=== PATIENT | male | born 1935 | race Caucasian/White ===

== ENCOUNTER 2016-10-13 12:18 | Observation (INO) | payer MEDICARE ==
--- NOTE | 2016-10-13 12:42 | ED ---
General Adult HPI - General Stated complaint: syncope Time Seen by Provider: 10/13/16 12:20 Source: RN notes reviewed - History of Present Illness Initial comments: This is an 81-year-old male presents emergency Department with a past medical history significant for bypass surgery and hypertension. Patient was at [employer] today and he stated that he felt a little dizzy and then passed out twice states he was passed out for about 5 minutes. Patient states once he awoke he had no symptoms. Patient states he felt dizzy at home before [employer] this morning but it only last for a few seconds. Patient states he ate a good breakfast this morning. Patient denies any chest pain or palpitations. Patient denies any difficult breathing shortness breath per patient denies headache patient denies numbness weakness. Patient denies abdominal pain patient denies any nausea vomiting or diarrhea. states she has been sick with diarrhea and vomiting a day or 2 ago and she is just getting over now. - Related Data Home Medications Medication Instructions Recorded Confirmed Aspirin EC [Ecotrin] 81 mg PO DAILY 05/16/16 10/13/16 Atorvastatin [Lipitor] 40 mg PO HS 05/16/16 10/13/16 Carvedilol [Coreg] 3.125 mg PO BID 05/16/16 10/13/16 Isosorbide Mononitrate ER [Imdur] 15 mg PO DAILY 05/16/16 10/13/16 Previous Rx's Medication Instructions Recorded Clopidogrel [Plavix] 75 mg PO DAILY #30 tab 05/28/14 Losartan [Cozaar] 25 mg PO DAILY #90 tab 05/28/14 Nitroglycerin Sl Tabs [Nitrostat] 0.4 mg SUBLINGUAL Q5M PRN #100 tab 05/28/14 Allergies Allergy/AdvReac Type Severity Reaction Status Date / Time No Known Allergies Allergy Verified 10/13/16 13:22 Review of Systems ROS Statement: Those systems with pertinent positive or pertinent negative responses have been documented in the HPI. ROS Other: All systems not noted in ROS Statement are negative. Past Medical History Past Medical History: Coronary Artery Disease (CAD), Cancer, CVA/TIA, Dementia, Hyperlipidemia, Hypertension Additional Past Medical History / Comment(s): 2000 History of Any Multi-Drug Resistant Organisms: None Reported Past Surgical History: Coronary Bypass/CABG, Heart Catheterization With Stent, Hernia Repair Additional Past Surgical History / Comment(s): Open heart Quadrupal bypass Past Psychological History: No Psychological Hx Reported Smoking Status: Former smoker Past Alcohol Use History: None Reported Additional Past Alcohol Use History / Comment(s): Patient was a smoker of cigars for 10 years ago quit approximately 15 years ago. He drinks alcohol on a social basis. He denies any medical marijuana, marijuana, street drug use. Patient lives at home with his . 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 Past Drug Use History: None Reported - Past Family History Father Family Medical History: Congestive Heart Failure (CHF) ( at age 72), COPD, Coronary Artery Disease (CAD) Mother Family Medical History: Cancer (Colon cancer and at age 86.) Sister(s) Family Medical History: COPD, Liver Disease (History of alcoholism and at age 71.) General Exam - General Exam Comments Initial Comments: GENERAL: Patient is well-developed and well-nourished. Patient is nontoxic and well- hydrated and is in no acute distress. ENT: Neck is soft and supple. No significant lymphadenopathy is noted. Oropharynx is clear. Moist mucous membranes. Neck has full range of motion without eliciting any pain. EYES: Extraocular movements were intact and pupils were equal round and reactive to light. Eyelids were unremarkable. PULMONARY: Unlabored respirations. Good breath sounds bilaterally. No audible rales rhonchi or wheezing was noted. CARDIOVASCULAR: There is a regular rate and rhythm without any murmurs gallops or rubs. ABDOMEN: Soft and nontender with normal bowel sounds. No palpable organomegaly was noted. There is no palpable pulsatile mass. SKIN: Patient's face is somewhat pale as is his conjunctiva NEUROLOGIC: Patient is alert and oriented x3. Cranial nerves II through XII are grossly intact. Motor and sensory are also intact. Normal speech, volume and content. Symmetrical smile. t. MUSCULOSKELETAL: Normal extremities with adequate strength and full range of motion. No lower extremity swelling or edema. No calf tenderness. LYMPHATICS: No significant lymphadenopathy is noted PSYCHIATRIC: Normal psychiatric evaluation. Course Vital Signs 10/13/16 10/13/16 12:25 12:52 Temperature 97.8 F Pulse Rate 64 Pulse Rate [ 57 L Sitting] Pulse Rate [ 63 Standing] Pulse Rate [ 58 L Supine] Respiratory 18 Rate Blood Pressure 129/66 Blood Pressure 117/62 [Sitting] Blood Pressure 110/56 [Standing] Blood Pressure 110/60 [Supine] O2 Sat by Pulse 97 Oximetry Medical Decision Making - Medical Decision Making EKG shows sinus bradycardia 57 bpm. It was 342 QRS is 116 QT interval is 466 QTC is 453. Patient's EKG shows no ST segment elevation or depression or T wave abnormalities are noted Chest x-ray is normal. I went back in the room to discuss possibly going home with the patient he did not feel comfortable nor did the because he still feeling somewhat lightheaded in the hospital in bed. I spoke with Dr. Craven he agreed to admit the patient for admitting orders consult cardiology. - Lab Data Result diagrams: 10/13/16 13:00 10/13/16 13:00 Lab Results 10/13/16 10/13/16 10/13/16 Range/Units 13:00 13:00 13:00 WBC 9.7 (3.8-10.6) k/uL RBC 3.74 L (4.30-5.90) m/uL Hgb 11.9 L (13.0-17.5) gm/dL Hct 33.7 L (39.0-53.0) % MCV 90.2 (80.0-100.0) fL MCH 31.8 (25.0-35.0) pg MCHC 35.2 (31.0-37.0) g/dL RDW 13.3 (11.5-15.5) % Plt Count 172 (150-450) k/uL Neutrophils % 82 % Lymphocytes % 9 % Monocytes % 5 % Eosinophils % 2 % Basophils % 1 % Neutrophils # 8.0 H (1.3-7.7) k/uL Lymphocytes # 0.9 L (1.0-4.8) k/uL Monocytes # 0.5 (0-1.0) k/uL Eosinophils # 0.2 (0-0.7) k/uL Basophils # 0.1 (0-0.2) k/uL PT (9.0-12.0) sec INR (<1.1) APTT (22.0-30.0) sec Sodium 143 (137-145) mmol/L Potassium 4.2 (3.5-5.1) mmol/L Chloride 106 (98-107) mmol/L Carbon Dioxide 25 (22-30) mmol/L Anion Gap 12 mmol/L BUN 27 H (9-20) mg/dL Creatinine 1.33 H (0.66-1.25) mg/dL Est GFR (MDRD) Af Amer >60 (>60 ml/min/1.73 sqM) Est GFR (MDRD) Non-Af 52 (>60 ml/min/1.73 sqM) Glucose 91 (74-99) mg/dL Calcium 8.9 (8.4-10.2) mg/dL Magnesium 1.8 (1.6-2.3) mg/dL Total Bilirubin 1.0 (0.2-1.3) mg/dL AST 15 L (17-59) U/L ALT 27 (21-72) U/L Alkaline Phosphatase 62 (38-126) U/L Total Creatine Kinase 72 (55-170) U/L CK-MB (CK-2) 1.2 (0.0-2.4) ng/mL CK-MB (CK-2) Rel Index 1.7 Troponin I <0.012 (0.000-0.034) ng/mL Total Protein 6.7 (6.3-8.2) g/dL Albumin 3.5 (3.5-5.0) g/dL 10/13/16 Range/Units 13:00 WBC (3.8-10.6) k/uL RBC (4.30-5.90) m/uL Hgb (13.0-17.5) gm/dL Hct (39.0-53.0) % MCV (80.0-100.0) fL MCH (25.0-35.0) pg MCHC (31.0-37.0) g/dL RDW (11.5-15.5) % Plt Count (150-450) k/uL Neutrophils % % Lymphocytes % % Monocytes % % Eosinophils % % Basophils % % Neutrophils # (1.3-7.7) k/uL Lymphocytes # (1.0-4.8) k/uL Monocytes # (0-1.0) k/uL Eosinophils # (0-0.7) k/uL Basophils # (0-0.2) k/uL PT 10.3 (9.0-12.0) sec INR 1.0 (<1.1) APTT 19.6 L (22.0-30.0) sec Sodium (137-145) mmol/L Potassium (3.5-5.1) mmol/L Chloride (98-107) mmol/L Carbon Dioxide (22-30) mmol/L Anion Gap mmol/L BUN (9-20) mg/dL Creatinine (0.66-1.25) mg/dL Est GFR (MDRD) Af Amer (>60 ml/min/1.73 sqM) Est GFR (MDRD) Non-Af (>60 ml/min/1.73 sqM) Glucose (74-99) mg/dL Calcium (8.4-10.2) mg/dL Magnesium (1.6-2.3) mg/dL Total Bilirubin (0.2-1.3) mg/dL AST (17-59) U/L ALT (21-72) U/L Alkaline Phosphatase (38-126) U/L Total Creatine Kinase (55-170) U/L CK-MB (CK-2) (0.0-2.4) ng/mL CK-MB (CK-2) Rel Index Troponin I (0.000-0.034) ng/mL Total Protein (6.3-8.2) g/dL Albumin (3.5-5.0) g/dL Disposition Clinical Impression: Syncope and collapse Disposition: ADMITTED IP TO THIS [facility] Time of Disposition: 15:44
[2016-10-13 14:08] LABS: Basophils # (A) 0.1 k/uL (0-0.2); Basophils % (A) 1 %; CH 31.4; Eosinophils # (A) 0.2 k/uL (0-0.7); Eosinophils % (A) 2 %; HCT 33.7 % (39.0-53.0); HDW 3.09; HGB 11.9 gm/dL (13.0-17.5); Luc # (Auto) 0.12; Luc % (Auto) 1; Lymphocytes # (A) 0.9 k/uL (1.0-4.8); Lymphocytes % (A) 9 %; MCH 31.8 pg (25.0-35.0); MCHC 35.2 g/dL (31.0-37.0); MCV 90.2 fL (80.0-100.0); Mean Platelet Volume 7.2; Monocytes # (A) 0.5 k/uL (0-1.0); Monocytes % (A) 5 %; Neutrophils % (A) 82 %; RBC 3.74 m/uL (4.30-5.90); RDW 13.3 % (11.5-15.5); WBC 9.7 k/uL (3.8-10.6); WBC (Perox) 10.57
[2016-10-13 14:18] LABS: ALT 27 U/L (21-72); AST 15 U/L (17-59); Alkaline Phosphatase 62 U/L (38-126); Anion Gap 12 mmol/L; Blood Urea Nitrogen 27 mg/dL (9-20); Calcium 8.9 mg/dL (8.4-10.2); Carbon Dioxide 25 mmol/L (22-30); Chloride 106 mmol/L (98-107); Glucose 91 mg/dL (74-99); Magnesium 1.8 mg/dL (1.6-2.3); Non-African American GFR(MDRD) 52 (>60 ml/min/1.73 sqM); Potassium 4.2 mmol/L (3.5-5.1); Sodium 143 mmol/L (137-145); Total Protein 6.7 g/dL (6.3-8.2)
[2016-10-13 14:32] LABS: Creatine Kinase 72 U/L (55-170)
[2016-10-13 14:33] LABS: Prothrombin Time 10.3 sec (9.0-12.0)
[2016-10-13 14:36] LABS: Partial Thromboplastin Time 19.6 sec (22.0-30.0)
[2016-10-13 14:45] LABS: Creatine Kinase MB 1.2 ng/mL (0.0-2.4); Troponin I <0.012 ng/mL (0.000-0.034)
--- NOTE | 2016-10-13 15:32 | XR ---
EXAMINATION TYPE: XR chest 2V DATE OF EXAM: 10/13/2016 3:09 PM COMPARISON: 05/16/2016 HISTORY: Chest pain TECHNIQUE: Frontal and lateral views of the chest are obtained. FINDINGS: There is no heart failure nor confluent pneumonic infiltrate. There are no hilar masses. H eart size is normal. There are sternal wires. There are chest leads. There is no evidence of pleural effusion. There is spurring in the thoracic spine. IMPRESSION: No active cardiopulmonary disease. No change.
[2016-10-13] MEDS ORDERED: NITROGLYCERIN SL TABS 0.4 MG TAB SUBLINGUAL PRN (15:48)
--- NOTE | 2016-10-13 19:52 | CT ---
EXAMINATION TYPE: CT brain wo con DATE OF EXAM: 10/13/2016 7:39 PM COMPARISON: 05/06/2012 HISTORY: Syncopal episode. CT DLP: 1500.80 mGycm Automated exposure control for dose reduction was used. FINDINGS: There is cerebral cortical atrophy. There is hypodensity in the periventricular white matter. There i s no mass effect nor midline shift. There is no sign of intracranial hemorrhage. The calvarium is int act. IMPRESSION: Cerebral atrophy and chronic small vessel ischemia that has progressed compared to old exam. No acute abnormality.
[2016-10-13 20:47] LABS: Creatine Kinase 73 U/L (55-170)
[2016-10-13 20:58] LABS: Creatine Kinase MB 1.3 ng/mL (0.0-2.4); Troponin I <0.012 ng/mL (0.000-0.034)
[2016-10-13] MEDS: ATORVASTATIN 40 MG TAB PO SCH (21:57)
[2016-10-13] MEDS: CARVEDILOL 3.125 MG TAB PO SCH (21:57)
[2016-10-14 01:53] LABS: Creatine Kinase 71 U/L (55-170)
[2016-10-14 02:06] LABS: Creatine Kinase MB 1.1 ng/mL (0.0-2.4); Troponin I <0.012 ng/mL (0.000-0.034)
[2016-10-14 07:18] LABS: Cholesterol 104 mg/dL (<200); HDL Cholesterol 44 mg/dL (40-60); Triglycerides 47 mg/dL (<150)
[2016-10-14] MEDS ORDERED: ASPIRIN 325 MG TAB PO SCH (09:00)
[2016-10-14] MEDS ORDERED: REGADENOSON 0.4 MG/5 ML SYRINGE IV ONE (09:22)
[2016-10-14] MEDS ORDERED: AMINOPHYLLINE 500 MG/20 ML VIAL IV PRN (09:22)
[2016-10-14] MEDS: ASPIRIN 81 MG CHEW PO SCH (10:30)
[2016-10-14] MEDS: CARVEDILOL 3.125 MG TAB PO SCH ×2 (10:30→19:20)
[2016-10-14] MEDS: CLOPIDOGREL 75 MG TAB PO SCH (10:30)
[2016-10-14] MEDS: ISOSORBIDE MONONITRATE ER 15 MG TAB PO SCH (10:30)
[2016-10-14] MEDS: LOSARTAN 25 MG TAB PO SCH (10:30)
[2016-10-14] MEDS ORDERED: NITROGLYCERIN SL TABS 0.4 MG TAB SUBLINGUAL PRN (11:33)
--- NOTE | 2016-10-14 14:14 | US ---
EXAMINATION TYPE: US carotid duplex BILAT DATE OF EXAM: 10/14/2016 1:44 PM COMPARISON: NONE CLINICAL HISTORY: Syncope EXAM MEASUREMENTS: RIGHT: Peak Systolic Velocity (PSV) cm/sec ----- Right CCA: 79.2 ----- Right ICA: 107.4 ----- Right ECA: 57.9 ICA/CCA ratio: 1.4 RIGHT: End Diastole cm/sec ----- Right CCA: 17.4 ----- Right ICA: 31.6 ----- Right ECA: 6.0 LEFT: Peak Systolic Velocity (PSV) cm/sec ----- Left CCA: 60.1 ----- Left ICA: 73.9 ----- Left ECA: 62.0 ICA/CCA ratio: 1.2 LEFT: End Diastole cm/sec ----- Left CCA: 13.7 ----- Left ICA: 21.5 ----- Left ECA: 5.8 VERTEBRALS (direction of flow): Right Vertebral: Antegrade Left Vertebral: Antegrade Mild atheromatous plaque present at the carotid bifurcations. Artis scale, color Doppler, spectral Dop pler imaging performed. IMPRESSION: No hemodynamically significant stenosis of the proximal internal carotid arteries bilate rally by Doppler criteria, and indirect measurement of carotid stenosis Criteria for Assigning % of Stenosis / Diameter reduction (Estimation based on the indirect measurements of the internal carotid artery velocities (ICA PSV). 1. Normal (no stenosis)=ICA PSV < 125 cm/s: ratio < 2.0: ICA EDV<40 cm/s. 2. Less than 50% stenosis=ICA PSV < 125 cm/s: ratio < 2.0: ICA EDV<40 cm/s. 3. 50 to 69% stenosis=ICA PSV of 125 to 230 cm/s: ration 2.0 ? 4.0: ICA EDV 40-100 cm/s. 4. Greater than 70% stenosis to near occlusion= ICA PSV > 230 cm/s: ratio > 4.0: ICA EDV > 100 cm/s. 5. Near occlusion= ICA PSV velocities may be low or undetectable: variable ratio and ICA EDV. 6. Total occlusion=unable to detect flow.
--- NOTE | 2016-10-14 18:46 | CONS ---
DATE OF CONSULTATION: Mr. Gross is an 81-year-old male with known history of coronary artery disease, who presented with syncopal episode. His cardiac history is remarkable for the fact that he underwent coronary bypass grafting in 1999. At that time he received LISA to the LAD, saphenous vein graft to the intermediate, saphenous vein graft to diagonal branch and saphenous vein graft to the circumflex. In May 2014, he presented with non-ST segment elevation myocardial infarction and had subtotal occlusion and saphenous vein graft circumflex and underwent stenting of that vessel done by Dr. Hawa Pan. Yesterday he was at [employer] sitting when he started yarning and subsequently turned to his and started to pass out. He had a very brief syncopal episode, but no associated chest discomfort. No palpitations. No tonic-clonic activity. During the episode, he had some release of his bladder. Patient had another syncopal episode in May of 2016. He is reasonably active physically. He has no exertional chest pain. He has no prior history of malignant arrhythmia. No palpitation. No history of PND, orthopnea, or peripheral edema. His coronary risk factors are positive for hypertension and hyperlipidemia. He is nonsmoker, nondiabetic. His medications include: 1. Losartan 25 mg daily. 2. Isosorbide mononitrate 15 mg daily. 3. Plavix 75 mg daily. 4. Coreg 3.125 mg twice a day. 5. Lipitor 40 mg daily. 6. Aspirin once a day. REVIEW OF SYSTEMS: RESPIRATORY SYSTEM: He has no recent cough. No fever. No documented history of obstructive disease. GI system: No recent GI bleeding. No peptic ulcer disease. system: No dysuria or hematuria. Nervous system: No stroke or seizure. PHYSICAL EXAMINATION: He is an 81-year-old male, alert, oriented, in no apparent distress. Blood pressure 136/70 with a heart in the 60s. HEAD: Normocephalic. EYES: Sclerae anicteric. NECK: Good upstroke. No bruit. No jugular venous distention. LUNGS: Clear to auscultation. HEART: Regular rate rhythm. S1, S2, no S3, with systolic murmur heard at the base. No diastolic murmur. No rub. ABDOMEN: Soft, nontender, positive bowel sounds. No organomegaly. EXTREMITIES: No edema. Intact distal pulses. Lab data revealed BUN and creatinine 27 and 1.33, troponin less than 0.012. Cholesterol 104, LDL of 51. Hemoglobin of 11.9. Potassium 4.2. EKG revealed a sinus mechanism, rate of 57, left axis deviation, first degree AV block with no evolution. Subsequent EKG there is an EKG in the chart that appears to be from the EMS with a front desk person it. That EKG shows sinus mechanism with frequent PVCs and left bundle branch block and I am not quite sure that this EKG belongs to this patient because no further episode of IVCD was noted on the monitor since admission. IMPRESSION: 1. Syncopal episode of unclear etiology. No evidence to suggest ischemia. The possibility of bradycardia cannot be totally excluded. The patient had a first-degree block and left axis deviation. 2. History of coronary artery disease. 3. History of cardiomyopathy in the past. 4. Hypertension. 5. Hyperlipidemia. RECOMMENDATIONS: From the cardiac standpoint, I will obtain an echocardiogram and a myocardial perfusion imaging. The patient may require a neurological evaluation. The patient has been yawning before his event and there is some cases of seizure activity that is atypical that is proceeded by yawning, although there is no documented history of seizure in this patient. If his work-up is negative by stress test and echo than he may benefit from a prolonged monitoring to rule out episode of advanced bradycardia including possible loop recorder to see if he is a candidate for a permanent pacemaker implantation. Thank you for this consult. We will follow with you.
[2016-10-14] MEDS: HEPARIN SODIUM,PORCINE 5,000 UNIT/ML 1 ML VIAL SQ SCH (20:12)
[2016-10-14] MEDS: ATORVASTATIN 40 MG TAB PO SCH (20:12)
--- NOTE | 2016-10-14 21:06 | HP ---
DATE OF ADMISSION: [place] Payton [facility] dictating for Dr. Alireza Craven. PRINCIPAL DIAGNOSIS: Recurrent syncope. HISTORY OF PRESENT ILLNESS: This is an 81-year-old male patient presented to the emergency department who passed out at [facility] yesterday. The patient states that he was sitting during this episode and he lost consciousness for approximately 5 minutes. He did not lose small amount of urine at that time, but did not lose bowel function. He was not observed to have any seizure activity at that time. The patient states he has had episodes of syncope in the past. The last episode was in May 2016. He states that this happened at least 2 or 3 times years ago. The episode in May happened when he was sitting as well. He attributed to heat exhaustion as he was barbecuing outside in the heat. He did not lose bowel or bladder at that time. He follows with Dr. Hawa Pan in the office and has had a recent carotid ultrasound in the past year. Cardiology and Neurology have both been consulted for their evaluation and further recommendations. He is noted to have an EKG with a sinus bradycardia with a first degree block. Heart rates in the 50s. Orthostatic vital signs are negative. REVIEW OF SYSTEMS: Patient denies seizures. States syncope as described above with loss of consciousness. Denies diplopia or visual disturbances. Denies dysphagia. Denies shortness breath, cough or wheeze. Denies chest pain, angina, palpitations. Denies abdominal pain, nausea, vomiting, constipation, or diarrhea. Denies dysuria or urinary retention. Denies fever, chills. PAST MEDICAL HISTORY: CAD, TIA, dementia, hyperlipidemia, hypertension, previous syncopal episodes. PAST SURGICAL HISTORY: CABG, heart catheterization with PCI and stent, hernia repair. FAMILY HISTORY: Father is from congestive heart failure at 72. He also had COPD and coronary artery disease. Mother at age 86 from colon cancer. A sister with COPD, history of alcoholism and liver disease; at age 71. SOCIAL HISTORY: The patient is a lifelong nonsmoker. The patient was a previous smoker. He quit approximately 17 years ago. Denies EtOH or illicit drug use. ALLERGIES: No known drug allergies. HOME MEDICATIONS: 1. Nitrostat as needed. 2. Cozaar 25 mg daily. 3. Imdur ER 15 mg daily. 4. Plavix 75 mg daily. 5. Chloride 3.125 mg p.o. b.i.d. 6. Lipitor 40 mg at bedtime. 7. Ecotrin 81 mg daily. PHYSICAL EXAMINATION: VITAL SIGNS: Temperature is 98.4, heart rate 65, respiratory rate 16, blood pressure 124/76, pulse oximetry is 95% on room air. GENERAL: The patient is seen sitting up in bed in no acute distress. HEENT: Head normocephalic, atraumatic. Pupils equal. Conjunctivae clear. NECK: Supple, no JVD. LUNGS: Clear to auscultation. No wheeze, rales, or rhonchi appreciated. HEART: Regular rate and rhythm without murmur. ABDOMEN: Soft, nontender, nondistended. Bowel sounds positive. EXTREMITIES: No lower extremity was noted. NEURO: Patient is alert and oriented x3. LABS: Sodium is 143, potassium 4.2, BUN is 27, creatinine is 1.3. WBC count is 9.7, hemoglobin is 11.9, platelet count is 172. Serial troponins are negative. Urinalysis is negative. DIAGNOSTIC TESTS: CAT scan of the brain shows central atrophy and chronic small vessel ischemia. No acute abnormalities. Chest x-ray showed no active cardiopulmonary disease. EKG showed a normal sinus bradycardia with a first degree AV block. IMPRESSION: 1. Syncope with loss of consciousness. Patient was admitted to the observation unit. He currently remains in a normal sinus mechanism with some bradycardia but no pauses. Continue with Coreg 3.125 p.o. b.i.d. Cardiology has been consulted and is recommending Lexiscan in the morning. 2. Hypertension. Continue with Cozaar and Coreg. 3. Hyperlipidemia. Continue Lipitor. 4. Coronary artery disease, status post coronary artery bypass graft and percutaneous coronary intervention with stenting as well as previous myocardial infarction. Continue with Cozaar, Imdur and Plavix. 5. Transient ischemic attack. Continue with Plavix and aspirin. Neurology has been consulted to rule out neurological source of syncope. EEG and carotid Doppler requested. 6. Gastrointestinal prophylaxis with Protonix. 7. Deep venous thrombosis prophylaxis with subcutaneous heparin.
--- NOTE | 2016-10-14 21:42 | P.CNNES ---
History of Present Illness Consult date: 10/14/16 Requesting physician: Alireza Craven Reason for Consult: syncope Chief complaint: syncope History of Present Illness: Patient is an 81-year-old male being consulted by neurology for syncope. He presented to the ED with a past medical history significant for bypass surgery and hypertension. Patient was reported to be at anabaptism when he stated that he felt dizzy and then passed out twice, loss of consciousness was reported to be approximately 5 minutes. Upon waking, patient had no symptoms. Patient states he felt dizzy at home before anabaptism but it only lasted a few seconds. Patient denied any chest pain or palpitations. Patient denied any difficulty breathing, shortness of breath, headache, numbness or weakness. Patient also denied any abdominal pain, nausea, vomiting or diarrhea. Spouse reported that he had been sick with diarrhea and vomiting a day or 2 prior to admission. On contacting the patient, the patient was seated in bed with family at the bedside. When discussing these incidents further, the patient has had 2 prior incidence before the incident requiring admission. All incidence have been within the last 6 months. Incident #1 was consistent with the incident as described at admission. Incident #2 has a slightly different characterization. He was noted by family to be experiencing activity similar to an absence seizure, his right upper extremity then began to tremor, the patient collapsed but his eyes were open, the patient was unarousable with verbal stimuli, orientation then returned but the patient was fatigued and experienced mental fogginess. This incident was reported to have occurred over approximately 2-5 minutes. Spouse also reports that the patient has been evaluated by sleep medicine and is supposed to be using a CPAP or BiPAP machine at home. He does not tolerate the mask and he is not using it as directed/noncompliant. Patient denies any prior seizure history, trauma to the head or neck, patient reports prior CVA/TIA. Patient is AOX3, in not acute distress at this time. He has had no further incidents since being hospitalized. Review of Systems All systems not noted above are considered negative. Past Medical History Past Medical History: Coronary Artery Disease (CAD), Cancer, CVA/TIA, Hyperlipidemia, Hypertension, Myocardial Infarction (MO), Osteoarthritis (OA), Prostate Disorder Additional Past Medical History / Comment(s): 1999 Last Myocardial Infarction Date:: 1998 History of Any Multi-Drug Resistant Organisms: None Reported Past Surgical History: Coronary Bypass/CABG, Heart Catheterization With Stent, Hernia Repair Additional Past Surgical History / Comment(s): Open heart Quadrupal bypass (1998 ) Past Anesthesia/Blood Transfusion Reactions: No Reported Reaction Date of Last Stent Placement:: 2015 Past Psychological History: No Psychological Hx Reported Smoking Status: Former smoker Past Alcohol Use History: None Reported Additional Past Alcohol Use History / Comment(s): Patient was a smoker of cigars for 10 years ago quit approximately 15 years ago. He drinks alcohol on a social basis. He denies any medical marijuana, marijuana, street drug use. Patient lives at home with his . 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 Past Drug Use History: None Reported - Past Family History Father Family Medical History: Congestive Heart Failure (CHF), COPD, Coronary Artery Disease (CAD) Mother Family Medical History: Cancer Sister(s) Family Medical History: COPD, Liver Disease Medications and Allergies Home Medications Medication Instructions Recorded Confirmed Type Aspirin EC [Ecotrin] 81 mg PO DAILY 05/16/16 10/13/16 History Atorvastatin [Lipitor] 40 mg PO HS 05/16/16 10/13/16 History Carvedilol [Coreg] 3.125 mg PO BID 05/16/16 10/13/16 History Isosorbide Mononitrate ER [Imdur] 15 mg PO DAILY 05/16/16 10/13/16 History Allergies Allergy/AdvReac Type Severity Reaction Status Date / Time No Known Allergies Allergy Verified 10/13/16 13:22 Physical Examination - Vital Signs Vital Signs: Vital Signs Temp Pulse Resp BP BP BP Pulse Ox 10/14/16 20:00 97.8 F 72 16 130/67 97 10/14/16 14:50 98.2 F 66 16 113/64 97 10/14/16 11:30 98.0 F 67 20 140/83 95 10/14/16 07:20 98.4 F 65 16 124/76 95 10/14/16 04:00 97.4 F L 62 16 158/64 94 L 10/14/16 03:58 58 L 16 10/14/16 00:00 58 L 16 136/78 92 L 10/13/16 23:48 70 16 10/13/16 23:42 97 Intake and Output 10/14/16 10/14/16 10/14/16 06:59 14:59 22:59 Intake Total 222 618 Balance 222 618 Intake: Oral 222 618 Other: Voiding Method Toilet Toilet # Voids 2 - Constitutional General appearance: cooperative, no disheveled, no acute distress - EENT normocephalic atraumatic EENT: PERRL, hearing intact, vision intact - Respiratory no increased work of breathing - Cardiovascular regular rate and rhythm - Gastrointestinal nontender, nondistended - Neurologic alert and oriented 3 cranial nerves II through XII intact, motor and sensory are also intact speech is normal. Patient has no unilateral lateralizing weakness. No tremors observed on physical exam. Reflexes are equal and symmetrical bilaterally. Strengths are equal bilaterally 4-5/5. Sensation is intact in all 4 extremities. - Psychiatric Psychiatric: mood/affect appropriate, cooperative Results - Laboratory Findings CBC and BMP: 10/13/16 13:00 10/13/16 13:00 - Diagnostic Findings Comments: Patient's CT of the brain noted no acute process, chronic small vessel ischemia noted, cerebral atrophy. EEG is still pending Assessment and Plan (1) Syncope and collapse Status: Acute (2) H/O: CVA (cerebrovascular accident) Status: Acute (3) Hx of CABG Status: Acute (4) Seizure Narrative/Plan: Patient does have a rather significant cardiac-related history. CT of the brain was negative for any new acute process. Ct noted chronic small vessel ischemia as well as cerebral atrophy. Carotid Doppler noted no hemodynamically significant stenosis. Patient does have a normal sinus alicia rhythm at this time. Patient's EEG is still pending. Based on results of testing that has been received and reviewed, the patient's current status does appear more probably related to a cardiac related disorder. However, the patient's second occurrence is more consistent with an absence seizure. Patient has not had any new "seizure-like" activity since the one occurrence within the last 6 months. At this time I will not start him on seizure medication. Maintain orthostatic checks every shift If the patient's EEG is normal, the patient can be cleared for discharge from a neurological standpoint & follow-up outpatient. If discharge occurs, please have the patient contact our office within 2 days of discharge for a follow-up visit within 10-14 days in our office. If the patient's EEG is abnormal, further recommendations to follow. I discussed the patient's pertinent medical information with Dr. Saleem. He agrees with the plan of care as implemented. Status: Acute
[2016-10-15] MEDS ORDERED: PANTOPRAZOLE 40 MG TABLET PO SCH (07:30)
[2016-10-15 07:51] LABS: Basophils # (A) 0.1 k/uL (0-0.2); Basophils % (A) 1 %; CH 31.5; Eosinophils # (A) 0.3 k/uL (0-0.7); Eosinophils % (A) 7 %; HDW 3.19; HGB 11.8 gm/dL (13.0-17.5); Luc # (Auto) 0.08; Luc % (Auto) 2; Lymphocytes # (A) 1.1 k/uL (1.0-4.8); Lymphocytes % (A) 22 %; MCH 30.4 pg (25.0-35.0); MCHC 33.6 g/dL (31.0-37.0); MCV 90.5 fL (80.0-100.0); Mean Platelet Volume 7.9; Monocytes # (A) 0.4 k/uL (0-1.0); Monocytes % (A) 7 %; Neutrophils # (A) 3.2 k/uL (1.3-7.7); Neutrophils % (A) 61 %; RBC 3.87 m/uL (4.30-5.90); RDW 13.5 % (11.5-15.5); WBC 5.1 k/uL (3.8-10.6); WBC (Perox) 5.39
[2016-10-15 07:54] VITALS: RESP 18
[2016-10-15 08:20] LABS: Anion Gap 14 mmol/L; Blood Urea Nitrogen 27 mg/dL (9-20); Calcium 9.3 mg/dL (8.4-10.2); Carbon Dioxide 24 mmol/L (22-30); Chloride 106 mmol/L (98-107); Glucose 99 mg/dL (74-99); Non-African American GFR(MDRD) 51 (>60 ml/min/1.73 sqM); Potassium 4.3 mmol/L (3.5-5.1); Sodium 144 mmol/L (137-145)
[2016-10-15] MEDS ORDERED: REGADENOSON 0.4 MG/5 ML SYRINGE IV ONE (09:00)
--- NOTE | 2016-10-15 10:46 | ECHOF ---
Referral Reason:cad MEASUREMENTS -------- HEIGHT: 175.3 cm WEIGHT: 78.9 kg BP: 108/61 RVIDd: 2.8 cm (< 3.3) IVSd: 1.3 cm (0.6 - 1.1) LVIDd: 3.8 cm (3.9 - 5.3) LVPWd: 1.5 cm (0.6 - 1.1) IVSs: 1.4 cm LVIDs: 3.5 cm LVPWs: 1.1 cm LA Diam: 4.0 cm (2.7 - 3.8) LAESV Index (A-L): 39.23 ml/m Ao Diam: 4.2 cm (2.0 - 3.7) AV Cusp: 2.1 cm (1.5 - 2.6) LA Diam: 3.8 cm (2.7 - 3.8) MV EXCURSION: 20.130 mm (> 18.000) MV EF SLOPE: 27 mm/s (70 - 150) EPSS: 0.6 cm MV E Ever: 0.37 m/s MV DecT: 200 ms MV A Ever: 0.68 m/s MV E/A Ratio: 0.54 AR PHT: 600 ms RAP: 5.00 mmHg RVSP: 32.74 mmHg FINDINGS -------- Sinus rhythm. This was a technically adequate study. There is mild concentric left ventricular hypertrophy. Overall left ventricular systolic function is low-normal with, an EF between 50 - 55 %. The right ventricle is normal in size. LA is severely dilated >40 ml/m2 The right atrial size is normal. There is mild aortic valve sclerosis. There is mild aortic regurgitation. Mild mitral annular calcification present. Mild mitral regurgitation is present. Mild tricuspid regurgitation present. There is no evidence of pulmonary hypertension. The right ventricular systolic pressure, as measured by Doppler, is 32.74mmHg. There is no pulmonic regurgitation present. The aortic root size is normal. There is no pericardial effusion. CONCLUSIONS -------- 1. There is mild concentric left ventricular hypertrophy. 2. There is no pulmonic regurgitation present. 3. The aortic root size is normal. 4. There is no pericardial effusion. 5. Overall left ventricular systolic function is low-normal with, an EF between 50 - 55 %. 6. There is mild aortic valve sclerosis. 7. There is mild aortic regurgitation. 8. Mild mitral annular calcification present. 9. Mild mitral regurgitation is present. 10. Mild tricuspid regurgitation present. 11. There is no evidence of pulmonary hypertension. 12. The right ventricular systolic pressure, as measured by Doppler, is 32.74mmHg. ROOM ATTENDANT: Mari Ty RDCS
--- NOTE | 2016-10-15 11:06 | NM ---
EXAMINATION TYPE: NM stress lexiscan cardiolite DATE OF EXAM: 10/15/2016 10:55 AM COMPARISON: 05/05/2012 HISTORY: Chest pain TECHNIQUE: After the intravenous administration of 11 mCi Tc 99m Sestamibi - Cardiolite resting SPEC T images acquired 65 minutes post injection. The patient received 0.4mg Lexiscan, 27.4 mCi Tc 99m Sestamibi - Stress images obtained [address] injection FINDINGS: Review of stress and rest SPECT images demonstrates fixed defect involving the inferior wall of the m yocardium. Fixed defect involving the lateral wall. Corresponding wall motion activity is reduced. Ejection fraction 48%. IMPRESSION: No scintigraphic evidence for reversible ischemia. Fixed defects suggest previous myocardial infarcti on.
[2016-10-15] MEDS: CLOPIDOGREL 75 MG TAB PO SCH (11:11)
[2016-10-15] MEDS: ASPIRIN 81 MG CHEW PO SCH (11:11)
[2016-10-15] MEDS: CARVEDILOL 3.125 MG TAB PO SCH (11:11)
[2016-10-15] MEDS: ISOSORBIDE MONONITRATE ER 15 MG TAB PO SCH (11:11)
[2016-10-15] MEDS: HEPARIN SODIUM,PORCINE 5,000 UNIT/ML 1 ML VIAL SQ SCH (11:11)
[2016-10-15] MEDS: LOSARTAN 25 MG TAB PO SCH (11:11)
[2016-10-15 11:49] VITALS: BP 141/77; PULSE 63; TEMP 97.6
--- NOTE | 2016-10-15 14:06 | EST ---
DATE OF SERVICE: 10/13/2016 AGE: 81Y SEX: M HT: 5 foot 9-1/2 WT: 174 lbs. Protocol Leighton: Other: Stage: Dur. of Exercise: *Heart Rate Blood Pressure *Rest: 61 Rest: 103/89 * *Max. Achieved: 80 Maximum BP: 124/83 85% PMHR: 118 100% PMHR: 139 *METS: INDICATIONS: Patient admitted to the hospital with syncope. Patient is sent here to rule out underlying ischemic heart disease. No history of chest pain. History of hypertension, hypercholesterolemia and history of smoking, quit smoking in 1970s. MEDICATIONS: Resting ECG shows sinus rhythm, rate of 61 beats per minute, MT interval of 0.2, QRS normal, normal ST-T waves. Utilizing a standard Lexiscan protocol, Lexiscan was given IV push followed by serial EKGs without any chest pain or pressure or ST segment deviations indicative of ischemia in any of the monitoring 12 leads. IMPRESSION: 1. Baseline rhythm is sinus with normal MT, normal QRS and normal ST-T waves. 2. Negative Lexiscan Cardiolite study. 3. Nuclear scintigrams to follow from Radiology Department.
--- NOTE | 2016-10-15 17:04 | P.DS ---
Providers Date of admission: 10/13/16 15:48 Expected date of discharge: 10/15/16 Attending physician: Alireza Craven Consults: 10/13/16 19:04 Consult Physician Routine Consulting Provider: Kendra Saleem Consult Reason/Comments: syncope Do you want consulting provider notified?: Already Contacted Primary care physician: [facility] Course: This is a 81-year-old male. He is a patient of Dr. Lopez's. He has a past medical history of AK and coronary artery disease status post 4 vessel CABG done in [place] in 1999 with LISA to LAD, saphenous vein graft to intermediate, saphenous vein graft to diagonal branch and saphenous vein graft to the circumflex, non-ST elevated myocardial infarction in May 2014 status post stenting of the saphenous vein graft circumflex, hypertension, hypertensive vascular disease, hyperlipidemia with history of prostate cancer treated with radiation. He completed radiation treatment in April 2012. History of CVA with no residuals, short-term memory deficit and possible dementia. Patient regularly follows with his tele rn, Dr. Almonte. Patient presented to [facility] emergency center as he passed out at [facility]ast[employer]. He was sitting at the time and lost consciousness for approximately 5 minutes he did lose bladder function but not bowel function. There was no seizure activity at the time. EKG was a sinus bradycardia with a first-degree block. Orthostatic vital signs were negative. Patient was placed in the observation unit and consult requested with cardiology and neurology. Patient was seen by Dr. Lea. Echocardiogram reveals mild concentric left hypertrophy, EF 50-55%, mild aortic regurgitation, mild mitral regurgitation, mild tricuspid regurgitation. No evidence of pulmonary hypertension. Patient underwent Lexiscan Cardiolite stress test which was negative. Patient was seen by Dr. Saleem. EEG report was pending. CAT scan of the brain was negative for acute process. Patient was discharged home today in stable condition. Discharge diagnoses: 1. Syncope 2. Hypertension 3. Hyperlipidemia 4. History of coronary artery disease status post coronary artery bypass graft and percutaneous coronary intervention with stenting with previous non-ST elevated myocardial infarction 5. TIA Discharge plan: Return home Impression and plan of care have been directed as dictated by the signing physician. Gloria Oneill nurse practitioner acting as scribe for signing physician. Patient Condition at Discharge: Good Plan - Discharge Summary Discharge Medication List Clopidogrel [Plavix] 75 mg PO DAILY #30 tab 05/28/14 [Rx] Losartan [Cozaar] 25 mg PO DAILY #90 tab 05/28/14 [Rx] Nitroglycerin Sl Tabs [Nitrostat] 0.4 mg SUBLINGUAL Q5M PRN #100 tab 05/28/14 [ Rx] Aspirin EC [Ecotrin] 81 mg PO DAILY 05/16/16 [History] Atorvastatin [Lipitor] 40 mg PO HS 05/16/16 [History] Carvedilol [Coreg] 3.125 mg PO BID 05/16/16 [History] Isosorbide Mononitrate ER [Imdur] 15 mg PO DAILY 05/16/16 [History] Follow up Appointment(s)/Referral(s): Roberto Lopez MD [Primary Care Provider] - 10/22/16 1:30 pm Kendra Saleem MD [STAFF PHYSICIAN] - 1 Week (Office will call with appt.) Discharge Disposition: HOME SELF-CARE
--- NOTE | 2016-10-19 14:42 | EEG ---
DATE OF SERVICE: 10/15/2016 INDICATIONS FOR EXAMINATION: Syncope. AGE: 81Y DESCRIPTION OF THE PROCEDURE: This EEG was performed using a 21-channel digital electroencephalograph, following the international 10 to 20 system. DESCRIPTION OF THE RECORDING: From the beginning of the tracing, and with the patient's eyes closed, the background rhythm was mostly consisting of 10 Hz alpha frequency in the posterior occipital leads. No obvious asymmetry is seen. Occasional movement artifacts and muscle artifacts are seen. Photic stimulation was performed with a minimal driving response seen. No pathological waves were elicited. Hyperventilation was not performed. The patient remains awake throughout the tracing. No epileptiform discharges were seen. INTERPRETATION: This awake EEG can be considered within normal limits. There was no asymmetry seen. No epileptiform discharges were noticed. The absence of epileptiform discharges does not rule out the diagnosis of epilepsy, therefore clinical correlation is recommended.
== END 2016-10-15 13:30 | disposition home or self-care (01) ==
LOC: EC 12:18 → 3OBS 15:48
PROVIDERS: ADMIT Internal Medicine; ATTEND Internal Medicine
DX: R55 Syncope and collapse (principal); I10 Essential (primary) hypertension; E78.5 Hyperlipidemia, unspecified; I25.10 Atherosclerotic heart disease of native coronary artery without angina pectoris; I42.9 Cardiomyopathy, unspecified; I44.0 Atrioventricular block, first degree; N42.9 Disorder of prostate, unspecified; M19.90 Unspecified osteoarthritis, unspecified site; I44.7 Left bundle-branch block, unspecified; R00.1 Bradycardia, unspecified; I25.2 Old myocardial infarction; Z91.14 Patient's other noncompliance with medication regimen; Z86.73 Personal history of transient ischemic attack (TIA), and cerebral infarction without residual deficits; Z87.891 Personal history of nicotine dependence; Z95.1 Presence of aortocoronary bypass graft; Z95.5 Presence of coronary angioplasty implant and graft; Z79.82 Long term (current) use of aspirin; Z79.899 Other long term (current) drug therapy; Z79.02 Long term (current) use of antithrombotics/antiplatelets; Z82.49 Family history of ischemic heart disease and other diseases of the circulatory system; Z80.0 Family history of malignant neoplasm of digestive organs; Z82.5 Family history of asthma and other chronic lower respiratory diseases
CPT/HCPCS: 99285; 36415; 95819; 93005; 93017; 93306; 80061; 80053; 80048; 84443; 82550 ×2; 82553 ×2; 83735; 84484 ×2; 85025 ×2; 85610; 85730; 71020; 93880; 70450; 78452; G0378 ×3; A9500; J1644 ×2; J2785

== ENCOUNTER → 2019-03-03 | Outpatient (CLI) | payer MEDICARE ==
--- NOTE | 2019-03-03 12:09 | CT ---
EXAMINATION TYPE: CT abdomen pelvis w con DATE OF EXAM: 03/03/2019 COMPARISON: None HISTORY: Prostate cancer CT DLP: 793.90 mGycm Automated exposure control for dose reduction was used. TECHNIQUE: Helical acquisition of images was performed from the lung bases through the pelvis. CONTRAST: Performed with Oral Contrast and with IV Contrast, patient injected with 50 ml mL of Isovue 370. FINDINGS: LUNG BASES: No significant abnormality is appreciated. The heart is enlarged and the visualized lower thorax. LIVER/GB: Solitary too small to accurately characterize left hepatic lobe hypoattenuating lesion is s een on image 15 measuring 5 mm. PANCREAS: Pancreatic parenchymal atrophy is noted. SPLEEN: No significant abnormality is seen. ADRENALS: No significant abnormality is seen. KIDNEYS: Exophytic left renal cyst measures 2.3 cm. Additional renal sinus cyst is noted on the left. Exophytic right 1.0 cm renal cyst is seen in addition to 2 small to accurately characterize renal le yvonne on series 3 image 36 and additional probable cyst in the upper pole. No hydronephrosis of either kidney. Nonobstructing right lower pole renal calculus on coronal image 53 measures 4 mm. FREE AIR: No free air is visualized. ADENOPATHY: No greater than 1 cm short axis lymph node in the abdomen or pelvis. REPRODUCTIVE ORGANS: Brachytherapy prostate seeds are noted in addition to prostate gland heterogenei ty and central zone calcifications. Seminal vesicles appear symmetric. URINARY BLADDER: Diffuse urinary bladder wall thickening may relate to incomplete distention. Tiny w rinkle remnant is incidentally noted. OSSEOUS STRUCTURES: There is a well-circumscribed sclerotic focus of the right lateral T8 vertebral body. Moderate multilevel degenerative changes of the spine are noted. There is multifocal calcificat ion of the ligamentum flavum in the thoracic spine. Punctate sclerotic focus is seen of the spinous p rocess of L2 and L3 measuring approximately 3 and 2 mm respectively. These are marked on sagittal ser ies 8 image 60. There is minimal sclerosis of the right iliac bone on image 54 measuring 7 mm. Sclero tic lesion in the right iliac bone measures 7 mm on series 3 image 66. There is generalized backgroun d osseous demineralization. Very mild symmetric sclerosis of posterior inferior acetabular columns ar e seen. Moderate multilevel degenerative changes of the thoracic spine are also noted. Sclerotic focu s of L5 is left paracentral and measures 3 mm. BOWEL: Colonic stricture versus more likely colonic spasm is seen of the sigmoid colon multifocally. Moderate degree fecal stasis. No dilated large or small bowel. Appendix is air-filled and within nor mal limits of size. Large duodenal diverticulum is incidentally noted. OTHER: Severe atherosclerosis of the tortuous abdominal aorta and its branches. Surgical clips are in cidentally seen in the left superficial inguinal region. IMPRESSION: 1. Heterogenous prostate gland with no local or retroperitoneal adenopathy in this patient with known prostate carcinoma. 2. Multifocal punctate sclerotic foci within the thoracic spine, lumbar spine, and pelvis could repre sent benign bone islands or small metastatic foci. No priors are available to compare for stability. These can be assessed on the order nuclear medicine bone scan. 3. No convincing evidence of visceral metastasis with only a solitary subcentimeter too small to accu rately characterize left hepatic lobe lesion.
--- NOTE | 2019-03-03 16:51 | NM ---
EXAMINATION TYPE: NM bone scan whole body DATE OF EXAM: 03/03/2019 COMPARISON: NONE HISTORY: Prostate cancer Delayed whole-body scanning was performed following the injection of 23.8 mCi Tc 99m MDP. Images acq uired 3 hours post injection. FINDINGS: There is intense abnormal uptake involving the anterior lower right rib. Abnormal uptake involving the shoulders and sternoclavicular joints likely post arthritic. Abnormal uptake involving the feet likely post arthritic. There is nonspecific uptake through the lower cervical, thoracic and lower lumbar spine. IMPRESSION: 1. Abnormal uptake involving the lower right rib cage most likely is on the basis of previous fractur e. Correlate with x-ray as clinically warranted. 2. Nonspecific uptake involving the cervical, thoracic and lumbar spine. X-ray correlation recommende d.
== END | disposition home or self-care (01) ==
LOC: RADNMMAIN 08:57
PROVIDERS: ATTEND Urology
DX: K76.9 Liver disease, unspecified (principal); R94.8 Abnormal results of function studies of other organs and systems; C61 Malignant neoplasm of prostate
CPT/HCPCS: 82565; 84520; 84403; 74177; 36415; 78306; A9503; Q9967 ×2

== ENCOUNTER 2019-05-23 10:49 | Inpatient (IN) | payer MEDICARE ==
[2019-05-23] MEDS ORDERED: SODIUM CHLORIDE 0.9% 1,000 ML IV STA (10:57)
--- NOTE | 2019-05-23 11:06 | ED ---
Weakness HPI - General Chief complaint: Weakness Stated complaint: Syncope Time Seen by Provider: 05/23/19 10:54 Source: patient, EMS, RN notes reviewed, old records reviewed Mode of arrival: EMS Limitations: no limitations - History of Present Illness Initial comments: This is a 4-year-old male the ER for evaluation, this patient presents today for evaluation of a near syncopal event significant near-syncopal occurring tersely. Patient does have significant heart history with CABG and stents. Patient has been feeling weak and sleeping a lot lately. No change in appetite no change in medications a little family does state that they do not think he is taking his medications correctly. Patient currently denies any chest pain no shortness of breath. MD Complaint: generalized weakness Location: generalized Severity: mild Consistency: now resolved Improves with: none Worsens with: movement Associated Symptoms: shortness of breath, syncope - Related Data Home Medications Medication Instructions Recorded Confirmed Aspirin EC [Ecotrin] 81 mg PO DAILY 05/16/16 10/13/16 Atorvastatin [Lipitor] 40 mg PO HS 05/16/16 10/13/16 Carvedilol [Coreg] 3.125 mg PO BID 05/16/16 10/13/16 Isosorbide Mononitrate ER [Imdur] 15 mg PO DAILY 05/16/16 10/13/16 Previous Rx's Medication Instructions Recorded Clopidogrel [Plavix] 75 mg PO DAILY #30 tab 05/28/14 Losartan [Cozaar] 25 mg PO DAILY #90 tab 05/28/14 Nitroglycerin Sl Tabs [Nitrostat] 0.4 mg SUBLINGUAL Q5M PRN #100 tab 05/28/14 Allergies Allergy/AdvReac Type Severity Reaction Status Date / Time No Known Allergies Allergy Verified 05/23/19 11:11 Review of Systems ROS Statement: Those systems with pertinent positive or pertinent negative responses have been documented in the HPI. ROS Other: All systems not noted in ROS Statement are negative. Past Medical History Past Medical History: Coronary Artery Disease (CAD), Cancer, CVA/TIA, Hyperlipidemia, Hypertension, Myocardial Infarction ([place]), Osteoarthritis (OA), Prostate Disorder Additional Past Medical History / Comment(s): 1999 Last Myocardial Infarction Date:: 1998 History of Any Multi-Drug Resistant Organisms: None Reported Past Surgical History: Coronary Bypass/CABG, Heart Catheterization With Stent, Hernia Repair Additional Past Surgical History / Comment(s): Open heart Quadrupal bypass (1998) Past Anesthesia/Blood Transfusion Reactions: No Reported Reaction Date of Last Stent Placement:: 2015 Past Psychological History: No Psychological Hx Reported Smoking Status: Former smoker Past Alcohol Use History: None Reported Past Drug Use History: None Reported - Past Family History Father Family Medical History: Congestive Heart Failure (CHF), COPD, Coronary Artery Disease (CAD) Mother Family Medical History: Cancer Sister(s) Family Medical History: COPD, Liver Disease General Exam Limitations: no limitations General appearance: alert, in no apparent distress Head exam: Present: atraumatic, normocephalic, normal inspection Eye exam: Present: normal appearance, PERRL, EOMI. Absent: scleral icterus, conjunctival injection, periorbital swelling ENT exam: Present: normal exam, mucous membranes moist Neck exam: Present: normal inspection. Absent: tenderness, meningismus, lymphadenopathy Respiratory exam: Present: normal lung sounds bilaterally. Absent: respiratory distress, wheezes, rales, rhonchi, stridor Cardiovascular Exam: Present: regular rate, tachycardia, irregular rhythm, normal heart sounds. Absent: systolic murmur, diastolic murmur, rubs, gallop, clicks GI/Abdominal exam: Present: soft, normal bowel sounds. Absent: distended, tenderness, guarding, rebound, rigid Extremities exam: Present: normal inspection, full ROM, normal capillary refill. Absent: tenderness, pedal edema, joint swelling, calf tenderness Back exam: Present: normal inspection Neurological exam: Present: alert, oriented X3, CN II-XII intact Psychiatric exam: Present: normal affect, normal mood Skin exam: Present: warm, dry, intact, normal color. Absent: rash Course Vital Signs 05/23/19 05/23/19 10:52 11:14 Temperature 97.5 F L Pulse Rate 59 L 65 Respiratory 13 18 Rate Blood Pressure 87/62 107/74 O2 Sat by Pulse 97 97 Oximetry - Reevaluation(s) Reevaluation #1: 05/23/19 12:33 Medical record is reviewed Reevaluation #2: 05/23/19 12:33 Patient fluctuating between A. fib with RVR in the 120s to atrial fibrillation with bradycardia in the 60s EKG Findings - EKG Comments: EKG Findings:: EKG shows a flutter 63 QRS 100, QTc 478 Medical Decision Making - Medical Decision Making 84 male the ER for evaluation, patient is near syncopal event in sh[place] today. New-onset atrial fibrillation noted here in the ER. Patient will admit for cardiology evaluation - Lab Data Result diagrams: 05/23/19 11:07 05/23/19 11:07 Lab Results 05/23/19 05/23/19 05/23/19 Range/Units 11:07 11:07 11:07 WBC 6.3 (3.8-10.6) k/uL RBC 4.04 L (4.30-5.90) m/uL Hgb 12.3 L (13.0-17.5) gm/dL Hct 36.9 L (39.0-53.0) % MCV 91.4 (80.0-100.0) fL MCH 30.6 (25.0-35.0) pg MCHC 33.5 (31.0-37.0) g/dL RDW 15.0 (11.5-15.5) % Plt Count 166 (150-450) k/uL Neutrophils % 73 % Lymphocytes % 14 % Monocytes % 6 % Eosinophils % 6 % Basophils % 1 % Neutrophils # 4.6 (1.3-7.7) k/uL Lymphocytes # 0.9 L (1.0-4.8) k/uL Monocytes # 0.4 (0-1.0) k/uL Eosinophils # 0.4 (0-0.7) k/uL Basophils # 0.1 (0-0.2) k/uL PT (9.0-12.0) sec INR (<1.2) APTT (22.0-30.0) sec Sodium 140 (137-145) mmol/L Potassium 4.7 (3.5-5.1) mmol/L Chloride 107 (98-107) mmol/L Carbon Dioxide 24 (22-30) mmol/L Anion Gap 9 mmol/L BUN 33 H (9-20) mg/dL Creatinine 1.70 H (0.66-1.25) mg/dL Est GFR (CKD-EPI)AfAm 42 (>60 ml/min/1.73 sqM) Est GFR (CKD-EPI)NonAf 36 (>60 ml/min/1.73 sqM) Glucose 109 H (74-99) mg/dL Plasma Lactic Acid Raymundo 1.3 (0.7-2.0) mmol/L Calcium 9.2 (8.4-10.2) mg/dL Phosphorus 3.7 (2.5-4.5) mg/dL Magnesium 2.0 (1.6-2.3) mg/dL Total Bilirubin 0.9 (0.2-1.3) mg/dL AST 22 (17-59) U/L ALT 12 L (21-72) U/L Alkaline Phosphatase 50 (38-126) U/L Troponin I (0.000-0.034) ng/mL NT-Pro-B Natriuret Pep pg/mL Total Protein 7.0 (6.3-8.2) g/dL Albumin 3.8 (3.5-5.0) g/dL 05/23/19 05/23/19 05/23/19 Range/Units 11:07 11:07 11:07 WBC (3.8-10.6) k/uL RBC (4.30-5.90) m/uL Hgb (13.0-17.5) gm/dL Hct (39.0-53.0) % MCV (80.0-100.0) fL MCH (25.0-35.0) pg MCHC (31.0-37.0) g/dL RDW (11.5-15.5) % Plt Count (150-450) k/uL Neutrophils % % Lymphocytes % % Monocytes % % Eosinophils % % Basophils % % Neutrophils # (1.3-7.7) k/uL Lymphocytes # (1.0-4.8) k/uL Monocytes # (0-1.0) k/uL Eosinophils # (0-0.7) k/uL Basophils # (0-0.2) k/uL PT 10.3 (9.0-12.0) sec INR 1.0 (<1.2) APTT 20.3 L (22.0-30.0) sec Sodium (137-145) mmol/L Potassium (3.5-5.1) mmol/L Chloride (98-107) mmol/L Carbon Dioxide (22-30) mmol/L Anion Gap mmol/L BUN (9-20) mg/dL Creatinine (0.66-1.25) mg/dL Est GFR (CKD-EPI)AfAm (>60 ml/min/1.73 sqM) Est GFR (CKD-EPI)NonAf (>60 ml/min/1.73 sqM) Glucose (74-99) mg/dL Plasma Lactic Acid Raymundo (0.7-2.0) mmol/L Calcium (8.4-10.2) mg/dL Phosphorus (2.5-4.5) mg/dL Magnesium (1.6-2.3) mg/dL Total Bilirubin (0.2-1.3) mg/dL AST (17-59) U/L ALT (21-72) U/L Alkaline Phosphatase (38-126) U/L Troponin I <0.012 (0.000-0.034) ng/mL NT-Pro-B Natriuret Pep 1460 pg/mL Total Protein (6.3-8.2) g/dL Albumin (3.5-5.0) g/dL Critical Care Time Critical Care Time: Yes Total Critical Care Time: 31 Disposition Clinical Impression: Atrial fibrillation with RVR, Bradycardia, Hx of CABG, Near syncope Disposition: ADMITTED IP TO THIS HOSP Condition: Fair Is patient prescribed a controlled substance at d/c from ED?: No Referrals: Roberto Lopez MD [Primary Care Provider] - 1-2 days
[2019-05-23 11:22] LABS: Basophils # (A) 0.1 k/uL (0-0.2); Basophils % (A) 1 %; Eosinophils # (A) 0.4 k/uL (0-0.7); Eosinophils % (A) 6 %; HCT 36.9 % (39.0-53.0); HGB 12.3 gm/dL (13.0-17.5); Lymphocytes # (A) 0.9 k/uL (1.0-4.8); Lymphocytes % (A) 14 %; MCH 30.6 pg (25.0-35.0); MCHC 33.5 g/dL (31.0-37.0); MCV 91.4 fL (80.0-100.0); Mean Platelet Volume 7.3; Monocytes # (A) 0.4 k/uL (0-1.0); Monocytes % (A) 6 %; Neutrophils # (A) 4.6 k/uL (1.3-7.7); Neutrophils % (A) 73 %; Platelet Count 166 k/uL (150-450); RBC 4.04 m/uL (4.30-5.90); WBC 6.3 k/uL (3.8-10.6)
[2019-05-23 11:31] LABS: Albumin 3.8 g/dL (3.5-5.0); Calcium 9.2 mg/dL (8.4-10.2); Total Bilirubin 0.9 mg/dL (0.2-1.3)
[2019-05-23 11:36] LABS: Phosphorus 3.7 mg/dL (2.5-4.5); Potassium 4.7 mmol/L (3.5-5.1)
[2019-05-23] MEDS: SODIUM CHLORIDE 0.9% 1,000 ML IV STA ×2 (11:41→14:32)
[2019-05-23 11:42] LABS: Prothrombin Time 10.3 sec (9.0-12.0)
[2019-05-23 11:44] LABS: Partial Thromboplastin Time 20.3 sec (22.0-30.0)
[2019-05-23] MEDS ORDERED: ASPIRIN 81 MG PO STA (14:21)
[2019-05-23] MEDS ORDERED: NITROGLYCERIN SL TABS 0.4 MG TAB SUBLINGUAL PRN (14:21)
[2019-05-23] MEDS: SODIUM CHLORIDE 0.9% 1,000 ML IV SCH (14:33)
[2019-05-23] MEDS ORDERED: HEPARIN SOD,PORK IN 0.45% NACL 25,000 UNIT in 0.45% NACL 1 250ML.BAG IV SCH (16:00)
[2019-05-23 16:21] LABS: Appearance,Urine Clear (Clear); Bilirubin,Urine Negative (Negative); Blood,Urine Small (Negative); Color,Urine Yellow; Glucose,Urine (UA) Negative (Negative); Ketones,Urine Negative (Negative); Leukocyte Esterase,Urine Negative (Negative); Mucus,Urine Occasional /hpf; Nitrite,Urine Negative (Negative); Protein,Urine Trace (Negative); RBC,Urine 4 /hpf (0-5); Specific Gravity,Urine 1.019 (1.001-1.035); Squamous Epithelial Cell,Urine <1 /hpf (0-4); Urobilinogen,Urine <2.0 mg/dL (<2.0); WBC,Urine 1 /hpf (0-5)
[2019-05-23] MEDS: HEPARIN SODIUM,PORCINE 5,000 UNIT/ML 1 ML VIAL IV PRN ×2 (18:00→23:28)
[2019-05-23] MEDS: CARVEDILOL 6.25 MG TAB PO SCH (18:00)
[2019-05-23] MEDS: ATORVASTATIN 40 MG TAB PO SCH (20:22)
--- NOTE | 2019-05-23 20:30 | XR ---
EXAMINATION TYPE: XR knee complete bilateral DATE OF EXAM: 05/23/2019 COMPARISON: NONE HISTORY: Bilateral knee pain TECHNIQUE: 3 views each knee FINDINGS: I see no fracture nor dislocation. There is bilateral spurring on the patella and the tibia l tubercles. There is vascular calcification. There is no sign of any significant joint fluid. Joint spaces are fairly normal. There is bilateral mild meniscal calcification. IMPRESSION: Mild chondrocalcinosis. No fracture.
[2019-05-23] MEDS ORDERED: METOPROLOL TARTRATE 25 MG TAB PO SCH (21:00)
[2019-05-23 23:59] VITALS: RESP 16
[2019-05-24 05:09] LABS: Basophils # (A) 0.1 k/uL (0-0.2); Basophils % (A) 1 %; Eosinophils # (A) 0.4 k/uL (0-0.7); Eosinophils % (A) 5 %; HCT 32.6 % (39.0-53.0); HGB 10.9 gm/dL (13.0-17.5); Lymphocytes # (A) 1.3 k/uL (1.0-4.8); Lymphocytes % (A) 18 %; MCH 30.6 pg (25.0-35.0); MCHC 33.5 g/dL (31.0-37.0); MCV 91.5 fL (80.0-100.0); Mean Platelet Volume 7.3; Monocytes # (A) 0.4 k/uL (0-1.0); Monocytes % (A) 6 %; Neutrophils # (A) 4.8 k/uL (1.3-7.7); Neutrophils % (A) 68 %; Platelet Count 142 k/uL (150-450); RBC 3.56 m/uL (4.30-5.90); RDW 13.6 % (11.5-15.5)
[2019-05-24 05:17] LABS: Partial Thromboplastin Time 74.3 sec (22.0-30.0); Prothrombin Time 10.6 sec (9.0-12.0)
[2019-05-24] MEDS: SODIUM CHLORIDE 0.9% 1,000 ML IV SCH ×2 (05:29→09:17)
[2019-05-24 05:57] LABS: Cholesterol 96 mg/dL (<200); HDL Cholesterol 40 mg/dL (40-60); LDL Cholesterol,Calculated 50 mg/dL (0-99); Triglycerides 28 mg/dL (<150)
[2019-05-24] MEDS: CARVEDILOL 6.25 MG TAB PO SCH ×2 (06:30→16:59)
--- NOTE | 2019-05-24 08:30 | P.CRDCN ---
History of Present Illness Consult date: 05/24/19 Chief complaint: Presyncope History of present illness: This is a pleasant 84-year-old gentleman who sees Dr. VAHID Pan in the office on regular basis with a past medical history significant for coronary artery disease and prior coronary revascularization in the term of bypasses and stenting, hypertension, and dyslipidemia, presented to the emergency room because of a presyncopal episode. The patient does have CAD where in 1999, he received LISA to LAD, SVG to intermediate, and SVG to diagonal, as well as SVG to left circumflex. A 2013 he presented to the hospital with acute non-ST deviation myocardial infarction and underwent stenting of the SVG to left circumflex. The procedure was performed by Dr. Almonte at that point. The patient was in his usual state of health until yesterday when he was in the jew where at that point he was standing up and felt suddenly an episode of dizziness and lightheadedness and about to lose his consciousness as well as he felt sweaty and warm. He did not have a clear-cut syncopal episode. He did not have any symptoms of chest pain or chest discomfort, heart racing or fluttering, or nausea or vomiting. Because of that he decided to come to the emergency room. In the ER, the patient was found to be in atrial fibrillation with controlled heart rate. As a matter of fact he is on the bradycardic side. The atrial fibrillation is known to the patient. I did review the paperwork from our office and there is no indication of atrial fibrillation. The patient was not receiving any oral anticoagulation. He is on carvedilol. Currently he is on heparin IV for anticoagulation. The EKG showed atrial fibrillation with diffuse nonspecific ST and T wave abnormalities. The chest x-ray did not show any acute abnormalities. Past Medical History Past Medical History: Coronary Artery Disease (CAD), Cancer, CVA/TIA, Hyperlipidemia, Hypertension, Myocardial Infarction ([place]), Osteoarthritis (OA), Prostate Disorder Additional Past Medical History / Comment(s): 1999, prostate cancer with radiation Last Myocardial Infarction Date:: 1998 History of Any Multi-Drug Resistant Organisms: None Reported Past Surgical History: Coronary Bypass/CABG, Heart Catheterization With Stent, Hernia Repair Additional Past Surgical History / Comment(s): Open heart Quadrupal bypass (1998) Past Anesthesia/Blood Transfusion Reactions: No Reported Reaction Date of Last Stent Placement:: 2015 Past Psychological History: No Psychological Hx Reported Smoking Status: Former smoker Past Alcohol Use History: None Reported Additional Past Alcohol Use History / Comment(s): Patient was a smoker of cigars for 10 years ago quit approximately 15 years ago. He drinks alcohol on a social basis. He denies any medical marijuana, marijuana, street drug use. Patient lives at home with his . 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 Past Drug Use History: None Reported - Past Family History Father Family Medical History: Congestive Heart Failure (CHF), COPD, Coronary Artery Disease (CAD) Mother Family Medical History: Cancer Sister(s) Family Medical History: COPD, Liver Disease Medications and Allergies Home Medications Medication Instructions Recorded Confirmed Type Aspirin EC [Ecotrin] 81 mg PO DAILY 05/16/16 05/23/19 History Atorvastatin [Lipitor] 40 mg PO HS 05/16/16 05/23/19 History Carvedilol [Coreg] 3.125 mg PO BID 05/16/16 05/23/19 History Isosorbide Mononitrate ER [Imdur] 30 mg PO DAILY 05/16/16 05/23/19 History Clopidogrel [Plavix] 75 mg PO DAILY 05/23/19 05/23/19 History Losartan [Cozaar] 12.5 mg PO DAILY 05/23/19 05/23/19 History Multivitamin [Multivitamins Adult 1 each PO DAILY 05/23/19 05/23/19 History Gummies] Allergies Allergy/AdvReac Type Severity Reaction Status Date / Time No Known Allergies Allergy Verified 05/23/19 11:11 Physical Exam Vitals: Vital Signs Temp Pulse Pulse Resp BP BP BP 05/24/19 04:31 98.6 F 53 L 16 05/23/19 23:55 98.3 F 59 L 16 05/23/19 20:16 63 18 05/23/19 20:00 115/62 121/86 05/23/19 19:00 70 147/80 05/23/19 15:00 97.5 F L 63 18 05/23/19 14:34 97.5 F L 66 18 109/87 05/23/19 12:57 82 18 129/81 05/23/19 11:14 65 18 107/74 05/23/19 10:52 97.5 F L 59 L 13 87/62 BP Pulse Ox 05/24/19 04:31 121/65 95 05/23/19 23:55 109/58 96 05/23/19 20:16 05/23/19 20:00 125/57 05/23/19 19:00 05/23/19 15:00 137/65 100 05/23/19 14:34 98 05/23/19 12:57 98 05/23/19 11:14 97 05/23/19 10:52 97 Intake and Output 05/23/19 05/24/19 05/24/19 22:59 06:59 14:59 Intake Total 600 48.797 Output Total 200 350 Balance 400 -301.203 Intake: Intake, IV Titration 48.797 Amount Heparin Sod,Pork in 0.45% 48.797 NaCl 25,000 unit In 0.45 % NaCl 1 250ml.bag @ 12 UNITS/KG/HR 8.981 mls/hr IV .Q24H [facility] Rx#: [id number] Oral 600 Output: Urine 200 350 Other: Voiding Method Urinal Urinal Incontinent Incontinent # Voids 2 # Bowel Movements 1 Weight 73.8 kg - Constitutional General appearance: no acute distress - Respiratory Respiratory: bilateral: CTA - Cardiovascular Rhythm: irregularly irregular Heart sounds: normal: S1, S2 Abnormal Heart Sounds: systolic murmur Results 05/24/19 04:55 05/23/19 11:07 Cardiac Enzymes 05/23/19 05/23/19 05/23/19 Range/Units 11:07 11:07 16:48 AST 22 (17-59) U/L Troponin I <0.012 <0.012 (0.000-0.034) ng/mL 05/23/19 Range/Units 22:39 AST (17-59) U/L Troponin I <0.012 (0.000-0.034) ng/mL Coagulation 05/23/19 05/23/19 05/24/19 Range/Units 11:07 22:39 04:55 PT 10.3 10.6 (9.0-12.0) sec APTT 20.3 L 44.6 H 74.3 H (22.0-30.0) sec Lipids 05/24/19 Range/Units 04:55 Triglycerides 28 (<150) mg/dL Cholesterol 96 (<200) mg/dL HDL Cholesterol 40 (40-60) mg/dL CBC 05/23/19 05/24/19 Range/Units 11:07 04:55 WBC 6.3 7.0 (3.8-10.6) k/uL RBC 4.04 L 3.56 L (4.30-5.90) m/uL Hgb 12.3 L 10.9 L (13.0-17.5) gm/dL Hct 36.9 L 32.6 L (39.0-53.0) % Plt Count 166 142 L (150-450) k/uL Comprehensive Metabolic Panel 05/23/19 Range/Units 11:07 Sodium 140 (137-145) mmol/L Potassium 4.7 (3.5-5.1) mmol/L Chloride 107 (98-107) mmol/L Carbon Dioxide 24 (22-30) mmol/L BUN 33 H (9-20) mg/dL Creatinine 1.70 H (0.66-1.25) mg/dL Glucose 109 H (74-99) mg/dL Calcium 9.2 (8.4-10.2) mg/dL AST 22 (17-59) U/L ALT 12 L (21-72) U/L Alkaline Phosphatase 50 (38-126) U/L Total Protein 7.0 (6.3-8.2) g/dL Albumin 3.8 (3.5-5.0) g/dL Current Medications Generic Name Dose Route Start Last Admin Trade Name Juddq PRN Reason Stop Dose Admin Aspirin 81 mg 05/24/19 09:00 Aspirin PO DAILY [facility] Atorvastatin Calcium 40 mg 05/23/19 21:00 05/23/19 20:22 Lipitor PO 40 mg HS [facility] Administration Carvedilol 3.125 mg 05/23/19 17:30 05/24/19 06:30 Coreg PO 3.125 mg BID-W/MEALS [facility] Administration Clopidogrel Bisulfate 75 mg 05/24/19 09:00 Plavix PO DAILY [facility] Heparin Sodium (Porcine) 0 unit 05/23/19 15:46 05/23/19 23:28 Heparin IV 1,800 unit PER PROTOCOL PRN Administration Low PTT Protocol Sodium Chloride 1,000 mls @ 100 mls/hr 05/23/19 14:30 05/24/19 05:29 Saline 0.9% IV 100 mls/hr .Q10H [facility] Administration Heparin Sodium/Sodium Chloride 250 mls @ 8.981 mls/hr 05/23/19 16:00 05/23/19 23:27 25,000 unit/ Sodium Chloride IV 14.67 units/kg/hr .Q24H [facility] 10.981 mls/hr Titration Protocol 12 UNITS/KG/HR Isosorbide Mononitrate 30 mg 05/24/19 09:00 Imdur PO DAILY [facility] Losartan Potassium 12.5 mg 05/24/19 09:00 Cozaar PO DAILY [facility] Multivitamins 1 each 05/24/19 09:00 Theragran PO DAILY [facility] Nitroglycerin 0.4 mg 05/23/19 14:21 Nitrostat SUBLINGUAL Q5M PRN Chest Pain Intake and Output 05/23/19 05/24/19 05/24/19 22:59 06:59 14:59 Intake Total 600 48.797 Output Total 200 350 Balance 400 -301.203 Intake: Intake, IV Titration 48.797 Amount Heparin Sod,Pork in 0.45% 48.797 NaCl 25,000 unit In 0.45 % NaCl 1 250ml.bag @ 12 UNITS/KG/HR 8.981 mls/hr IV .Q24H [facility] Rx#: [id number] Oral 600 Output: Urine 200 350 Other: Voiding Method Urinal Urinal Incontinent Incontinent # Voids 2 # Bowel Movements 1 Weight 73.8 kg 05/24/19 04:55 05/23/19 11:07 Assessment and Plan Assessment: Assessment #1 atrial fibrillation, of unknown chronicity, this is a newly diagnosis the patient #2 bradycardia with a resting heart rate in the 50s #3 coronary artery disease and prior bypasses and stenting as described above #4 hypertension #5 dyslipidemia Plan #1 rule out sick sinus syndrome. Acute coronary syndrome was ruled out by 3 cardiac enzymes came in to be unremarkable #2 continue monitor the heart rate. #3 decrease the dose of carvedilol if we have to #4 DC heparin and start the patient on oral anticoagulation #5 obtain an echocardiogram was Doppler #6 follow-up with the patient Ankle for allowing us participate in his care and we will continue following up with him
[2019-05-24] MEDS ORDERED: ASPIRIN 325 MG TAB PO SCH (09:00)
[2019-05-24] MEDS: LOSARTAN 25 MG TAB PO SCH (09:15)
[2019-05-24] MEDS: ISOSORBIDE MONONITRATE ER 30 MG TAB.ER.24H PO SCH (09:15)
[2019-05-24] MEDS: CLOPIDOGREL 75 MG TAB PO SCH (09:16)
[2019-05-24] MEDS: MULTIVITAMINS, THERA 1 EACH TAB PO SCH (09:16)
[2019-05-24] MEDS: ASPIRIN 81 MG PO SCH (09:16)
[2019-05-24] MEDS: APIXABAN 2.5 MG TABLET PO SCH ×2 (11:40→23:23)
--- NOTE | 2019-05-24 14:00 | P.HPIM ---
History of Present Illness H&P Date: 05/24/19 Chief Complaint: Near syncope This is and 84-year-old male patient of Dr. Lopez and Dr. VAHID Pan. He has a past medical history of IN and coronary artery disease status post stenting and 4 vessel CABG done in [place] in 1999, LISA to LAD, SVG to intermediate, and SVG to diagonal, as well as SVG to left circumflex, hypertension, hypertensive vascular disease, hyperlipidemia with history of prostate cancer treated with radiation. He completed radiation treatment in April 2012. 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 In 2013 patient had acute non-ST elevated myocardial infarction and underwent stenting of the CVG to the left circumflex. Patient states he was in evangelical and was almost gone of the service when he stood up and he was feeling funny. He ended up sitting down and was standing himself and at evangelical member gave him a cool cloth. He felt dizzy and lightheaded. He denies any shortness of breath. Patient complains of feeling sweaty. He did not have a syncopal episode. Family relates a couple weeks ago he had a near syncopal episode when he was sitting on the toilet and was in the bathroom for an hour and 45 minutes until somebody realize what was happening. He did not have a full syncopal episode at that point. Patient presented to [facility] emergency center the patient was found to be in atrial fibrillation with a controlled heart rate running in the 50s and 60s with no previous history of atrial fibrillation. Blood pressure 87/62, afebrile, pulse ox 97% on room air. Chest x-ray did not show any acute abnormalities. WBC was normal, hemoglobin 12.3, BUN 33 and creatinine 1.7, blood sugar 109. Lactic acid 1.3. Liver function tests within normal limits, electrolytes within normal limits. INR 1.0. ProBNP 1460 and troponin negative. Patient was given 1 L of IV fluids, started on a heparin drip and admitted to the cardiac stepdown unit, cardiology consult requested. Review of Systems Constitutional: Reports sweats, Denies anorexia, Denies chills, Denies fatigue, Denies fever, Denies lethargy, Denies malaise, Denies poor appetite, Denies weakness, Denies weight loss Ears, nose, mouth and throat: Reports vertigo, Denies dental pain, Denies dysphagia, Denies nasal congestion, Denies nasal discharge Cardiovascular: Reports lightheadedness, Reports syncope (near syncope), Denies decreased exercise tolerance, Denies dyspnea on exertion, Denies edema, Denies leg edema, Denies palpitations Respiratory: Denies congestion, Denies cough, Denies cough with sputum, Denies dyspnea, Denies excessive sputum, Denies hemoptysis, Denies home oxygen, Denies wheezing Gastrointestinal: Denies abdominal pain, Denies diarrhea, Denies loss of appetite, Denies nausea, Denies vomiting Genitourinary: Denies dysuria, Denies urinary retention Musculoskeletal: Denies frequent falls, Denies gait dysfunction, Denies muscle weakness, Denies myalgias Integumentary: Denies pruritus, Denies rash, Denies wounds Neurological: Denies aphasia, Denies change in mentation, Denies change in speech, Denies gait dysfunction, Denies numbness, Denies seizures, Denies weakness Psychiatric: Denies anxiety, Denies depression Endocrine: Denies fatigue, Denies weight change Past Medical History Past Medical History: Coronary Artery Disease (CAD), Cancer, CVA/TIA, Hyperlipidemia, Hypertension, Myocardial Infarction (IN), Osteoarthritis (OA), Prostate Disorder Additional Past Medical History / Comment(s): 1999, prostate cancer with radiation Last Myocardial Infarction Date:: 1998 History of Any Multi-Drug Resistant Organisms: None Reported Past Surgical History: Coronary Bypass/CABG, Heart Catheterization With Stent, Hernia Repair Additional Past Surgical History / Comment(s): Open heart Quadrupal bypass (1 999) Past Anesthesia/Blood Transfusion Reactions: No Reported Reaction Date of Last Stent Placement:: 2015 Past Psychological History: No Psychological Hx Reported Smoking Status: Former smoker Past Alcohol Use History: None Reported Additional Past Alcohol Use History / Comment(s): Patient was a smoker of cigars for 10 years ago quit approximately 15 years ago. He drinks alcohol on a social basis. He denies any medical marijuana, marijuana, street drug use. Patient lives at home with his . 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 Past Drug Use History: None Reported - Past Family History Father Family Medical History: Congestive Heart Failure (CHF), COPD, Coronary Artery Disease (CAD) Additional Family Medical History / Comment(s): at age 72. Mother Family Medical History: Cancer Additional Family Medical History / Comment(s): at age 86, colon cancer. Sister(s) Family Medical History: COPD, Liver Disease Additional Family Medical History / Comment(s): Patient had one sister with history of alcoholism and at age 71. She also had COPD. Brother(s) Additional Family Medical History / Comment(s): Patient has one son that from diabetes complications. One son has history of hypertension. One daughter has diabetes. Medications and Allergies Home Medications Medication Instructions Recorded Confirmed Type Aspirin EC [Ecotrin] 81 mg PO DAILY 05/16/16 05/23/19 History Atorvastatin [Lipitor] 40 mg PO HS 05/16/16 05/23/19 History Carvedilol [Coreg] 3.125 mg PO BID 05/16/16 05/23/19 History Isosorbide Mononitrate ER [Imdur] 30 mg PO DAILY 05/16/16 05/23/19 History Clopidogrel [Plavix] 75 mg PO DAILY 05/23/19 05/23/19 History Losartan [Cozaar] 12.5 mg PO DAILY 05/23/19 05/23/19 History Multivitamin [Multivitamins Adult 1 each PO DAILY 05/23/19 05/23/19 History Gummies] Apixaban [Eliquis] 2.5 mg PO BID #30 tab 05/24/19 Rx Apixaban [Eliquis] 2.5 mg PO BID #60 tab 05/24/19 Rx Allergies Allergy/AdvReac Type Severity Reaction Status Date / Time No Known Allergies Allergy Verified 05/23/19 11:11 Physical Exam Vitals: Vital Signs Temp Pulse Pulse Pulse Pulse Pulse Resp 05/24/19 08:00 98 F 65 65 60 16 05/24/19 04:31 98.6 F 53 L 16 05/23/19 23:55 98.3 F 59 L 16 05/23/19 20:16 63 18 05/23/19 20:00 05/23/19 19:00 70 05/23/19 15:00 97.5 F L 63 18 05/23/19 14:34 97.5 F L 66 18 05/23/19 12:57 82 18 05/23/19 11:14 65 18 05/23/19 10:52 97.5 F L 59 L 13 BP BP BP BP BP Pulse Ox 05/24/19 08:00 135/73 134/70 155/86 95 05/24/19 04:31 121/65 95 05/23/19 23:55 109/58 96 05/23/19 20:16 05/23/19 20:00 115/62 121/86 125/57 05/23/19 19:00 147/80 05/23/19 15:00 137/65 100 05/23/19 14:34 109/87 98 05/23/19 12:57 129/81 98 05/23/19 11:14 107/74 97 05/23/19 10:52 87/62 97 Intake and Output 05/23/19 05/24/19 05/24/19 22:59 06:59 14:59 Intake Total 600 48.797 Output Total 200 350 Balance 400 -301.203 Intake: Intake, IV Titration 48.797 Amount Heparin Sod,Pork in 0.45% 48.797 NaCl 25,000 unit In 0.45 % NaCl 1 250ml.bag @ 12 UNITS/KG/HR 8.981 mls/hr IV .Q24H [facility] Rx#: [id number] Oral 600 Output: Urine 200 350 Other: Voiding Method Urinal Urinal Incontinent Incontinent # Voids 2 # Bowel Movements 1 Weight 73.8 kg Gen: This is an 84-year-old male. He is sitting up in a recliner eating lunch and appears to be comfortable and in no acute distress. HEENT: Head is atraumatic, normocephalic. Pupils equal, round. Sclerae is anicteric. Oral mucous membranes moist. NECK: Supple. No JVD. No lymphadenopathy. No thyromegaly. LUNGS: Clear to auscultation. No wheezes or rhonchi. No intercostal retractions. HEART: Irregularly irregular rate and rhythm. Systolic murmur. ABDOMEN: Soft. Bowel sounds are present. No masses. No tenderness. EXTREMITIES: No pedal edema. No calf tenderness. NEUROLOGICAL: Patient is awake, alert and oriented x3. Cranial nerves 2 through 12 are grossly intact. Results CBC & Chem 7: 05/24/19 04:55 05/23/19 11:07 Labs: Abnormal Lab Results - Last 24 Hours (Table) 05/23/19 05/23/19 05/23/19 Range/Units 11:07 11:07 11:07 RBC 4.04 L (4.30-5.90) m/uL Hgb 12.3 L (13.0-17.5) gm/dL Hct 36.9 L (39.0-53.0) % Plt Count (150-450) k/uL Lymphocytes # 0.9 L (1.0-4.8) k/uL APTT 20.3 L (22.0-30.0) sec BUN 33 H (9-20) mg/dL Creatinine 1.70 H (0.66-1.25) mg/dL Glucose 109 H (74-99) mg/dL ALT 12 L (21-72) U/L Urine Protein (Negative) Urine Blood (Negative) Urine Mucus (None) /hpf 05/23/19 05/23/19 05/24/19 Range/Units 15:20 22:39 04:55 RBC 3.56 L (4.30-5.90) m/uL Hgb 10.9 L (13.0-17.5) gm/dL Hct 32.6 L (39.0-53.0) % Plt Count 142 L (150-450) k/uL Lymphocytes # (1.0-4.8) k/uL APTT 44.6 H (22.0-30.0) sec BUN (9-20) mg/dL Creatinine (0.66-1.25) mg/dL Glucose (74-99) mg/dL ALT (21-72) U/L Urine Protein Trace H (Negative) Urine Blood Small H (Negative) Urine Mucus Occasional H (None) /hpf 05/24/19 Range/Units 04:55 RBC (4.30-5.90) m/uL Hgb (13.0-17.5) gm/dL Hct (39.0-53.0) % Plt Count (150-450) k/uL Lymphocytes # (1.0-4.8) k/uL APTT 74.3 H (22.0-30.0) sec BUN (9-20) mg/dL Creatinine (0.66-1.25) mg/dL Glucose (74-99) mg/dL ALT (21-72) U/L Urine Protein (Negative) Urine Blood (Negative) Urine Mucus (None) /hpf Microbiology - Last 24 Hours (Table) 05/23/19 15:20 Urine Culture - Preliminary Urine,Voided Thrombosis Risk Factor Assmnt - DVT/VTE Prophylaxis DVT/VTE Prophylaxis: Pharmacologic Prophylaxis ordered - Choose All That Apply Each Risk Factor Represents 3 Points: Age 75 years or older Thrombosis Risk Factor Assessment Total Risk Factor Score: 3 Thrombosis Risk Factor Assessment Level: Moderate Risk Assessment and Plan Plan: 1. Near syncopal episode x 2, possibly related to atrial fibrillation or bradycardia, rule out sick sinus syndrome. Cardiology consult appreciated. Continue cardiac monitoring. Coreg dose has been decreased by cardiology. 2. Atrial fibrillation, new diagnosis, most likely paroxysmal. Cardiology consult appreciated. Continue Coreg at 3.125 mg twice daily, eliquis 2.5 mg twice daily. 3. History of coronary artery disease with prior bypass and stenting, stable. Continue aspirin 81 mg daily, statin, Coreg, Imdur 30 mg daily. 4. Hypertension, hypertensive cardiovascular disease. Continue losartan 12.5 mg daily. 5. Hyperlipidemia. Continue statin 6. History of prostate cancer treated with radiation, stable. 7. 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 8. Short-term memory deficit, stable. 9. GI prophylaxis. Pepcid. 10. DVT prophylaxis. Eliquis. Patient will be admitted to the hospital for a minimum of 2 night stay. Discharge plan: To be determined. Most likely return home. Impression and plan of care have been directed as dictated by the signing physician. Gloria Oneill nurse practitioner acting as scribe for signing physician.
--- NOTE | 2019-05-24 17:17 | ECHOF ---
Referral Reason:pre syncope MEASUREMENTS -------- HEIGHT: 175.3 cm WEIGHT: 73.5 kg BP: 121/65 IVSd: 1.3 cm (0.6 - 1.1) LVIDd: 5.0 cm (3.9 - 5.3) LVPWd: 1.4 cm (0.6 - 1.1) IVSs: 1.8 cm LVIDs: 3.4 cm LVPWs: 1.9 cm LA Diam: 4.1 cm (2.7 - 3.8) RVIDd: 3.5 cm (< 3.3) LAESV Index (A-L): 53.76 ml/m Ao Diam: 3.8 cm (2.0 - 3.7) AV Cusp: 2.2 cm (1.5 - 2.6) EPSS: 0.7 cm MV E Ever: 1.23 m/s MV DecT: 162 ms MV A Ever: 0.62 m/s MV E/A Ratio: 2.00 AR PHT: 672 ms RAP: 5.00 mmHg RVSP: 43.37 mmHg MV EF SLOPE: 87.42 mm/s (70 - 150) MV EXCURSION: 14.38 mm (> 18.000) FINDINGS -------- Atrial fibrillation. This was a technically good study. Previous CABG The left ventricular size is normal. There is moderate concentric left ventricular hypertrophy. O verall left ventricular systolic function is mild-moderately impaired with, an EF between 40 - 45 %. The right ventricle is mildly enlarged. LA is severely dilated >40 ml/m2 The right atrium is normal in size. Interatrial and interventricular septum intact. Aortic valve is trileaflet and is mildly thickened. There is mild aortic regurgitation. The mitral valve leaflets are mildly thickened. Mild mitral annular calcification present. Mild-t o-moderate mitral regurgitation is present. Qxyc-fm-rhbnvqof tricuspid regurgitation present. There is mild pulmonary hypertension. The right ventricular systolic pressure, as measured by Doppler, is 43.37mmHg. There is no pulmonic regurgitation present. The aortic root is dilated measuring 3.8cm. IVC Not well visulized. There is no pericardial effusion. CONCLUSIONS -------- 1. Atrial fibrillation. 2. This was a technically good study. 3. Previous CABG 4. The left ventricular size is normal. 5. There is moderate concentric left ventricular hypertrophy. 6. Overall left ventricular systolic function is mild-moderately impaired with, an EF between 40 - 45 %. 7. The right ventricle is mildly enlarged. 8. LA is severely dilated >40 ml/m2 9. The right atrium is normal in size. 10. Interatrial and interventricular septum intact. 11. Aortic valve is trileaflet and is mildly thickened. 12. There is mild aortic regurgitation. 13. The mitral valve leaflets are mildly thickened. 14. Mild mitral annular calcification present. 15. Ffxa-bc-lgpgdrqb mitral regurgitation is present. 16. Uflf-ji-itrzisav tricuspid regurgitation present. 17. There is mild pulmonary hypertension. 18. The right ventricular systolic pressure, as measured by Doppler, is 43.37mmHg. 19. There is no pulmonic regurgitation present. 20. The aortic root is dilated measuring 3.8cm. 21. IVC Not well visulized. 22. There is no pericardial effusion. MARINE ENGINEER CPV[employer]: Pina Carey RDCS
[2019-05-24] MEDS: ATORVASTATIN 40 MG TAB PO SCH (23:24)
[2019-05-25 06:25] LABS: Basophils # (A) 0.1 k/uL (0-0.2); Basophils % (A) 1 %; Eosinophils # (A) 0.4 k/uL (0-0.7); Eosinophils % (A) 7 %; HCT 33.3 % (39.0-53.0); Lymphocytes # (A) 1.1 k/uL (1.0-4.8); Lymphocytes % (A) 18 %; MCH 30.2 pg (25.0-35.0); MCHC 33.1 g/dL (31.0-37.0); MCV 91.2 fL (80.0-100.0); Mean Platelet Volume 7.5; Monocytes # (A) 0.4 k/uL (0-1.0); Monocytes % (A) 6 %; Neutrophils # (A) 4.1 k/uL (1.3-7.7); Neutrophils % (A) 65 %; Platelet Count 150 k/uL (150-450); RBC 3.65 m/uL (4.30-5.90); RDW 13.8 % (11.5-15.5); WBC 6.3 k/uL (3.8-10.6)
[2019-05-25] MEDS: CARVEDILOL 6.25 MG TAB PO SCH (06:27)
[2019-05-25 06:34] LABS: Partial Thromboplastin Time 23.5 sec (22.0-30.0); Prothrombin Time 10.3 sec (9.0-12.0)
[2019-05-25] MEDS: LOSARTAN 25 MG TAB PO SCH (08:38)
[2019-05-25] MEDS: ASPIRIN 81 MG PO SCH (08:38)
[2019-05-25] MEDS: APIXABAN 2.5 MG TABLET PO SCH (08:38)
[2019-05-25] MEDS: ISOSORBIDE MONONITRATE ER 30 MG TAB.ER.24H PO SCH (08:39)
[2019-05-25] MEDS: MULTIVITAMINS, THERA 1 EACH TAB PO SCH (08:39)
[2019-05-25] MEDS: CLOPIDOGREL 75 MG TAB PO SCH (08:43)
[2019-05-25 08:47] VITALS: TEMP 97.7
[2019-05-25] MEDS ORDERED: FAMOTIDINE 20 MG TAB PO SCH (09:00)
--- NOTE | 2019-05-25 09:18 | P.PN ---
Subjective Progress Note Date: 05/25/19 Principal diagnosis: Chronic atrial fibrillation This is a pleasant 70-year-old gentleman with a past medical history significant for coronary artery disease and prior stenting, the details on that are unknown, the stenting was performed in 2010, diabetes, hypertension, and dyslipidemia, presented to the emergency room complaining of pain in the right toe. 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 He was moving a couch out of his portion when the edge of the couch fell on the right toenail. It pulled the right toenail out completely. The patient after that was experiencing severe pain. For the last few days, he was experiencing beside the pain swollen, redness, and edema in the right toenail and because of that he decided to come to the emergency room. He does not remember having any symptoms of syncope or presyncope, no symptoms of chest pain or chest discomfort, shortness of breath, dizziness, heart racing or heart fluttering. We involved in the care of the patient because her troponin was checked and came in to be abnormal. We only h ave one set of troponin. I am going to obtain 2 more sets to check the troponin trend. The patient does not have any other reason for abnormal troponin like tachycardia, hypotension, or abnormal kidney function. The EKG shows sinus rhythm without any significant ST or T-wave abnormalities. The chest x-ray did not show any acute abnormalities. The right toe x-ray did not show any acute abnormalities. The rest of his blood work came in to be unremarkable. The patient underwent an echocardiogram in 2016 and that revealed normal LV function with evidence of mild aortic stenosis. On physical examination he definitely has right upper sternal border systolic murmur and left upper sternal systolic murmur as well. On follow-up with the patient today, 05/25/2019, he is asymptomatic from a perivascular standpoint overview. No episode of bradycardia. The blood pressure is reasonably controlled. The echocardiogram revealed an EF between 40-45% with evidence of ismz-cd-orhsfmkj MR and ymot-bu-mknfmwkh TR. He was started on anticoagulation yesterday and he seems to be tolerating that fairly well. From a cardiovascular standpoint of view, the patient might be able to be discharged home in the next 12-24 hours. Beside that, I am going to DC the Plavix since he was started on anticoagulation with Eliquis. Objective - Vital Signs Vital signs: Vital Signs Temp 97.7 F 05/25/19 08:00 Pulse 61 05/25/19 08:00 Resp 16 05/25/19 08:00 BP 143/67 05/25/19 08:00 Pulse Ox 96 05/25/19 08:00 Intake & Output 05/24/19 05/25/19 05/25/19 18:59 06:59 18:59 Intake Total 462 240 240 Output Total 600 Balance -138 240 240 Weight 73.5 kg Intake: Oral 462 240 240 Output: Urine 600 Other: Voiding Method Urinal Urinal Incontinent Incontinent # Voids 2 1 # Bowel Movements 1 - Constitutional General appearance: Present: no acute distress - Respiratory Respiratory: bilateral: CTA - Cardiovascular Rhythm: irregularly irregular Heart sounds: normal: S1, S2 Abnormal Heart Sounds: Present: systolic murmur - Labs CBC & Chem 7: 05/25/19 05:30 05/23/19 11:07 Labs: Abnormal Lab Results - Last 24 Hours (Table) 05/25/19 Range/Units 05:30 RBC 3.65 L (4.30-5.90) m/uL Hgb 11.0 L (13.0-17.5) gm/dL Hct 33.3 L (39.0-53.0) % Microbiology - Last 24 Hours (Table) 05/23/19 15:20 Urine Culture - Final Urine,Voided Assessment and Plan Assessment: Assessment #1 atrial fibrillation, of unknown chronicity, this is a newly diagnosis the patient #2 bradycardia with a resting heart rate in the 50s #3 coronary artery disease and prior bypasses and stenting as described above #4 hypertension #5 dyslipidemia Plan #1 acute coronary syndrome was ruled out #2 no episode of severe bradycardia noted #3 he was started on on anticoagulation orally and he is tolerating it #4 the echocardiogram was reviewed with #5 DC Plavix #6 he might be able to be discharged home
[2019-05-25 12:35] VITALS: BP 153/73; PULSE 63
--- NOTE | 2019-05-26 14:46 | P.DS ---
Providers Date of admission: 05/24/19 13:42 Expected date of discharge: 05/25/19 Attending physician: Marck Medina Consults: 05/23/19 14:21 Consult Physician Urgent Consulting Provider: Floyd Lea Consult Reason/Comments: afib Do you want consulting provider notified?: Yes Primary care physician: [facility] Course: This is and 84-year-old male patient of Dr. Lopez and Dr. VAHID Pan. He has a past medical history of [place] and coronary artery disease status post stenting and 4 vessel CABG done in [place] in 1999, LISA to LAD, SVG to intermediate, and SVG to diagonal, as well as SVG to left circumflex, hypertension, hypertensive vascular disease, hyperlipidemia with history of prostate cancer treated with radiation. He completed radiation treatment in April 2012. 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 In 2013 patient had acute non-ST elevated myocardial infarction and underwent stenting of the CVG to the left circumflex. Patient states he was in worship and was almost gone of the service when he stood up and he was feeling funny. He ended up sitting down and was standing himself and at worship member gave him a cool cloth. He felt dizzy and lightheaded. He denies any shortness of breath. Patient complains of feeling sweaty. He did not have a syncopal episode. Family relates a couple weeks ago he had a near syncopal episode when he was sitting on the toilet and was in the bathroom for an hour and 45 minutes until somebody realize what was happening. He did not have a full syncopal episode at that point. Patient presented to [facility] emergency center the patient was found to be in atrial fibrillation with a controlled heart rate running in the 50s and 60s with no previous history of atrial fibrillation. Blood pressure 87/62, afebrile, pulse ox 97% on room air. Chest x-ray did not show any acute abnormalities. WBC was normal, hemoglobin 12.3, BUN 33 and creatinine 1.7, blood sugar 109. Lactic acid 1.3. Liver function tests within normal limits, electrolytes within normal limits. INR 1.0. ProBNP 1460 and troponin negative. Patient was given 1 L of IV fluids, started on a heparin drip and admitted to the cardiac stepdown unit, cardiology consult requested. 05/25: Echocardiogram reveals EF of 40-45% with mild to moderate mitral regurgitation and mild to moderate tricuspid regurgitation. Patient was started on eliquis he has been cleared for discharge from cardiology. No bradycardic episodes have been noted. Heart rate has been in the 60s. Blood pressure 153/73 and pulse ox 98% on room air. Patient will be discharged home today in stable condition. Discharge diagnoses: 1. Near syncopal episode x 2, most likely related to atrial fibrillation. 2. Atrial fibrillation, new diagnosis, most likely paroxysmal. 3. History of coronary artery disease with prior bypass and stenting, stable. 4. Hypertension, hypertensive cardiovascular disease. 5. Hyperlipidemia. 6. History of prostate cancer treated with radiation, stable. 7. 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 8. Short-term memory deficit, stable. Discharge plan: Home with [facility] Impression and plan of care have been directed as dictated by the signing physician. Gloria Oneill nurse practitioner acting as scribe for signing physician. Patient Condition at Discharge: Good Plan - Discharge Summary New Discharge Prescriptions: New Apixaban [Eliquis] 2.5 mg PO BID #60 tab Continue Isosorbide Mononitrate ER [Imdur] 30 mg PO DAILY Aspirin EC [Ecotrin Low Dose] 81 mg PO DAILY Carvedilol [Coreg] 3.125 mg PO BID Atorvastatin [Lipitor] 40 mg PO HS Losartan [Cozaar] 12.5 mg PO DAILY Multivitamin [Multivitamins Adult Gummies] 1 each PO DAILY Discontinued Clopidogrel [Plavix] 75 mg PO DAILY Discharge Medication List Aspirin EC [Ecotrin Low Dose] 81 mg PO DAILY 05/16/16 [History] Atorvastatin [Lipitor] 40 mg PO HS 05/16/16 [History] Carvedilol [Coreg] 3.125 mg PO BID 05/16/16 [History] Isosorbide Mononitrate ER [Imdur] 30 mg PO DAILY 05/16/16 [History] Losartan [Cozaar] 12.5 mg PO DAILY 05/23/19 [History] Multivitamin [Multivitamins Adult Gummies] 1 each PO DAILY 05/23/19 [History] Apixaban [Eliquis] 2.5 mg PO BID #60 tab 05/25/19 [Rx] Follow up Appointment(s)/Referral(s): Ana Pan MD [STAFF PHYSICIAN] - 05/31/19 2:00 pm (At [facility], next to [address] in [place]. July follow up moved to this one. ) Roberto Lopez MD [Primary Care Provider] - 1-2 days (Office will call with follow up appointment. ) [facility], [NON-STAFF] - Patient Instructions/Handouts: A-fib (Atrial Fibrillation) (DC), Syncope (DC), Safe Use of Anticoagulants (DC) Activity/Diet/Wound Care/Special Instructions: Please check heart rate and blood pressure twice daily, and bring in a log to your follow up with Dr. Pan. Discharge Disposition: HOME SELF-CARE
== END 2019-05-25 13:38 | disposition home health service (06) | DRG 310 ==
LOC: EC 10:49 → 3SCARD 14:29 → OBSVTOIN 05-24 13:42
PROVIDERS: ADMIT Internal Medicine; ATTEND Internal Medicine
DX: I48.0 Paroxysmal atrial fibrillation (principal); I08.1 Rheumatic disorders of both mitral and tricuspid valves; I11.9 Hypertensive heart disease without heart failure; E11.9 Type 2 diabetes mellitus without complications; R00.1 Bradycardia, unspecified; E78.5 Hyperlipidemia, unspecified; M79.674 Pain in right toe(s); I25.10 Atherosclerotic heart disease of native coronary artery without angina pectoris; M19.90 Unspecified osteoarthritis, unspecified site; I25.2 Old myocardial infarction; N42.9 Disorder of prostate, unspecified; Z79.82 Long term (current) use of aspirin; Z79.02 Long term (current) use of antithrombotics/antiplatelets; Z79.899 Other long term (current) drug therapy; Z85.46 Personal history of malignant neoplasm of prostate; Z95.5 Presence of coronary angioplasty implant and graft; Z92.3 Personal history of irradiation; Z86.73 Personal history of transient ischemic attack (TIA), and cerebral infarction without residual deficits; Z95.1 Presence of aortocoronary bypass graft; Z87.891 Personal history of nicotine dependence; Z82.49 Family history of ischemic heart disease and other diseases of the circulatory system; Z82.5 Family history of asthma and other chronic lower respiratory diseases; Z80.0 Family history of malignant neoplasm of digestive organs; Z83.79 Family history of other diseases of the digestive system; Z81.1 Family history of alcohol abuse and dependence
CPT/HCPCS: 36415; 80053; 80061; 81001; 83605; 83735; 83880; 84100; 84484; 85025; 85610; 85730; 87086; 93005; 93306; 96360; 99291

== ENCOUNTER 2019-06-21 06:22 | Day surgery (SDC) | payer MEDICARE ==
[2019-06-15 16:19] VITALS: BMI 25.1
[2019-06-21] MEDS ORDERED: SODIUM CHLORIDE 0.9% 250 ML IV ONE (06:37)
[2019-06-21] MEDS ORDERED: SODIUM CHLORIDE 0.9% 1,000 ML IV SCH (06:39)
[2019-06-21 07:10] VITALS: TEMP 98
[2019-06-21] MEDS ORDERED: PROPOFOL 10 MG/ML 20 ML VIAL IV ONE (07:19)
--- NOTE | 2019-06-21 08:09 | CC ---
CARDIAC CATHETERIZATION REPORT DATE OF SERVICE: 06/21/2019. PROCEDURE: Electrical cardioversion. INDICATION: Persistent atrial fibrillation, unresponsive to pharmacological efforts. CLINICAL INFORMATION: Mr. Gross is 84-year-old gentleman with history of CAD, hypertension, hyperlipidemia, recent onset atrial fibrillation that seemed to persist. He was adequately anticoagulated with Eliquis 2.5 mg b.i.d. and brought in for the procedure electively. PROCEDURE NOTE: Under the influence of ultra short-acting intravenous anesthetic agent with the attendance of the anesthesiologist, a single 200 joule synchronized shock was delivered to the R-wave. Anterior and posterior patches were applied. The patient converted to sinus rhythm, remained hemodynamically stable and neurologically intact. There is evidence of some ND prolongation and also Wenckebach phenomena with normal QRS. Will continue same medications upon discharge. The details were discussed with the patient and his . Patient hopefully will be discharged later on today after he is up and about and has had a meal. MMODL / IJN: [id number] /
[2019-06-21 11:42] VITALS: RESP 20
[2019-06-21 11:43] VITALS: BP 102/60; PULSE 78
== END 2019-06-21 11:05 | disposition home or self-care (01) ==
LOC: CATHCVL 06:22
PROVIDERS: ATTEND Internal Medicine Interventional Cardiology
DX: I48.1 Persistent atrial fibrillation (principal); I10 Essential (primary) hypertension; I25.10 Atherosclerotic heart disease of native coronary artery without angina pectoris; Z95.1 Presence of aortocoronary bypass graft; E78.5 Hyperlipidemia, unspecified; Z72.0 Tobacco use; E78.00 Pure hypercholesterolemia, unspecified; Z79.899 Other long term (current) drug therapy; Z79.82 Long term (current) use of aspirin; Z79.01 Long term (current) use of anticoagulants
CPT/HCPCS: 92960; J2704; 93005

== ENCOUNTER 2019-08-08 11:45 | Inpatient (IN) | payer MEDICARE ==
[2019-08-08] MEDS ORDERED: SODIUM CHLORIDE 0.9% 1,000 ML IV STA (12:16)
--- NOTE | 2019-08-08 12:28 | ED ---
General Adult HPI - General Chief complaint: Syncope Stated complaint: syncope Time Seen by Provider: 08/08/19 11:59 Source: patient, family, EMS, RN notes reviewed Mode of arrival: EMS Limitations: no limitations - History of Present Illness Initial comments: Patient is a pleasant 84-year-old male presenting to the emergency department following syncopal episode. Patient was at [employer]. Patient became sweaty and unresponsive. Family states unresponsiveness lasted up to 2 minutes. They state there was some irregular breathing. When EMS arrived there was reported low blood pressure. Patient states he feels fine at this time and has no complaints. No dyspnea. No chest pain. No abdominal or back pain. No neck pain. No headache or confusion. Patient did have a similar episode a few months ago and was diagnosed with A. fib. Patient then had ablation and follow- up showing resolution of A. fib. Patient is still on Eliquis for this. - Related Data Home Medications Medication Instructions Recorded Confirmed Atorvastatin [Lipitor] 40 mg PO HS 05/16/16 08/08/19 Carvedilol [Coreg] 3.125 mg PO BID 05/16/16 08/08/19 Isosorbide Mononitrate ER [Imdur] 30 mg PO DAILY 05/16/16 08/08/19 Losartan [Cozaar] 25 mg PO HS 05/23/19 08/08/19 Multivitamin [Multivitamins Adult 1 each PO DAILY 05/23/19 08/08/19 Gummies] Aspirin 325 mg PO DAILY PRN 08/08/19 08/08/19 Previous Rx's Medication Instructions Recorded Apixaban [Eliquis] 2.5 mg PO BID #60 tab 05/25/19 Allergies Allergy/AdvReac Type Severity Reaction Status Date / Time No Known Allergies Allergy Verified 08/08/19 12:16 Review of Systems ROS Statement: Those systems with pertinent positive or pertinent negative responses have been documented in the HPI. ROS Other: All systems not noted in ROS Statement are negative. Constitutional: Denies: fever Eyes: Denies: eye pain ENT: Denies: ear pain Respiratory: Denies: cough, dyspnea Cardiovascular: Denies: chest pain Endocrine: Denies: fatigue Gastrointestinal: Denies: abdominal pain Genitourinary: Denies: dysuria Musculoskeletal: Denies: back pain Skin: Denies: rash Neurological: Denies: headache, weakness Past Medical History Past Medical History: Atrial Fibrillation, Coronary Artery Disease (CAD), Cancer, Hyperlipidemia, Hypertension, Myocardial Infarction ([place]), Osteoarthritis (OA), Prostate Disorder Additional Past Medical History / Comment(s): 1999-prostate cancer with radiation Last Myocardial Infarction Date:: 1998 History of Any Multi-Drug Resistant Organisms: None Reported Past Surgical History: Coronary Bypass/CABG, Heart Catheterization With Stent, Hernia Repair Additional Past Surgical History / Comment(s): Open heart Quadrupal bypass (1998) Past Anesthesia/Blood Transfusion Reactions: No Reported Reaction Date of Last Stent Placement:: 2015 Past Psychological History: No Psychological Hx Reported Smoking Status: Former smoker Past Alcohol Use History: Occasional Past Drug Use History: None Reported - Past Family History Father Family Medical History: Congestive Heart Failure (CHF), COPD, Coronary Artery Disease (CAD) Additional Family Medical History / Comment(s): at age 72. Mother Family Medical History: Cancer Additional Family Medical History / Comment(s): at age 86, colon cancer. Sister(s) Family Medical History: COPD, Liver Disease Additional Family Medical History / Comment(s): Patient had one sister with hi story of alcoholism and at age 71. She also had COPD. Brother(s) Additional Family Medical History / Comment(s): Patient has one dtr that from diabetes complications. One son has history of hypertension. One daughter has diabetes. General Exam Limitations: no limitations General appearance: alert Head exam: Present: atraumatic, normocephalic Eye exam: Present: normal appearance, PERRL ENT exam: Present: normal oropharynx Neck exam: Present: normal inspection. Absent: tenderness Respiratory exam: Present: normal lung sounds bilaterally Cardiovascular Exam: Present: regular rate, normal rhythm Expanded Peripheral pulses: 2+: Radial (R), Radial (L), Posterior Tibialis (R), Posterior Tibialis (L), Dorsalis Pedis (R), Dorsalis Pedis (L) GI/Abdominal exam: Present: soft. Absent: distended, tenderness Extremities exam: Present: normal inspection. Absent: pedal edema, calf tenderness Neurological exam: Present: alert, oriented X3, CN II-XII intact. Absent: motor sensory deficit Expanded Neurological exam: Present: protecting the airway Patient oriented to: Present: person, place, time Speech: Present: fluid speech Cranial nerves: Facial Sensation: Normal Sensory exam: Upper Extremity Light Touch: Normal, Lower Extremity Light Touch: Normal Motor strength exam: RUE: 5, LUE: 5, RLE: 5, LLE: 5 Eye Response: (4) open spontaneously Motor Response: (6) obeys commands Verbal Response: (5) oriented Psychiatric exam: Present: normal affect, normal mood Skin exam: Present: normal color Course Vital Signs 08/08/19 08/08/19 11:52 12:11 Temperature 97.9 F Pulse Rate 56 L 61 Respiratory 18 18 Rate Blood Pressure 123/88 114/76 O2 Sat by Pulse 96 100 Oximetry EKG Findings - EKG Comments: EKG Findings:: Sinus bradycardia 58. For screening AV block with [place] of 294. QRS 108. QT 478. QTC 469. Left axis. Left anterior fascicular block. No acute ST change. Medical Decision Making - Medical Decision Making Patient reevaluated and resting comfortably in bed. Patient and family updated on results and plan. Case was discussed in detail with Dr. Perales, who will admit covering for Dr. Lopez. - Lab Data Result diagrams: 08/08/19 12:04 08/08/19 12:04 Lab Results 08/08/19 08/08/19 08/08/19 Range/Units 12:04 12:04 12:04 WBC 7.3 (3.8-10.6) k/uL RBC 3.44 L (4.30-5.90) m/uL Hgb 10.6 L (13.0-17.5) gm/dL Hct 30.9 L (39.0-53.0) % MCV 89.9 (80.0-100.0) fL MCH 30.7 (25.0-35.0) pg MCHC 34.2 (31.0-37.0) g/dL RDW 13.4 (11.5-15.5) % Plt Count 162 (150-450) k/uL Neutrophils % 79 % Lymphocytes % 11 % Monocytes % 4 % Eosinophils % 4 % Basophils % 1 % Neutrophils # 5.7 (1.3-7.7) k/uL Lymphocytes # 0.8 L (1.0-4.8) k/uL Monocytes # 0.3 (0-1.0) k/uL Eosinophils # 0.3 (0-0.7) k/uL Basophils # 0.1 (0-0.2) k/uL PT 10.3 (9.0-12.0) sec INR 1.0 (<1.2) APTT 20.6 L (22.0-30.0) sec Sodium 141 (137-145) mmol/L Potassium 4.1 (3.5-5.1) mmol/L Chloride 108 H (98-107) mmol/L Carbon Dioxide 25 (22-30) mmol/L Anion Gap 8 mmol/L BUN 28 H (9-20) mg/dL Creatinine 1.46 H (0.66-1.25) mg/dL Est GFR (CKD-EPI)AfAm 50 (>60 ml/min/1.73 sqM) Est GFR (CKD-EPI)NonAf 44 (>60 ml/min/1.73 sqM) Glucose 111 H (74-99) mg/dL Calcium 9.1 (8.4-10.2) mg/dL Total Bilirubin 0.7 (0.2-1.3) mg/dL AST 23 (17-59) U/L ALT 10 L (21-72) U/L Alkaline Phosphatase 43 (38-126) U/L Creatine Kinase 103 (55-170) U/L Troponin I (0.000-0.034) ng/mL Total Protein 6.4 (6.3-8.2) g/dL Albumin 3.5 (3.5-5.0) g/dL Urine Color Urine Appearance (Clear) Urine pH (5.0-8.0) Ur Specific Bruner (1.001-1.035) Urine Protein (Negative) Urine Glucose (UA) (Negative) Urine Ketones (Negative) Urine Blood (Negative) Urine Nitrite (Negative) Urine Bilirubin (Negative) Urine Urobilinogen (<2.0) mg/dL Ur Leukocyte Esterase (Negative) Urine RBC (0-5) /hpf Urine WBC (0-5) /hpf Hyaline Casts (0-2) /lpf Urine Mucus (None) /hpf 08/08/19 08/08/19 Range/Units 12:04 14:12 WBC (3.8-10.6) k/uL RBC (4.30-5.90) m/uL Hgb (13.0-17.5) gm/dL Hct (39.0-53.0) % MCV (80.0-100.0) fL MCH (25.0-35.0) pg MCHC (31.0-37.0) g/dL RDW (11.5-15.5) % Plt Count (150-450) k/uL Neutrophils % % Lymphocytes % % Monocytes % % Eosinophils % % Basophils % % Neutrophils # (1.3-7.7) k/uL Lymphocytes # (1.0-4.8) k/uL Monocytes # (0-1.0) k/uL Eosinophils # (0-0.7) k/uL Basophils # (0-0.2) k/uL PT (9.0-12.0) sec INR (<1.2) APTT (22.0-30.0) sec Sodium (137-145) mmol/L Potassium (3.5-5.1) mmol/L Chloride (98-107) mmol/L Carbon Dioxide (22-30) mmol/L Anion Gap mmol/L BUN (9-20) mg/dL Creatinine (0.66-1.25) mg/dL Est GFR (CKD-EPI)AfAm (>60 ml/min/1.73 sqM) Est GFR (CKD-EPI)NonAf (>60 ml/min/1.73 sqM) Glucose (74-99) mg/dL Calcium (8.4-10.2) mg/dL Total Bilirubin (0.2-1.3) mg/dL AST (17-59) U/L ALT (21-72) U/L Alkaline Phosphatase (38-126) U/L Creatine Kinase (55-170) U/L Troponin I <0.012 (0.000-0.034) ng/mL Total Protein (6.3-8.2) g/dL Albumin (3.5-5.0) g/dL Urine Color Yellow Urine Appearance Clear (Clear) Urine pH 5.5 (5.0-8.0) Ur Specific Bruner 1.015 (1.001-1.035) Urine Protein 1+ H (Negative) Urine Glucose (UA) Negative (Negative) Urine Ketones Negative (Negative) Urine Blood Small H (Negative) Urine Nitrite Negative (Negative) Urine Bilirubin Negative (Negative) Urine Urobilinogen <2.0 (<2.0) mg/dL Ur Leukocyte Esterase Negative (Negative) Urine RBC 4 (0-5) /hpf Urine WBC 1 (0-5) /hpf Hyaline Casts 4 H (0-2) /lpf Urine Mucus Occasional H (None) /hpf - Radiology Data Radiology results: report reviewed (Computed tomography scan of the brain shows no acute intercranial abnormality, atrophy, chronic white matter changes.), image reviewed (Chest x-ray shows no acute process, atelectasis versus scarring left base.) Disposition Clinical Impression: Syncope Disposition: ADMITTED IP TO THIS HOSP Is patient prescribed a controlled substance at d/c from ED?: No Referrals: Roberto Lopez MD [Primary Care Provider] - 1-2 days Decision Time: 16:10
[2019-08-08 12:46] LABS: Basophils # (A) 0.1 k/uL (0-0.2); Basophils % (A) 1 %; Eosinophils # (A) 0.3 k/uL (0-0.7); Eosinophils % (A) 4 %; HCT 30.9 % (39.0-53.0); HGB 10.6 gm/dL (13.0-17.5); Lymphocytes # (A) 0.8 k/uL (1.0-4.8); Lymphocytes % (A) 11 %; MCH 30.7 pg (25.0-35.0); MCHC 34.2 g/dL (31.0-37.0); MCV 89.9 fL (80.0-100.0); Monocytes # (A) 0.3 k/uL (0-1.0); Monocytes % (A) 4 %; Neutrophils # (A) 5.7 k/uL (1.3-7.7); Neutrophils % (A) 79 %; Platelet Count 162 k/uL (150-450); RBC 3.44 m/uL (4.30-5.90); RDW 13.4 % (11.5-15.5); WBC 7.3 k/uL (3.8-10.6)
[2019-08-08 12:49] LABS: Albumin 3.5 g/dL (3.5-5.0); Calcium 9.1 mg/dL (8.4-10.2); Potassium 4.1 mmol/L (3.5-5.1); Total Bilirubin 0.7 mg/dL (0.2-1.3); Total Protein 6.4 g/dL (6.3-8.2)
[2019-08-08 12:56] LABS: Partial Thromboplastin Time 20.6 sec (22.0-30.0); Prothrombin Time 10.3 sec (9.0-12.0)
--- NOTE | 2019-08-08 13:59 | CT ---
EXAMINATION TYPE: CT brain wo con DATE OF EXAM: 08/08/2019 COMPARISON: Previous study dated 10/13/2016. HISTORY: Syncopal epsiode today CT DLP: 1099.4 mGycm Automated exposure control for dose reduction was used. FINDINGS: There are generalized changes of sulcal prominence and ventriculomegaly, compatible with atrophy. The re is diffuse periventricular white matter lucency, compatible with chronic white matter ischemic bea nge. There is no acute focal lesion, mass effect or midline shift identified. I do not see evidence o f intracranial blood. Visualized portions of the paranasal sinuses and mastoids are clear. The bony calvarium is intact. IMPRESSION: 1. NO ACUTE INTRACRANIAL ABNORMALITY. 2. ATROPHIC CHANGE. 3. CHRONIC WHITE MATTER ISCHEMIC CHANGE.
--- NOTE | 2019-08-08 14:04 | XR ---
EXAMINATION TYPE: XR chest 2V DATE OF EXAM: 08/08/2019 HISTORY: syncope. REFERENCE: Previous study dated 10/13/2016. FINDINGS: There has been a midline sternotomy. There is some scarring or atelectasis at the left lung base. The lungs are otherwise clear. Pleural s pace are clear. Heart size upper limits of normal. IMPRESSION: SCARRING VERSUS ATELECTASIS, LEFT LUNG BASE.
[2019-08-08 14:20] LABS: Appearance,Urine Clear (Clear); Bilirubin,Urine Negative (Negative); Blood,Urine Small (Negative); Color,Urine Yellow; Glucose,Urine (UA) Negative (Negative); Hyaline Casts,Urine 4 /lpf (0-2); Ketones,Urine Negative (Negative); Leukocyte Esterase,Urine Negative (Negative); Mucus,Urine Occasional /hpf; Nitrite,Urine Negative (Negative); PH, Urine 5.5 (5.0-8.0); Protein,Urine 1+ (Negative); RBC,Urine 4 /hpf (0-5); Specific Gravity,Urine 1.015 (1.001-1.035); Urobilinogen,Urine <2.0 mg/dL (<2.0); WBC,Urine 1 /hpf (0-5)
[2019-08-08] MEDS ORDERED: NALOXONE 0.4 MG/ML 1 ML VIAL IV PRN (16:10)
[2019-08-08] MEDS ORDERED: ASPIRIN 325 MG TAB PO PRN (18:25)
[2019-08-08] MEDS: SODIUM CHLORIDE 0.9% 1,000 ML IV SCH (18:34)
[2019-08-08] MEDS: LOSARTAN 25 MG TAB PO SCH (22:01)
[2019-08-08] MEDS: APIXABAN 2.5 MG TABLET PO SCH (22:01)
[2019-08-08] MEDS: CARVEDILOL 3.125 MG TAB PO SCH (22:01)
[2019-08-08] MEDS: ATORVASTATIN 40 MG TAB PO SCH (22:01)
[2019-08-09] MEDS: CARVEDILOL 3.125 MG TAB PO SCH ×2 (06:33→12:54)
[2019-08-09 06:44] LABS: Basophils # (A) 0.1 k/uL (0-0.2); Basophils % (A) 1 %; Eosinophils # (A) 0.3 k/uL (0-0.7); Eosinophils % (A) 5 %; HCT 31.1 % (39.0-53.0); HGB 10.8 gm/dL (13.0-17.5); Lymphocytes # (A) 1.4 k/uL (1.0-4.8); Lymphocytes % (A) 24 %; MCH 31.4 pg (25.0-35.0); MCHC 34.7 g/dL (31.0-37.0); MCV 90.3 fL (80.0-100.0); Mean Platelet Volume 6.4; Monocytes # (A) 0.3 k/uL (0-1.0); Monocytes % (A) 6 %; Neutrophils # (A) 3.5 k/uL (1.3-7.7); Neutrophils % (A) 62 %; Platelet Count 160 k/uL (150-450); RBC 3.44 m/uL (4.30-5.90); RDW 13.5 % (11.5-15.5); WBC 5.7 k/uL (3.8-10.6)
[2019-08-09 06:56] LABS: Calcium 9.2 mg/dL (8.4-10.2); Magnesium 1.8 mg/dL (1.6-2.3); Potassium 3.9 mmol/L (3.5-5.1)
[2019-08-09 08:28] VITALS: RESP 16
--- NOTE | 2019-08-09 11:40 | CONS ---
CONSULTATION CHIEF COMPLAINT: Syncope This is an 84-year-old gentleman with history of coronary artery disease, status post CABG, status post angioplasty, dyslipidemia, hypertension, and atrial fibrillation. Presented to hospital having had an episode of syncope. He was in the [employer]aeism, sitting, attending the ceremony and suddenly passed out. It started off with episode of dizziness, lightheadedness and he suddenly lost consciousness. EMS came and then he was brought to the hospital here in [place]. He denies any chest pain or difficulty in breathing. There is no history of palpitations. There is no prior history of syncope. Patient was admitted to hospital May of 2019 and at that time he actually had very similar symptoms, but did not lose consciousness. He felt dizzy, was lightheaded, felt sweaty and he underwent cardioversion at that time. At the time of my evaluation this morning, he appears comfortable at rest. Has not had any further episodes of syncope. EKG shows sinus bradycardia with left anterior fascicular block. Labs shows a hemoglobin of 10.8, creatinine is 1.4, 3 sets of troponins are negative. PAST MEDICAL HISTORY: Significant for coronary artery disease status post CABG, status post prior angioplasty, paroxysmal atrial fibrillation, hypertension, and dyslipidemia. The patient has known CAD and had prior bypass surgery with LISA to LAD, venous graft to diagonal, circumflex and ramus intermedius. PAST SURGICAL HISTORY: Significant for CA prostate, status post radiation therapy and bypass surgery and hernia repair. ALLERGIES: There are no known drug allergies. MEDICATIONS: At home included multivitamins, Cozaar 25 q. daily, Imdur 30 q. daily, Coreg 3.125 b.i.d., Lipitor 40 q. daily, aspirin and apixaban 2.5 mg b.i.d. FAMILY HISTORY: Negative for premature coronary artery disease. SOCIAL HISTORY: Negative for current smoking, EtOH abuse, or drug abuse. REVIEW OF SYSTEMS: HEENT: Significant for syncope. CARDIAC: As described above. RESPIRATORY: Negative. GI: Negative. GENITOURINARY: Negative. ALLERGY/IMMUNOLOGY: Negative. SKIN: Negative. MUSCULOSKELETAL: Negative. ENDOCRINE: Negative. DERM: Negative. CONSTITUTIONAL: Negative. ONCOLOGICAL: Negative. EVP SALES: Significant for syncope. The rest of the system review is not relevant. PHYSICAL EXAM: Patient is comfortable at rest. Vital signs are stable. There is no jugular venous distention. Carotid upstroke is normal. There is no bruit. Chest exam reveals good air entry bilaterally. Heart exam reveals first and second heart sounds. Systolic murmur at the left lower sternal border. Abdomen is soft, nontender. Exam of extremities did not reveal any edema. Peripheral pulses are felt. EVP SALES exam did not reveal focal neurological deficits. A CT scan of the brain was negative for any intracranial abnormality. A chest x-ray was significant for scarring involving left base. The patient had an echo back in May that revealed [id number] LV systolic dysfunction with mild to moderate mitral and tricuspid regurgitation. Orthostatics are pending. Cardiac enzymes are negative. He has mild prerenal azotemia. ASSESSMENT: 1. Syncope, rule out cardiac causes. 2. Coronary artery disease, status post coronary artery bypass grafting, status post prior multivessel angioplasty. 3. Hypertension. 4. Dyslipidemia. 5. Paroxysmal atrial fibrillation. PLAN: I am going to obtain orthostatics on him. Watch him on telemetry for tachy or bradyarrhythmias. Review his outpatient records and talk to Dr. Pan. Check a D-dimer if one had not been done, but the probability of pulmonary embolism is low given the fact that patient is already on anticoagulants. His syncope could be due to any number of etiologies including atrial and ventricular tachyarrhythmias, orthostatic hypotension, bradycardia. MMSHARONL / IJN: [id number] /
--- NOTE | 2019-08-09 12:31 | P.HPIM ---
History of Present Illness H&P Date: 08/09/19 Chief Complaint: Syncope This is and 84-year-old male patient of Dr. Lopez and Dr. VAHID Pan. He has a past medical history of VA and coronary artery disease status post stenting and 4 vessel CABG done in [place] in 1999, LISA to LAD, SVG to intermediate, and SVG to diagonal, as well as SVG to left circumflex, hypertension, hypertensive vascular disease, hyperlipidemia with history of prostate cancer treated with radiation. He completed radiation treatment in April 2012. 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 In 2013 patient had acute non-ST elevated myocardial infarction and underwent stenting of the CVG to the left circumflex. He had a recent hospitalization in May for syncopal episode while he was in [employer]. He was found to have new onset of atrial fibrillation and was started on eliquis. Patient had follow-up with Dr. VAHID Pan and on June 21 underwent cardioversion. Patient states he was in [employer] and was almost done with the service when the sikh stood up but he was feeling funny. His states that he became very sweaty feeling had agonal breathing. Patient states he felt well in the morning except he was having right shoulder pain for which he took aspirin. He denies having any palpitations, chest pain, shortness of breath. When EMS picked him up he was hypotensive. No documented atrial fibrillation or arrhythmia. his initial blood pressure was 123/88. Orthostatics were positive from supine to sitting initially but repeat this morning are negative. Hemoglobin 10.8, electrolytes within normal limits, BUN 28 and creatinine 1.41 which is his baseline, blood sugar 107. Liver function tests were normal and troponins 3 negative. Urinalysis positive for small amount of blood. CAT scan of the brain showed no acute intracranial abnormality. Atrophic change. Chronic white matter ischemic change. Chest x- ray reveals scarring versus atelectasis left lung base. Patient was admitted to the cardiac stepdown unit, consult with cardiology, monitor orthostatics, IV fluids and continue cardiac monitoring. Review of Systems Constitutional: Reports fatigue, Reports sweats, Reports weakness, Denies anore hardy, Denies chills, Denies fever, Denies lethargy, Denies malaise, Denies poor appetite, Denies weight loss Eyes: denies blurred vision, denies pain Ears, nose, mouth and throat: Reports vertigo, Denies headache, Denies sore throat Cardiovascular: Reports lightheadedness, Reports syncope, Denies chest pain, Denies decreased exercise tolerance, Denies dyspnea on exertion, Denies edema, Denies leg edema, Denies orthopnea, Denies palpitations, Denies shortness of breath Respiratory: Reports sleep apnea, Denies cough, Denies cough with sputum, Denies dyspnea, Denies excessive sputum, Denies hemoptysis, Denies home oxygen, Denies wheezing Gastrointestinal: Denies abdominal pain, Denies diarrhea, Denies loss of appetite, Denies nausea, Denies vomiting Genitourinary: Denies dysuria, Denies urinary frequency, Denies urinary hesitancy, Denies urinary retention Musculoskeletal: Denies myalgias Integumentary: Denies pruritus, Denies rash, Denies wounds Neurological: Reports syncope, Reports weakness, Denies numbness Psychiatric: Denies anxiety, Denies depression Endocrine: Denies fatigue, Denies weight change Past Medical History Past Medical History: Atrial Fibrillation, Coronary Artery Disease (CAD), Cancer, Hyperlipidemia, Hypertension, Myocardial Infarction ([place]), Osteoarthritis (OA), Prostate Disorder Additional Past Medical History / Comment(s): 1999-prostate cancer with radiation Last Myocardial Infarction Date:: 1998 History of Any Multi-Drug Resistant Organisms: None Reported Past Surgical History: Coronary Bypass/CABG, Heart Catheterization With Stent, Hernia Repair Additional Past Surgical History / Comment(s): Open heart Quadrupal bypass (1998) Past Anesthesia/Blood Transfusion Reactions: No Reported Reaction Date of Last Stent Placement:: 2015 Past Psychological History: No Psychological Hx Reported Smoking Status: Former smoker Past Alcohol Use History: Occasional Additional Past Alcohol Use History / Comment(s): Patient was a smoker of cigars for 10 years ago quit approximately 15 years ago. He drinks alcohol on a social basis. He denies any medical marijuana, marijuana, street drug use. Patient lives at home with his . 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 Past Drug Use History: None Reported - Past Family History Father Family Medical History: Congestive Heart Failure (CHF), COPD, Coronary Artery Disease (CAD) Additional Family Medical History / Comment(s): at age 72. Mother Family Medical History: Cancer Additional Family Medical History / Comment(s): at age 86, colon cancer. Sister(s) Family Medical History: COPD, Liver Disease Additional Family Medical History / Comment(s): Patient had one sister with history of alcoholism and at age 71. She also had COPD. Brother(s) Additional Family Medical History / Comment(s): Patient has one dtr that from diabetes complications. One son has history of hypertension. One daughter has diabetes. Medications and Allergies Home Medications Medication Instructions Recorded Confirmed Type Atorvastatin [Lipitor] 40 mg PO HS 05/16/16 08/08/19 History Carvedilol [Coreg] 3.125 mg PO BID 05/16/16 08/08/19 History Isosorbide Mononitrate ER [Imdur] 30 mg PO DAILY 05/16/16 08/08/19 History Losartan [Cozaar] 25 mg PO HS 05/23/19 08/08/19 History Multivitamin [Multivitamins Adult 1 each PO DAILY 05/23/19 08/08/19 History Gummies] Apixaban [Eliquis] 2.5 mg PO BID #60 tab 05/25/19 08/08/19 Rx Aspirin 325 mg PO DAILY PRN 08/08/19 08/08/19 History Allergies Allergy/AdvReac Type Severity Reaction Status Date / Time No Known Allergies Allergy Verified 08/08/19 12:16 Physical Exam Vitals: Vital Signs Temp Pulse Pulse Pulse Pulse Pulse Resp 08/09/19 08:00 98.3 F 74 64 16 08/09/19 06:02 68 74 61 08/09/19 04:00 98.5 F 65 18 08/09/19 00:00 99.1 F 66 18 08/08/19 20:00 97.6 F 68 18 08/08/19 17:43 97.5 F L 08/08/19 16:55 67 18 08/08/19 12:11 61 18 08/08/19 11:52 97.9 F 56 L 18 BP BP BP BP Pulse Ox 08/09/19 08:00 157/79 164/79 97 08/09/19 06:02 161/77 164/77 158/74 08/09/19 04:00 169/81 97 08/09/19 00:00 130/68 08/08/19 20:00 170/76 97 08/08/19 17:43 129/66 154/76 145/77 08/08/19 16:55 128/79 98 08/08/19 12:11 114/76 100 08/08/19 11:52 123/88 96 Intake and Output 08/08/19 08/09/19 08/09/19 22:59 06:59 14:59 Intake Total 125 Balance 125 Intake: Oral 125 Other: Voiding Method Toilet Toilet # Voids 2 Weight 78.5 kg 76.1 kg Gen: This is an 84-year-old male patient resting in bed and appears comfortable and in no acute distress. HEENT: Head is atraumatic, normocephalic. Pupils equal, round. Sclerae is anicteric. NECK: Supple. No JVD. No lymphadenopathy. No thyromegaly. LUNGS: Clear to auscultation. No wheezes or rhonchi. No intercostal retractions. HEART: Regular rate and rhythm. Systolic murmur. Heart rate in the 60s. ABDOMEN: Soft. Bowel sounds are present. No masses. No tenderness. EXTREMITIES: No pedal edema. No calf tenderness. Dorsalis pedis +2 bilaterally. NEUROLOGICAL: Patient is awake, alert and oriented x3. Cranial nerves 2 through 12 are grossly intact. Results CBC & Chem 7: 08/09/19 05:24 08/09/19 05:24 Labs: Abnormal Lab Results - Last 24 Hours (Table) 08/08/19 08/08/19 08/08/19 Range/Units 12:04 12:04 12:04 RBC 3.44 L (4.30-5.90) m/uL Hgb 10.6 L (13.0-17.5) gm/dL Hct 30.9 L (39.0-53.0) % Lymphocytes # 0.8 L (1.0-4.8) k/uL APTT 20.6 L (22.0-30.0) sec Chloride 108 H (98-107) mmol/L BUN 28 H (9-20) mg/dL Creatinine 1.46 H (0.66-1.25) mg/dL Glucose 111 H (74-99) mg/dL ALT 10 L (21-72) U/L Urine Protein (Negative) Urine Blood (Negative) Hyaline Casts (0-2) /lpf Urine Mucus (None) /hpf 08/08/19 08/09/19 08/09/19 Range/Units 14:12 05:24 05:24 RBC 3.44 L (4.30-5.90) m/uL Hgb 10.8 L (13.0-17.5) gm/dL Hct 31.1 L (39.0-53.0) % Lymphocytes # (1.0-4.8) k/uL APTT (22.0-30.0) sec Chloride (98-107) mmol/L BUN 28 H (9-20) mg/dL Creatinine 1.41 H (0.66-1.25) mg/dL Glucose 107 H (74-99) mg/dL ALT (21-72) U/L Urine Protein 1+ H (Negative) Urine Blood Small H (Negative) Hyaline Casts 4 H (0-2) /lpf Urine Mucus Occasional H (None) /hpf Thrombosis Risk Factor Assmnt - DVT/VTE Prophylaxis DVT/VTE Prophylaxis: Pharmacologic Prophylaxis ordered Assessment and Plan Plan: 1. Syncopal episode, rule out arrhythmia. Cardiology consult appreciated. Continue cardiac monitoring, echocardiogram, orthostatics. D-dimer has been ordered by cardiology. Continue Coreg 3.125 mg twice daily. 2. Paroxysmal atrial fibrillation status post cardioversion and June. Cardiology consult appreciated. Continue Coreg at 3.125 mg twice daily, eliquis 2.5 mg twice daily. 3. History of coronary artery disease with prior bypass and stenting, stable. Continue atorvastatin 40 mg daily, Coreg, Imdur 30 mg daily. 4. Hypertension, hypertensive cardiovascular disease. Continue losartan 12.5 m g daily, Coreg. 5. Hyperlipidemia. Continue statin 6. Chronic kidney disease stage IIIa, stable. 7. Anemia of chronic kidney disease, stable 8. History of prostate cancer treated with radiation, stable. 9. 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 10. Short-term memory deficit, stable. 11. GI prophylaxis. Pepcid. 12. DVT prophylaxis. Eliquis. Patient will be admitted to the hospital for a minimum of 2 night stay. Discharge plan: Most likely return home. Impression and plan of care have been directed as dictated by the signing physician. Gloria Convery nurse practitioner acting as scribe for signing physician.
[2019-08-09] MEDS: MULTIVITAMINS, THERA 1 EACH TAB PO SCH (12:54)
[2019-08-09] MEDS: ISOSORBIDE MONONITRATE ER 30 MG TAB.ER.24H PO SCH (12:54)
[2019-08-09] MEDS: APIXABAN 2.5 MG TABLET PO SCH ×2 (12:54→19:44)
[2019-08-09] MEDS: SODIUM CHLORIDE 0.9% 1,000 ML IV SCH (19:38)
[2019-08-09] MEDS: LOSARTAN 25 MG TAB PO SCH (19:44)
[2019-08-09] MEDS: ATORVASTATIN 40 MG TAB PO SCH (19:44)
[2019-08-09 23:37] VITALS: TEMP 98
[2019-08-10] MEDS: CARVEDILOL 3.125 MG TAB PO SCH (06:22)
--- NOTE | 2019-08-10 06:46 | ECHOF ---
Referral Reason:tia MEASUREMENTS -------- HEIGHT: 152.4 cm WEIGHT: 75.7 kg BP: 157/79 RVIDd: 3.2 cm (< 3.3) IVSd: 1.1 cm (0.6 - 1.1) LVIDd: 5.1 cm (3.9 - 5.3) LVPWd: 1.3 cm (0.6 - 1.1) IVSs: 1.7 cm LVIDs: 3.9 cm LVPWs: 1.3 cm LA Diam: 4.6 cm (2.7 - 3.8) LAESV Index (A-L): 52.86 ml/m Ao Diam: 3.5 cm (2.0 - 3.7) AV Cusp: 2.0 cm (1.5 - 2.6) LA Diam: 4.7 cm (2.7 - 3.8) MV EXCURSION: 14.924 mm (> 18.000) MV EF SLOPE: 27 mm/s (70 - 150) EPSS: 0.7 cm MV E Ever: 0.79 m/s MV DecT: 178 ms MV A Ever: 0.80 m/s MV E/A Ratio: 0.98 RAP: 5.00 mmHg RVSP: 31.76 mmHg FINDINGS -------- Undetermined rhythm. This was a technically good study. The left ventricular size is normal. Left ventricular wall thickness is normal. Overall left vent ricular systolic function is low-normal with, an EF between 50 - 55 %. The right ventricle is normal in size. The left atrium is markedly dilated. LA is severely dilated >40 ml/m2 The right atrial size is normal. There is mild aortic valve sclerosis. There is mild aortic regurgitation. Moderate mitral regurgitation is present. Mild tricuspid regurgitation present. Right ventricular systolic pressure is normal at < 35 mmHg. There is no evidence of pulmonary hypertension. Trace/mild (physiologic) pulmonic regurgitation. Aortic Root is mildly dilated and measures 3.8cm. There is no pericardial effusion. CONCLUSIONS -------- 1. Undetermined rhythm. 2. This was a technically good study. 3. The left ventricular size is normal. 4. Left ventricular wall thickness is normal. 5. Overall left ventricular systolic function is low-normal with, an EF between 50 - 55 %. 6. The right ventricle is normal in size. 7. The left atrium is markedly dilated. 8. LA is severely dilated >40 ml/m2 9. The right atrial size is normal. 10. There is mild aortic valve sclerosis. 11. There is mild aortic regurgitation. 12. Moderate mitral regurgitation is present. 13. Mild tricuspid regurgitation present. 14. Right ventricular systolic pressure is normal at < 35 mmHg. 15. There is no evidence of pulmonary hypertension. 16. Trace/mild (physiologic) pulmonic regurgitation. 17. Aortic Root is mildly dilated and measures 3.8cm. 18. There is no pericardial effusion. REAL ESTATE CLOSING COORDINATOR: Mari Ty RDCS
[2019-08-10] MEDS: APIXABAN 2.5 MG TABLET PO SCH (08:33)
[2019-08-10] MEDS: ISOSORBIDE MONONITRATE ER 30 MG TAB.ER.24H PO SCH (08:33)
[2019-08-10] MEDS: MULTIVITAMINS, THERA 1 EACH TAB PO SCH (08:33)
[2019-08-10 08:37] VITALS: BP 161/73; PULSE 66
[2019-08-10] MEDS ORDERED: FAMOTIDINE 20 MG TAB PO SCH (09:00)
--- NOTE | 2019-08-10 13:44 | P.DS ---
Providers Date of admission: 08/08/19 16:10 Expected date of discharge: 08/10/19 Attending physician: Alireza Craven Consults: 08/08/19 16:10 Consult Physician Urgent Consulting Provider: Ana Pan Consult Reason/Comments: syncope Do you want consulting provider notified?: Yes Primary care physician: [facility] Course: This is and 84-year-old male patient of Dr. Lopez and Dr. VAHID Pan. He has a past medical history of [place] and coronary artery disease status post stenting and 4 vessel CABG done in [place] in 1999, LISA to LAD, SVG to intermediate, and SVG to diagonal, as well as SVG to left circumflex, hypertension, hypertensive vascular disease, hyperlipidemia with history of prostate cancer treated with radiation. He completed radiation treatment in April 2012. 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 In 2013 patient had acute non-ST elevated myocardial infarction and underwent stenting of the CVG to the left circumflex. He had a recent hospitalization in May for syncopal episode while he was in [place]. He was found to have new onset of atrial fibrillation and was started on el iquis. Patient had follow-up with Dr. VAHID Pan and on June 21 underwent cardioversion. Patient states he was in [place] and was almost done with the service when the [employer] stood up but he was feeling funny. His states that he became very sweaty feeling had agonal breathing. Patient states he felt well in the morning except he was having right shoulder pain for which he took aspirin. He denies having any palpitations, chest pain, shortness of breath. When EMS picked him up he was hypotensive. No documented atrial fibrillation or arrhythmia. his initial blood pressure was 123/88. Orthostatics were positive from supine to sitting initially but repeat this morning are negative. Hemoglobin 10.8, electrolytes within normal limits, BUN 28 and creatinine 1.41 which is his baseline, blood sugar 107. Liver function tests were normal and troponins 3 negative. Urinalysis positive for small amount of blood. CAT scan of the brain showed no acute intracranial abnormalit y. Atrophic change. Chronic white matter ischemic change. Chest x-ray reveals scarring versus atelectasis left lung base. Patient was admitted to the cardiac stepdown unit, consult with cardiology, monitor orthostatics, IV fluids and continue cardiac monitoring. 08/10: black leather buffer has been a sinus rhythm with no ectopy, no atrial fibrillation. Orthostatic vital signs have been negative. Cardiology is not planning for any intervention such as tilt table test at this time but will arrange for an event monitor. The patient states that he is feeling well today. He is up and showered by himself. He is ambulatory and has had no episodes of lightheadedness or dizziness. Patient will be discharged home today in stable condition. Discharge diagnoses: 1. Syncopal episode, unclear etiology, possible vasovagal. 2. Paroxysmal atrial fibrillation status post cardioversion in June. 3. History of coronary artery disease with prior bypass and stenting, stable. 4. Hypertension, hypertensive cardiovascular disease. 5. Hyperlipidemia. 6. Chronic kidney disease stage IIIa, stable. 7. Anemia of chronic kidney disease, stable 8. History of prostate cancer treated with radiation, stable. 9. 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 10. Short-term memory deficit, stable. Discharge plan: home. Impression and plan of care have been directed as dictated by the signing physician. Gloria Oneill nurse practitioner acting as scribe for signing physician. Patient Condition at Discharge: Good Plan - Discharge Summary New Discharge Prescriptions: Continue Isosorbide Mononitrate ER [Imdur] 30 mg PO DAILY Carvedilol [Coreg] 3.125 mg PO BID Atorvastatin [Lipitor] 40 mg PO HS Losartan [Cozaar] 25 mg PO HS Multivitamin [Multivitamins Adult Gummies] 1 each PO DAILY Apixaban [Eliquis] 2.5 mg PO BID #60 tab Aspirin 325 mg PO DAILY PRN PRN Reason: Pain Discharge Medication List Atorvastatin [Lipitor] 40 mg PO HS 05/16/16 [History] Carvedilol [Coreg] 3.125 mg PO BID 05/16/16 [History] Isosorbide Mononitrate ER [Imdur] 30 mg PO DAILY 05/16/16 [History] Losartan [Cozaar] 25 mg PO HS 05/23/19 [History] Multivitamin [Multivitamins Adult Gummies] 1 each PO DAILY 05/23/19 [History] Apixaban [Eliquis] 2.5 mg PO BID #60 tab 05/25/19 [Rx] Aspirin 325 mg PO DAILY PRN 08/08/19 [History] Follow up Appointment(s)/Referral(s): Ana Pan MD [STAFF PHYSICIAN] - 1 Week Roberto Lopez MD [Primary Care Provider] - 1 Week Patient Instructions/Handouts: Syncope (DC) Discharge Disposition: HOME SELF-CARE
--- NOTE | 2019-08-10 14:50 | P.PN ---
Subjective Progress Note Date: 08/10/19 This is and 84-year-old male patient of Dr. Lopez and Dr. VAHID Pan. He has a past medical history of [place] and coronary artery disease status post stenting and 4 vessel CABG done in [place] in 1999, LISA to LAD, SVG to intermediate, and SVG to diagonal, as well as SVG to left circumflex, hypertensi on, hypertensive vascular disease, hyperlipidemia with history of prostate cancer treated with radiation. He completed radiation treatment in April 2012. 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 In 2013 patient had acute non-ST elevated myocardial infarction and underwent stenting of the CVG to the left circumflex. He had a recent hospitalization in May for syncopal episode while he was in [place]. He was found to have new onset of atrial fibrillation and was started on eliquis. Patient had follow-up with Dr. VAHID Pan and on June 21 underwent cardioversion. Patient states he was in [place] and was almost done with the service when the [employer] stood up but he was feeling funny. His states that he became very sweaty feeling had agonal breathing. Patient states he felt well in the morning except he was having right shoulder pain for which he took aspirin. He denies having any palpitations, chest pain, shortness of breath. When EMS picked him up he was hypotensive. No documented atrial fibrillation or arrhythmia. Patient has had had no significant bradycardia arrhythmias here, orthostatics were negative. Echo showed an ejection fraction of 50-55% with moderate mitral regurgitation. From our perspective the patient may be discharged home today we recommended he wear an event monitor on discharge. Follow-up appointment with Dr. Christie Pan in the office post discharge. Objective - Vital Signs Vital signs: Vital Signs Temp 98 F 08/09/19 23:36 Pulse 66 08/10/19 08:00 Resp 16 08/10/19 11:30 BP 161/73 08/10/19 08:00 Pulse Ox 95 08/10/19 08:00 Intake & Output 08/09/19 08/10/19 08/10/19 18:59 06:59 18:59 Intake Total 348 240 Balance 348 240 Weight 76.7 kg Intake: Oral 348 240 Other: Voiding Method Toilet Toilet # Voids 2 1 - Exam Gen: This is an 84-year-old male patient resting in bed and appears comfortable and in no acute distress. HEENT: Head is atraumatic, normocephalic. Pupils equal, round. Sclerae is anicteric. NECK: Supple. No JVD. No lymphadenopathy. No thyromegaly. LUNGS: Clear to auscultation. No wheezes or rhonchi. No intercostal retractions. HEART: Regular rate and rhythm. Systolic murmur. Heart rate in the 60s. ABDOMEN: Soft. Bowel sounds are present. No masses. No tenderness. EXTREMITIES: No pedal edema. No calf tenderness. Dorsalis pedis +2 bilaterally. NEUROLOGICAL: Patient is awake, alert and oriented x3. Cranial nerves 2 through 12 are grossly intact. - Labs CBC & Chem 7: 08/09/19 05:24 08/09/19 05:24 Assessment and Plan Plan: Plan: 1. Syncopal episode, no evidence of any arrhythmias here, orthostatics were negative. 2. Paroxysmal atrial fibrillation status post cardioversion and June. 3. History of coronary artery disease with prior bypass and stenting, stable. 4. Hypertension, hypertensive cardiovascular disease. 5. Hyperlipidemia. 6. Chronic kidney disease stage IIIa, stable. 7. Anemia of chronic kidney disease, stable 8. History of prostate cancer treated with radiation, stable. 9. 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 10. Short-term memory deficit, stable. Plan Cardiology's perspective, patient may be able to be discharged home today. We will recommend a 30 day event monitor on discharge. Follow-up appointment with Dr. VAHID Pan in the office post discharge. DNP note has been reviewed, I agree with a documented findings and plan of care. Patient was seen and examined.
== END 2019-08-10 14:07 | disposition home or self-care (01) | DRG 312 ==
LOC: EC 11:45 → 3SCARD 16:10
PROVIDERS: ADMIT Internal Medicine; ATTEND Internal Medicine
DX: R55 Syncope and collapse (principal); I08.1 Rheumatic disorders of both mitral and tricuspid valves; I48.0 Paroxysmal atrial fibrillation; D63.1 Anemia in chronic kidney disease; I13.10 Hypertensive heart and chronic kidney disease without heart failure, with stage 1 through stage 4 chronic kidney disease, or unspecified chronic kidney disease; N18.3 Chronic kidney disease, stage 3 (moderate); I44.4 Left anterior fascicular block; I25.10 Atherosclerotic heart disease of native coronary artery without angina pectoris; M25.511 Pain in right shoulder; E78.5 Hyperlipidemia, unspecified; I25.2 Old myocardial infarction; M19.90 Unspecified osteoarthritis, unspecified site; Z79.01 Long term (current) use of anticoagulants; Z79.82 Long term (current) use of aspirin; Z79.899 Other long term (current) drug therapy; Z85.46 Personal history of malignant neoplasm of prostate; Z92.3 Personal history of irradiation; Z95.1 Presence of aortocoronary bypass graft; Z95.5 Presence of coronary angioplasty implant and graft; Z87.891 Personal history of nicotine dependence; Z86.73 Personal history of transient ischemic attack (TIA), and cerebral infarction without residual deficits; Z98.890 Other specified postprocedural states; Z82.49 Family history of ischemic heart disease and other diseases of the circulatory system; Z82.5 Family history of asthma and other chronic lower respiratory diseases; Z80.0 Family history of malignant neoplasm of digestive organs; Z81.1 Family history of alcohol abuse and dependence; Z83.3 Family history of diabetes mellitus; Z83.79 Family history of other diseases of the digestive system
CPT/HCPCS: 36415; 70450; 71046; 80048; 80053; 81001; 82550; 83735; 84484; 85025; 85379; 85610; 85730; 93005; 93306; 99285

== ENCOUNTER 2019-12-21 11:15 | Inpatient (IN) | payer MEDICARE ==
[2019-12-21] MEDS ORDERED: SODIUM CHLORIDE 0.9% 1,000 ML IV STA (11:44)
--- NOTE | 2019-12-21 12:00 | ED ---
General Adult HPI - General Chief complaint: Weakness Stated complaint: Weakness Time Seen by Provider: 12/21/19 11:15 Source: patient, family, EMS, RN notes reviewed, old records reviewed Mode of arrival: EMS Limitations: no limitations - History of Present Illness Initial comments: This is an 84-year-old male who presents emergency Department complaining generalized weakness and being dizzy. Patient states he found it difficult to walk over the last couple of days. states he walks and walks to the left. Patient states he sometimes feel the room was moving but other times he feels like he is just too weak to stand. Patient denies any fever chills. Patient denies any trauma. Patient denies any headache. Patient denies any focal numbn ess or weakness. Patient denies any chest pain difficulty breathing first breath per patient denies any abdominal pain patient denies nausea vomiting or diarrhea. - Related Data Home Medications Medication Instructions Recorded Confirmed Atorvastatin [Lipitor] 40 mg PO HS 05/16/16 08/08/19 Carvedilol [Coreg] 3.125 mg PO BID 05/16/16 08/08/19 Isosorbide Mononitrate ER [Imdur] 30 mg PO DAILY 05/16/16 08/08/19 Losartan [Cozaar] 25 mg PO HS 05/23/19 08/08/19 Multivitamin [Multivitamins Adult 1 each PO DAILY 05/23/19 08/08/19 Gummies] Aspirin 325 mg PO DAILY PRN 08/08/19 08/08/19 Previous Rx's Medication Instructions Recorded Apixaban [Eliquis] 2.5 mg PO BID #60 tab 05/25/19 Allergies Allergy/AdvReac Type Severity Reaction Status Date / Time No Known Allergies Allergy Verified 08/08/19 12:16 Review of Systems ROS Statement: Those systems with pertinent positive or pertinent negative responses have been documented in the HPI. ROS Other: All systems not noted in ROS Statement are negative. Past Medical History Past Medical History: Atrial Fibrillation, Coronary Artery Disease (CAD), Cancer, Hyperlipidemia, Hypertension, Myocardial Infarction (RI), Osteoarthritis (OA), Prostate Disorder Additional Past Medical History / Comment(s): 1999-prostate cancer with radiation Last Myocardial Infarction Date:: 1998 History of Any Multi-Drug Resistant Organisms: None Reported Past Surgical History: Coronary Bypass/CABG, Heart Catheterization With Stent, Hernia Repair Additional Past Surgical History / Comment(s): Open heart Quadrupal bypass (1998) Past Anesthesia/Blood Transfusion Reactions: No Reported Reaction Date of Last Stent Placement:: 2015 Past Psychological History: No Psychological Hx Reported Smoking Status: Former smoker Past Alcohol Use History: Occasional Past Drug Use History: None Reported - Past Family History Father Family Medical History: Congestive Heart Failure (CHF), COPD, Coronary Artery Disease (CAD) Additional Family Medical History / Comment(s): at age 72. Mother Family Medical History: Cancer Additional Family Medical History / Comment(s): at age 86, colon cancer. Sister(s) Family Medical History: COPD, Liver Disease Additional Family Medical History / Comment(s): Patient had one sister with history of alcoholism and at age 71. She also had COPD. Brother(s) Additional Family Medical History / Comment(s): Patient has one dtr that from diabetes complications. One son has history of hypertension. One daughter has diabetes. General Exam - General Exam Comments Initial Comments: GENERAL: Patient is well-developed and well-nourished. Patient is nontoxic and well- hydrated and is in mild distress. ENT: Neck is soft and supple. No significant lymphadenopathy is noted. Oropharynx is clear. Moist mucous membranes. Neck has full range of motion without eliciting any pain. EYES: The sclera were anicteric and conjunctiva were pink and moist. Extraocular movements were intact and pupils were equal round and reactive to light. Eyelids were unremarkable. PULMONARY: Unlabored respirations. Good breath sounds bilaterally. No audible rales rhonchi or wheezing was noted. CARDIOVASCULAR: There is a regular rate and rhythm without any murmurs gallops or rubs. ABDOMEN: Soft and nontender with normal bowel sounds. SKIN: Skin is clear with no lesions or rashes and otherwise unremarkable. NEUROLOGIC: Patient is alert and oriented x3. Cranial nerves II through XII are grossly intact. Motor and sensory are also intact. Normal speech, volume and content. Symmetrical smile. MUSCULOSKELETAL: Normal extremities with adequate strength and full range of motion. LYMPHATICS: No significant lymphadenopathy is noted PSYCHIATRIC: Normal psychiatric evaluation. Limitations: no limitations Course Vital Signs 12/21/19 12/21/19 11:18 13:42 Temperature 99.2 F Pulse Rate 85 71 Respiratory 18 18 Rate Blood Pressure 119/74 120/75 O2 Sat by Pulse 99 98 Oximetry Medical Decision Making - Medical Decision Making EKG shows a wide QRS rhythm with multiple PVCs and bigeminy manner. There does appear to be P waves do not seem to be transmitted a consistent fashion. QRS is 1:30 QT interval 468 QTC is 512. New. Chest x-ray showed no acute normalities. Patient was eating and drinking in the emergency room. Patient states after he got the liter bolus he was feeling better. I spoke with Dr. Flores but EKG he felt as though the patient was having bigeminy as well as an atrial tachycardia. He did not feel so the EKG was concerning. I spoke with Dr. Montgomery she agreed to admit the patient admitted the patient I consult cardiology. - Lab Data Result diagrams: 12/21/19 12:15 12/21/19 12:15 Lab Results 12/21/19 12/21/19 12/21/19 Range/Units 12:15 12:15 12:15 WBC 6.2 (3.8-10.6) k/uL RBC 3.56 L (4.30-5.90) m/uL Hgb 11.2 L (13.0-17.5) gm/dL Hct 32.1 L (39.0-53.0) % MCV 90.1 (80.0-100.0) fL MCH 31.4 (25.0-35.0) pg MCHC 34.8 (31.0-37.0) g/dL RDW 13.0 (11.5-15.5) % Plt Count 145 L (150-450) k/uL Neutrophils % 81 % Lymphocytes % 10 % Monocytes % 6 % Eosinophils % 1 % Basophils % 0 % Neutrophils # 5.1 (1.3-7.7) k/uL Lymphocytes # 0.6 L (1.0-4.8) k/uL Monocytes # 0.4 (0-1.0) k/uL Eosinophils # 0.0 (0-0.7) k/uL Basophils # 0.0 (0-0.2) k/uL PT 10.1 (9.0-12.0) sec INR 1.0 (<1.2) APTT 22.7 (22.0-30.0) sec Sodium 135 L (137-145) mmol/L Potassium 3.9 (3.5-5.1) mmol/L Chloride 101 (98-107) mmol/L Carbon Dioxide 25 (22-30) mmol/L Anion Gap 9 mmol/L BUN 25 H (9-20) mg/dL Creatinine 1.39 H (0.66-1.25) mg/dL Est GFR (CKD-EPI)AfAm 54 (>60 ml/min/1.73 sqM) Est GFR (CKD-EPI)NonAf 46 (>60 ml/min/1.73 sqM) Glucose 110 H (74-99) mg/dL Plasma Lactic Acid Raymundo (0.7-2.0) mmol/L Calcium 9.2 (8.4-10.2) mg/dL Magnesium 1.7 (1.6-2.3) mg/dL Total Bilirubin 0.8 (0.2-1.3) mg/dL AST 35 (17-59) U/L ALT 10 (4-49) U/L Alkaline Phosphatase 45 (38-126) U/L Troponin I (0.000-0.034) ng/mL Total Protein 6.3 (6.3-8.2) g/dL Albumin 3.5 (3.5-5.0) g/dL Urine Color Urine Appearance (Clear) Urine pH (5.0-8.0) Ur Specific [place] (1.001-1.035) Urine Protein (Negative) Urine Glucose (UA) (Negative) Urine Ketones (Negative) Urine Blood (Negative) Urine Nitrite (Negative) Urine Bilirubin (Negative) Urine Urobilinogen (<2.0) mg/dL Ur Leukocyte Esterase (Negative) Urine RBC (0-5) /hpf Urine WBC (0-5) /hpf Urine Bacteria (None) /hpf Urine Mucus (None) /hpf 12/21/19 12/21/19 12/21/19 Range/Units 12:15 12:15 13:13 WBC (3.8-10.6) k/uL RBC (4.30-5.90) m/uL Hgb (13.0-17.5) gm/dL Hct (39.0-53.0) % MCV (80.0-100.0) fL MCH (25.0-35.0) pg MCHC (31.0-37.0) g/dL RDW (11.5-15.5) % Plt Count (150-450) k/uL Neutrophils % % Lymphocytes % % Monocytes % % Eosinophils % % Basophils % % Neutrophils # (1.3-7.7) k/uL Lymphocytes # (1.0-4.8) k/uL Monocytes # (0-1.0) k/uL Eosinophils # (0-0.7) k/uL Basophils # (0-0.2) k/uL PT (9.0-12.0) sec INR (<1.2) APTT (22.0-30.0) sec Sodium (137-145) mmol/L Potassium (3.5-5.1) mmol/L Chloride (98-107) mmol/L Carbon Dioxide (22-30) mmol/L Anion Gap mmol/L BUN (9-20) mg/dL Creatinine (0.66-1.25) mg/dL Est GFR (CKD-EPI)AfAm (>60 ml/min/1.73 sqM) Est GFR (CKD-EPI)NonAf (>60 ml/min/1.73 sqM) Glucose (74-99) mg/dL Plasma Lactic Acid Raymundo 1.3 (0.7-2.0) mmol/L Calcium (8.4-10.2) mg/dL Magnesium (1.6-2.3) mg/dL Total Bilirubin (0.2-1.3) mg/dL AST (17-59) U/L ALT (4-49) U/L Alkaline Phosphatase (38-126) U/L Troponin I 0.025 (0.000-0.034) ng/mL Total Protein (6.3-8.2) g/dL Albumin (3.5-5.0) g/dL Urine Color Yellow Urine Appearance Clear (Clear) Urine pH 5.5 (5.0-8.0) Ur Specific [place] 1.017 (1.001-1.035) Urine Protein 2+ H (Negative) Urine Glucose (UA) Negative (Negative) Urine Ketones Negative (Negative) Urine Blood Moderate H (Negative) Urine Nitrite Negative (Negative) Urine Bilirubin Negative (Negative) Urine Urobilinogen <2.0 (<2.0) mg/dL Ur Leukocyte Esterase Negative (Negative) Urine RBC 21 H (0-5) /hpf Urine WBC 1 (0-5) /hpf Urine Bacteria Rare H (None) /hpf Urine Mucus Rare H (None) /hpf Disposition Clinical Impression: Bigeminy, Generalized weakness, Atrial tachycardia Disposition: ADMITTED IP TO THIS HOSP Referrals: Roberto Lopez MD [Primary Care Provider] - 1-2 days Time of Disposition: 14:31
[2019-12-21 12:32] LABS: HCT 32.1 % (39.0-53.0); HGB 11.2 gm/dL (13.0-17.5); MCV 90.1 fL (80.0-100.0); RBC 3.56 m/uL (4.30-5.90); WBC 6.2 k/uL (3.8-10.6)
[2019-12-21 12:33] LABS: Basophils % (A) 0 %; Eosinophils % (A) 1 %; Lymphocytes # (A) 0.6 k/uL (1.0-4.8); Lymphocytes % (A) 10 %; MCH 31.4 pg (25.0-35.0); MCHC 34.8 g/dL (31.0-37.0); Mean Platelet Volume 7.9; Monocytes # (A) 0.4 k/uL (0-1.0); Monocytes % (A) 6 %; Neutrophils # (A) 5.1 k/uL (1.3-7.7); Neutrophils % (A) 81 %; Platelet Count 145 k/uL (150-450)
[2019-12-21 12:41] LABS: Partial Thromboplastin Time 22.7 sec (22.0-30.0); Prothrombin Time 10.1 sec (9.0-12.0)
[2019-12-21 12:45] LABS: Albumin 3.5 g/dL (3.5-5.0); Calcium 9.2 mg/dL (8.4-10.2); Magnesium 1.7 mg/dL (1.6-2.3); Potassium 3.9 mmol/L (3.5-5.1); Total Bilirubin 0.8 mg/dL (0.2-1.3); Total Protein 6.3 g/dL (6.3-8.2)
--- NOTE | 2019-12-21 12:45 | CT ---
EXAMINATION TYPE: CT brain wo con DATE OF EXAM: 12/21/2019 COMPARISON: 08/08/2019 HISTORY: Increasing weakness over past [address] DLP: 1084.4 mGycm Automated exposure control for dose reduction was used. TECHNIQUE: CT scan of the head is performed without contrast. FINDINGS: There is no acute intracranial hemorrhage or midline shift identified. There is diffuse v entricular and overall sulcal prominence consistent with diffuse age-related cerebral atrophy. Howeve r there is some sulcal crowding in the right frontal lobe near the skull vertex. There is low-attenua tion in the periventricular white matter most consistent with chronic small vessel ischemic change. A therosclerosis is seen of the intracranial vasculature. The globes are intact. There is mild mucosal thickening of the left maxillary and ethmoid sinuses. Remaining paranasal sinuses and mastoid air avinash ls are well aerated. IMPRESSION: 1. No acute intracranial hemorrhage or midline shift. 2. Age-related cerebral atrophy and chronic small vessel ischemic change noted. 3. There is some crowding of the sulci along the right frontal skull vertex. Nonemergent follow-up MR I with contrast is recommended to exclude small neoplasm as no vasogenic edema is seen on CT.
--- NOTE | 2019-12-21 12:46 | XR ---
EXAMINATION TYPE: XR chest 2V DATE OF EXAM: 12/21/2019 COMPARISON: Chest x-ray August 08, 2019. HISTORY: Dizziness and weakness. TECHNIQUE: Frontal and lateral views of the chest are obtained. FINDINGS: There is elevated left hemidiaphragm with left basilar linear scarring and/or atelectasis redemonstrated. Somewhat low lung volumes again seen. The cardiac silhouette size is stable and mildl y enlarged. Overlying sternal wires and mediastinal clips again seen. Atherosclerotic ectatic aortic knob redemonstrated. Osseous structures remain demineralized. IMPRESSION: Chronic changes and cardiomegaly without new suspicious acute pulmonary process.
[2019-12-21 13:27] LABS: Appearance,Urine Clear (Clear); Bacteria,Urine Rare /hpf; Bilirubin,Urine Negative (Negative); Blood,Urine Moderate (Negative); Color,Urine Yellow; Glucose,Urine (UA) Negative (Negative); Ketones,Urine Negative (Negative); Leukocyte Esterase,Urine Negative (Negative); Mucus,Urine Rare /hpf; Nitrite,Urine Negative (Negative); PH, Urine 5.5 (5.0-8.0); Protein,Urine 2+ (Negative); RBC,Urine 21 /hpf (0-5); Specific Gravity,Urine 1.017 (1.001-1.035); Urobilinogen,Urine <2.0 mg/dL (<2.0); WBC,Urine 1 /hpf (0-5)
[2019-12-21] MEDS ORDERED: SODIUM CHLORIDE 0.9% 1,000 ML IV ONE (14:31)
[2019-12-21] MEDS: LOSARTAN 25 MG TAB PO SCH (22:35)
[2019-12-21] MEDS: CARVEDILOL 6.25 MG TAB PO SCH (22:35)
[2019-12-21] MEDS: ATORVASTATIN 40 MG TAB PO SCH (22:36)
[2019-12-21] MEDS: APIXABAN 2.5 MG TABLET PO SCH (22:36)
[2019-12-22 05:33] LABS: Basophils % (A) 0 %; Eosinophils # (A) 0.1 k/uL (0-0.7); Eosinophils % (A) 1 %; HCT 35.3 % (39.0-53.0); HGB 11.3 gm/dL (13.0-17.5); Hypochromasia Slight; Lymphocytes # (A) 0.3 k/uL (1.0-4.8); Lymphocytes % (A) 7 %; MCH 28.6 pg (25.0-35.0); MCHC 32.1 g/dL (31.0-37.0); MCV 89.2 fL (80.0-100.0); Mean Platelet Volume 9.4; Monocytes # (A) 0.2 k/uL (0-1.0); Monocytes % (A) 3 %; Neutrophils # (A) 4.5 k/uL (1.3-7.7); Neutrophils % (A) 88 %; RBC 3.95 m/uL (4.30-5.90); RDW 14.7 % (11.5-15.5); WBC 5.1 k/uL (3.8-10.6)
[2019-12-22 05:42] LABS: Calcium 10.6 mg/dL (8.4-10.2)
[2019-12-22 05:52] LABS: Total Protein 4.3 g/dL (6.3-8.2)
[2019-12-22 05:53] LABS: Albumin 1.7 g/dL (3.5-5.0); Potassium 3.9 mmol/L (3.5-5.1)
[2019-12-22 06:12] LABS: Target Cells Present
[2019-12-22 06:13] LABS: Large Platelets Present; Platelet Count 54 k/uL (150-450)
[2019-12-22] MEDS: CARVEDILOL 6.25 MG TAB PO SCH ×2 (06:21→17:08)
[2019-12-22] MEDS: MULTIVITAMINS, THERA 1 EACH TAB PO SCH (09:10)
[2019-12-22] MEDS: APIXABAN 2.5 MG TABLET PO SCH ×2 (09:10→20:23)
[2019-12-22] MEDS: SODIUM CHLORIDE 0.9% 1,000 ML IV SCH (09:10)
[2019-12-22] MEDS: ISOSORBIDE MONONITRATE ER 30 MG TAB.ER.24H PO SCH (09:10)
[2019-12-22 09:59] LABS: HCT 29.5 % (39.0-53.0); HGB 10.2 gm/dL (13.0-17.5); MCH 31.4 pg (25.0-35.0); MCHC 34.5 g/dL (31.0-37.0); MCV 91.1 fL (80.0-100.0); Mean Platelet Volume 8.3; RBC 3.23 m/uL (4.30-5.90); WBC 7.5 k/uL (3.8-10.6)
[2019-12-22 10:02] LABS: Platelet Count 129 k/uL (150-450)
[2019-12-22 10:58] LABS: Total Protein 5.7 g/dL (6.3-8.2)
--- NOTE | 2019-12-22 11:45 | ECHOF ---
Referral Reason:new cardio consult MEASUREMENTS -------- HEIGHT: 180.3 cm WEIGHT: 73.5 kg BP: 133/71 RVIDd: 2.3 cm (< 3.3) IVSd: 1.4 cm (0.6 - 1.1) LVIDd: 3.9 cm (3.9 - 5.3) LVPWd: 1.5 cm (0.6 - 1.1) IVSs: 2.2 cm LVIDs: 2.5 cm LVPWs: 2.0 cm LAESV Index (A-L): 37.22 ml/m Ao Diam: 4.0 cm (2.0 - 3.7) AV Cusp: 2.3 cm (1.5 - 2.6) LA Diam: 3.0 cm (2.7 - 3.8) MV EXCURSION: 10.412 mm (> 18.000) MV EF SLOPE: 59 mm/s (70 - 150) EPSS: 1.0 cm MV E Ever: 1.28 m/s MV DecT: 231 ms MV A Ever: 0.53 m/s MV E/A Ratio: 2.42 AR PHT: 779 ms RAP: 5.00 mmHg RVSP: 29.49 mmHg FINDINGS -------- Sinus rhythm with extra systolic beats. This was a technically difficult study with suboptimal views. The left ventricular size is normal. There is moderate concentric left ventricular hypertrophy. O verall left ventricular systolic function is normal with, an EF between 55 - 60 %. Increased LAP Gr noé 2 Diastolic Dysfunction. The right ventricle is normal in size. LA is moderately dilated 34-39 ml/m2 The right atrial size is normal. Lumason used Aortic valve is trileaflet and is mildly thickened. Trace amount of aortic regurgitation. The mitral valve is normal. Mild mitral regurgitation is present. The tricuspid valve appears structurally normal. Mild tricuspid regurgitation present. Right vent ricular systolic pressure is normal at < 35 mmHg. There is no pulmonic regurgitation present. 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 There is no pericardial effusion. CONCLUSIONS -------- 1. Sinus rhythm with extra systolic beats. 2. This was a technically difficult study with suboptimal views. 3. The left ventricular size is normal. 4. There is moderate concentric left ventricular hypertrophy. 5. Overall left ventricular systolic function is normal with, an EF between 55 - 60 %. 6. Increased LAP Grade 2 Diastolic Dysfunction. 7. The right ventricle is normal in size. 8. LA is moderately dilated 34-39 ml/m2 9. The right atrial size is normal. 10. Lumason used 11. Aortic valve is trileaflet and is mildly thickened. 12. Trace amount of aortic regurgitation. 13. The mitral valve is normal. 14. Mild mitral regurgitation is present. 15. The tricuspid valve appears structurally normal. 16. Mild tricuspid regurgitation present. 17. Right ventricular systolic pressure is normal at < 35 mmHg. 18. There is no pulmonic regurgitation present. 19. 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 20. There is no pericardial effusion. BATTERY CONTAINER INSPECTOR: Annika Arellano RDCS
[2019-12-22 11:47] LABS: Calcium 8.3 mg/dL (8.4-10.2); Potassium 3.7 mmol/L (3.5-5.1); Total Bilirubin 0.5 mg/dL (0.2-1.3)
--- NOTE | 2019-12-22 12:07 | CONS ---
CONSULTATION Mr. Gross is an 84-year-old male with known history of coronary artery disease, status post coronary artery bypass grafting, history of atrial fibrillation, status post cardioversion performed in June 2019 who presented with symptoms of progressive fatigue and weakness. I am not able to obtain of very good history from the patient. He is awake, but appears to have some element of confusion. He has a known history of coronary artery disease, status post coronary artery bypass grafting in 1999 where he received a LISA to LAD, saphenous vein graft to the intermediate to the diagonal branch and to the circumflex. He underwent stenting of the saphenous vein graft to the circumflex in 2013. Subsequently in June 2019, Dr. Pan performed a cardioversion with mosque of normal sinus rhythm. Apparently, the patient has been having progressive fatigue with lack of energy and because of that came into the emergency room and subsequently admitted. He denies any chest pain. His breathing is stable. He does not appear to be very active physically at home. According to the nursing staff, he has eaten his breakfast this morning. He had an echocardiogram in July of 2019 and at that time, he was in sinus mechanism and his echo showed a preserved systolic function with moderate mitral and mild aortic regurgitation. His coronary risk factors are positive for hypertension, hyperlipidemia. He is a nondiabetic. REVIEW OF SYSTEMS: Although a limited: RESPIRATORY SYSTEM: Patient denies any wheezing. No cough. No history of obstructive lung disease. GI SYSTEM: No recent GI bleeding. No peptic ulcer disease. SYSTEM: No dysuria or hematuria. NERVOUS SYSTEM: No history of seizure. PHYSICAL EXAMINATION: He is an 84-year-old male, alert, but is slow in responding, appeared to be somnolent. Temperature max 101.7. Blood pressure 133/70 with the heart rate in the 60s. HEAD: Normocephalic. EYES: Sclerae anicteric. NECK: Good carotid upstroke. No bruit. No jugular venous distention. LUNGS: With decreased air exchange. No wheezes. HEART: Irregular, irregular. S1, S2. No S3 with a systolic murmur. No diastolic murmur. No rub. ABDOMEN: Soft nontender positive bowel sounds. No organomegaly. EXTREMITIES: No edema. LAB DATA: Lab data revealed on admission, BUN and creatinine 25 and 1.39, up to 82 and 2.36, potassium 3.9, hemoglobin of 11.3. His troponin of 0.025. TSH of 2.8. EKG revealed atrial fibrillation with ventricular ectopic activity, probable aberrancy. Chest x-ray shows no acute infiltrate. CT scan of the brain revealed no acute hemorrhage with chronic small-vessel disease and atrophy. IMPRESSION: 1. Symptoms of progressive fatigue and weakness with febrile episode, possible infection, could be urinary tract infection, although details not available. 2. Atrial fibrillation, recurrent after cardioversion in June 2019. Patient with sinus mechanism in July 2019. 3. History of coronary artery disease, status post coronary artery bypass grafting and percutaneous revascularization. 4. History of hypertension. 5. Hyperlipidemia. 6. Worsening renal failure. RECOMMENDATION: From the cardiac standpoint, I will increase the amount of his fluid. I will obtain echocardiogram with Doppler. Follow his renal function. Continue anticoagulation and depending on his progress, further recommendation will be made. Thank you for this consult. We will follow with you. STIVENL / IJN: [id number] /
--- NOTE | 2019-12-22 13:48 | US ---
EXAMINATION TYPE: US carotid duplex BILAT DATE OF EXAM: 12/22/2019 COMPARISON: US CLINICAL HISTORY: weakness. weakness, confusion EXAM MEASUREMENTS: RIGHT: Peak Systolic Velocity (PSV) cm/sec ----- Right CCA: 64.5 ----- Right ICA: 77.9 ----- Right ECA: 97.7 ICA/CCA ratio: 1.2 RIGHT: End Diastole cm/sec ----- Right CCA: 13.0 ----- Right ICA: 10.9 ----- Right ECA: 0.0 LEFT: Peak Systolic Velocity (PSV) cm/sec ----- Left CCA: 71.4 ----- Left ICA: 155.4 ----- Left ECA: 98.4 ICA/CCA ratio: 2.2 LEFT: End Diastole cm/sec ----- Left CCA: 12.1 ----- Left ICA: 39.2 ----- Left ECA: 0.0 VERTEBRALS (direction of flow): Right Vertebral: Antegrade Left Vertebral: Antegrade Rhythm: Normal Grayscale, color Doppler, spectral Doppler imaging performed of the carotid arteries. Heterogeneous p laque bilaterally with slightly elevated velocities left ICA Waveform analysis does not show significant stenosis of the proximal internal carotid tear in the rig ht, there is elevated velocity proximal internal carotid artery on the left. 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 1. Normal (no stenosis)=ICA PSV < 125 cm/s: ratio < 2.0: ICA EDV<40 cm/s. 2. Less than 50% stenosis=ICA PSV < 125 cm/s: ratio < 2.0: ICA EDV<40 cm/s. 3. 50 to 69% stenosis=ICA PSV of 125 to 230 cm/s: ration 2.0 ? 4.0: ICA EDV 40-100 cm/s. 4. Greater than 70% stenosis to near occlusion= ICA PSV > 230 cm/s: ratio > 4.0: ICA EDV > 100 cm/s. 5. Near occlusion= ICA PSV velocities may be low or undetectable: variable ratio and ICA EDV. 6. Total occlusion=unable to detect flow.
--- NOTE | 2019-12-22 14:38 | P.HPIM ---
History of Present Illness H&P Date: 12/22/19 Chief Complaint: Weakness, dizziness This is an 84-year-old male patient of Dr. Lopez and Dr. VAHID Pan. He has a past medical history of DC and coronary artery disease status post stenting and 4 vessel CABG done in [place] in 1999, LISA to LAD, SVG to intermediate, and SVG to diagonal, as well as SVG to left circumflex, hypertension, hypertensive vascular disease, hyperlipidemia with history of prostate cancer treated with radiation. He completed radiation treatment in April 2012. 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 In 2013 patient had acute non-ST elevated myocardial infarction and underwent stenting of the SVG to the left circumflex. He had a recent hospitalization in May for syncopal episode while he was in [place]. He was found to have new onset of atrial fibrillation and was started on eliquis. He had a subsequent hospitalization in July 2019 for syncope possible vasovagal. Patient's daughter gives history that he would normally use a walker or cane sometimes for ambulation. For the past 2 days patient has had significantly increased weakness. He is having trouble getting out of a chair and ambulating. 2 days ago they were able to help him to the toilet and then he was not able to get off and later the fire department had to come and help. On the next morning his daughter came to help him up coming cleaned up and had him in the chair. He ended up in a chair all day long. Later patient was moved to bed and was found by the daughter leaning over to the side with water dripping out of his mouth trying to take his medications. EMS was called and patient came into the hospital. They deny any difficulty or change in his speech, no choking or swallowing difficulties, and no lack of strength in one side of arms or legs. He has been eating okay. No nausea or vomiting. He did have a bowel movement yesterday in the emergency center. The deny any recent change in medication. Also they relate that this morning he has been confused for the nurse as he did not know where he was this morning. This would not be his norm. Patient came into [facility] emergency center for evaluation. He was afebrile, heart rate 85, blood pressure 118/74, pulse ox 99% on room air. EKG was a wide QRS with multiple PVCs and bigeminy. Chest x-ray showed no acute abnormalities. WBC 6.2, hemoglobin 11.2, platelet count 145. Sodium 135, potassium 3.9, chloride 101, CO2 25, BUN 25, creatinine 1.39, blood sugar 110. Liver function tests within normal limits. Lactic acid 1.3. Troponin 0.025. Urinalysis was clear with blood moderate and rbc's 21. TSH 2.800. Patient received 1 L of IV fluid while in the emergency center and was admitted to the cardiac stepdown unit with cardiology consult. Repeat lab work this morning reveals BUN of 82 and creatinine 2.36, sodium 146, potassium 3.9, chloride 123 and CO2 18. This was repeated with results finding a sodium of 134, potassium 3.7, chloride 102, CO2 25, BUN 29 creatinine 1.45. WBC 7.5, hemoglobin 10.2 and platelet count 129. CK 256. Review of Systems Constitutional: Reports fatigue, denies sweats, Reports weakness, Denies anorexia, Denies chills, Denies fever, reports lethargy, reports malaise, Denies poor appetite, Denies weight loss Eyes: denies blurred vision, denies pain Ears, nose, mouth and throat: Denies vertigo, Denies headache, Denies sore throat Cardiovascular: Denies lightheadedness, denies syncope, Denies chest pain, Denies decreased exercise tolerance, Denies dyspnea on exertion, Denies edema, Denies leg edema, Denies orthopnea, Denies palpitations, Denies shortness of breath Respiratory: Reports sleep apnea, Denies cough, Denies cough with sputum, Denies dyspnea, Denies excessive sputum, Denies hemoptysis, Denies home oxygen, Denies wheezing Gastrointestinal: Denies abdominal pain, Denies diarrhea, Denies loss of appetite, Denies nausea, Denies vomiting Genitourinary: Denies dysuria, Denies urinary frequency, Denies urinary hesitancy, Denies urinary retention Musculoskeletal: Denies myalgias Integumentary: Denies pruritus, Denies rash, Denies wounds Neurological: Denies syncope, Reports weakness, Denies numbness Psychiatric: Denies anxiety, Denies depression Endocrine: Denies fatigue, Denies weight change Past Medical History Past Medical History: Atrial Fibrillation, Coronary Artery Disease (CAD), Cancer, Hyperlipidemia, Hypertension, Myocardial Infarction (DC), Osteoarthritis (OA), Prostate Disorder Additional Past Medical History / Comment(s): 1999-prostate cancer with radiation Last Myocardial Infarction Date:: 1998 History of Any Multi-Drug Resistant Organisms: None Reported Past Surgical History: Coronary Bypass/CABG, Heart Catheterization With Stent, Hernia Repair Additional Past Surgical History / Comment(s): Open heart Quadrupal bypass (1998) Past Anesthesia/Blood Transfusion Reactions: No Reported Reaction Date of Last Stent Placement:: 2015 Smoking Status: Former smoker Additional Past Alcohol Use History / Comment(s): Patient was a smoker of cigars for 10 years ago quit approximately 15 years ago. He drinks alcohol on a social basis. He denies any medical marijuana, marijuana, street drug use. Patient lives at home with his . 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 - Past Family History Father Family Medical History: Congestive Heart Failure (CHF), COPD, Coronary Artery Disease (CAD) Additional Family Medical History / Comment(s): at age 72. Mother Family Medical History: Cancer Additional Family Medical History / Comment(s): at age 86, colon cancer. Sister(s) Family Medical History: COPD, Liver Disease Additional Family Medical History / Comment(s): Patient had one sister with history of alcoholism and at age 71. She also had COPD. Brother(s) Additional Family Medical History / Comment(s): Patient has one dtr that from diabetes complications. One son has history of hypertension. One daughter has diabetes. Medications and Allergies Home Medications Medication Instructions Recorded Confirmed Type Atorvastatin [Lipitor] 40 mg PO HS 05/16/16 12/21/19 History Carvedilol [Coreg] 3.125 mg PO BID 05/16/16 12/21/19 History Isosorbide Mononitrate ER [Imdur] 30 mg PO DAILY 05/16/16 12/21/19 History Losartan [Cozaar] 25 mg PO HS 05/23/19 12/21/19 History Multivitamin [Multivitamins Adult 1 tab PO DAILY 05/23/19 12/21/19 History Gummies] Apixaban [Eliquis] 2.5 mg PO BID #60 tab 05/25/19 12/21/19 Rx Allergies Allergy/AdvReac Type Severity Reaction Status Date / Time No Known Allergies Allergy Verified 12/21/19 14:39 Physical Exam Vitals: Vital Signs Temp Pulse Pulse Resp BP BP Pulse Ox 12/22/19 03:58 100.2 F H 67 19 133/71 97 12/22/19 03:40 101.7 F H 12/22/19 00:00 100 F H 60 19 150/72 99 12/21/19 21:06 98.1 F 64 19 146/64 97 12/21/19 20:00 98.1 F 64 18 146/64 97 12/21/19 18:52 98.8 F 73 18 140/70 98 12/21/19 13:42 71 18 120/75 98 12/21/19 11:18 99.2 F 85 18 119/74 99 Intake and Output 12/21/19 12/22/19 12/22/19 22:59 06:59 14:59 Intake Total 800 240 Balance 800 240 Intake: Intake, IV Titration 800 Amount Sodium Chloride 0.9% 1, 800 000 ml @ 100 mls/hr IV . Q10H ONE Rx#:[id number] Oral 240 Other: Voiding Method Urinal Incontinent # Voids 1 1 Weight 73.482 kg 79.5 kg Gen: This is an 84-year-old male patient resting in bed and appears comfortable and in no acute distress. HEENT: Head is atraumatic, normocephalic. Pupils equal, round. Sclerae is anicteric. NECK: Supple. No JVD. No lymphadenopathy. No thyromegaly. LUNGS: Clear to auscultation. No wheezes or rhonchi. No intercostal retractions. HEART: Regular rate and rhythm. Systolic murmur. ABDOMEN: Soft. Bowel sounds are present. No masses. No tenderness. EXTREMITIES: No pedal edema. No calf tenderness. Dorsalis pedis +2 bilaterally. NEUROLOGICAL: Patient is awake, alert and oriented x1-2. Cranial nerves 2 through 12 are grossly intact. Generalized weakness noted. No lateralized weakness. Results CBC & Chem 7: 12/22/19 09:31 12/22/19 09:31 Labs: Abnormal Lab Results - Last 24 Hours (Table) 12/21/19 12/21/19 12/21/19 Range/Units 12:15 12:15 13:13 RBC 3.56 L (4.30-5.90) m/uL Hgb 11.2 L (13.0-17.5) gm/dL Hct 32.1 L (39.0-53.0) % Plt Count 145 L (150-450) k/uL Lymphocytes # 0.6 L (1.0-4.8) k/uL Sodium 135 L (137-145) mmol/L Chloride (98-107) mmol/L Carbon Dioxide (22-30) mmol/L BUN 25 H (9-20) mg/dL Creatinine 1.39 H (0.66-1.25) mg/dL Glucose 110 H (74-99) mg/dL Calcium (8.4-10.2) mg/dL Alkaline Phosphatase (38-126) U/L Creatine Kinase (55-170) U/L Total Protein (6.3-8.2) g/dL Albumin (3.5-5.0) g/dL Urine Protein 2+ H (Negative) Urine Blood Moderate H (Negative) Urine RBC 21 H (0-5) /hpf Urine Bacteria Rare H (None) /hpf Urine Mucus Rare H (None) /hpf 12/22/19 12/22/19 12/22/19 Range/Units 05:10 05:10 09:31 RBC 3.95 L 3.23 L (4.30-5.90) m/uL Hgb 11.3 L 10.2 L (13.0-17.5) gm/dL Hct 35.3 L 29.5 L (39.0-53.0) % Plt Count 54 L D 129 L D (150-450) k/uL Lymphocytes # 0.3 L (1.0-4.8) k/uL Sodium 146 H (137-145) mmol/L Chloride 123 H (98-107) mmol/L Carbon Dioxide 18 L (22-30) mmol/L BUN 82 H (9-20) mg/dL Creatinine 2.36 H (0.66-1.25) mg/dL Glucose 72 L (74-99) mg/dL Calcium 10.6 H (8.4-10.2) mg/dL Alkaline Phosphatase 30 L (38-126) U/L Creatine Kinase 256 H (55-170) U/L Total Protein 4.3 L (6.3-8.2) g/dL Albumin 1.7 L (3.5-5.0) g/dL Urine Protein (Negative) Urine Blood (Negative) Urine RBC (0-5) /hpf Urine Bacteria (None) /hpf Urine Mucus (None) /hpf Thrombosis Risk Factor Assmnt - DVT/VTE Prophylaxis DVT/VTE Prophylaxis: Pharmacologic Prophylaxis ordered - Choose All That Apply Any of the Below Risk Factors Present?: Yes Each Factor Represents 1 point: Swollen legs (current) Other Risk Factors: Yes Each Risk Factor Represents 3 Points: Age 75 years or older Other congenital or acquired thrombophilia - If yes, enter type in comment: No Thrombosis Risk Factor Assessment Total Risk Factor Score: 4 Thrombosis Risk Factor Assessment Level: Moderate Risk Assessment and Plan Plan: 1. Generalized weakness significantly worsening over 2 days, rule out TIA, other etiologies. Cardiology consult appreciated. Continue cardiac monitoring, echocardiogram, orthostatics. D-dimer has been ordered by cardiology. Continu e Coreg 3.125 mg twice daily. Iron studies magnesium, stool for occult blood, vitamin B12 and cortisol levels ordered as well as carotid ultrasound. PT and OT ordered. No change in speech and speech therapy will not be requested. 2. Paroxysmal atrial fibrillation status post cardioversion and June. Cardiology consult appreciated. Continue Coreg at 3.125 mg twice daily, eliquis 2.5 mg twice daily. 3. History of coronary artery disease with prior bypass and stenting, stable. Continue atorvastatin 40 mg daily, Coreg, Imdur 30 mg daily. 4. Hypertension, hypertensive cardiovascular disease. Continue losartan 12.5 mg daily, Coreg. 5. Hyperlipidemia. Continue statin 6. Chronic kidney disease stage IIIa, stable. Baseline creatinine 1.4. 7. Anemia of chronic kidney disease, stable 8. History of prostate cancer treated with radiation, stable. 9. 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 10. Short-term memory deficit, stable. 11. GI prophylaxis. Pepcid. 12. DVT prophylaxis. Eliquis. Patient will be admitted to the hospital for a minimum of 2 night stay. Discharge plan: To be determined. PT and OT added.. Impression and plan of care have been directed as dictated by the signing physician. Gloria Oneill nurse practitioner acting as scribe for signing physician.
[2019-12-22 16:51] LABS: Glucose,Whole Blood 135 mg/dL (75-99)
[2019-12-22 20:22] LABS: % Iron Saturation 32.65 (15.00-50.00)
[2019-12-22] MEDS: ATORVASTATIN 40 MG TAB PO SCH (20:23)
[2019-12-22] MEDS: LOSARTAN 25 MG TAB PO SCH (20:23)
[2019-12-23] MEDS: CARVEDILOL 6.25 MG TAB PO SCH ×2 (06:35→17:38)
[2019-12-23] MEDS: SODIUM CHLORIDE 0.9% 1,000 ML IV SCH (06:37)
[2019-12-23 07:49] LABS: Calcium 8.1 mg/dL (8.4-10.2); Magnesium 1.7 mg/dL (1.6-2.3); Potassium 3.8 mmol/L (3.5-5.1)
[2019-12-23] MEDS: ISOSORBIDE MONONITRATE ER 30 MG TAB.ER.24H PO SCH (08:49)
[2019-12-23] MEDS: MULTIVITAMINS, THERA 1 EACH TAB PO SCH (08:49)
[2019-12-23] MEDS: APIXABAN 2.5 MG TABLET PO SCH ×2 (08:49→20:02)
--- NOTE | 2019-12-23 09:31 | PN ---
PROGRESS NOTE Mr. Gross is an 84-year-old male who has a history of coronary artery disease status post coronary artery bypass grafting, atrial fibrillation status post cardioversion with recurrent atrial fibrillation, who came in with progressive fatigue and lack of energy. He is feeling better today. His breathing is better. He denies any symptoms of chest pain. He denies any dizziness or palpitation. He denies any nausea. His appetite is stable. He had an echocardiogram yesterday that showed a preserved systolic function with mild mitral and tricuspid regurgitation with no evidence of pulmonary hypertension. He continues to be at this time on Eliquis 2.5 mg twice a day, Lipitor 40 mg daily, Coreg 3.125 mg twice a day, isosorbide mononitrate 30 mg daily, losartan 25 mg daily. PHYSICAL EXAMINATION: Blood pressure 110/60 with a heart rate in the 60s. LUNGS: Clear. HEART: Irregular, regular, S1, S2. No S3 with a systolic murmur, no diastolic murmur. ABDOMEN: Soft, nontender. EXTREMITIES: No edema. LAB DATA: Revealed BUN and creatinine 124 and 1.22, significantly improved compared to admission. Potassium 3.8. Hemoglobin of 10.2. IMPRESSION: 1. Dehydration with abnormal renal function, improved. 2. Atrial fibrillation persistent, rate controlled and anticoagulated. 3. History of coronary artery disease, status post coronary artery bypass grafting, percutaneous revascularization. 4. Hypertension. 5. Hyperlipidemia. RECOMMENDATION: I will decrease the IV fluids at this time. Continue rest of his medical regimen. Continue to increase his level activity. From the cardiac standpoint, he is stable. No further workup is needed at this time. MMODL / IJN: [id number] /
--- NOTE | 2019-12-23 16:23 | P.PN ---
Subjective Progress Note Date: 12/23/19 This is an 84-year-old male patient of Dr. Lopez and Dr. VAHID Pan. He has a past medical history of CO and coronary artery disease status post stenting and 4 vessel CABG done in [place] in 1999, LISA to LAD, SVG to intermediate, and SVG to diagonal, as well as SVG to left circumflex, hypertension, hypertensive vascular disease, hyperlipidemia with history of prostate cancer treated with radiation. He completed radiation treatment in April 2012. 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 In 2013 patient had acute non-ST elevated myocardial infarction and underwent stenting of the SVG to the left circumflex. He had a recent hospitalization in May for syncopal episode while he was in [place]. He was found to have new onset of atrial fibrillation and was started on eliquis. He had a subsequent hospitalization in July 2019 for syncope possible vasovagal. Patient's daughter gives history that he would normally use a walker or cane sometimes for ambulation. For the past 2 days patient has had significantly increased weakness. He is having trouble getting out of a chair and ambulating. 2 days ago they were able to help him to the toilet and then he was not able to get off and later the fire department had to come and help. On the next morning his daughter came to help him up coming cleaned up and had him in the chair. He ended up in a chair all day long. Later patient was moved to bed and was found by the daughter leaning over to the side with water dripping out of his mouth trying to take his medications. EMS was called and patient came into the hospital. They deny any difficulty or change in his speech, no choking or swallowing difficulties, and no lack of strength in one side of arms or legs. He has been eating okay. No nausea or vomiting. He did have a bowel movement yesterday in the emergency center. The deny any recent change in medication. Also they relate that this morning he has been confused for the nurse as he did not know where he was this morning. This would not be his norm. Patient came into [facility] emergency center for evaluation. He was afebrile, heart rate 85, blood pressure 118/74, pulse ox 99% on room air. EKG was a wide QRS with multiple PVCs and bigeminy. Chest x-ray showed no acute abnormalities. WBC 6.2, hemoglobin 11.2, platelet count 145. Sodium 135, potassium 3.9, chloride 101, CO2 25, BUN 25, creatinine 1.39, blood sugar 110. Liver function tests within normal limits. Lactic acid 1.3. Troponin 0.025. Urinalysis was clear with blood moderate and rbc's 21. TSH 2.800. Patient received 1 L of IV fluid while in the emergency center and was admitted to the cardiac stepdown unit with cardiology consult. Repeat lab work this morning reveals BUN of 82 and creatinine 2.36, sodium 146, potassium 3.9, chloride 123 and CO2 18. This was repeated with results finding a sodium of 134, potassium 3.7, chloride 102, CO2 25, BUN 29 creatinine 1.45. WBC 7.5, hemoglobin 10.2 and platelet count 129. CK 256. 12/22: IV fluids decreased to 50 mL per hour. Patient is been afebrile, heart rate 65, blood pressure 121/74, pulse ox 94% on room air. Repeat blood work reveals sodium 135, potassium 3.8, chloride 104, CO2 23, BUN 24 and creatinine 1.22. Cortisol level XV, vitamin B12 400, TSH 2.8, CK 256, ferritin 791, iron 48, TIBC 147, P iron saturation 32.65. Physical therapy has recommended subacute rehab and patient will be going to [facility] tomorrow. Objective - Vital Signs Vital signs: Vital Signs Temp 98.1 F 12/23/19 08:38 Pulse 67 12/23/19 08:38 Resp 18 12/23/19 08:49 BP 110/66 12/23/19 08:38 Pulse Ox 96 12/23/19 08:49 Intake & Output 12/22/19 12/23/19 12/23/19 18:59 06:59 18:59 Intake Total 480 120 Output Total 100 100 Balance 380 -100 120 Weight 69.5 kg Intake: Oral 480 120 Output: Urine 100 100 Other: Voiding Method Diaper Diaper Diaper Incontinent Incontinent Incontinent # Voids 1 1 - Exam Review of Systems Constitutional: Reports fatigue, denies sweats, Reports weakness, Denies anorexi a, Denies chills, Denies fever, reports lethargy, reports malaise, Denies poor appetite, Denies weight loss Ears, nose, mouth and throat: Denies vertigo, Denies headache, Denies sore throat Cardiovascular: Denies lightheadedness, denies syncope, Denies chest pain, Denies decreased exercise tolerance, Denies dyspnea on exertion, Denies edema, Denies leg edema, Denies orthopnea, Denies palpitations, Denies shortness of breath Respiratory: Reports sleep apnea, Denies cough, Denies cough with sputum, Denies dyspnea, Denies excessive sputum, Denies hemoptysis, Denies home oxygen, Denies wheezing Gastrointestinal: Denies abdominal pain, Denies diarrhea, Denies loss of appetite, Denies nausea, Denies vomiting Genitourinary: Denies dysuria, Denies urinary frequency, Denies urinary hesitancy, Denies urinary retention Musculoskeletal: Denies myalgias Integumentary: Denies pruritus, Denies rash, Denies wounds Neurological: Denies syncope, Reports weakness, Denies numbness Psychiatric: Denies anxiety, Denies depression Endocrine: Denies fatigue, Denies weight change Physical examination Gen: This is an 84-year-old male patient resting in bed and appears comfortable and in no acute distress. HEENT: Head is atraumatic, normocephalic. Pupils equal, round. Sclerae is anicteric. NECK: Supple. No JVD. No lymphadenopathy. No thyromegaly. LUNGS: Clear to auscultation. No wheezes or rhonchi. No intercostal retractions. HEART: Regular rate and rhythm. Systolic murmur. ABDOMEN: Soft. Bowel sounds are present. No masses. No tenderness. EXTREMITIES: No pedal edema. No calf tenderness. Dorsalis pedis +2 bilaterally. NEUROLOGICAL: Patient is awake, alert and oriented x1-2. Cranial nerves 2 through 12 are grossly intact. Generalized weakness noted. - Labs CBC & Chem 7: 12/22/19 09:31 12/23/19 06:52 Labs: Abnormal Lab Results - Last 24 Hours (Table) 12/22/19 12/22/19 12/23/19 Range/Units 09:31 16:40 06:52 Sodium 135 L (137-145) mmol/L BUN 24 H (9-20) mg/dL POC Glucose (mg/dL) 135 H (75-99) mg/dL Calcium 8.1 L (8.4-10.2) mg/dL Iron 48 L (65-175) ug/dL TIBC 147 L (228-460) ug/dL Ferritin 791.0 H (22.0-322.0) ng/mL Assessment and Plan Plan: 1. Generalized weakness significantly worsening over 2 days, rule out TIA, othe r etiologies. Cardiology consult appreciated. Continue cardiac monitoring, echocardiogram, orthostatics. Continue Coreg 3.125 mg twice daily. Iron studies magnesium, stool for occult blood, vitamin B12 and cortisol levels ordered as well as carotid ultrasound. PT and OT ordered. No change in speech and speech therapy will not be requested. 2. Paroxysmal atrial fibrillation status post cardioversion and June. Cardiology consult appreciated. Continue Coreg at 3.125 mg twice daily, eliquis 2.5 mg twice daily. 3. History of coronary artery disease with prior bypass and stenting, stable. Continue atorvastatin 40 mg daily, Coreg, Imdur 30 mg daily. 4. Hypertension, hypertensive cardiovascular disease. Continue losartan 12.5 mg daily, Coreg. 5. Hyperlipidemia. Continue statin 6. Chronic kidney disease stage IIIa, stable. Baseline creatinine 1.4. 7. Anemia of chronic kidney disease, stable 8. History of prostate cancer treated with radiation, stable. 9. 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 10. Short-term memory deficit, stable. 11. GI prophylaxis. Pepcid. 12. DVT prophylaxis. Eliquis. Discharge plan: [facility] on Friday. PT and OT appreciated. Impression and plan of care have been directed as dictated by the signing physician. Gloria Oneill nurse practitioner acting as scribe for signing physician.
[2019-12-23 19:59] VITALS: TEMP 98.7
[2019-12-23] MEDS: ATORVASTATIN 40 MG TAB PO SCH (20:00)
[2019-12-23] MEDS: LOSARTAN 25 MG TAB PO SCH (20:00)
[2019-12-24] MEDS: SODIUM CHLORIDE 0.9% 1,000 ML IV SCH ×2 (05:30→07:43)
[2019-12-24 05:44] VITALS: BP 125/79; PULSE 87
[2019-12-24] MEDS: APIXABAN 2.5 MG TABLET PO SCH (07:41)
[2019-12-24] MEDS: MULTIVITAMINS, THERA 1 EACH TAB PO SCH (07:41)
[2019-12-24] MEDS: CARVEDILOL 6.25 MG TAB PO SCH (07:41)
[2019-12-24] MEDS: ISOSORBIDE MONONITRATE ER 30 MG TAB.ER.24H PO SCH (07:41)
--- NOTE | 2019-12-24 09:35 | P.DS ---
Providers Date of admission: 12/21/19 14:31 Expected date of discharge: 12/24/19 Attending physician: Elissa Montgomery Consults: 12/21/19 14:31 Consult Physician Urgent Consulting Provider: [facility] Consult Reason/Comments: Generalized weakness Do you want consulting provider notified?: Yes Primary care physician: Roberto Lopez [facility] Course: This is an 84-year-old male patient of Dr. Lopez and Dr. VAHID Pan. He has a past medical history of [place] and coronary artery disease status post stenting and 4 vessel CABG done in [place] in 1999, LISA to LAD, SVG to intermediate, and SVG to diagonal, as well as SVG to left circumflex, hypertension, hypertensive vascular disease, hyperlipidemia with history of prostate cancer treated with radiation. He completed radiation treatment in April 2012. 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 In 2013 patient had acute non-ST elevated myocardial infarction and underwent stenting of the SVG to the left circumflex. He had a recent hospitalization in May for syncopal episode while he was [place]. He was found to have new onset of atrial fibrillation and was started on eliquis. He had a subsequent hospitalization in July 2019 for syncope possible vasovagal. Patient's daughter gives history that he would normally use a walker or cane sometimes for ambulation. For the past 2 days patient has had significantly increased weakness. He is having trouble getting out of a chair and ambulating. 2 days ago they were able to help him to the toilet and then he was not able to get off and later the fire department had to come and help. On the next morning his daughter came to help him up coming cleaned up and had him in the chair. He ended up in a chair all day long. Later patient was moved to bed and was found by the daughter leaning over to the side with water dripping out of his mouth trying to take his medications. EMS was called and patient came into the hospital. They deny any difficulty or change in his speech, no choking or swallowing difficulties, and no lack of strength in one side of arms or legs. He has been eating okay. No nausea or vomiting. He did have a bowel movement yesterday in the emergency center. The deny any recent change in medication. Also they relate that this morning he has been confused for the kelly se as he did not know where he was this morning. This would not be his norm. Patient came into [facility] emergency center for evaluation. He was afebrile, heart rate 85, blood pressure 118/74, pulse ox 99% on room air. EKG was a wide QRS with multiple PVCs and bigeminy. Chest x-ray showed no acute abnormalities. WBC 6.2, hemoglobin 11.2, platelet count 145. Sodium 135, potassium 3.9, chloride 101, CO2 25, BUN 25, creatinine 1.39, blood sugar 110. Liver function tests within normal limits. Lactic acid 1.3. Troponin 0.025. Urinalysis was clear with blood moderate and rbc's 21. TSH 2.800. Patient received 1 L of IV fluid while in the emergency center and was admitted to the cardiac stepdown unit with cardiology consult. Repeat lab work this morning reveals BUN of 82 and creatinine 2.36, sodium 146, potassium 3.9, chloride 123 and CO2 18. This was repeated with results finding a sodium of 134, potassium 3.7, chloride 102, CO2 25, BUN 29 creatinine 1.45. WBC 7.5, hemoglobin 10.2 and platelet count 129. CK 256. 12/22: IV fluids decreased to 50 mL per hour. Patient is been afebrile, heart rate 65, blood pressure 121/74, pulse ox 94% on room air. Repeat blood work reveals sodium 135, potassium 3.8, chloride 104, CO2 23, BUN 24 and creatinine 1.22. Cortisol level XV, vitamin B12 400, TSH 2.8, CK 256, ferritin 791, iron 48, TIBC 147, P iron saturation 32.65. Physical therapy has recommended subacute rehab and patient will be going to [facility] tomorrow. 12/23: Patient has been afebrile, heart rate 87, blood pressure 125/79, pulse ox 95% on room air. Repeat lab work reveals sodium 136, potassium 3.5, chloride 105, CO2 24, BUN 25, creatinine 1.23. Blood sugar 121. Calcium 8.3. Patient denies any new complaints. He continues to have significant weakness, working with physical therapy and requiring rehab. Patient is eating about 50% of his meals. Patient will be discharged to [facility] once all arrangements are completed. Discharge diagnoses: 1. Generalized weakness significantly worsening over 2 days, ruled out TIA, probably related to a combination of A. fib and dehydration and acute kidney injury. 2. Paroxysmal atrial fibrillation status post cardioversion in June. 3. History of coronary artery disease with prior bypass and stenting, stable. 4. Hypertension, hypertensive cardiovascular disease. 5. Hyperlipidemia. 6. Acute kidney injury, Chronic kidney disease stage IIIa. 7. Anemia of chronic kidney disease, stable 8. History of prostate cancer treated with radiation, stable. 9. 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 10. Short-term memory deficit, stable. Discharge plan: [facility] under the care of Dr. Montgomery. Impression and plan of care have been directed as dictated by the signing physician. Gloria Oneill nurse practitioner acting as scribe for signing physician. Patient Condition at Discharge: Good Plan - Discharge Summary Discharge Rx Participant: No New Discharge Prescriptions: Continue Isosorbide Mononitrate ER [Imdur] 30 mg PO DAILY Carvedilol [Coreg] 3.125 mg PO BID Atorvastatin [Lipitor] 40 mg PO HS Losartan [Cozaar] 25 mg PO HS Multivitamin [Multivitamins Adult Gummies] 1 tab PO DAILY Apixaban [Eliquis] 2.5 mg PO BID #60 tab Discharge Medication List Atorvastatin [Lipitor] 40 mg PO HS 05/16/16 [History] Carvedilol [Coreg] 3.125 mg PO BID 05/16/16 [History] Isosorbide Mononitrate ER [Imdur] 30 mg PO DAILY 05/16/16 [History] Losartan [Cozaar] 25 mg PO HS 05/23/19 [History] Multivitamin [Multivitamins Adult Gummies] 1 tab PO DAILY 05/23/19 [History] Apixaban [Eliquis] 2.5 mg PO BID #60 tab 05/25/19 [Rx] Follow up Appointment(s)/Referral(s): Anton Gustafson MD [STAFF PHYSICIAN] - 3 Weeks (follow up on abn CT recommending MRI OP) Roberto Lopez MD [Primary Care Provider] - 1 Week (after discharge from ECF) Activity/Diet/Wound Care/Special Instructions: Please contact sylvain Mcconnell [phone] for intake and any questions Discharge Disposition: TRANSFER TO SNF/ECF
[2019-12-24 09:50] LABS: Calcium 8.3 mg/dL (8.4-10.2); Potassium 3.5 mmol/L (3.5-5.1)
[2019-12-24 10:45] VITALS: RESP 20
== END 2019-12-24 13:30 | DRG 309 ==
LOC: EC 11:15 → 3SCARD 14:31 → 5NMEDONC 12-23 18:45
PROVIDERS: ADMIT Family Medicine; ATTEND Family Medicine
DX: I48.0 Paroxysmal atrial fibrillation (principal); N17.9 Acute kidney failure, unspecified; D63.1 Anemia in chronic kidney disease; E78.5 Hyperlipidemia, unspecified; I13.10 Hypertensive heart and chronic kidney disease without heart failure, with stage 1 through stage 4 chronic kidney disease, or unspecified chronic kidney disease; E86.0 Dehydration; I25.10 Atherosclerotic heart disease of native coronary artery without angina pectoris; I25.2 Old myocardial infarction; I47.1 Supraventricular tachycardia; I49.3 Ventricular premature depolarization; N18.3 Chronic kidney disease, stage 3 (moderate); Z79.01 Long term (current) use of anticoagulants; Z79.82 Long term (current) use of aspirin; Z79.899 Other long term (current) drug therapy; Z80.0 Family history of malignant neoplasm of digestive organs; Z81.1 Family history of alcohol abuse and dependence; Z82.49 Family history of ischemic heart disease and other diseases of the circulatory system; Z82.5 Family history of asthma and other chronic lower respiratory diseases; Z83.3 Family history of diabetes mellitus; Z85.46 Personal history of malignant neoplasm of prostate; Z86.73 Personal history of transient ischemic attack (TIA), and cerebral infarction without residual deficits; Z87.891 Personal history of nicotine dependence; Z92.3 Personal history of irradiation; Z95.1 Presence of aortocoronary bypass graft; Z95.5 Presence of coronary angioplasty implant and graft
CPT/HCPCS: 36415; 70450; 71046; 80048; 80053; 81001; 82533; 82550; 82607; 82728; 83540; 83550; 83605; 83735; 84443; 84484; 85025; 85027; 85610; 85730; 93005; 93306; 93880; 96360; 96361; 99285

== ENCOUNTER 2020-02-18 09:55 | Observation (INO) | payer MEDICARE ==
--- NOTE | 2020-02-18 10:05 | ED ---
General Adult HPI - General Chief complaint: Dizziness Stated complaint: dizziness/weakness Time Seen by Provider: 02/18/20 09:55 Source: patient, EMS, RN notes reviewed, old records reviewed Mode of arrival: EMS Limitations: no limitations - History of Present Illness Initial comments: This is an 84-year-old male who presents emergency Department stating that he was standing in front of pulsatile illness morning and he became very weak and diaphoretic and thought he was given a passout. Patient states this happened approximately half an hour prior to arrival. Patient denies any chest pain or palpitations. Patient denies any difficulty breathing shortness of breath. Patient denies any spinning of the room or sensation of off balance. Patient denies any abdominal pain patient denies nausea vomiting diarrhea. Patient states he does feel better now but he is not standing so he is not sure if it would come back. Patient denies any headache patient denies any numbness or focal weakness. - Related Data Home Medications Medication Instructions Recorded Confirmed Atorvastatin [Lipitor] 40 mg PO HS 05/16/16 12/21/19 Carvedilol [Coreg] 3.125 mg PO BID 05/16/16 12/21/19 Isosorbide Mononitrate ER [Imdur] 30 mg PO DAILY 05/16/16 12/21/19 Losartan [Cozaar] 25 mg PO HS 05/23/19 12/21/19 Multivitamin [Multivitamins Adult 1 tab PO DAILY 05/23/19 12/21/19 Gummies] Previous Rx's Medication Instructions Recorded Apixaban [Eliquis] 2.5 mg PO BID #60 tab 05/25/19 Allergies Allergy/AdvReac Type Severity Reaction Status Date / Time No Known Allergies Allergy Verified 02/18/20 10:00 Review of Systems ROS Statement: Those systems with pertinent positive or pertinent negative responses have been documented in the HPI. ROS Other: All systems not noted in ROS Statement are negative. Past Medical History Past Medical History: Atrial Fibrillation, Coronary Artery Disease (CAD), Cancer, Hyperlipidemia, Hypertension, Myocardial Infarction (LA), Osteoarthritis (OA), Prostate Disorder Additional Past Medical History / Comment(s): 1999-prostate cancer with radiation Last Myocardial Infarction Date:: 1998 History of Any Multi-Drug Resistant Organisms: None Reported Past Surgical History: Coronary Bypass/CABG, Heart Catheterization With Stent, Hernia Repair Additional Past Surgical History / Comment(s): Open heart Quadrupal bypass (1998) Past Anesthesia/Blood Transfusion Reactions: No Reported Reaction Date of Last Stent Placement:: 2015 Past Psychological History: No Psychological Hx Reported Smoking Status: Former smoker Past Alcohol Use History: None Reported Past Drug Use History: None Reported - Past Family History Father Family Medical History: Congestive Heart Failure (CHF), COPD, Coronary Artery Disease (CAD) Additional Family Medical History / Comment(s): at age 72. Mother Family Medical History: Cancer Additional Family Medical History / Comment(s): at age 86, colon cancer. Sister(s) Family Medical History: COPD, Liver Disease Additional Family Medical History / Comment(s): Patient had one sister with history of alcoholism and at age 71. She also had COPD. Brother(s) Additional Family Medical History / Comment(s): Patient has one dtr that from diabetes complications. One son has history of hypertension. One daughter has diabetes. General Exam - General Exam Comments Initial Comments: GENERAL: Patient is well-developed and well-nourished. Patient is nontoxic and well- hydrated and is in mild distress. ENT: Neck is soft and supple. No significant lymphadenopathy is noted. Oropharynx is clear. Moist mucous membranes. Neck has full range of motion without eliciting any pain. EYES: The sclera were anicteric and conjunctiva were pink and moist. Extraocular movements were intact and pupils were equal round and reactive to light. Eyelids were unremarkable. PULMONARY: Unlabored respirations. Good breath sounds bilaterally. No audible rales rhonchi or wheezing was noted. CARDIOVASCULAR: There is a regular rate and rhythm without any murmurs gallops or rubs. ABDOMEN: Soft and nontender with normal bowel sounds. SKIN: Skin is clear with no lesions or rashes and otherwise unremarkable. NEUROLOGIC: Patient is alert and oriented x3. Cranial nerves II through XII are grossly intact. Motor and sensory are also intact. Normal speech, volume and content. Symmetrical smile. MUSCULOSKELETAL: Normal extremities with adequate strength and full range of motion. LYMPHATICS: No significant lymphadenopathy is noted PSYCHIATRIC: Normal psychiatric evaluation. Limitations: no limitations Course Vital Signs 02/18/20 02/18/20 02/18/20 10:00 10:04 10:29 Temperature 97.1 F L Pulse Rate 75 73 Pulse Rate [ 68 Lobster Catcher ] Pulse Rate [ 61 Sitting Lobster Catcher] Pulse Rate [ 117 H Standing Lobster Catcher ] Respiratory 18 16 Rate Blood Pressure 133/110 145/74 Blood Pressure 141/72 [Right Arm Sitting] Blood Pressure 132/75 [Right Arm Standing] Blood Pressure 145/74 [Right Arm Supine] O2 Sat by Pulse 97 96 Oximetry 02/18/20 02/18/20 11:30 12:21 Temperature Pulse Rate 60 103 H Pulse Rate [ Lobster Catcher ] Pulse Rate [ Sitting Lobster Catcher] Pulse Rate [ Standing Lobster Catcher ] Respiratory 16 18 Rate Blood Pressure 127/90 128/96 Blood Pressure [Right Arm Sitting] Blood Pressure [Right Arm Standing] Blood Pressure [Right Arm Supine] O2 Sat by Pulse 97 98 Oximetry Medical Decision Making - Medical Decision Making EKG shows atrial fibrillation with occasional PVC at 92 bpm QRS is 98 QT interval 424 QTC is 524. Patient's EKG shows no ST segment elevation or depression no T-wave abnormalities are noted. Chest x-ray showed no acute abnormality. Spoke with Dr. Montgomery she agreed to admit the patient admitted the patient wrote admitting orders - Lab Data Result diagrams: 02/18/20 10:10 02/18/20 10:10 Lab Results 02/18/20 02/18/20 02/18/20 Range/Units 10:10 10:10 10:10 WBC 6.5 (3.8-10.6) k/uL RBC 3.80 L (4.30-5.90) m/uL Hgb 11.8 L (13.0-17.5) gm/dL Hct 35.2 L (39.0-53.0) % MCV 92.7 (80.0-100.0) fL MCH 31.0 (25.0-35.0) pg MCHC 33.4 (31.0-37.0) g/dL RDW 13.6 (11.5-15.5) % Plt Count 169 (150-450) k/uL Neutrophils % 77 % Lymphocytes % 12 % Monocytes % 4 % Eosinophils % 4 % Basophils % 1 % Neutrophils # 5.0 (1.3-7.7) k/uL Lymphocytes # 0.7 L (1.0-4.8) k/uL Monocytes # 0.3 (0-1.0) k/uL Eosinophils # 0.3 (0-0.7) k/uL Basophils # 0.1 (0-0.2) k/uL PT 10.1 (9.0-12.0) sec INR 1.0 (<1.2) APTT 20.4 L (22.0-30.0) sec Sodium 138 (137-145) mmol/L Potassium 4.9 (3.5-5.1) mmol/L Chloride 105 (98-107) mmol/L Carbon Dioxide 28 (22-30) mmol/L Anion Gap 5 mmol/L BUN 31 H (9-20) mg/dL Creatinine 1.60 H (0.66-1.25) mg/dL Est GFR (CKD-EPI)AfAm 45 (>60 ml/min/1.73 sqM) Est GFR (CKD-EPI)NonAf 39 (>60 ml/min/1.73 sqM) Glucose 140 H (74-99) mg/dL Plasma Lactic Acid Raymundo (0.7-2.0) mmol/L Calcium 9.8 (8.4-10.2) mg/dL Magnesium 1.9 (1.6-2.3) mg/dL Total Bilirubin 0.8 (0.2-1.3) mg/dL AST 22 (17-59) U/L ALT 8 (4-49) U/L Alkaline Phosphatase 53 (38-126) U/L Troponin I (0.000-0.034) ng/mL Total Protein 7.2 (6.3-8.2) g/dL Albumin 4.0 (3.5-5.0) g/dL Urine Color Urine Appearance (Clear) Urine pH (5.0-8.0) Ur Specific [place] (1.001-1.035) Urine Protein (Negative) Urine Glucose (UA) (Negative) Urine Ketones (Negative) Urine Blood (Negative) Urine Nitrite (Negative) Urine Bilirubin (Negative) Urine Urobilinogen (<2.0) mg/dL Ur Leukocyte Esterase (Negative) Urine RBC (0-5) /hpf Urine WBC (0-5) /hpf Hyaline Casts (0-2) /lpf Urine Mucus (None) /hpf Coronavirus (PCR) (Not Detectd) 02/18/20 02/18/20 02/18/20 Range/Units 10:10 10:10 10:10 WBC (3.8-10.6) k/uL RBC (4.30-5.90) m/uL Hgb (13.0-17.5) gm/dL Hct (39.0-53.0) % MCV (80.0-100.0) fL MCH (25.0-35.0) pg MCHC (31.0-37.0) g/dL RDW (11.5-15.5) % Plt Count (150-450) k/uL Neutrophils % % Lymphocytes % % Monocytes % % Eosinophils % % Basophils % % Neutrophils # (1.3-7.7) k/uL Lymphocytes # (1.0-4.8) k/uL Monocytes # (0-1.0) k/uL Eosinophils # (0-0.7) k/uL Basophils # (0-0.2) k/uL PT (9.0-12.0) sec INR (<1.2) APTT (22.0-30.0) sec Sodium (137-145) mmol/L Potassium (3.5-5.1) mmol/L Chloride (98-107) mmol/L Carbon Dioxide (22-30) mmol/L Anion Gap mmol/L BUN (9-20) mg/dL Creatinine (0.66-1.25) mg/dL Est GFR (CKD-EPI)AfAm (>60 ml/min/1.73 sqM) Est GFR (CKD-EPI)NonAf (>60 ml/min/1.73 sqM) Glucose (74-99) mg/dL Plasma Lactic Acid Raymundo 1.4 (0.7-2.0) mmol/L Calcium (8.4-10.2) mg/dL Magnesium (1.6-2.3) mg/dL Total Bilirubin (0.2-1.3) mg/dL AST (17-59) U/L ALT (4-49) U/L Alkaline Phosphatase (38-126) U/L Troponin I <0.012 (0.000-0.034) ng/mL Total Protein (6.3-8.2) g/dL Albumin (3.5-5.0) g/dL Urine Color Urine Appearance (Clear) Urine pH (5.0-8.0) Ur Specific [place] (1.001-1.035) Urine Protein (Negative) Urine Glucose (UA) (Negative) Urine Ketones (Negative) Urine Blood (Negative) Urine Nitrite (Negative) Urine Bilirubin (Negative) Urine Urobilinogen (<2.0) mg/dL Ur Leukocyte Esterase (Negative) Urine RBC (0-5) /hpf Urine WBC (0-5) /hpf Hyaline Casts (0-2) /lpf Urine Mucus (None) /hpf Coronavirus (PCR) Not Detected (Not Detectd) 02/18/20 Range/Units 12:15 WBC (3.8-10.6) k/uL RBC (4.30-5.90) m/uL Hgb (13.0-17.5) gm/dL Hct (39.0-53.0) % MCV (80.0-100.0) fL MCH (25.0-35.0) pg MCHC (31.0-37.0) g/dL RDW (11.5-15.5) % Plt Count (150-450) k/uL Neutrophils % % Lymphocytes % % Monocytes % % Eosinophils % % Basophils % % Neutrophils # (1.3-7.7) k/uL Lymphocytes # (1.0-4.8) k/uL Monocytes # (0-1.0) k/uL Eosinophils # (0-0.7) k/uL Basophils # (0-0.2) k/uL PT (9.0-12.0) sec INR (<1.2) APTT (22.0-30.0) sec Sodium (137-145) mmol/L Potassium (3.5-5.1) mmol/L Chloride (98-107) mmol/L Carbon Dioxide (22-30) mmol/L Anion Gap mmol/L BUN (9-20) mg/dL Creatinine (0.66-1.25) mg/dL Est GFR (CKD-EPI)AfAm (>60 ml/min/1.73 sqM) Est GFR (CKD-EPI)NonAf (>60 ml/min/1.73 sqM) Glucose (74-99) mg/dL Plasma Lactic Acid Raymundo (0.7-2.0) mmol/L Calcium (8.4-10.2) mg/dL Magnesium (1.6-2.3) mg/dL Total Bilirubin (0.2-1.3) mg/dL AST (17-59) U/L ALT (4-49) U/L Alkaline Phosphatase (38-126) U/L Troponin I (0.000-0.034) ng/mL Total Protein (6.3-8.2) g/dL Albumin (3.5-5.0) g/dL Urine Color Yellow Urine Appearance Clear (Clear) Urine pH 6.0 (5.0-8.0) Ur Specific [place] 1.014 (1.001-1.035) Urine Protein Trace H (Negative) Urine Glucose (UA) Negative (Negative) Urine Ketones Negative (Negative) Urine Blood Small H (Negative) Urine Nitrite Negative (Negative) Urine Bilirubin Negative (Negative) Urine Urobilinogen <2.0 (<2.0) mg/dL Ur Leukocyte Esterase Negative (Negative) Urine RBC 5 (0-5) /hpf Urine WBC 1 (0-5) /hpf Hyaline Casts 4 H (0-2) /lpf Urine Mucus Few H (None) /hpf Coronavirus (PCR) (Not Detectd) Disposition Clinical Impression: Near syncope Disposition: ADMITTED IP TO THIS HOSP Referrals: Roberto Lopez MD [Primary Care Provider] - 1-2 days Time of Disposition: 12:50
[2020-02-18 10:29] LABS: Basophils # (A) 0.1 k/uL (0-0.2); Basophils % (A) 1 %; Eosinophils # (A) 0.3 k/uL (0-0.7); Eosinophils % (A) 4 %; HCT 35.2 % (39.0-53.0); HGB 11.8 gm/dL (13.0-17.5); Lymphocytes # (A) 0.7 k/uL (1.0-4.8); Lymphocytes % (A) 12 %; MCHC 33.4 g/dL (31.0-37.0); MCV 92.7 fL (80.0-100.0); Monocytes # (A) 0.3 k/uL (0-1.0); Monocytes % (A) 4 %; Neutrophils % (A) 77 %; Platelet Count 169 k/uL (150-450); RDW 13.6 % (11.5-15.5); WBC 6.5 k/uL (3.8-10.6)
[2020-02-18 10:38] LABS: Calcium 9.8 mg/dL (8.4-10.2); Magnesium 1.9 mg/dL (1.6-2.3); Potassium 4.9 mmol/L (3.5-5.1); Total Bilirubin 0.8 mg/dL (0.2-1.3); Total Protein 7.2 g/dL (6.3-8.2)
--- NOTE | 2020-02-18 10:44 | XR ---
EXAMINATION TYPE: XR chest 2V DATE OF EXAM: 02/18/2020 COMPARISON: Chest x-ray June 22, 2010. HISTORY: Weakness. TECHNIQUE: Frontal and lateral views of the chest are obtained. FINDINGS: There is chronic parenchymal change bilaterally without suspicious new focal air space [place], pleural effusion, or pneumothorax seen. Overlying sternal wires and mediastinal clips are seen. The cardiac silhouette size is enlarged with atherosclerotic aorta. Multilevel spurring in the thor acic spine is present. IMPRESSION: Cardiomegaly and chronic changes without acute pulmonary process.
[2020-02-18 10:46] LABS: Prothrombin Time 10.1 sec (9.0-12.0)
[2020-02-18 10:58] LABS: Partial Thromboplastin Time 20.4 sec (22.0-30.0)
[2020-02-18 12:34] LABS: Appearance,Urine Clear (Clear); Bilirubin,Urine Negative (Negative); Blood,Urine Small (Negative); Color,Urine Yellow; Glucose,Urine (UA) Negative (Negative); Hyaline Casts,Urine 4 /lpf (0-2); Ketones,Urine Negative (Negative); Leukocyte Esterase,Urine Negative (Negative); Mucus,Urine Few /hpf; Nitrite,Urine Negative (Negative); Protein,Urine Trace (Negative); RBC,Urine 5 /hpf (0-5); Specific Gravity,Urine 1.014 (1.001-1.035); Urobilinogen,Urine <2.0 mg/dL (<2.0); WBC,Urine 1 /hpf (0-5)
[2020-02-18] MEDS ORDERED: SODIUM CHLORIDE 0.9% 1,000 ML IV ONE (12:51)
--- NOTE | 2020-02-18 14:59 | P.HPIM ---
History of Present Illness H&P Date: 02/18/20 Chief Complaint: Diaphoresis palpitation, near syncope This is an 84-year-old male patient of Dr. Lopez and Dr. VAHID Pan. He has a past medical history of CO and coronary artery disease status post stenting and 4 vessel CABG done in [place] in 1999, LISA to LAD, SVG to intermediate, and SVG to diagonal, as well as SVG to left circumflex, hypertension, hypertensive vascular disease, hyperlipidemia with history of prostate cancer treated with radiation. He completed radiation treatment in April 2012. 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 In 2013 patient had acute non-ST elevated myocardial infarction and underwent stenting of the SVG to the left circumflex. He had a recent hospitalization in May for syncopal episode while he was in [place]. He was found to have new onset of atrial fibrillation and was started on eliquis. He had a subsequent hospitalization in July 2019 for syncope possi ble vasovagal. Patient's daughter gives history that he would normally use a walker or cane sometimes for ambulation. Patient came into [facility] emergency center for evaluation of his palpitations, very weak, and diaphoresis, patient feels like he is going to pass out, patient denies any pleurisy, fever or chills, no leg swelling, no headache, no vertigo, no dominant pain nausea vomiting, patient does not have any diarrhea, . In the emergency room He was afebrile, heart rate between 60-103 blood pressure 120 systolic, pulse ox 99% on room air. EKG atrial fibrillation heart rate 92, with competing junctional pacemaker with premature ventricular beat or aberrancy of conducted complexes, left anterior fascicular block, nonspecific ST-T wave changes, prolonged QT Chest x-ray showed no acute abnormalities. WBC count 6.5 hemoglobin 11.8 platelet count 169 lymphocytes low at 0.7 INR 1.0 creatinine is higher than usual 1.6 glucose 140 baseline creatinine 1.2 last one was December 23 urinalysis negative, PCR,COVID negative. Review of Systems Constitutional: Reports as per HPI, Reports fatigue, Reports lethargy, Reports p oor appetite, Denies anorexia, Denies chills, Denies chronic headaches, Denies chronic pain, Denies daytime sleepiness, Denies fever, Denies malaise, Denies night sweats, Denies sweats, Denies weakness, Denies weight gain, Denies weight loss Ears, nose, mouth and throat: Reports as per HPI Cardiovascular: Reports as per HPI, Reports decreased exercise tolerance, Reports dyspnea on exertion, Reports rapid heart beat Respiratory: Reports as per HPI, Denies congestion, Denies cough, Denies cough with sputum, Denies dyspnea, Denies excessive sputum, Denies hemoptysis, Denies home oxygen, Denies pain, Denies pain on inspiration, Denies pleurisy, Denies respiratory infections, Denies sleep apnea, Denies snoring, Denies wheezing Gastrointestinal: Reports as per HPI Genitourinary: Reports as per HPI Musculoskeletal: Reports as per HPI, Reports gait dysfunction, Reports limitation of motion, Reports myalgias Integumentary: Reports as per HPI Neurological: Reports as per HPI, Reports weakness Psychiatric: Reports as per HPI, Reports sleep disturbances Endocrine: Reports as per HPI Hematologic/Lymphatic: Reports as per HPI Allergic/Immunologic: Reports as per HPI Past Medical History Past Medical History: Atrial Fibrillation, Coronary Artery Disease (CAD), Cancer, Hyperlipidemia, Hypertension, Myocardial Infarction (CO), Osteoarthritis (OA), Prostate Disorder Additional Past Medical History / Comment(s): 1999-prostate cancer with radiation Last Myocardial Infarction Date:: 1998 History of Any Multi-Drug Resistant Organisms: None Reported Past Surgical History: Coronary Bypass/CABG, Heart Catheterization With Stent, Hernia Repair Additional Past Surgical History / Comment(s): Open heart Quadrupal bypass (1998) Past Anesthesia/Blood Transfusion Reactions: No Reported Reaction Date of Last Stent Placement:: 2015 Past Psychological History: No Psychological Hx Reported Smoking Status: Former smoker Past Alcohol Use History: None Reported Past Drug Use History: None Reported - Past Family History Father Family Medical History: Congestive Heart Failure (CHF), COPD, Coronary Artery Disease (CAD) Additional Family Medical History / Comment(s): at age 72. Mother Family Medical History: Cancer Additional Family Medical History / Comment(s): at age 86, colon cancer. Sister(s) Family Medical History: COPD, Liver Disease Additional Family Medical History / Comment(s): Patient had one sister with history of alcoholism and at age 71. She also had COPD. Brother(s) Additional Family Medical History / Comment(s): Patient has one dtr that from diabetes complications. One son has history of hypertension. One daughter has diabetes. Medications and Allergies Home Medications Medication Instructions Recorded Confirmed Type Atorvastatin [Lipitor] 40 mg PO HS 05/16/16 02/18/20 History Isosorbide Mononitrate ER [Imdur] 30 mg PO DAILY 05/16/16 02/18/20 History Losartan [Cozaar] 12.5 mg PO HS 05/23/19 02/18/20 History Multivitamin [Multivitamins Adult 1 tab PO DAILY 05/23/19 02/18/20 History Gummies] Apixaban [Eliquis] 2.5 mg PO BID #60 tab 05/25/19 02/18/20 Rx Carvedilol [Coreg] 3.125 mg PO BID-W/MEALS 02/18/20 02/18/20 History Allergies Allergy/AdvReac Type Severity Reaction Status Date / Time No Known Allergies Allergy Verified 02/18/20 10:00 Physical Exam Vitals: Vital Signs Temp Pulse Pulse Pulse Pulse Resp BP 02/18/20 13:43 98.0 F 72 18 131/74 02/18/20 12:21 103 H 18 128/96 02/18/20 11:30 60 16 127/90 02/18/20 10:29 68 61 117 H 02/18/20 10:04 97.1 F L 73 16 145/74 02/18/20 10:00 75 18 133/110 BP BP BP Pulse Ox 02/18/20 13:43 98 02/18/20 12:21 98 02/18/20 11:30 97 02/18/20 10:29 141/72 132/75 145/74 02/18/20 10:04 96 02/18/20 10:00 97 Intake and Output 02/17/20 02/18/20 02/18/20 22:59 06:59 14:59 Other: Weight 73.482 kg - Constitutional General appearance: average body habitus, cooperative, no acute distress - EENT Eyes: anicteric sclerae, EOMI, PERRLA - Neck Neck: normal ROM - Respiratory Respiratory: bilateral: CTA, negative: diminished, dullness - Cardiovascular Rhythm: irregularly irregular Heart sounds: normal: S1 - Gastrointestinal General gastrointestinal: normal bowel sounds, soft - Integumentary Integumentary: decreased turgor, normal - Musculoskeletal Musculoskeletal: generalized weakness, strength equal bilaterally - Psychiatric Psychiatric: appropriate affect Results CBC & Chem 7: 02/18/20 10:10 02/18/20 10:10 Labs: Abnormal Lab Results - Last 24 Hours (Table) 02/18/20 02/18/20 02/18/20 Range/Units 10:10 10:10 10:10 RBC 3.80 L (4.30-5.90) m/uL Hgb 11.8 L (13.0-17.5) gm/dL Hct 35.2 L (39.0-53.0) % Lymphocytes # 0.7 L (1.0-4.8) k/uL APTT 20.4 L (22.0-30.0) sec BUN 31 H (9-20) mg/dL Creatinine 1.60 H (0.66-1.25) mg/dL Glucose 140 H (74-99) mg/dL Urine Protein (Negative) Urine Blood (Negative) Hyaline Casts (0-2) /lpf Urine Mucus (None) /hpf 02/18/20 Range/Units 12:15 RBC (4.30-5.90) m/uL Hgb (13.0-17.5) gm/dL Hct (39.0-53.0) % Lymphocytes # (1.0-4.8) k/uL APTT (22.0-30.0) sec BUN (9-20) mg/dL Creatinine (0.66-1.25) mg/dL Glucose (74-99) mg/dL Urine Protein Trace H (Negative) Urine Blood Small H (Negative) Hyaline Casts 4 H (0-2) /lpf Urine Mucus Few H (None) /hpf Laboratory Results WBC 6.5 k/uL (3.8-10.6) 02/18/20 10:10 RBC 3.80 m/uL (4.30-5.90) L 02/18/20 10:10 Hgb 11.8 gm/dL (13.0-17.5) L 02/18/20 10:10 Hct 35.2 % (39.0-53.0) L 02/18/20 10:10 MCV 92.7 fL (80.0-100.0) 02/18/20 10:10 MCH 31.0 pg (25.0-35.0) 02/18/20 10:10 MCHC 33.4 g/dL (31.0-37.0) 02/18/20 10:10 RDW 13.6 % (11.5-15.5) 02/18/20 10:10 Plt Count 169 k/uL (150-450) 02/18/20 10:10 Neutrophils % 77 % 02/18/20 10:10 Lymphocytes % 12 % 02/18/20 10:10 Monocytes % 4 % 02/18/20 10:10 Eosinophils % 4 % 02/18/20 10:10 Basophils % 1 % 02/18/20 10:10 Neutrophils # 5.0 k/uL (1.3-7.7) 02/18/20 10:10 Lymphocytes # 0.7 k/uL (1.0-4.8) L 02/18/20 10:10 Monocytes # 0.3 k/uL (0-1.0) 02/18/20 10:10 Eosinophils # 0.3 k/uL (0-0.7) 02/18/20 10:10 Basophils # 0.1 k/uL (0-0.2) 02/18/20 10:10 PT 10.1 sec (9.0-12.0) 02/18/20 10:10 INR 1.0 (<1.2) 02/18/20 10:10 APTT 20.4 sec (22.0-30.0) L 02/18/20 10:10 Sodium 138 mmol/L (137-145) 02/18/20 10:10 Potassium 4.9 mmol/L (3.5-5.1) 02/18/20 10:10 Chloride 105 mmol/L (98-107) 02/18/20 10:10 Carbon Dioxide 28 mmol/L (22-30) 02/18/20 10:10 Anion Gap 5 mmol/L 02/18/20 10:10 BUN 31 mg/dL (9-20) H 02/18/20 10:10 Creatinine 1.60 mg/dL (0.66-1.25) H 02/18/20 10:10 Est GFR (CKD-EPI)AfAm 45 (>60 ml/min/1.73 sqM) 02/18/20 10:10 Est GFR (CKD-EPI)NonAf 39 (>60 ml/min/1.73 sqM) 02/18/20 10:10 Glucose 140 mg/dL (74-99) H 02/18/20 10:10 Plasma Lactic Acid Raymundo 1.4 mmol/L (0.7-2.0) 02/18/20 10:10 Calcium 9.8 mg/dL (8.4-10.2) 02/18/20 10:10 Magnesium 1.9 mg/dL (1.6-2.3) 02/18/20 10:10 Total Bilirubin 0.8 mg/dL (0.2-1.3) 02/18/20 10:10 AST 22 U/L (17-59) 02/18/20 10:10 ALT 8 U/L (4-49) 02/18/20 10:10 Alkaline Phosphatase 53 U/L (38-126) 02/18/20 10:10 Troponin I <0.012 ng/mL (0.000-0.034) 02/18/20 10:10 Total Protein 7.2 g/dL (6.3-8.2) 02/18/20 10:10 Albumin 4.0 g/dL (3.5-5.0) 02/18/20 10:10 Urine Color Yellow 02/18/20 12:15 Urine Appearance Clear (Clear) 02/18/20 12:15 Urine pH 6.0 (5.0-8.0) 02/18/20 12:15 Ur Specific [place] 1.014 (1.001-1.035) 02/18/20 12:15 Urine Protein Trace (Negative) H 02/18/20 12:15 Urine Glucose (UA) Negative (Negative) 02/18/20 12:15 Urine Ketones Negative (Negative) 02/18/20 12:15 Urine Blood Small (Negative) H 02/18/20 12:15 Urine Nitrite Negative (Negative) 02/18/20 12:15 Urine Bilirubin Negative (Negative) 02/18/20 12:15 Urine Urobilinogen <2.0 mg/dL (<2.0) 02/18/20 12:15 Ur Leukocyte Esterase Negative (Negative) 02/18/20 12:15 Urine RBC 5 /hpf (0-5) 02/18/20 12:15 Urine WBC 1 /hpf (0-5) 02/18/20 12:15 Hyaline Casts 4 /lpf (0-2) H 02/18/20 12:15 Urine Mucus Few /hpf (None) H 02/18/20 12:15 Coronavirus (PCR) Not Detected (Not Detectd) 02/18/20 10:10 Thrombosis Risk Factor Assmnt - DVT/VTE Prophylaxis DVT/VTE Prophylaxis: Pharmacologic Prophylaxis ordered - Choose All That Apply Each Risk Factor Represents 3 Points: Age 75 years or older Thrombosis Risk Factor Assessment Total Risk Factor Score: 3 Thrombosis Risk Factor Assessment Level: Moderate Risk Assessment and Plan Plan: 1. Generalized weakness with dehydration secondary to diminished nutritional intake consult with cardiology, orthostatic vital signs to be monitored while here, cardiac ekg monitor in, has similar symptomatology over time, recurrent nature, last workup included an echocardiogram 12/22/2019 EF 55-60% left [facility] and large grade 2 diastolic CHF, fragmented with right ventricular systolic pressure normal, no aortic stenosis. Monitor for sick sinus syndrome, 2. Near-syncope, with dehydration, and mild azotemia, IV hydration, orthostatics to be done, urinalysis negative, monitor for sick sinus syndrome 2. Paroxysmal atrial fibrillation status post cardioversion and June. Cardiology consult . Continue Coreg at 3.125 mg twice daily, eliquis 2.5 mg twice daily. 3. History of coronary artery disease with prior bypass and stenting, stable. Continue atorvastatin 40 mg daily, Coreg, Imdur 30 mg daily. 4. Hypertension, hypertensive cardiovascular disease. Continue losartan 12.5 mg daily, Coreg. 5. Hyperlipidemia. Continue statin 6. Chronic kidney disease stage IIIa, stable. Baseline creatinine 1.2 7. Anemia of chronic kidney disease, stable 8. History of prostate cancer treated with radiation, stable. 9. 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 10. Short-term memory deficit, stable. 11. GI prophylaxis. Pepcid. 12. DVT prophylaxis. Eliquis. Patient will be placed under 23 hour observation
[2020-02-18] MEDS: CARVEDILOL 3.125 MG TAB PO SCH (16:53)
[2020-02-18] MEDS: LOSARTAN 25 MG TAB PO SCH (21:51)
[2020-02-18] MEDS: APIXABAN 2.5 MG TABLET PO SCH (21:51)
[2020-02-18] MEDS: ATORVASTATIN 40 MG TAB PO SCH (21:51)
[2020-02-19 06:34] LABS: Basophils # (A) 0.1 k/uL (0-0.2); Basophils % (A) 1 %; Eosinophils # (A) 0.3 k/uL (0-0.7); Eosinophils % (A) 6 %; HGB 10.3 gm/dL (13.0-17.5); Lymphocytes # (A) 1.2 k/uL (1.0-4.8); Lymphocytes % (A) 25 %; MCH 30.6 pg (25.0-35.0); MCHC 33.3 g/dL (31.0-37.0); Mean Platelet Volume 7.9; Monocytes # (A) 0.3 k/uL (0-1.0); Monocytes % (A) 6 %; Neutrophils # (A) 2.8 k/uL (1.3-7.7); Neutrophils % (A) 60 %; Platelet Count 159 k/uL (150-450); RBC 3.37 m/uL (4.30-5.90); RDW 13.5 % (11.5-15.5); WBC 4.7 k/uL (3.8-10.6)
[2020-02-19 06:52] LABS: Albumin 3.1 g/dL (3.5-5.0); Potassium 4.3 mmol/L (3.5-5.1); Total Bilirubin 0.5 mg/dL (0.2-1.3); Total Protein 5.9 g/dL (6.3-8.2)
[2020-02-19] MEDS: ISOSORBIDE MONONITRATE ER 30 MG TAB.ER.24H PO SCH (08:36)
[2020-02-19] MEDS: MULTIVITAMINS, THERA 1 EACH TAB PO SCH (08:36)
[2020-02-19] MEDS: APIXABAN 2.5 MG TABLET PO SCH ×2 (08:36→20:46)
[2020-02-19] MEDS: CARVEDILOL 3.125 MG TAB PO SCH ×2 (08:36→16:21)
--- NOTE | 2020-02-19 09:42 | P.CRDCN ---
History of Present Illness History of present illness: HISTORY OF PRESENTING ILLNESS This is a pleasant 84-year-old male past medical history significant for coronary artery disease status post bypass grafting with LISA to LAD, SVG to diagonal and SVG to circumflex in 1999 and subsequent PCI of the SVG to circumflex in 2013, chronic persistent atrial fibrillation status post cardioversion in June 2019 maintained on long-term anticoagulation, hypertension, chronic kidney disease and dyslipidemia. He follows in the office with Dr. Pan. We have been asked to see in consultation for near syncope. He states he woke up yesterday feeling in his usual state of health. He use the restroom and brushed his teeth. He walked into the kitchen to make himself some breakfast and while standing at the kitchen sink he started feeling lightheaded and weak in the legs. He had to sit down and his 's walker chair to stop himself from falling. He continued to feel increasingly weak and lightheaded for approximately 30 minutes. He denies symptoms of chest pain, shortness of breath or palpitations. He is seen and examined resting comfortably laying flat in bed in no acute distress. He has had no further symptoms of dizziness or near syncope. He states he is feeling back to his baseline this morning. Orthostatic vital signs are unremarkable. DIAGNOSTICS EKG reveals atrial fibrillation, left anterior fascicular block and right bundle branch block heart rate of 92 with PVCs. Telemetry tracings indicate persistent atrial fibrillation with frequent PVCs. Chest xray cardiomegaly and chronic changes without acute cardiopulmonary process. Laboratory reviewed, WBC 4.7, hemoglobin 10.3, platelets 159, sodium 138, pota ssium 4.3, creatinine 1.36 down from 1.6 on admission, cardiac enzymes negative 3, magnesium 1.9 and TSH 1.29. Current cardiac medications include Eliquis 2.5 mg twice a day, atorvastatin 40 mg at bedtime, carvedilol 3.125 mg twice a day, Imdur 30 mg daily and losartan 12.5 mg at bedtime. Most recent echocardiogram obtained December 2019 reveals preserved LV systolic function with ejection fraction 55-60% and grade 2 diastolic dysfunction. REVIEW OF SYSTEMS At the time of my exam: CONSTITUTIONAL: Denies fever or chills. CARDIOVASCULAR: Denies chest pain, shortness of breath, orthopnea, PND or palpitations. RESPIRATORY: Denies cough. GASTROINTESTINAL: Denies abdominal pain, diarrhea, constipation, nausea or vomiting. MUSCULOSKELETAL: Denies myalgias. NEUROLOGIC: Denies numbness, tingling or weakness. ENDOCRINE: Denies fatigue, weight change, polydipsia or polyurina. GENITOURINARY: Denies burning, hematuria or urgency with micturation. HEMATOLOGIC: Denies history of anemia or bleeding. PHYSICAL EXAMINATION Blood pressure 134/74 heart rate 62 afebrile and maintaining oxygen saturation on room air. CONSTITUTIONAL: No apparent distress. HEENT: Head is normocephalic. Pupils are equal, round. Sclerae anicteric. Mucous membranes of the mouth are moist. No JVD. No carotid bruit. CHEST EXAMINATION: Lungs are clear to auscultation. No chest wall tenderness is noted on palpation or with deep breathing. HEART EXAMINATION: Regular rate and rhythm. S1, S2 heard. No murmurs, gallops or rub. ABDOMEN: Soft, nontender. Positive bowel sounds. EXTREMITIES: 2+ peripheral pulses, no lower extremity edema and no calf tenderness. NEUROLOGIC EXAMINATION: Patient is awake, alert and oriented x3. ASSESSMENT Near syncope Chronic persistent atrial fibrillation on long-term anticoagulation Coronary artery disease status post bypass grafting and SVG PCI Hypertension Dyslipidemia Chronic kidney disease PLAN An acute coronary event has been ruled out. No evidence of alicia-arrhythmia noted on telemetry. Clinically he is stable for discharge to follow up in the office with Dr. Pan next week. Will likely do outpatient event monitoring through the office. Thank you kindly for this consultation. Nurse Practitioner note has been reviewed, I agree with a documented findings and plan of care. Patient was seen and examined. Past Medical History Past Medical History: Atrial Fibrillation, Coronary Artery Disease (CAD), Cancer, Hyperlipidemia, Hypertension, Myocardial Infarction (NH), Osteoarthritis (OA), Prostate Disorder Additional Past Medical History / Comment(s): 1999-prostate cancer with radiation Last Myocardial Infarction Date:: 1998 History of Any Multi-Drug Resistant Organisms: None Reported Past Surgical History: Coronary Bypass/CABG, Heart Catheterization With Stent, Hernia Repair Additional Past Surgical History / Comment(s): Open heart Quadrupal bypass (1998) Past Anesthesia/Blood Transfusion Reactions: No Reported Reaction Date of Last Stent Placement:: 2015 Past Psychological History: No Psychological Hx Reported Smoking Status: Former smoker Past Alcohol Use History: None Reported Additional Past Alcohol Use History / Comment(s): Patient was a smoker of cigars for 10 years ago quit approximately 15 years ago. He no longer drinks alcohol on a social basis. He denies any medical marijuana, marijuana, street drug use. Patient lives at home with his . 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 Past Drug Use History: None Reported - Past Family History Father Family Medical History: Congestive Heart Failure (CHF), COPD, Coronary Artery Disease (CAD) Additional Family Medical History / Comment(s): at age 72. Mother Family Medical History: Cancer Additional Family Medical History / Comment(s): at age 86, colon cancer. Sister(s) Family Medical History: COPD, Liver Disease Additional Family Medical History / Comment(s): Patient had one sister with history of alcoholism and at age 71. She also had COPD. Brother(s) Additional Family Medical History / Comment(s): Patient has one dtr that from diabetes complications. One son has history of hypertension. One daughter has diabetes. Medications and Allergies Home Medications Medication Instructions Recorded Confirmed Type Atorvastatin [Lipitor] 40 mg PO HS 05/16/16 02/18/20 History Isosorbide Mononitrate ER [Imdur] 30 mg PO DAILY 05/16/16 02/18/20 History Losartan [Cozaar] 12.5 mg PO HS 05/23/19 02/18/20 History Multivitamin [Multivitamins Adult 1 tab PO DAILY 05/23/19 02/18/20 History Gummies] Apixaban [Eliquis] 2.5 mg PO BID #60 tab 05/25/19 02/18/20 Rx Carvedilol [Coreg] 3.125 mg PO BID-W/MEALS 02/18/20 02/18/20 History Allergies Allergy/AdvReac Type Severity Reaction Status Date / Time No Known Allergies Allergy Verified 02/18/20 10:00 Physical Exam Vitals: Vital Signs Temp Pulse Pulse Pulse Pulse Pulse Pulse 02/19/20 04:56 98.0 F 02/18/20 21:06 02/18/20 21:05 98.5 F 02/18/20 16:00 91 02/18/20 15:00 98.5 F 113 H 88 02/18/20 14:45 97.9 F 61 02/18/20 13:43 98.0 F 72 02/18/20 12:21 103 H 02/18/20 11:30 60 02/18/20 10:29 68 61 117 H 02/18/20 10:04 97.1 F L 73 02/18/20 10:00 75 Pulse Resp BP BP BP BP Pulse Ox 02/19/20 04:56 62 16 134/74 98 02/18/20 21:06 108/59 146/69 02/18/20 21:05 68 16 113/59 94 L 02/18/20 16:00 02/18/20 15:00 55 L 16 138/72 138/80 143/80 95 02/18/20 14:45 18 128/75 99 02/18/20 13:43 18 131/74 98 02/18/20 12:21 18 128/96 98 02/18/20 11:30 16 127/90 97 02/18/20 10:29 141/72 132/75 145/74 02/18/20 10:04 16 145/74 96 02/18/20 10:00 18 133/110 97 Intake and Output 02/18/20 02/19/20 02/19/20 22:59 06:59 14:59 Intake Total 590 Output Total 600 Balance -10 Intake: Oral 590 Output: Urine 600 Other: Voiding Method Bedside Commode Bedside Commode Urinal Urinal # Voids 2 # Bowel Movements 1 Weight 73.482 kg Results 02/19/20 05:59 02/19/20 05:59 Cardiac Enzymes 02/18/20 02/18/20 02/18/20 Range/Units 10:10 10:10 17:41 AST 22 (17-59) U/L Troponin I <0.012 <0.012 (0.000-0.034) ng/mL 02/18/20 02/19/20 Range/Units 22:58 05:59 AST 19 (17-59) U/L Troponin I <0.012 (0.000-0.034) ng/mL Coagulation 02/18/20 Range/Units 10:10 PT 10.1 (9.0-12.0) sec APTT 20.4 L (22.0-30.0) sec CBC 02/18/20 02/19/20 Range/Units 10:10 05:59 WBC 6.5 4.7 (3.8-10.6) k/uL RBC 3.80 L 3.37 L (4.30-5.90) m/uL Hgb 11.8 L 10.3 L (13.0-17.5) gm/dL Hct 35.2 L 31.0 L (39.0-53.0) % Plt Count 169 159 (150-450) k/uL Comprehensive Metabolic Panel 02/18/20 02/19/20 Range/Units 10:10 05:59 Sodium 138 138 (137-145) mmol/L Potassium 4.9 4.3 (3.5-5.1) mmol/L Chloride 105 106 (98-107) mmol/L Carbon Dioxide 28 26 (22-30) mmol/L BUN 31 H 26 H (9-20) mg/dL Creatinine 1.60 H 1.36 H (0.66-1.25) mg/dL Glucose 140 H 95 (74-99) mg/dL Calcium 9.8 9.0 (8.4-10.2) mg/dL AST 22 19 (17-59) U/L ALT 8 7 (4-49) U/L Alkaline Phosphatase 53 46 (38-126) U/L Total Protein 7.2 5.9 L (6.3-8.2) g/dL Albumin 4.0 3.1 L (3.5-5.0) g/dL Current Medications Generic Name Dose Route Start Last Admin Trade Name Freq PRN Reason Stop Dose Admin Apixaban 2.5 mg 02/18/20 21:00 02/19/20 08:36 Eliquis PO 2.5 mg BID MARILYN Administration Atorvastatin Calcium 40 mg 02/18/20 21:00 02/18/20 21:51 Lipitor PO 40 mg HS MARILYN Administration Carvedilol 3.125 mg 02/18/20 17:30 02/19/20 08:36 Coreg PO 3.125 mg BID-W/MEALS MARILYN Administration Isosorbide Mononitrate 30 mg 02/19/20 09:00 02/19/20 08:36 Imdur PO 30 mg DAILY MARILYN Administration Losartan Potassium 12.5 mg 02/18/20 21:00 02/18/20 21:51 Cozaar PO 12.5 mg HS MARILYN Administration Multivitamins 1 each 02/19/20 09:00 02/19/20 08:36 Theragran PO 1 each DAILY MARILYN Administration Intake and Output 02/18/20 02/19/20 02/19/20 22:59 06:59 14:59 Intake Total 590 Output Total 600 Balance -10 Intake: Oral 590 Output: Urine 600 Other: Voiding Method Bedside Commode Bedside Commode Urinal Urinal # Voids 2 # Bowel Movements 1 Weight 73.482 kg 02/19/20 05:59 02/19/20 05:59
--- NOTE | 2020-02-19 10:28 | P.PN ---
Subjective Progress Note Date: 02/19/20 Principal diagnosis: Near syncope, A. fib, CAD, severe debility, worsening dementia, multiple fall. This is an 84-year-old male patient of Dr. Lopez and Dr. VAHID Pan. He has a past medical history of NM and coronary artery disease status post stenting and 4 vessel CABG done in [place] in 1999, LISA to LAD, SVG to intermediate, and SVG to diagonal, as well as SVG to left circumflex, hypertension, hypertensive vascular disease, hyperlipidemia with history of prostate cancer treated with radiation. He completed radiation treatment in April 2012. 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 In 2013 patient had acute non-ST elevated myocardial infarction and underwent stenting of the SVG to the left circumflex. He had a recent hospitalization in May for syncopal episode while he was in [place]. He was found to have new onset of atrial fibrillation and was started on eliquis. He had a subsequent hospitalization in July 2019 for syncope possible vasovagal. Patient's daughter gives history that he would normally use a walker or cane sometimes for ambulation. Patient came into [facility] emergency center for evaluation of his palpitations, very weak, and diaphoresis, patient feels like he is going to pass out, patient denies any pleurisy, fever or chills, no leg swelling, no headache, no vertigo, no dominant pain nausea vomiting, patient does not have any diarrhea, . In the emergency room He was afebrile, heart rate between 60-103 blood pressure 120 systolic, pulse ox 99% on room air. EKG atrial fibrillation heart rate 92, with competing junctional pacemaker with premature ventricular beat or aberrancy of conducted complexes, left anterior fascicular block, no nspecific ST-T wave changes, prolonged QT Chest x-ray showed no acute abnormalities. WBC count 6.5 hemoglobin 11.8 platelet count 169 lymphocytes low at 0.7 INR 1.0 creatinine is higher than usual 1.6 glucose 140 baseline creatinine 1.2 last one was December 23 urinalysis negative, PCR,COVID negative. 02/18: Patient still have significant abnormal gait imbalance, was seen by cardiology and cleared for discharge, hemodynamically stable patient not been able to ambulate and not safe to move by himself, I added physical and the patient also therapy and request a social media marketing specialist to see patient if he does well in the next 24 hours might be discharged home with home care and physical therapy. Objective - Vital Signs Vital signs: Vital Signs Temp 98.0 F 02/19/20 04:56 Pulse 68 02/19/20 08:00 Resp 16 02/19/20 08:00 BP 134/74 02/19/20 04:56 Pulse Ox 98 02/19/20 04:56 Intake & Output 02/18/20 02/19/20 02/19/20 18:59 06:59 18:59 Intake Total 590 Output Total 600 Balance -10 Weight 73.482 kg Intake: Oral 590 Output: Urine 600 Other: Voiding Method Bedside Commode Bedside Commode Bedside Commode Urinal Urinal Urinal # Voids 2 # Bowel Movements 1 - Exam Review of Systems Constitutional: Reports as per HPI, Reports fatigue, Reports lethargy, Reports poor appetite, Denies anorexia, Denies chills, Denies chronic headaches, Denies chronic pain, Denies daytime sleepiness, Denies fever, Denies malaise, Denies night sweats, Denies sweats, Denies weakness, Denies weight gain, Denies weight loss Ears, nose, mouth and throat: Reports as per HPI Cardiovascular: Reports as per HPI, Reports decreased exercise tolerance, Reports dyspnea on exertion, Reports rapid heart beat Respiratory: Reports as per HPI, Denies congestion, Denies cough, Denies cough with sputum, Denies dyspnea, Denies excessive sputum, Denies hemoptysis, Denies home oxygen, Denies pain, Denies pain on inspiration, Denies pleurisy, Denies respiratory infections, Denies sleep apnea, Denies snoring, Denies wheezing Gastrointestinal: Reports as per HPI Genitourinary: Reports as per HPI Musculoskeletal: Reports as per HPI, Reports gait dysfunction, Reports limitation of motion, Reports myalgias Integumentary: Reports as per HPI Neurological: Reports as per HPI, Reports weakness Psychiatric: Reports as per HPI, Reports sleep disturbances Endocrine: Reports as per HPI Hematologic/Lymphatic: Reports as per HPI Allergic/Immunologic: Reports as per HPI Physical examination: General Appearance: Alert, cooperative, elderly doesn't look in any respiratory distress. Neck HEENT: Supple, no lymphadenopathy, no thyroid enlargement, no carotid brui ts. Lungs: Decreased expansion with the respiration no crackles or wheezes. Chest Wall: Decreased expansion expansion with deep inspiration no tenderness and no deformity was found on exam, no costochondral pain or discomfort. Heart: Irregular rate and rhythm, S1, S2 positive history positive 5 cm JVD normal, no murmur, rub or gallop. Back: Symmetric, no curvature, ROM normal, no CVA tenderness. Abdomen: Soft, non-tender, bowel sounds active all four quadrants, no masses, no organomegaly. Extremities: Extremities normal, atraumatic, slight discoloration from the knee down with trace edema. Pulses: 2+ and symmetric. Skin: Skin color, texture, tugor normal, no rashes or lesions. Neurologic: Alert oriented with slight confusion cranial nerves II through XII intact, generalized weakness with significant Normal balance and gait. - Labs CBC & Chem 7: 02/19/20 05:59 02/19/20 05:59 Labs: Abnormal Lab Results - Last 24 Hours (Table) 02/18/20 02/18/20 02/18/20 Range/Units 10:10 10:10 10:10 RBC 3.80 L (4.30-5.90) m/uL Hgb 11.8 L (13.0-17.5) gm/dL Hct 35.2 L (39.0-53.0) % Lymphocytes # 0.7 L (1.0-4.8) k/uL APTT 20.4 L (22.0-30.0) sec BUN 31 H (9-20) mg/dL Creatinine 1.60 H (0.66-1.25) mg/dL Glucose 140 H (74-99) mg/dL Total Protein (6.3-8.2) g/dL Albumin (3.5-5.0) g/dL Urine Protein (Negative) Urine Blood (Negative) Hyaline Casts (0-2) /lpf Urine Mucus (None) /hpf 02/18/20 02/19/20 02/19/20 Range/Units 12:15 05:59 05:59 RBC 3.37 L (4.30-5.90) m/uL Hgb 10.3 L (13.0-17.5) gm/dL Hct 31.0 L (39.0-53.0) % Lymphocytes # (1.0-4.8) k/uL APTT (22.0-30.0) sec BUN 26 H (9-20) mg/dL Creatinine 1.36 H (0.66-1.25) mg/dL Glucose (74-99) mg/dL Total Protein 5.9 L (6.3-8.2) g/dL Albumin 3.1 L (3.5-5.0) g/dL Urine Protein Trace H (Negative) Urine Blood Small H (Negative) Hyaline Casts 4 H (0-2) /lpf Urine Mucus Few H (None) /hpf Assessment and Plan Assessment: 1 near syncope: Not acutely etiology at this point, most likely cardiovascular, no sign of worsening A. fib with RVR, troponin is negative. Patient will continue supportive care with hydration advance activity gradually, cardiology consultation and the patient keep having symptoms might benefit from a longer term monitor. 2 severe generalized weakness: Most likely from the overall general picture specially with his high post/hypertension, debility, spinal stenosis, abnormal balance and gait, and history of CVA patient also is having significant memory loss will need an require more physical therapy more supervision should not walk without walker at any giving time. 3 A. fib with RVR: Post cardioversion in June 2019, still seeing cardiology, still on Eliquis 2.5 mg twice a day along with Coreg 3.125 mg twice a day. 4 history of coronary artery disease: Post bypass surgery, post angioplasty and stent, patient remain on Lipitor Coreg and Imdur. 5 hypertension: Down on losartan to 12.5 mg a day still on lower dose on of Coreg. 6 hyperlipidemia: Remain on atorvastatin 40 mg a day. 7 chronic kidney disease stage III: Creatinine is down slightly from last time. 8 history of CVA: No residual motor loss but significant memory loss and mobility with balance problem continue supervision PTOT and to walk with a walker. 9 short term memory loss: Patient can benefit from donepezil or Exelon. CODE STATUS: Full code. Discharge plan if patient does well with PT after cleared by cardiology might be able to be discharged in 24 hours.
[2020-02-19] MEDS: LOSARTAN 25 MG TAB PO SCH (20:46)
[2020-02-19] MEDS: ATORVASTATIN 40 MG TAB PO SCH (20:46)
[2020-02-20 04:42] VITALS: BP 155/85; TEMP 97.7
[2020-02-20 06:28] LABS: Basophils # (A) 0.1 k/uL (0-0.2); Basophils % (A) 1 %; Eosinophils # (A) 0.4 k/uL (0-0.7); Eosinophils % (A) 7 %; HCT 31.3 % (39.0-53.0); HGB 10.7 gm/dL (13.0-17.5); Lymphocytes # (A) 1.3 k/uL (1.0-4.8); Lymphocytes % (A) 24 %; MCH 31.5 pg (25.0-35.0); MCHC 34.2 g/dL (31.0-37.0); MCV 92.1 fL (80.0-100.0); Mean Platelet Volume 8.2; Monocytes # (A) 0.3 k/uL (0-1.0); Monocytes % (A) 6 %; Neutrophils # (A) 3.3 k/uL (1.3-7.7); Neutrophils % (A) 60 %; Platelet Count 157 k/uL (150-450); RDW 13.7 % (11.5-15.5); WBC 5.4 k/uL (3.8-10.6)
[2020-02-20 06:39] LABS: Albumin 3.2 g/dL (3.5-5.0); Calcium 8.9 mg/dL (8.4-10.2); Total Bilirubin 0.6 mg/dL (0.2-1.3)
[2020-02-20 08:56] VITALS: PULSE 61
[2020-02-20] MEDS: CARVEDILOL 3.125 MG TAB PO SCH (09:14)
[2020-02-20] MEDS: ISOSORBIDE MONONITRATE ER 30 MG TAB.ER.24H PO SCH (09:14)
[2020-02-20] MEDS: APIXABAN 2.5 MG TABLET PO SCH (09:14)
[2020-02-20] MEDS: MULTIVITAMINS, THERA 1 EACH TAB PO SCH (09:14)
--- NOTE | 2020-02-20 09:48 | P.DS ---
Providers Date of admission: 02/18/20 12:52 Attending physician: Elissa Montgomery Consults: 02/18/20 20:46 Consult Physician Routine Consulting Provider: Og Swartz Consult Reason/Comments: near syncope, r/o SSS Do you want consulting provider notified?: Yes Primary care physician: [facility] Course: Principal diagnosis: Near syncope, A. fib, CAD, severe debility, worsening dementia, multiple fall. History of present illness: This is an 84-year-old male patient of Dr. Lopez and Dr. VAHID Pan. He has a past medical history of [place] and coronary artery disease status post stenting and 4 vessel CABG done in [place] in 1999, LISA to LAD, SVG to intermediate, and SVG to diagonal, as well as SVG to left circumflex, hypertension, hypertensive vascular disease, hyperlipidemia with history of prostate cancer treated with radiation. He completed radiation treatment in April 2012. 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 In 2013 patient had acute non-ST elevated myocardial infarction and underwent stenting of the SVG to the left circumflex. He had a recent hospitalization in May for syncopal episode while he was in [place]. He was found to have new onset of atrial fibrillation and was started on eliquis. He had a subsequent hospitalization in July 2019 for syncope possible vasovagal. Patient's daughter gives history that he would normally use a walker or cane sometimes for ambulation. Patient came into [facility] emergency center for evaluation of his palpitations, very weak, and diaphoresis, patient feels like he is going to pass out, patient denies any pleurisy, fever or chills, no leg swelling, no headache, no vertigo, no dominant pain nausea vomiting, patient does not have any diarrhea, . In the emergency room He was afebrile, heart rate between 60-103 blood pressure 120 systolic, pulse ox 99% on room air. EKG atrial fibrillation heart rate 92, with competing junctional pacemaker with premature ventricular beat or aberrancy of conducted complexes, left anterior fascicular block, nonspecific ST-T wave changes, prolonged QT Chest x-ray showed no acute abnormalities. WBC count 6.5 hemoglobin 11.8 platelet count 169 lymphocytes low at 0.7 INR 1.0 creatinine is higher than usual 1.6 glucose 140 baseline creatinine 1.2 last one was December 23 urinalysis negative, PCR,COVID negative. 02/18: Patient still have significant abnormal gait imbalance, was seen by cardiology and cleared for discharge, hemodynamically stable patient not been able to ambulate and not safe to move by himself, I added physical and the patient also therapy and request a social director to see patient if he does well in the next 24 hours might be discharged home with home care and physical therapy. Objective - Vital Signs Vital signs: Vital Signs Temp 98.0 F 02/19/20 04:56 Pulse 68 02/19/20 08:00 Resp 16 02/19/20 08:00 BP 134/74 02/19/20 04:56 Pulse Ox 98 02/19/20 04:56 Intake & Output 02/18/20 02/19/20 02/19/20 18:59 06:59 18:59 Intake Total 590 Output Total 600 Balance -10 Weight 73.482 kg Intake: Oral 590 Output: Urine 600 Other: Voiding Method Bedside Commode Bedside Commode Bedside Commode Urinal Urinal Urinal # Voids 2 # Bowel Movements 1 - Exam Review of Systems Constitutional: Reports as per HPI, Reports fatigue, Reports lethargy, Reports poor appetite, Denies anorexia, Denies chills, Denies chronic headaches, Denies chronic pain, Denies daytime sleepiness, Denies fever, Denies malaise, Denies night sweats, Denies sweats, Denies weakness, Denies weight gain, Denies weight loss Ears, nose, mouth and throat: Reports as per HPI Cardiovascular: Reports as per HPI, Reports decreased exercise tolerance, Reports dyspnea on exertion, Reports rapid heart beat Respiratory: Reports as per HPI, Denies congestion, Denies cough, Denies cough with sputum, Denies dyspnea, Denies excessive sputum, Denies hemoptysis, Denies home oxygen, Denies pain, Denies pain on inspiration, Denies pleurisy, Denies respiratory infections, Denies sleep apnea, Denies snoring, Denies wheezing Gastrointestinal: Reports as per HPI Genitourinary: Reports as per HPI Musculoskeletal: Reports as per HPI, Reports gait dysfunction, Reports limitation of motion, Reports myalgias Integumentary: Reports as per HPI Neurological: Reports as per HPI, Reports weakness Psychiatric: Reports as per HPI, Reports sleep disturbances Endocrine: Reports as per HPI Hematologic/Lymphatic: Reports as per HPI Allergic/Immunologic: Reports as per HPI Physical examination: General Appearance: Alert, cooperative, elderly doesn't look in any respiratory distress. Neck HEENT: Supple, no lymphadenopathy, no thyroid enlargement, no carotid bruits. Lungs: Decreased expansion with the respiration no crackles or wheezes. Chest Wall: Decreased expansion expansion with deep inspiration no tenderness and no deformity was found on exam, no costochondral pain or discomfort. Heart: Irregular rate and rhythm, S1, S2 positive history positive 5 cm JVD normal, no murmur, rub or gallop. Back: Symmetric, no curvature, ROM normal, no CVA tenderness. Abdomen: Soft, non-tender, bowel sounds active all four quadrants, no masses, no organomegaly. Extremities: Extremities normal, atraumatic, slight discoloration from the knee down with trace edema. Pulses: 2+ and symmetric. Skin: Skin color, texture, tugor normal, no rashes or lesions. Neurologic: Alert oriented with slight confusion cranial nerves II through XII intact, generalized weakness with significant Normal balance and gait. Assessment and Plan Assessment: 1 near syncope: Not acutely etiology at this point, most likely cardiovascular, no sign of worsening A. fib with RVR, troponin is negative. Patient will continue supportive care with hydration advance activity gradually, cardiology consultation and the patient keep having symptoms might benefit from a longer term monitor. 2 severe generalized weakness: Most likely from the overall general picture specially with his high post/hypertension, debility, spinal stenosis, abnormal balance and gait, and history of CVA patient also is having significant memory loss will need an require more physical therapy more supervision should not walk without walker at any giving time. 3 A. fib with RVR: Post cardioversion in June 2019, still seeing cardiology, still on Eliquis 2.5 mg twice a day along with Coreg 3.125 mg twice a day. 4 history of coronary artery disease: Post bypass surgery, post angioplasty and stent, patient remain on Lipitor Coreg and Imdur. 5 hypertension: Down on losartan to 12.5 mg a day still on lower dose on of Coreg. 6 hyperlipidemia: Remain on atorvastatin 40 mg a day. 7 chronic kidney disease stage III: Creatinine is down slightly from last time. 8 history of CVA: No residual motor loss but significant memory loss and mobility with balance problem continue supervision PTOT and to walk with a walker. 9 short term memory loss: Patient can benefit from donepezil or Exelon. Patient has done very well no further symptoms no near syncope or dizziness he is ambulating with walker without help. I have spoke with the daughter who is acting guardian currently patient will be discharged home to follow in the office in follow with cardiology soon if continue having symptom might benefit from doing atypical management for atypical seizure and patient might require longer term heart monitor such as loop recorder monitor to see if there is any abnormality happening in between. The fact of the matter with patient's current condition with the memory loss and always comorbidity he is not doing well with his balance gait and independency but with extra family help in care once to keep him at home at this point no placement is in the near plan at this point. Plan - Discharge Summary Discharge Rx Participant: No New Discharge Prescriptions: Continue Atorvastatin [Lipitor] 40 mg PO HS Losartan [Cozaar] 12.5 mg PO HS Multivitamin [Multivitamins Adult Gummies] 1 tab PO DAILY Apixaban [Eliquis] 2.5 mg PO BID #60 tab Carvedilol [Coreg] 3.125 mg PO BID-W/MEALS Isosorbide Mononitrate ER [Imdur] 30 mg PO DAILY #0 Discharge Medication List Atorvastatin [Lipitor] 40 mg PO HS 05/16/16 [History] Losartan [Cozaar] 12.5 mg PO HS 05/23/19 [History] Multivitamin [Multivitamins Adult Gummies] 1 tab PO DAILY 05/23/19 [History] Apixaban [Eliquis] 2.5 mg PO BID #60 tab 05/25/19 [Rx] Carvedilol [Coreg] 3.125 mg PO BID-W/MEALS 02/18/20 [History] Isosorbide Mononitrate ER [Imdur] 30 mg PO DAILY #0 02/20/20 [Rx] Follow up Appointment(s)/Referral(s): Floyd Lea MD [STAFF PHYSICIAN] - 1 Week Roberto Lopez MD [Primary Care Provider] - 1-2 days [facility], [NON-STAFF] - Discharge Disposition: HOME SELF-CARE
--- NOTE | 2020-02-20 10:45 | P.PN ---
Subjective HISTORY OF PRESENTING ILLNESS This is a pleasant 84-year-old male past medical history significant for coronary artery disease status post bypass grafting with LISA to LAD, SVG to diagonal and SVG to circumflex in 1999 and subsequent PCI of the SVG to circumflex in 2013, chronic persistent atrial fibrillation status post cardioversion in June 2019 maintained on long-term anticoagulation, hypertension, chronic kidney disease and dyslipidemia. He follows in the office with Dr. Pan. He is seen and examined sitting up in bed sleeping. He denies any further episodes of dizziness or near syncope. He feels tired and weak. Telemetry has been discontinued. He denies shortness of breath, chest pain or palpitations. He is being discharged today with physical therapy and home care. Blood pressure 155/85 heart rate 62 afebrile and maintaining oxygen saturation on room air. Laboratory data reviewed, WBC 5.4, hgb 10.7, plt 157, sodium 136, potassium 4.0, creatinine 1.26. Currently maintained on eliquis 2.5 mg BID, atorvastatin 40 mg daily, coreg 3.125 BID, imdur 30 mg daily and losartan 12.5 mg daily. PHYSICAL EXAMINATION CONSTITUTIONAL: No apparent distress. HEENT: Head is normocephalic. Pupils are equal, round. Sclerae anicteric. Mucous membranes of the mouth are moist. No JVD. No carotid bruit. CHEST EXAMINATION: Lungs are clear to auscultation. No chest wall tenderness is noted on palpation or with deep breathing. HEART EXAMINATION: Regular rate and rhythm. S1, S2 heard. No murmurs, gallops or rub. EXTREMITIES: 2+ peripheral pulses, no lower extremity edema and no calf tenderness. ASSESSMENT Near syncope Chronic persistent atrial fibrillation on long-term anticoagulation Coronary artery disease status post bypass grafting and SVG PCI Hypertension Dyslipidemia Chronic kidney disease PLAN Stable from a cardiac perspective. Follow up in the office with Dr. Pan upon discharge. Nurse Practitioner note has been reviewed, I agree with a documented findings and plan of care. Patient was seen and examined. Objective - Vital Signs Vital signs: Vital Signs Temp 97.7 F 02/20/20 04:41 Pulse 61 02/20/20 08:00 Resp 12 02/20/20 08:00 BP 155/85 02/20/20 04:41 Pulse Ox 96 02/20/20 04:41 Intake & Output 02/19/20 02/20/20 02/20/20 18:59 06:59 18:59 Intake Total 240 Output Total 800 Balance -560 Intake: Oral 240 Output: Urine 800 Other: Voiding Method Bedside Commode Bedside Commode Bedside Commode Urinal Urinal Urinal # Voids 2 2 - Labs CBC & Chem 7: 02/20/20 05:49 02/20/20 05:49 Labs: Abnormal Lab Results - Last 24 Hours (Table) 02/20/20 02/20/20 Range/Units 05:49 05:49 RBC 3.40 L (4.30-5.90) m/uL Hgb 10.7 L (13.0-17.5) gm/dL Hct 31.3 L (39.0-53.0) % Sodium 136 L (137-145) mmol/L BUN 25 H (9-20) mg/dL Creatinine 1.26 H (0.66-1.25) mg/dL Total Protein 6.0 L (6.3-8.2) g/dL Albumin 3.2 L (3.5-5.0) g/dL
[2020-02-20 11:22] VITALS: RESP 16
== END 2020-02-20 12:34 | disposition home health service (06) ==
LOC: EC 09:55 → 5NMEDONC 12:52
PROVIDERS: ADMIT Family Medicine; ATTEND Family Medicine
DX: R55 Syncope and collapse (principal); I48.19 Other persistent atrial fibrillation; R53.1 Weakness; I10 Essential (primary) hypertension; R53.81 Other malaise; M48.00 Spinal stenosis, site unspecified; R26.9 Unspecified abnormalities of gait and mobility; Z86.73 Personal history of transient ischemic attack (TIA), and cerebral infarction without residual deficits; I25.10 Atherosclerotic heart disease of native coronary artery without angina pectoris; Z95.1 Presence of aortocoronary bypass graft; Z95.5 Presence of coronary angioplasty implant and graft; I13.10 Hypertensive heart and chronic kidney disease without heart failure, with stage 1 through stage 4 chronic kidney disease, or unspecified chronic kidney disease; E78.5 Hyperlipidemia, unspecified; N18.3 Chronic kidney disease, stage 3 (moderate); R41.3 Other amnesia; E86.0 Dehydration; R29.6 Repeated falls; I25.2 Old myocardial infarction; M19.90 Unspecified osteoarthritis, unspecified site; I49.3 Ventricular premature depolarization; R79.89 Other specified abnormal findings of blood chemistry; D63.1 Anemia in chronic kidney disease; I45.2 Bifascicular block; Z11.59 Encounter for screening for other viral diseases; Z79.899 Other long term (current) drug therapy; Z79.01 Long term (current) use of anticoagulants; Z85.46 Personal history of malignant neoplasm of prostate; Z92.3 Personal history of irradiation; Z98.890 Other specified postprocedural states; Z87.891 Personal history of nicotine dependence; Z82.49 Family history of ischemic heart disease and other diseases of the circulatory system; Z82.5 Family history of asthma and other chronic lower respiratory diseases; Z80.0 Family history of malignant neoplasm of digestive organs; Z83.79 Family history of other diseases of the digestive system; Z81.1 Family history of alcohol abuse and dependence; Z83.3 Family history of diabetes mellitus
CPT/HCPCS: 96361 ×3; 96360; 99285; 36415; 93005; 80053 ×3; 84443; 82550; 83605; 83735; 84484; 85025 ×3; 85610; 85730; 81001; 87635; 71046; G0378 ×3

== ENCOUNTER 2020-07-05 15:24 | Inpatient (IN) | payer MEDICARE ==
[2020-07-05] MEDS ORDERED: SODIUM CHLORIDE 0.9% 1,000 ML IV STA (15:36)
--- NOTE | 2020-07-05 15:40 | ED ---
General Adult HPI - General Chief complaint: Weakness Stated complaint: syncope Time Seen by Provider: 07/05/20 15:26 Source: patient, EMS, RN notes reviewed Mode of arrival: EMS Limitations: no limitations - History of Present Illness Initial comments: Patient is a pleasant 85-year-old male presenting to the emergency Department with syncope versus near syncopal episode. Episode occurred prior to arrival. Patient was sitting outside and went from a sitting to standing position. When EMS arrived patient was pale and diaphoretic with atrial fibrillation and bradycardia with a heart rate in the 30s. Systolic blood pressure was 70. Patient did have similar symptoms months ago associated also with atrial fibrillation. Patient had decreased responsiveness however did not completely lose consciousness. Patient denies chest pain or dyspnea. No abdominal or back pain. No headache or confusion. No isolated area of weakness. Patient states at this time he feels fine. - Related Data Home Medications Medication Instructions Recorded Confirmed Atorvastatin [Lipitor] 40 mg PO HS 05/16/16 02/18/20 Losartan [Cozaar] 12.5 mg PO HS 05/23/19 02/18/20 Multivitamin [Multivitamins Adult 1 tab PO DAILY 05/23/19 02/18/20 Gummies] Carvedilol [Coreg] 3.125 mg PO BID-W/MEALS 02/18/20 02/18/20 Previous Rx's Medication Instructions Recorded Apixaban [Eliquis] 2.5 mg PO BID #60 tab 05/25/19 Isosorbide Mononitrate ER [Imdur] 30 mg PO DAILY #0 02/20/20 Allergies Allergy/AdvReac Type Severity Reaction Status Date / Time No Known Allergies Allergy Verified 07/05/20 15:35 Review of Systems ROS Statement: Those systems with pertinent positive or pertinent negative responses have been documented in the HPI. ROS Other: All systems not noted in ROS Statement are negative. Constitutional: Denies: fever Eyes: Denies: eye pain ENT: Denies: ear pain Respiratory: Denies: cough Cardiovascular: Denies: chest pain Endocrine: Denies: fatigue Gastrointestinal: Denies: abdominal pain Genitourinary: Denies: dysuria Musculoskeletal: Denies: back pain Skin: Denies: rash Neurological: Denies: headache, confusion Past Medical History Past Medical History: Atrial Fibrillation, Coronary Artery Disease (CAD), Cancer, Hyperlipidemia, Hypertension, Myocardial Infarction (NC), Osteoarthritis (OA), Prostate Disorder Additional Past Medical History / Comment(s): 1999-prostate cancer with radiation Last Myocardial Infarction Date:: 1998 History of Any Multi-Drug Resistant Organisms: None Reported Past Surgical History: Coronary Bypass/CABG, Heart Catheterization With Stent, Hernia Repair Additional Past Surgical History / Comment(s): Open heart Quadrupal bypass (1998) Past Anesthesia/Blood Transfusion Reactions: No Reported Reaction Date of Last Stent Placement:: 2015 Past Psychological History: No Psychological Hx Reported Smoking Status: Never smoker Past Alcohol Use History: None Reported Past Drug Use History: None Reported - Past Family History Father Family Medical History: Congestive Heart Failure (CHF), COPD, Coronary Artery Disease (CAD) Additional Family Medical History / Comment(s): at age 72. Mother Family Medical History: Cancer Additional Family Medical History / Comment(s): at age 86, colon cancer. Sister(s) Family Medical History: COPD, Liver Disease Additional Family Medical History / Comment(s): Patient had one sister with history of alcoholism and at age 71. She also had COPD. Brother(s) Additional Family Medical History / Comment(s): Patient has one dtr that from diabetes complications. One son has history of hypertension. One daughter has diabetes. General Exam Limitations: no limitations General appearance: alert, in no apparent distress Head exam: Present: normocephalic Eye exam: Present: normal appearance, PERRL, EOMI. Absent: nystagmus ENT exam: Present: normal oropharynx Neck exam: Present: normal inspection. Absent: tenderness Respiratory exam: Present: normal lung sounds bilaterally Cardiovascular Exam: Present: irregular rhythm Expanded Peripheral pulses: 2+: Radial (R), Radial (L), Posterior Tibialis (R), Posterior Tibialis (L) GI/Abdominal exam: Present: soft. Absent: distended, tenderness, pulsatile mass Extremities exam: Present: normal inspection. Absent: pedal edema, calf tenderness Neurological exam: Present: alert, CN II-XII intact. Absent: motor sensory deficit Expanded Neurological exam: Present: protecting the airway Speech: Present: fluid speech Cranial nerves: EOM's Intact: Normal Sensory exam: Upper Extremity Light Touch: Normal, Lower Extremity Light Touch: Normal Motor strength exam: RUE: 5, LUE: 5, RLE: 5, LLE: 5 Eye Response: (4) open spontaneously Motor Response: (6) obeys commands Verbal Response: (5) oriented Psychiatric exam: Present: normal affect, normal mood Skin exam: Present: normal color Course Vital Signs 07/05/20 07/05/20 07/05/20 15:25 15:41 16:18 Temperature 98.3 F Pulse Rate 61 71 61 Respiratory 20 18 18 Rate Blood Pressure 96/67 92/58 92/58 O2 Sat by Pulse 97 99 99 Oximetry 07/05/20 07/05/20 16:46 17:34 Temperature Pulse Rate 58 L 60 Respiratory 18 18 Rate Blood Pressure 102/59 102/62 O2 Sat by Pulse 99 100 Oximetry EKG Findings - EKG Comments: EKG Findings:: A flutter with a rate of 70. QRS 100. QT 434. QTC or 60. Left axis. Left anterior fascicular block. No acute ST change. Medical Decision Making - Medical Decision Making Patient reevaluated and resting comfortably in bed. Patient and family updated on results and plan. Case was discussed in detail with Dr. Montgomery, who will admit for Dr. Lopez. - Lab Data Result diagrams: 07/05/20 15:39 07/05/20 15:39 Lab Results 07/05/20 07/05/20 07/05/20 Range/Units 15:39 15:39 15:39 WBC 5.8 (3.8-10.6) k/uL RBC 3.50 L (4.30-5.90) m/uL Hgb 10.6 L (13.0-17.5) gm/dL Hct 31.6 L (39.0-53.0) % MCV 90.2 (80.0-100.0) fL MCH 30.2 (25.0-35.0) pg MCHC 33.4 (31.0-37.0) g/dL RDW 13.4 (11.5-15.5) % Plt Count 166 (150-450) k/uL Neutrophils % 67 % Lymphocytes % 18 % Monocytes % 7 % Eosinophils % 5 % Basophils % 1 % Neutrophils # 3.9 (1.3-7.7) k/uL Lymphocytes # 1.0 (1.0-4.8) k/uL Monocytes # 0.4 (0-1.0) k/uL Eosinophils # 0.3 (0-0.7) k/uL Basophils # 0.1 (0-0.2) k/uL PT 10.5 (9.0-12.0) sec INR 1.0 (<1.2) APTT 21.4 L (22.0-30.0) sec Sodium (137-145) mmol/L Potassium (3.5-5.1) mmol/L Chloride (98-107) mmol/L Carbon Dioxide (22-30) mmol/L Anion Gap mmol/L BUN (9-20) mg/dL Creatinine (0.66-1.25) mg/dL Est GFR (CKD-EPI)AfAm (>60 ml/min/1.73 sqM) Est GFR (CKD-EPI)NonAf (>60 ml/min/1.73 sqM) Glucose (74-99) mg/dL Calcium (8.4-10.2) mg/dL Magnesium (1.6-2.3) mg/dL Total Bilirubin (0.2-1.3) mg/dL AST (17-59) U/L ALT (4-49) U/L Alkaline Phosphatase (38-126) U/L Troponin I (0.000-0.034) ng/mL Total Protein (6.3-8.2) g/dL Albumin (3.5-5.0) g/dL Urine Color Yellow Urine Appearance Clear (Clear) Urine pH 5.0 (5.0-8.0) Ur Specific [place] 1.010 (1.001-1.035) Urine Protein Negative (Negative) Urine Glucose (UA) Negative (Negative) Urine Ketones Negative (Negative) Urine Blood Negative (Negative) Urine Nitrite Negative (Negative) Urine Bilirubin Negative (Negative) Urine Urobilinogen <2.0 (<2.0) mg/dL Ur Leukocyte Esterase Negative (Negative) 07/05/20 07/05/20 Range/Units 15:39 15:39 WBC (3.8-10.6) k/uL RBC (4.30-5.90) m/uL Hgb (13.0-17.5) gm/dL Hct (39.0-53.0) % MCV (80.0-100.0) fL MCH (25.0-35.0) pg MCHC (31.0-37.0) g/dL RDW (11.5-15.5) % Plt Count (150-450) k/uL Neutrophils % % Lymphocytes % % Monocytes % % Eosinophils % % Basophils % % Neutrophils # (1.3-7.7) k/uL Lymphocytes # (1.0-4.8) k/uL Monocytes # (0-1.0) k/uL Eosinophils # (0-0.7) k/uL Basophils # (0-0.2) k/uL PT (9.0-12.0) sec INR (<1.2) APTT (22.0-30.0) sec Sodium 138 (137-145) mmol/L Potassium 4.3 (3.5-5.1) mmol/L Chloride 106 (98-107) mmol/L Carbon Dioxide 25 (22-30) mmol/L Anion Gap 7 mmol/L BUN 36 H (9-20) mg/dL Creatinine 2.04 H (0.66-1.25) mg/dL Est GFR (CKD-EPI)AfAm 33 (>60 ml/min/1.73 sqM) Est GFR (CKD-EPI)NonAf 29 (>60 ml/min/1.73 sqM) Glucose 114 H (74-99) mg/dL Calcium 9.0 (8.4-10.2) mg/dL Magnesium 1.9 (1.6-2.3) mg/dL Total Bilirubin 0.7 (0.2-1.3) mg/dL AST 21 (17-59) U/L ALT 9 (4-49) U/L Alkaline Phosphatase 46 (38-126) U/L Troponin I <0.012 (0.000-0.034) ng/mL Total Protein 6.1 L (6.3-8.2) g/dL Albumin 3.5 (3.5-5.0) g/dL Urine Color Urine Appearance (Clear) Urine pH (5.0-8.0) Ur Specific [place] (1.001-1.035) Urine Protein (Negative) Urine Glucose (UA) (Negative) Urine Ketones (Negative) Urine Blood (Negative) Urine Nitrite (Negative) Urine Bilirubin (Negative) Urine Urobilinogen (<2.0) mg/dL Ur Leukocyte Esterase (Negative) - Radiology Data Radiology results: image reviewed (Chest x-ray shows stable atelectasis. Right upper lobe nodule stable.) Disposition Clinical Impression: Syncope Disposition: ADMITTED IP TO THIS HOSP Is patient prescribed a controlled substance at d/c from ED?: No Referrals: Roberto Lopez MD [Primary Care Provider] - 1-2 days Decision Time: 18:13
[2020-07-05 15:53] LABS: Basophils # (A) 0.1 k/uL (0-0.2); Basophils % (A) 1 %; Eosinophils # (A) 0.3 k/uL (0-0.7); Eosinophils % (A) 5 %; HCT 31.6 % (39.0-53.0); HGB 10.6 gm/dL (13.0-17.5); Lymphocytes % (A) 18 %; MCH 30.2 pg (25.0-35.0); MCHC 33.4 g/dL (31.0-37.0); MCV 90.2 fL (80.0-100.0); Mean Platelet Volume 7.9; Monocytes # (A) 0.4 k/uL (0-1.0); Monocytes % (A) 7 %; Neutrophils # (A) 3.9 k/uL (1.3-7.7); Neutrophils % (A) 67 %; Platelet Count 166 k/uL (150-450); RDW 13.4 % (11.5-15.5); WBC 5.8 k/uL (3.8-10.6)
--- NOTE | 2020-07-05 16:04 | XR ---
EXAMINATION TYPE: XR chest 2V DATE OF EXAM: 07/05/2020 COMPARISON: 02/18/2020 TECHNIQUE: PA and lateral views submitted. HISTORY: Syncope FINDINGS: The lungs are clear and there is no pneumothorax, pleural effusion, or focal pneumonia. Aorta promi nent. Postoperative change. Hyperinflation of the lungs and degenerative changes of the spine. Nodula r density right upper lobe stable measuring 5 mm. No pneumothorax or interstitial edema. Subsegmental basilar changes noted. IMPRESSION: 1. Bilateral basilar atelectasis favored over pneumonia. 2. Stable right upper lobe lung nodule measuring 5 mm. Too small to characterize and could be followe d with subsequent CT of the chest on a short-term basis.
[2020-07-05 16:06] LABS: Albumin 3.5 g/dL (3.5-5.0); Magnesium 1.9 mg/dL (1.6-2.3); Potassium 4.3 mmol/L (3.5-5.1); Total Bilirubin 0.7 mg/dL (0.2-1.3); Total Protein 6.1 g/dL (6.3-8.2)
[2020-07-05 16:12] LABS: Prothrombin Time 10.5 sec (9.0-12.0)
[2020-07-05 16:18] LABS: Partial Thromboplastin Time 21.4 sec (22.0-30.0)
[2020-07-05 17:47] LABS: Appearance,Urine Clear (Clear); Bilirubin,Urine Negative (Negative); Blood,Urine Negative (Negative); Color,Urine Yellow; Glucose,Urine (UA) Negative (Negative); Ketones,Urine Negative (Negative); Leukocyte Esterase,Urine Negative (Negative); Nitrite,Urine Negative (Negative); Protein,Urine Negative (Negative); Urobilinogen,Urine <2.0 mg/dL (<2.0)
[2020-07-05] MEDS ORDERED: NALOXONE 0.4 MG/ML 1 ML VIAL IV PRN (18:14)
[2020-07-05] MEDS: APIXABAN 2.5 MG TABLET PO SCH (20:46)
[2020-07-05] MEDS: SODIUM CHLORIDE 0.9% 1,000 ML IV SCH (20:51)
[2020-07-05] MEDS ORDERED: ATORVASTATIN 40 MG TAB PO SCH (21:00)
[2020-07-05] MEDS ORDERED: LOSARTAN 25 MG TAB PO SCH (21:00)
[2020-07-05 21:21] LABS: Basophils # (A) 0.1 k/uL (0-0.2); Basophils % (A) 1 %; Eosinophils # (A) 0.1 k/uL (0-0.7); Eosinophils % (A) 2 %; HCT 31.9 % (39.0-53.0); HGB 10.3 gm/dL (13.0-17.5); Lymphocytes # (A) 0.9 k/uL (1.0-4.8); Lymphocytes % (A) 15 %; MCH 29.8 pg (25.0-35.0); MCHC 32.4 g/dL (31.0-37.0); MCV 92.1 fL (80.0-100.0); Mean Platelet Volume 7.6; Monocytes # (A) 0.3 k/uL (0-1.0); Monocytes % (A) 4 %; Neutrophils # (A) 4.8 k/uL (1.3-7.7); Neutrophils % (A) 77 %; Platelet Count 155 k/uL (150-450); RBC 3.46 m/uL (4.30-5.90); RDW 13.4 % (11.5-15.5); WBC 6.2 k/uL (3.8-10.6)
[2020-07-05 21:36] LABS: Albumin 3.5 g/dL (3.5-5.0); Calcium 8.9 mg/dL (8.4-10.2); Potassium 4.2 mmol/L (3.5-5.1); Total Bilirubin 0.5 mg/dL (0.2-1.3); Total Protein 6.1 g/dL (6.3-8.2)
[2020-07-06 08:45] VITALS: RESP 16; TEMP 97.9
[2020-07-06] MEDS ORDERED: MULTIVITAMINS, THERA 1 EACH TAB PO SCH (09:00)
[2020-07-06] MEDS ORDERED: ISOSORBIDE MONONITRATE ER 30 MG TAB.ER.24H PO SCH (09:00)
[2020-07-06 09:09] LABS: Calcium 8.8 mg/dL (8.4-10.2); Potassium 4.2 mmol/L (3.5-5.1)
[2020-07-06] MEDS: APIXABAN 2.5 MG TABLET PO SCH (09:09)
[2020-07-06] MEDS: SODIUM CHLORIDE 0.9% 1,000 ML IV SCH (09:10)
[2020-07-06 09:17] VITALS: BP 130/89; PULSE 83
[2020-07-06] MEDS ORDERED: SODIUM CHLORIDE 0.9% 1,000 ML IV SCH (10:30)
[2020-07-06] MEDS ORDERED: IV FLUID CONTINUATION 500 ML IV ONE (11:05)
--- NOTE | 2020-07-06 11:11 | P.HPIM ---
History of Present Illness H&P Date: 07/06/20 Chief Complaint: near syncope This is an 84-year-old male patient of Dr. Lopez and Dr. VAHID Pan. He has a past medical history of [place] and coronary artery disease status post stenting and 4 vessel CABG done in [place] in 1999, LISA to LAD, SVG to intermediate, and SVG to diagonal, as well as SVG to left circumflex, hypertension, hypertensive vascular disease, hyperlipidemia with history of prostate cancer treated with radiation. He completed radiation treatment in April 2012. 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 In 2013 patient had acute non-ST elevated myocardial infarction and underwent stenting of the SVG to the left circumflex. Patient did have an hospitalization July 2019 for syncopal episode thought to be vasovagal and again in February for near syncope thought to be possibly A. fib with RVR. Patient states he was sitting in a lawn chair at his home and was clipping gross and apparently he family called EMS. He does not recall that. Upon EMS arrival patient was pale, diaphoretic with bradycardia with a heart rate in the 30s, systolic blood pressure 70. Patient did have decreased responsiveness. Patient was brought into into [facility] emergency center for evaluation. He was afebrile, heart rate 61, blood pressure 96/67, pulse ox 979% on room air. EKG atrial flutter. Chest x-ray reveals bilateral atelectasis. Stable right upper lobe nodule measuring 5 mm. WBC 5.8, hemoglobin 10.6, platelet count 166. Sodium 138, potassium 4.3, chloride 106, CO2 25, BUN 36, creatinine 2.04, blood sugar 114. Liver function tests within normal limits. Troponin negative. Urinalysis negative for infection. Parathyroid hormone intact 72.4. Patient received 1 L of IV fluid while in the emergency center and was admitted to the cardiac observation unit with cardiology consult. Repeat lab work this morning reveals BUN of 33 and creatinine 1.78, sodium 146. Patient was evaluated by cardiology. Recent event monitor did not show any signs of bradycardia and he underwent a tilt table test today which was negative. Patient was cleared for discharge by cardiology. Patient will be discharged home today in stable condition. No changes in medications. Cardiology has cleared him to resume Coreg. Review of systems Constitutional: Reports fatigue, denies sweats, denies weakness, Denies anorexia, Denies chills, Denies fever, reports lethargy, reports malaise, Denies poor appetite, Denies weight loss Eyes: denies blurred vision, denies pain Ears, nose, mouth and throat: Denies vertigo, Denies headache, Denies sore throat Cardiovascular: Denies lightheadedness, reports syncope, Denies chest pain, Denies decreased exercise tolerance, Denies dyspnea on exertion, Denies edema, Denies leg edema, Denies orthopnea, Denies palpitations, Denies shortness of breath Respiratory: Reports sleep apnea, Denies cough, Denies cough with sputum, Denies dyspnea, Denies excessive sputum, Denies hemoptysis, Denies home oxygen, Denies wheezing Gastrointestinal: Denies abdominal pain, Denies diarrhea, Denies loss of appetite, Denies nausea, Denies vomiting Genitourinary: Denies dysuria, Denies urinary frequency, Denies urinary hesitancy, Denies urinary retention Musculoskeletal: Denies myalgias Integumentary: Denies pruritus, Denies rash, Denies wounds Neurological: Reports syncope, Reports weakness, Denies numbness Psychiatric: Denies anxiety, Denies depression Endocrine: Denies fatigue, Denies weight change Physical examination Gen: This is an 85-year-old male patient resting in bed and appears comfortable and in no acute distress. HEENT: Head is atraumatic, normocephalic. Pupils equal, round. Sclerae is anicteric. NECK: Supple. No JVD. No lymphadenopathy. No thyromegaly. LUNGS: Clear to auscultation. No wheezes or rhonchi. No intercostal retractions. HEART: Regular rate and rhythm. Systolic murmur. ABDOMEN: Soft. Bowel sounds are present. No masses. No tenderness. EXTREMITIES: No pedal edema. No calf tenderness. Dorsalis pedis +2 bilaterally. NEUROLOGICAL: Patient is awake, alert and oriented x1-2. Cranial nerves 2 through 12 are grossly intact. No lateralized weakness. Assessment and Plan 1. Near syncopal episode secondary to bradycardia and hypotension, possible heart block. Cardiology consult. Coreg is on hold, echocardiogram. Orthostatics are negative. IV fluids discontinued. 2. Paroxysmal atrial fibrillation status post cardioversion and June 2019. Cardiology consult. Continue eliquis 2.5 mg twice daily. Coreg is on hold. 3. History of coronary artery disease with prior bypass and stenting, stable. Continue atorvastatin 40 mg daily, Coreg, Imdur 30 mg daily. 4. Hypertension, hypertensive cardiovascular disease. Continue losartan 12.5 mg at bedtime. 5. Hyperlipidemia. Continue statin 6. Acute kidney injury with chronic kidney disease stage IIIa, stable. Baseline creatinine 1.4. 7. Anemia of chronic kidney disease, stable 8. History of prostate cancer treated with radiation, stable. 9. 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 10. Short-term memory deficit, stable. 11. GI prophylaxis. Pepcid. 12. DVT prophylaxis. Eliquis. 13. Right upper lobe nodule. Follow-up as outpatient. Patient placed on the observation unit. Discharge plan: home Discharge Medication List Atorvastatin [Lipitor] 40 mg PO HS 05/16/16 [History] Losartan [Cozaar] 12.5 mg PO HS 05/23/19 [History] Apixaban [Eliquis] 2.5 mg PO BID #60 tab 05/25/19 [Rx] Carvedilol [Coreg] 3.125 mg PO AC-BID 02/18/20 [History] Isosorbide Mononitrate ER [Imdur] 30 mg PO DAILY #0 02/20/20 [Rx] Multivitamins, Thera [Multivitamin (formulary)] 1 tab PO DAILY 07/05/20 [History] Torsemide [Demadex] 10 mg PO DAILY 07/05/20 [History] Impression and plan of care have been directed as dictated by the signing physician. Gloria Oneill nurse practitioner acting as scribe for signing physician. Past Medical History Past Medical History: Atrial Fibrillation, Coronary Artery Disease (CAD), Cancer, Hyperlipidemia, Hypertension, Myocardial Infarction ([place]), Osteoarthritis (OA), Prostate Disorder Additional Past Medical History / Comment(s): 1999-prostate cancer with radiat ion Last Myocardial Infarction Date:: 1998 History of Any Multi-Drug Resistant Organisms: None Reported Past Surgical History: Coronary Bypass/CABG, Heart Catheterization With Stent, Hernia Repair Additional Past Surgical History / Comment(s): Open heart Quadrupal bypass (1998) Past Anesthesia/Blood Transfusion Reactions: No Reported Reaction Date of Last Stent Placement:: 2016 Past Psychological History: No Psychological Hx Reported Smoking Status: Never smoker Past Alcohol Use History: None Reported Additional Past Alcohol Use History / Comment(s): Patient was a smoker of cigars for 10 years ago quit approximately 15 years ago. He no longer drinks alcohol on a social basis. He denies any medical marijuana, marijuana, street drug use. Patient lives at home with his . 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 Past Drug Use History: None Reported - Past Family History Father Family Medical History: Congestive Heart Failure (CHF), COPD, Coronary Artery Disease (CAD) Additional Family Medical History / Comment(s): at age 72. Mother Family Medical History: Cancer Additional Family Medical History / Comment(s): at age 86, colon cancer. Sister(s) Family Medical History: COPD, Liver Disease Additional Family Medical History / Comment(s): Patient had one sister with history of alcoholism and at age 71. She also had COPD. Brother(s) Additional Family Medical History / Comment(s): Patient has one dtr that from diabetes complications. One son has history of hypertension. One daughter has diabetes. Medications and Allergies Home Medications Medication Instructions Recorded Confirmed Type Atorvastatin [Lipitor] 40 mg PO HS 05/16/16 07/05/20 History Losartan [Cozaar] 12.5 mg PO HS 05/23/19 07/05/20 History Apixaban [Eliquis] 2.5 mg PO BID #60 tab 05/25/19 07/05/20 Rx Carvedilol [Coreg] 3.125 mg PO AC-BID 02/18/20 07/05/20 History Isosorbide Mononitrate ER [Imdur] 30 mg PO DAILY #0 02/20/20 07/05/20 Rx Multivitamins, Thera [Multivitamin 1 tab PO DAILY 07/05/20 07/05/20 History (formulary)] Torsemide [Demadex] 10 mg PO DAILY 07/05/20 07/05/20 History Allergies Allergy/AdvReac Type Severity Reaction Status Date / Time No Known Allergies Allergy Verified 07/05/20 18:50 Physical Exam Vitals: Vital Signs Temp Pulse Pulse Resp BP BP Pulse Ox 07/06/20 03:30 98.0 F 61 102/61 95 07/05/20 19:21 97.8 F 87 131/75 97 07/05/20 19:15 97.8 F 87 131/75 97 07/05/20 18:31 98.0 F 64 18 118/67 100 07/05/20 17:34 60 18 102/62 100 07/05/20 16:46 58 L 18 102/59 99 07/05/20 16:18 61 18 92/58 99 07/05/20 15:41 71 18 92/58 99 07/05/20 15:25 98.3 F 61 20 96/67 97 Intake and Output 07/05/20 07/06/20 07/06/20 22:59 06:59 14:59 Intake Total 700 Output Total 500 300 Balance 200 -300 Intake: Oral 700 Output: Urine 500 300 Other: Voiding Method Toilet Toilet # Voids 1 0 Weight 73.936 kg Results CBC & Chem 7: 07/05/20 20:50 07/06/20 08:31 Labs: Abnormal Lab Results - Last 24 Hours (Table) 07/05/20 07/05/20 07/05/20 Range/Units 15:39 15:39 15:39 RBC 3.50 L (4.30-5.90) m/uL Hgb 10.6 L (13.0-17.5) gm/dL Hct 31.6 L (39.0-53.0) % Lymphocytes # (1.0-4.8) k/uL APTT 21.4 L (22.0-30.0) sec BUN 36 H (9-20) mg/dL Creatinine 2.04 H (0.66-1.25) mg/dL Glucose 114 H (74-99) mg/dL Total Protein 6.1 L (6.3-8.2) g/dL PTH Intact (14.0-72.0) pg/mL 07/05/20 07/05/20 07/05/20 Range/Units 20:50 20:50 20:50 RBC 3.46 L (4.30-5.90) m/uL Hgb 10.3 L (13.0-17.5) gm/dL Hct 31.9 L (39.0-53.0) % Lymphocytes # 0.9 L (1.0-4.8) k/uL APTT (22.0-30.0) sec BUN 36 H (9-20) mg/dL Creatinine 1.98 H (0.66-1.25) mg/dL Glucose 151 H (74-99) mg/dL Total Protein 6.1 L (6.3-8.2) g/dL PTH Intact 72.4 H (14.0-72.0) pg/mL Thrombosis Risk Factor Assmnt - Choose All That Apply Each Risk Factor Represents 3 Points: Age 75 years or older Thrombosis Risk Factor Assessment Total Risk Factor Score: 3 Thrombosis Risk Factor Assessment Level: Moderate Risk
--- NOTE | 2020-07-06 12:19 | ECHOF ---
Referral Reason:Syncope MEASUREMENTS -------- HEIGHT: 177.8 cm WEIGHT: 73.9 kg BP: IVSd: 1.1 cm (0.6 - 1.1) LVIDd: 3.3 cm (3.9 - 5.3) LVPWd: 1.2 cm (0.6 - 1.1) IVSs: 1.9 cm LVIDs: 2.0 cm LVPWs: 1.6 cm LAESV Index (A-L): 48.46 ml/m Ao Diam: 2.6 cm (2.0 - 3.7) AV Cusp: 1.8 cm (1.5 - 2.6) LA Diam: 3.6 cm (2.7 - 3.8) MV EXCURSION: 12.396 mm (> 18.000) MV EF SLOPE: 67 mm/s (70 - 150) EPSS: 1.0 cm MV E Ever: 1.01 m/s MV DecT: 177 ms MV A Ever: 0.49 m/s MV E/A Ratio: 2.06 AR PHT: 385 ms RAP: 5.00 mmHg RVSP: 32.75 mmHg FINDINGS -------- This was a technically good study. The left ventricular size is normal. There is mild concentric left ventricular hypertrophy. Overa ll left ventricular systolic function is mildly impaired with, an EF between 45 - 50 %. Increased L AP. Grade 2 Diastolic Dysfuntion. The right ventricle is normal in size. LA is severely dilated >40 ml/m2 The right atrial size is normal. Aortic valve is trileaflet and is mildly thickened. There is mild aortic regurgitation. The mitral valve is normal. The mitral valve leaflets are mildly thickened. Mild mitral annular c alcification present. Severe mitral regurgitation is present. The tricuspid valve appears structurally normal. Severe tricuspid regurgitation present. Right ve ntricular systolic pressure is normal at < 35 mmHg. There is no pulmonic regurgitation present. The aortic root size is normal. IVC Not well visulized. There is no pericardial effusion. CONCLUSIONS -------- 1. The left ventricular size is normal. 2. There is mild concentric left ventricular hypertrophy. 3. Overall left ventricular systolic function is mildly impaired with, an EF between 45 - 50 %. 4. Increased LAP. Grade 2 Diastolic Dysfuntion. 5. LA is severely dilated >40 ml/m2 6. Aortic valve is trileaflet and is mildly thickened. 7. There is mild aortic regurgitation. 8. The mitral valve leaflets are mildly thickened. 9. Mild mitral annular calcification present. 10. Severe mitral regurgitation is present. 11. Severe tricuspid regurgitation present. 12. There is no pericardial effusion. CONTROL CLERK HEAD: Annika Arellano RDCS
--- NOTE | 2020-07-06 14:26 | P.CRDCN ---
History of Present Illness Consult date: 07/06/20 History of present illness: CHIEF COMPLAINT: Possible syncope HISTORY OF PRESENT ILLNESS: This is a 85-year old male with a past medical history significant for atrial fibrillation, coronary artery disease with previous stenting and CABG, hyperlipidemia, and hypertension. Patient follows in the office with Dr. Pan. We have been asked to see the patient in consultation for syncope. Patient examined this morning at the bedside. Patient states he was out working in the yard. He states he then decided to sit down in a chair outside and eventually his family came outside and found him sitting in the chair. They were concerned about him and called EMS. Patient denies LOC. Denies chest pain, shortness of breath, lightheadedness or dizziness yesterday before he decided to sit down in the chair. There was some discussion that the patient was bradycardic in the 30s when he was with EMS, however there is no documented evidence of bradycardia. The patient had an event monitor in April 2020. There was no significant pauses, bradycardia, or RVR noted on event monitor. DIAGNOSTICS: EKG reveals atrial fibrillation Chest xray bilateral basilar atelectasis favored over pneumonia. Laboratory data: WBC 6.2. Hemoglobin 10.3. Platelet count 155. Sodium 138. Potassium 4.2. BUN 33. Creatinine 1.78. Troponin negative 1 Current home cardiac medications include Demadex 10 mg daily, Cozaar 12.5 mg daily, Imdur 30 mg daily, Coreg 3.125 mg twice a day, Lipitor 40 mg daily, and Eliquis 2.5 mg twice a day. REVIEW OF SYSTEMS: At the time of my exam: CONSTITUTIONAL: Denies fever or chills. HEENT: Denies blurred vision, vision changes, or eye pain. Denies hemoptysis CARDIOVASCULAR: Denies chest pain, orthopnea, PND or palpitations RESPIRATORY: No shortness of breath. GASTROINTESTINAL: Denies abdominal pain. Denies nausea or vomiting. HEMATOLOGIC: Denies bleeding disorders. GENITOURINARY: Denies any blood in urine. SKIN: Denies pruitis. Denies rash. PHYSICAL EXAM: VITAL SIGNS: Reviewed. GENERAL: Well-developed in no acute distress. HEENT: Head is normocephalic. Pupils are equal, round. Sclerae anicteric. Mucous membranes of the mouth are moist. Neck supple. No JVD or thyromegaly LUNGS: Respirations even and unlabored. Lungs essentially clear to auscultation bilaterally. HEART: Irregular rate and rhythm. S1 and S2 heard. ABDOMEN: Soft. Nondistended. Nontender. EXTREMITIES: Normal range of motion. No clubbing or cyanosis. Peripheral pulses intact. No lower extremity edema NEUROLOGIC: Awake and alert. Oriented x 3. ASSESSMENT: Questionable syncope Coronary artery disease with previous stent placement and CABG Chronic persistent atrial fibrillation with previous unsuccessful cardioversion Hypertension Hyperlipidemia PLAN: Resume home cardiac medications Obtain orthostatic blood pressures Patient to undergo tilt table testing today No indication for PPM at this time per Dr. Swartz Further recommendations pending patient course Nurse practitioner note has been reviewed by physician. Signing provider agrees with the documented findings, assessment, and plan of care. Past Medical History Past Medical History: Atrial Fibrillation, Coronary Artery Disease (CAD), Cancer, Hyperlipidemia, Hypertension, Myocardial Infarction ([place]), Osteoarthritis (OA), Prostate Disorder Additional Past Medical History / Comment(s): 1999-prostate cancer with radiation Last Myocardial Infarction Date:: 1998 History of Any Multi-Drug Resistant Organisms: None Reported Past Surgical History: Coronary Bypass/CABG, Heart Catheterization With Stent, Hernia Repair Additional Past Surgical History / Comment(s): Open heart Quadrupal bypass (1998) Past Anesthesia/Blood Transfusion Reactions: No Reported Reaction Date of Last Stent Placement:: 2015 Past Psychological History: No Psychological Hx Reported Smoking Status: Never smoker Past Alcohol Use History: None Reported Additional Past Alcohol Use History / Comment(s): Patient was a smoker of cigars for 10 years ago quit approximately 15 years ago. He no longer drinks alcohol on a social basis. He denies any medical marijuana, marijuana, street drug use. Patient lives at home with his . 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 Past Drug Use History: None Reported - Past Family History Father Family Medical History: Congestive Heart Failure (CHF), COPD, Coronary Artery Disease (CAD) Additional Family Medical History / Comment(s): at age 72. Mother Family Medical History: Cancer Additional Family Medical History / Comment(s): at age 86, colon cancer. Sister(s) Family Medical History: COPD, Liver Disease Additional Family Medical History / Comment(s): Patient had one sister with history of alcoholism and at age 71. She also had COPD. Brother(s) Additional Family Medical History / Comment(s): Patient has one dtr that from diabetes complications. One son has history of hypertension. One daughter has diabetes. Medications and Allergies Home Medications Medication Instructions Recorded Confirmed Type Atorvastatin [Lipitor] 40 mg PO HS 05/16/16 07/05/20 History Losartan [Cozaar] 12.5 mg PO HS 05/23/19 07/05/20 History Apixaban [Eliquis] 2.5 mg PO BID #60 tab 05/25/19 07/05/20 Rx Carvedilol [Coreg] 3.125 mg PO AC-BID 02/18/20 07/05/20 History Isosorbide Mononitrate ER [Imdur] 30 mg PO DAILY #0 02/20/20 07/05/20 Rx Multivitamins, Thera [Multivitamin 1 tab PO DAILY 07/05/20 07/05/20 History (formulary)] Torsemide [Demadex] 10 mg PO DAILY 07/05/20 07/05/20 History Allergies Allergy/AdvReac Type Severity Reaction Status Date / Time No Known Allergies Allergy Verified 07/05/20 18:50 Physical Exam Vitals: Vital Signs Temp Pulse Pulse Pulse Pulse Pulse Resp 07/06/20 09:15 58 L 97 83 07/06/20 08:45 99 16 07/06/20 08:16 97.9 F 99 16 07/06/20 03:30 98.0 F 61 07/05/20 19:21 97.8 F 87 07/05/20 19:15 97.8 F 87 07/05/20 18:31 98.0 F 64 18 07/05/20 17:34 60 18 07/05/20 16:46 58 L 18 07/05/20 16:18 61 18 07/05/20 15:41 71 18 07/05/20 15:25 98.3 F 61 20 BP BP BP BP BP Pulse Ox 07/06/20 09:15 123/78 122/75 130/89 07/06/20 08:45 07/06/20 08:16 117/75 98 07/06/20 03:30 102/61 95 07/05/20 19:21 131/75 97 07/05/20 19:15 131/75 97 07/05/20 18:31 118/67 100 07/05/20 17:34 102/62 100 07/05/20 16:46 102/59 99 07/05/20 16:18 92/58 99 07/05/20 15:41 92/58 99 07/05/20 15:25 96/67 97 Intake and Output 07/05/20 07/06/20 07/06/20 22:59 06:59 14:59 Intake Total 700 20 Output Total 500 300 Balance 200 -300 20 Intake: IV 20 Oral 700 Output: Urine 500 300 Other: Voiding Method Toilet Toilet Toilet # Voids 1 0 1 Weight 73.936 kg Results 07/05/20 20:50 07/06/20 08:31 Cardiac Enzymes 07/05/20 07/05/20 07/05/20 Range/Units 15:39 15:39 20:50 AST 21 20 (17-59) U/L Troponin I <0.012 (0.000-0.034) ng/mL Coagulation 07/05/20 Range/Units 15:39 PT 10.5 (9.0-12.0) sec APTT 21.4 L (22.0-30.0) sec CBC 07/05/20 07/05/20 Range/Units 15:39 20:50 WBC 5.8 6.2 (3.8-10.6) k/uL RBC 3.50 L 3.46 L (4.30-5.90) m/uL Hgb 10.6 L 10.3 L (13.0-17.5) gm/dL Hct 31.6 L 31.9 L (39.0-53.0) % Plt Count 166 155 (150-450) k/uL Comprehensive Metabolic Panel 07/05/20 07/05/20 07/06/20 Range/Units 15:39 20:50 08:31 Sodium 138 137 138 (137-145) mmol/L Potassium 4.3 4.2 4.2 (3.5-5.1) mmol/L Chloride 106 104 106 (98-107) mmol/L Carbon Dioxide 25 27 27 (22-30) mmol/L BUN 36 H 36 H 33 H (9-20) mg/dL Creatinine 2.04 H 1.98 H 1.78 H (0.66-1.25) mg/dL Glucose 114 H 151 H 97 (74-99) mg/dL Calcium 9.0 8.9 8.8 (8.4-10.2) mg/dL AST 21 20 (17-59) U/L ALT 9 9 (4-49) U/L Alkaline Phosphatase 46 44 (38-126) U/L Total Protein 6.1 L 6.1 L (6.3-8.2) g/dL Albumin 3.5 3.5 (3.5-5.0) g/dL Current Medications Generic Name Dose Route Start Last Admin Trade Name Freq PRN Reason Stop Dose Admin Apixaban 2.5 mg 07/05/20 21:00 07/06/20 09:09 Apixaban 2.5 Mg Tablet PO 2.5 mg BID MARILYN Administration Atorvastatin Calcium 40 mg 07/05/20 21:00 07/05/20 20:46 Atorvastatin 40 Mg Tab PO 40 mg HS MARILYN Administration Isosorbide Mononitrate 30 mg 07/06/20 09:00 07/06/20 09:09 Isosorbide Mononitrate Er 30 Mg Tab.Er.24h PO 30 mg DAILY MARILYN Administration Losartan Potassium 12.5 mg 07/05/20 21:00 07/05/20 20:46 Losartan 25 Mg Tab PO 12.5 mg HS MARILYN Administration Multivitamins 1 each 07/06/20 09:00 07/06/20 09:09 Multivitamins, Thera 1 Each Tab PO 1 each DAILY MARILYN Administration Naloxone HCl 0.2 mg 07/05/20 18:14 Naloxone 0.4 Mg/Ml 1 Ml Vial IV Q2M PRN Opioid Reversal Intake and Output 07/05/20 07/06/20 07/06/20 22:59 06:59 14:59 Intake Total 700 20 Output Total 500 300 Balance 200 -300 20 Intake: IV 20 Oral 700 Output: Urine 500 300 Other: Voiding Method Toilet Toilet Toilet # Voids 1 0 1 Weight 73.936 kg 07/05/20 20:50 07/06/20 08:31
--- NOTE | 2020-07-06 19:57 | PCN ---
PROCEDURE NOTE TILT TABLE TEST: History of recurrent dizzy spells and syncope. Baseline heart rate 75 beats per minute. Baseline blood pressure 144/64 mmHg. Twelve-lead EKG shows an atrial tachycardia with heart rate of 70 beats per minute. Patient was tilted upright at an angle of 70 degrees per protocol. Minimal drop in blood pressure. The patient had no symptoms. Heart rate and blood pressure remained reasonably stable. He was laid supine at the end of the procedure. IMPRESSION: No clear-cut evidence for dysautonomia. MMODL / IJN: [id number] /
--- NOTE | 2020-07-07 13:40 | CDI ---
Documentation Clarification Form Date: 07/07/20 From: Radha Ann Phone: If you have a question about this query, please contact Bessie Galindo, Office Nurse Practitioner at [phone] between 8am and 5pm. Admit Date: 07/06/20 Discharge Date: 07/06/20 Patient Name: JEROME DUNN Visit Number: [id number] ATTENTION: The Clinical Documentation Specialists (CDI) and [facility] Coding Staff appreciate your assistance in clarifying documentation. Please respond to the clarification below the line at the bottom and electronically sign. The CDI & [facility] Coding staff will review the response and follow-up if needed. Please note: Queries are made part of the Legal Health Record. If you have any questions, please contact the author of this message via ITS. Dear Dr. Roberto Lopez, Atrial Flutter is documented in the H&P - EKG-atrial flutter. History/Risk factors: CARISSA, persistent atrial fibrillation, atelectasis, hypotension, anemia in CKD, HTN w CKD III, HLD, bradycardia, old [place], OA, CAD Clinical Indicators: EKG showing atrial flutter EKG/telemetry: A flutter with a rate of 70.QRS 100.QT 434.QTC or 60. Left axis.Left anterior fascicular block. No acute ST change. Treatment: IV fluids, Eliquis 2.5 mg po BID, Lorsartan 12.5 mg po HS, Imdur 30 mg po daily Consults: evaluated for questionable syncope In your professional opinion, in order to capture the severity of condition; can you please clarify the type of Atrial Flutter if known? Typical/Type I xx Atypical/Type II Other, please specify Unable to determine MTDD
--- NOTE | 2020-07-07 13:56 | CDI ---
Documentation Clarification Form Date: 07/07/20 From: Radha Ann Phone: If you have a question about this query, please contact Bessie Galindo, Chick Sexer at [phone] between 8am and 5pm. Admit Date: 07/06/20 Discharge Date: 07/06/20 Patient Name: JEROME DUNN Visit Number: [id number] ATTENTION: The Clinical Documentation Specialists (CDI) and [facility] Coding Staff appreciate your assistance in clarifying documentation. Please respond to the clarification below the line at the bottom and electronically sign. The CDI & [facility] Coding staff will review the response and follow-up if needed. Please note: Queries are made part of the Legal Health Record. If you have any questions, please contact the author of this message via ITS. Dear Dr. Roberto Lopez, Near syncope is documented in the ED Note, H&P, tilt test and cardiology consult. Patient C/O: Patient states he was sitting in a lawn chair at his home and was clipping gross and apparently he family called EMS. He does not recall that. Upon EMS arrival patient was pale, diaphoretic with bradycardia with a heart rate in the 30s, systolic blood pressure 70.Patient did have decreased responsiveness. Patient history/risk factors: : CARISSA, persistent atrial fibrillation, atelectasis, hypotension, anemia in CKD, HTN w CKD III, HLD, bradycardia, old AK, OA, CAD Clinical Indicators: Afebrile, BP-96/67, PS OX-97, Labs: WBC 5.8, hemoglobin 10.6, platelet count 166.Sodium 138, potassium 4.3, chloride 106, CO2 25, BUN 36, creatinine 2.04, blood sugar 114.Liver function tests within normal limits. Troponin negative.Urinalysis negative for infection. Parathyroid hormone intact 72.4. Carotid US: none CT Head: none Echocardiogram: Overall left ventricular systolic function is mildly impaired with, an EF between 45 - 50 %. Increased LAP.Grade 2 Diastolic Dysfuntion. Mild concentric left ventricular hypertrophy. EKG: A flutter with a rate of 70.QRS 100.QT 434.QTC or 60. Left axis.Left anterior fascicular block. No acute ST change. Tilt Test: No clear-cut evidence for dysautonomia. Treatment: IV fluids, Eliquis 2.5 mg po BID, Lorsartan 12.5 mg po HS, Imdur 30 mg po daily In your professional opinion, can you please clarify the cause of the syncope, if known? xx Orthostatic Hypotension due to/type Arrhythmia, specify type Carotid Sinus Syncope xx Vasovagal Psychogenic Syncope Other, please specify Unable to determine MTDD
== END 2020-07-06 15:12 | disposition home or self-care (01) | DRG 312 ==
LOC: EC 15:24 → 3NCARDOBS 18:25 → OBSVTOIN 07-06 11:48
PROVIDERS: ADMIT Family Medicine; ATTEND Family Medicine
PROC: 4A02XFZ Measurement of Cardiac Rhythm, External Approach (ICD-10-PCS; principal; 2020-07-06 15:15)
PROC: 4A03XB1 Measurement of Arterial Pressure, Peripheral, External Approach (ICD-10-PCS; principal; 2020-07-06 15:15)
DX: I95.1 Orthostatic hypotension (principal); N17.9 Acute kidney failure, unspecified; I48.19 Other persistent atrial fibrillation; J98.11 Atelectasis; I48.4 Atypical atrial flutter; R55 Syncope and collapse; D63.1 Anemia in chronic kidney disease; I13.10 Hypertensive heart and chronic kidney disease without heart failure, with stage 1 through stage 4 chronic kidney disease, or unspecified chronic kidney disease; N18.3 Chronic kidney disease, stage 3 (moderate); R00.1 Bradycardia, unspecified; E78.5 Hyperlipidemia, unspecified; I44.4 Left anterior fascicular block; I25.10 Atherosclerotic heart disease of native coronary artery without angina pectoris; I25.2 Old myocardial infarction; M19.90 Unspecified osteoarthritis, unspecified site; Z79.01 Long term (current) use of anticoagulants; Z79.899 Other long term (current) drug therapy; Z87.891 Personal history of nicotine dependence; Z85.46 Personal history of malignant neoplasm of prostate; Z95.5 Presence of coronary angioplasty implant and graft; Z95.1 Presence of aortocoronary bypass graft; Z92.3 Personal history of irradiation; Z86.73 Personal history of transient ischemic attack (TIA), and cerebral infarction without residual deficits; Z87.19 Personal history of other diseases of the digestive system; Z98.890 Other specified postprocedural states; Z82.49 Family history of ischemic heart disease and other diseases of the circulatory system; Z82.5 Family history of asthma and other chronic lower respiratory diseases; Z80.0 Family history of malignant neoplasm of digestive organs; Z81.1 Family history of alcohol abuse and dependence; Z83.3 Family history of diabetes mellitus; Z83.79 Family history of other diseases of the digestive system
CPT/HCPCS: 36415; 71046; 80048; 80053; 81003; 83735; 83970; 84484; 85025; 85610; 85730; 93005; 93306; 93660; 96360; 96361; 99285

== ENCOUNTER 2021-02-15 13:29 | Inpatient (IN) | payer MEDICARE ==
--- NOTE | 2021-02-15 14:57 | ED ---
Fall HPI - General Source: patient, EMS Mode of arrival: EMS <Gracy Tay - Last Filed: 02/15/21 21:42> <Caryl Yao - Last Filed: 02/16/21 23:06> - General Chief Complaint: Fall Stated Complaint: Rib pain, Weakness Time Seen by Provider: 02/15/21 14:13 - History of Present Illness Initial Comments: 85-year-old male presenting to the ER today for chief complaint of right rib pain, generalized weakness x 10 days. Patient's 3 weeks ago and family states that he has had no desire to take care of himself and has progressively become more and more weak. The patient states he had a fall after slipping on coughing his kitchen where he struck his right rib he states he has had right rib pain for the past week that increases with deep inspiration. The patient denies hitting his head but is on eliquis. He denies any headaches nausea vomiting, he denies chest pressure or shortness of breath difficulty lying flat or leg swelling. He denies fevers, neck pain. He states he did come down on his knees, but denies any knee pain currently. Patient has no additional complaints. He appears nontoxic. Is very hard of hearing. (Gracy Tay) - Related Data Home Medications Medication Instructions Recorded Confirmed Atorvastatin [Lipitor] 40 mg PO HS 05/16/16 02/15/21 Losartan [Cozaar] 12.5 mg PO HS 05/23/19 02/15/21 Multivitamins, Thera [Multivitamin 1 tab PO DAILY 07/05/20 02/15/21 (formulary)] Torsemide [Demadex] 10 mg PO DAILY 07/05/20 02/15/21 Previous Rx's Medication Instructions Recorded Apixaban [Eliquis] 2.5 mg PO BID #60 tab 05/25/19 Isosorbide Mononitrate ER [Imdur] 30 mg PO DAILY #0 02/20/20 Allergies Allergy/AdvReac Type Severity Reaction Status Date / Time No Known Allergies Allergy Verified 02/15/21 16:10 Review of Systems ROS Other: All systems not noted in ROS Statement are negative. <Gracy Tay - Last Filed: 02/15/21 21:42> ROS Other: All systems not noted in ROS Statement are negative. <Caryl Yao - Last Filed: 02/16/21 23:06> ROS Statement: Those systems with pertinent positive or pertinent negative responses have been documented in the HPI. Past Medical History Past Medical History: Atrial Fibrillation, Coronary Artery Disease (CAD), Cancer, Hyperlipidemia, Hypertension, Myocardial Infarction (DC), Osteoarthritis (OA), Prostate Disorder Additional Past Medical History / Comment(s): 1999-prostate cancer with radiation Last Myocardial Infarction Date:: 1998 History of Any Multi-Drug Resistant Organisms: None Reported Past Surgical History: Coronary Bypass/CABG, Heart Catheterization With Stent, Hernia Repair Additional Past Surgical History / Comment(s): Open heart Quadrupal bypass (1998) Past Anesthesia/Blood Transfusion Reactions: No Reported Reaction Date of Last Stent Placement:: 2015 Past Psychological History: No Psychological Hx Reported Smoking Status: Never smoker Past Alcohol Use History: None Reported Past Drug Use History: None Reported - Past Family History Father Family Medical History: Congestive Heart Failure (CHF), COPD, Coronary Artery Disease (CAD) Additional Family Medical History / Comment(s): at age 72. Mother Family Medical History: Cancer Additional Family Medical History / Comment(s): at age 86, colon cancer. Sister(s) Family Medical History: COPD, Liver Disease Additional Family Medical History / Comment(s): Patient had one sister with history of alcoholism and at age 71. She also had COPD. Brother(s) Additional Family Medical History / Comment(s): Patient has one dtr that from diabetes complications. One son has history of hypertension. One daughter has diabetes. <Gracy Tay - Last Filed: 02/15/21 21:42> General Exam Limitations: physical limitation <Gracy Tay Vimal - Last Filed: 02/15/21 21:42> - General Exam Comments Initial Comments: General: The patient is awake and alert, in no distress Eye: +3 mm pupils are equal, round and reactive to light, extra-ocular movements are intact. No nystagmus. There is normal conjunctiva bilaterally. No signs of icterus. Ears, nose, mouth and throat: There are moist mucous membranes and no oral lesions. Neck: The neck is supple, there is no tenderness or JVD. Cardiovascular: There is a regular rate and rhythm. No murmur, rub or gallop is appreciated. Respiratory: Lungs are clear to auscultation, respirations are non-labored, breath sounds are equal. No wheezes, stridor, rales, or rhonchi. Gastrointestinal: Soft, non-distended, non-tender abdomen without masses or organomegaly noted. There is no rebound or guarding present. Musculoskeletal: Normal ROM, no tenderness. Strength 5/5 of the UE and LE b/l. Sensation intact of the UE and LE b/l including the saddle region. Radial and DP pulses equal bilaterally 2+. Neurological: A&O x 3. CN II-XII intact grossly, There are no obvious motor or sensory deficits. Coordination appears grossly intact. Speech is normal. Skin: Skin is warm and dry and no rashes or lesions are noted. Psychiatric: Cooperative, appropriate mood & affect, normal judgment. (Gracy Tay) Course Vital Signs 02/15/21 02/15/21 02/15/21 13:40 16:00 17:00 Temperature 98.5 F Pulse Rate 85 71 65 Respiratory 18 20 18 Rate Blood Pressure 110/80 137/72 156/84 O2 Sat by Pulse 97 97 97 Oximetry 02/15/21 02/15/21 18:00 19:00 Temperature Pulse Rate 79 80 Respiratory 18 18 Rate Blood Pressure 136/72 139/76 O2 Sat by Pulse 97 97 Oximetry Medical Decision Making - Lab Data Result diagrams: 02/15/21 15:18 02/15/21 15:18 <Gracy Tay - Last Filed: 02/15/21 21:42> - Lab Data Result diagrams: 02/15/21 15:18 02/15/21 15:18 <Caryl Yao - Last Filed: 02/16/21 23:06> - Medical Decision Making Labs conssitent with [facility]. CT brain c-spine no acute process. rib fractures throught to be more acute as there is bruising in area of + CT reults. no pneumothorax. pt is unable to ambulate secondary to gneralized weakness. pt depressed about dying. pt will be admitted for PT/social work consults as he is a fall risk at home living alone. Pt is agreeable to admission. Dr Yao agreeable to care plan. (Gracy Tay) I was available for consultation in the emergency department. The history and physical exam were done by the midlevel provider. I was consulted for this patients care. I reviewed the case with the midlevel provider and based on their presentation of the patient, I agree with the assessment, medical decision making and plan of care as documented. Chart was dictated using [employer] dictation software. Attempts were made to co rrect any dictation errors however some typographical errors may persist. Patient was seen during a national state of emergency due to the Covid-19 pandemic. (Caryl Yao) - Lab Data Lab Results 02/15/21 02/15/21 02/15/21 Range/Units 15:18 15:18 15:18 WBC 8.2 (3.8-10.6) k/uL RBC 3.61 L (4.30-5.90) m/uL Hgb 11.6 L (13.0-17.5) gm/dL Hct 32.9 L (39.0-53.0) % MCV 91.2 (80.0-100.0) fL MCH 32.0 (25.0-35.0) pg MCHC 35.1 (31.0-37.0) g/dL RDW 13.1 (11.5-15.5) % Plt Count 164 (150-450) k/uL MPV 7.4 Neutrophils % 81 % Lymphocytes % 9 % Monocytes % 6 % Eosinophils % 2 % Basophils % 1 % Neutrophils # 6.6 (1.3-7.7) k/uL Lymphocytes # 0.8 L (1.0-4.8) k/uL Monocytes # 0.5 (0-1.0) k/uL Eosinophils # 0.2 (0-0.7) k/uL Basophils # 0.1 (0-0.2) k/uL PT 10.7 (9.0-12.0) sec INR 1.0 (<1.2) APTT 22.6 (22.0-30.0) sec Sodium (137-145) mmol/L Potassium (3.5-5.1) mmol/L Chloride (98-107) mmol/L Carbon Dioxide (22-30) mmol/L Anion Gap mmol/L BUN (9-20) mg/dL Creatinine (0.66-1.25) mg/dL Est GFR (CKD-EPI)AfAm (>60 ml/min/1.73 sqM) Est GFR (CKD-EPI)NonAf (>60 ml/min/1.73 sqM) Glucose (74-99) mg/dL Plasma Lactic Acid Raymundo (0.7-2.0) mmol/L Calcium (8.4-10.2) mg/dL Magnesium (1.6-2.3) mg/dL Total Bilirubin (0.2-1.3) mg/dL AST (17-59) U/L ALT (4-49) U/L Alkaline Phosphatase (38-126) U/L Troponin I (0.000-0.034) ng/mL Total Protein (6.3-8.2) g/dL Albumin (3.5-5.0) g/dL Urine Color Yellow Urine Appearance Clear (Clear) Urine pH 5.5 (5.0-8.0) Ur Specific [place] 1.016 (1.001-1.035) Urine Protein 2+ H (Negative) Urine Glucose (UA) Negative (Negative) Urine Ketones Negative (Negative) Urine Blood Moderate H (Negative) Urine Nitrite Negative (Negative) Urine Bilirubin Negative (Negative) Urine Urobilinogen <2.0 (<2.0) mg/dL Ur Leukocyte Esterase Negative (Negative) Urine RBC 15 H (0-5) /hpf Urine WBC <1 (0-5) /hpf Ur Squamous Epith Cells <1 (0-4) /hpf Urine Mucus Rare H (None) /hpf Coronavirus (PCR) (Not Detectd) 02/15/21 02/15/21 02/15/21 Range/Units 15:18 15:18 15:18 WBC (3.8-10.6) k/uL RBC (4.30-5.90) m/uL Hgb (13.0-17.5) gm/dL Hct (39.0-53.0) % MCV (80.0-100.0) fL MCH (25.0-35.0) pg MCHC (31.0-37.0) g/dL RDW (11.5-15.5) % Plt Count (150-450) k/uL MPV Neutrophils % % Lymphocytes % % Monocytes % % Eosinophils % % Basophils % % Neutrophils # (1.3-7.7) k/uL Lymphocytes # (1.0-4.8) k/uL Monocytes # (0-1.0) k/uL Eosinophils # (0-0.7) k/uL Basophils # (0-0.2) k/uL PT (9.0-12.0) sec INR (<1.2) APTT (22.0-30.0) sec Sodium 138 (137-145) mmol/L Potassium 4.4 (3.5-5.1) mmol/L Chloride 104 (98-107) mmol/L Carbon Dioxide 28 (22-30) mmol/L Anion Gap 6 mmol/L BUN 33 H (9-20) mg/dL Creatinine 1.50 H (0.66-1.25) mg/dL Est GFR (CKD-EPI)AfAm 49 (>60 ml/min/1.73 sqM) Est GFR (CKD-EPI)NonAf 42 (>60 ml/min/1.73 sqM) Glucose 100 H (74-99) mg/dL Plasma Lactic Acid Raymundo 1.6 (0.7-2.0) mmol/L Calcium 9.4 (8.4-10.2) mg/dL Magnesium 1.9 (1.6-2.3) mg/dL Total Bilirubin 0.8 (0.2-1.3) mg/dL AST 25 (17-59) U/L ALT 10 (4-49) U/L Alkaline Phosphatase 59 (38-126) U/L Troponin I <0.012 (0.000-0.034) ng/mL Total Protein 6.4 (6.3-8.2) g/dL Albumin 3.6 (3.5-5.0) g/dL Urine Color Urine Appearance (Clear) Urine pH (5.0-8.0) Ur Specific [place] (1.001-1.035) Urine Protein (Negative) Urine Glucose (UA) (Negative) Urine Ketones (Negative) Urine Blood (Negative) Urine Nitrite (Negative) Urine Bilirubin (Negative) Urine Urobilinogen (<2.0) mg/dL Ur Leukocyte Esterase (Negative) Urine RBC (0-5) /hpf Urine WBC (0-5) /hpf Ur Squamous Epith Cells (0-4) /hpf Urine Mucus (None) /hpf Coronavirus (PCR) (Not Detectd) 02/15/21 Range/Units 17:07 WBC (3.8-10.6) k/uL RBC (4.30-5.90) m/uL Hgb (13.0-17.5) gm/dL Hct (39.0-53.0) % MCV (80.0-100.0) fL MCH (25.0-35.0) pg MCHC (31.0-37.0) g/dL RDW (11.5-15.5) % Plt Count (150-450) k/uL MPV Neutrophils % % Lymphocytes % % Monocytes % % Eosinophils % % Basophils % % Neutrophils # (1.3-7.7) k/uL Lymphocytes # (1.0-4.8) k/uL Monocytes # (0-1.0) k/uL Eosinophils # (0-0.7) k/uL Basophils # (0-0.2) k/uL PT (9.0-12.0) sec INR (<1.2) APTT (22.0-30.0) sec Sodium (137-145) mmol/L Potassium (3.5-5.1) mmol/L Chloride (98-107) mmol/L Carbon Dioxide (22-30) mmol/L Anion Gap mmol/L BUN (9-20) mg/dL Creatinine (0.66-1.25) mg/dL Est GFR (CKD-EPI)AfAm (>60 ml/min/1.73 sqM) Est GFR (CKD-EPI)NonAf (>60 ml/min/1.73 sqM) Glucose (74-99) mg/dL Plasma Lactic Acid Raymundo (0.7-2.0) mmol/L Calcium (8.4-10.2) mg/dL Magnesium (1.6-2.3) mg/dL Total Bilirubin (0.2-1.3) mg/dL AST (17-59) U/L ALT (4-49) U/L Alkaline Phosphatase (38-126) U/L Troponin I (0.000-0.034) ng/mL Total Protein (6.3-8.2) g/dL Albumin (3.5-5.0) g/dL Urine Color Urine Appearance (Clear) Urine pH (5.0-8.0) Ur Specific [place] (1.001-1.035) Urine Protein (Negative) Urine Glucose (UA) (Negative) Urine Ketones (Negative) Urine Blood (Negative) Urine Nitrite (Negative) Urine Bilirubin (Negative) Urine Urobilinogen (<2.0) mg/dL Ur Leukocyte Esterase (Negative) Urine RBC (0-5) /hpf Urine WBC (0-5) /hpf Ur Squamous Epith Cells (0-4) /hpf Urine Mucus (None) /hpf Coronavirus (PCR) Not Detected (Not Detectd) Disposition Is patient prescribed a controlled substance at d/c from ED?: No Time of Disposition: 19:43 Decision to Admit Reason: Admit from EC Decision Date: 02/15/21 Decision Time: 19:43 <Gracy Tay - Last Filed: 02/15/21 21:42> <Caryl Yao - Last Filed: 02/16/21 23:06> Clinical Impression: Rib fracture, Fall, Rib pain on right side, Weakness, Depression, Inability to walk, CAP (community acquired pneumonia) Disposition: ADMITTED IP TO THIS [facility] Condition: Stable
[2021-02-15 15:42] LABS: Basophils # (A) 0.1 k/uL (0-0.2); Basophils % (A) 1 %; Eosinophils # (A) 0.2 k/uL (0-0.7); Eosinophils % (A) 2 %; HCT 32.9 % (39.0-53.0); HGB 11.6 gm/dL (13.0-17.5); Lymphocytes # (A) 0.8 k/uL (1.0-4.8); Lymphocytes % (A) 9 %; MCHC 35.1 g/dL (31.0-37.0); MCV 91.2 fL (80.0-100.0); Mean Platelet Volume 7.4; Monocytes # (A) 0.5 k/uL (0-1.0); Monocytes % (A) 6 %; Neutrophils # (A) 6.6 k/uL (1.3-7.7); Neutrophils % (A) 81 %; Platelet Count 164 k/uL (150-450); RBC 3.61 m/uL (4.30-5.90); RDW 13.1 % (11.5-15.5); WBC 8.2 k/uL (3.8-10.6)
[2021-02-15 15:55] LABS: Albumin 3.6 g/dL (3.5-5.0); Calcium 9.4 mg/dL (8.4-10.2); Magnesium 1.9 mg/dL (1.6-2.3); Potassium 4.4 mmol/L (3.5-5.1); Total Bilirubin 0.8 mg/dL (0.2-1.3); Total Protein 6.4 g/dL (6.3-8.2)
[2021-02-15 15:57] LABS: Appearance,Urine Clear (Clear); Bilirubin,Urine Negative (Negative); Blood,Urine Moderate (Negative); Color,Urine Yellow; Glucose,Urine (UA) Negative (Negative); Ketones,Urine Negative (Negative); Leukocyte Esterase,Urine Negative (Negative); Mucus,Urine Rare /hpf; Nitrite,Urine Negative (Negative); PH, Urine 5.5 (5.0-8.0); Protein,Urine 2+ (Negative); RBC,Urine 15 /hpf (0-5); Specific Gravity,Urine 1.016 (1.001-1.035); Squamous Epithelial Cell,Urine <1 /hpf (0-4); Urobilinogen,Urine <2.0 mg/dL (<2.0); WBC,Urine <1 /hpf (0-5)
[2021-02-15 15:59] LABS: Partial Thromboplastin Time 22.6 sec (22.0-30.0); Prothrombin Time 10.7 sec (9.0-12.0)
--- NOTE | 2021-02-15 16:25 | CT ---
EXAMINATION TYPE: CT brain cspine wo con DATE OF EXAM: 02/15/2021 COMPARISON: CT brain 12/21/2019. HISTORY: Fall on eliquis last week. CT DLP: 1476.6 mGycm Automated exposure control for dose reduction was used. Images were obtained of the brain and cervical spine without contrast. There is diffuse cerebral atrophy. There is no mass effect nor midline shift. There is no sign of int racranial hemorrhage. The calvarium is intact. There is normal aeration of the mastoid sinuses. There is poorly marginated 3 cm area of hypodensity in the left posterior parietal lobe consistent with an old infarct. Cervical vertebra have normal alignment. There is degenerative disc space narrowing fro m C3 to C7 with spurring of the endplates. Posterior elements are intact. There is no compression fra cture. IMPRESSION: Cerebral atrophy. No acute intracranial abnormality. Brain unchanged compared to old exam. 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 Spondylotic changes in the cervical spine. No fracture.
--- NOTE | 2021-02-15 16:38 | XR ---
EXAMINATION TYPE: XR knee complete RT DATE OF EXAM: 02/15/2021 COMPARISON: 05/23/2019 HISTORY: Knee pain TECHNIQUE: 3 views FINDINGS: There is vascular calcification. There is spurring at the tibial tubercle. There is spurrin g on the anterior patella. There is vascular calcification. There is small knee joint effusion. IMPRESSION: Atherosclerotic vascular disease. No fracture. No significant joint space narrowing. Dege nerative spur formation. There is a new mild small bowel knee joint effusion compared to old exam.
--- NOTE | 2021-02-15 16:51 | XR ---
EXAMINATION TYPE: XR ribs RT w pa chest xray DATE OF EXAM: 02/15/2021 COMPARISON: 07/05/2020 HISTORY: Fall. Rib pain. TECHNIQUE: 5 views FINDINGS: There is no heart failure nor confluent pneumonic infiltrate. There is no definite pleural effusion. There is no pneumothorax. There are sternal wires. There are nondisplaced fractures of lowe r anterior right ribs. There is osteopenia. IMPRESSION: Acute nondisplaced lower lateral right rib fractures. No acute lung disease. No heart manny lure.
--- NOTE | 2021-02-15 18:41 | CT ---
EXAMINATION TYPE: CT chest wo con DATE OF EXAM: 02/15/2021 COMPARISON: 05/03/2012 HISTORY: RT rib fracture CT DLP: 430.7 mGycm Automated exposure control for dose reduction was used. Images obtained from the thoracic inlet to the diaphragm without contrast. There is some mild atelectasis at the lung bases. There is minimal pleural thickening at the lung bas es. There is an enlarged heart. There is no pericardial effusion. Shoulder joints are intact. There is no pneumothorax. There is deformity anterior lateral right seven th rib consistent with a nondisplaced fracture. There is deformity lateral right fifth rib related to fracture. There appears to be some remodeling and these may not be acute fractures. There is degenerative spurring in the thoracic spine. There is no significant compression deformity. There are sternal wires. IMPRESSION: Right-sided rib fractures that appear to be old healed fractures. I do not see a definite acute rib f racture. These fractures are a change compared to old CT scan. There is some mild linear infiltrate and atelectasis at the lung bases that is new compared to old ex am. There is cardiomegaly that is increased compared to old exam.
[2021-02-15] MEDS ORDERED: NALOXONE 0.4 MG/ML 1 ML VIAL IV PRN (19:41)
[2021-02-15] MEDS ORDERED: SODIUM CHLORIDE 0.9% 1,000 ML IV SCH (19:45)
[2021-02-15] MEDS ORDERED: AZITHROMYCIN 500 MG in SODIUM CHLORIDE 0.9% 250 ML IVPB STA (21:50)
[2021-02-15] MEDS ORDERED: cefTRIAXone IN SWFI 1,000 MG/10 ML SYRINGE IVP STA (21:50)
[2021-02-16] MEDS: ISOSORBIDE MONONITRATE ER 30 MG TAB.ER.24H PO SCH (11:46)
[2021-02-16] MEDS: TORSEMIDE 20 MG TAB PO SCH (11:46)
[2021-02-16] MEDS ORDERED: HYDROcodone/APAP 5-325MG 1 EACH TAB PO PRN (11:50)
[2021-02-16] MEDS ORDERED: ACETAMINOPHEN TAB 325 MG TAB PO PRN (11:50)
--- NOTE | 2021-02-16 12:04 | P.HPIM ---
History of Present Illness H&P Date: 02/16/21 Chief Complaint: fall HISTORY OF PRESENT ILLNESS This is an 85-year-old male patient of Dr. Lopez and Dr. VAHID Pan. He has a past medical history of AR and coronary artery disease status post stenting and 4 vessel CABG done in [place] in 1999, LISA to LAD, SVG to intermediate, and SVG to diagonal, as well as SVG to left circumflex, hypert ension, hypertensive vascular disease, hyperlipidemia with history of prostate cancer treated with radiation. He completed radiation treatment in April 2012. 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 In 2013 patient had acute non-ST elevated myocardial infarction and underwent stenting of the SVG to the left circumflex. Patient did have an hospitalization July 2019 for syncopal episode thought to be vasovagal and again in February for near syncope thought to be possibly A. fib with RVR. He then had a hospitalization in June 2020 for another near syncopal episode thought to be secondary to bradycardia and hypotension. He was seen by cardiology and underwent tilt table test that was negative. Patient has history that he was standing in the kitchen and was reaching for something, ended up slipping and falling. He currently lives at home alone as his 3 weeks ago. He complains of right lower rib pain. He denies having any recent weight loss. He does complain of cough but try to avoid all due to chest wall pain. Patient was brought into into [facility] emergency center for evaluation. He was afebrile, heart rate 85, blood pressure 110/80, pulse ox 97% on room air. WBC 8.2, hemoglobin 11.6, platelet count 164. Electrolytes normal. BUN 33, creatinine 1.5. Blood sugar 100. Urinalysis was clear, blood moderate, RBCs 15. Liver function tests were normal. Troponin negative. Lactic acid 1.6. Coronavirus not detected. CAT scan of the brain and cervical spine revealed cerebral atrophy. No acute intracranial abnormality. Old left parietal cortical infarct unchanged. Spondylotic changes in the cervical spine. No fracture. CT of the chest revealed right-sided rib fractures that appear to be old healed fractures. Do not see definite acute rib fracture. This was compared to 2012 CAT scan. There is some mild linear infiltrate and atelectasis at the lung bases that is new. There is cardiomegaly that is increased compared to old exam. Rib x-rays revealed acute nondisplaced lower lateral right rib fractures. No acute lung disease. No heart failure. Right knee x-ray reveals atherosclerotic vascular disease. No fracture. No significant joint space narrowing. Degenerative spur formation. New small knee joint effusion. Patient has been seen by physical therapy with recommendations for 24-hour supervision. Son is planning to move in with him so discharge plan will be home with home care. REVIEW OF SYSTEMS Constitutional: No fever, no chills, no night sweats. No weight change. He reports weakness, reports fatigue, no lethargy. No daytime sleepiness. EENT: No headache. No blurred vision or double vision, no loss of vision. Chronic loss of Hearing No nasal drainage or congestion. No epistaxis. No sore throat. Lungs: No shortness of breath, reports cough, no sputum production. No wheezing. Cardiovascular: No chest pain, no lower extremity edema. No palpitations. No paroxysmal nocturnal dyspnea. No orthopnea. No lightheadedness or dizziness. No syncopal episodes. Abdominal: No abdominal pain. No nausea, vomiting. No diarrhea. No constipation. No bloody or tarry stools.. No loss of appetite. Genitourinary: No dysuria, increased frequency, urgency. No urinary retention. Musculoskeletal: No myalgias. Reports muscle weakness, reports gait dysfunction, no frequent falls. No back pain. No neck pain. Integumentary: No wounds, no lesions. No rash or pruritus. No unusual bruising. No change in hair or nails. Neurologic: No aphasia. No facial droop. No change in mentation. No head injury. No headache. No paralysis. No paresthesia. Psychiatric: No depression. No anxiety. Endocrine: No abnormal blood sugars. SOCIAL HISTORY Patient was a smoker of cigars for 10 years ago quit approximately 15 years ago. He no longer drinks alcohol on a social basis. He denies any marijuana, street drug use. Patient lived at home with his until she 3 weeks ago. He is currently living alone. 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 FAMILY HISTORY Father at age 72 from heart failure with history of COPD, coronary artery disease. Mother at age 86 from colon cancer. Patient has one sister with history of alcoholism and at age 71 and also had COPD patient. Patient has one daughter that from diabetes complications. Patient has one son with hypertension and one daughter still living with diabetes. PHYSICAL EXAMINATION Gen: This is an 85-year-old male. He is resting in a recliner and appears to be comfortable and in no acute distress. HEENT: Head is atraumatic, normocephalic. Pupils equal, round. Sclerae is anicteric. NECK: Supple. No JVD. No lymphadenopathy. No thyromegaly. LUNGS: Clear to auscultation. No wheezes or rhonchi. No intercostal retractions. HEART: Regular rate and rhythm. Systolic murmur. ABDOMEN: Soft. Bowel sounds are present. No masses. No tenderness. EXTREMITIES: No pedal edema. No calf tenderness. NEUROLOGICAL: Patient is awake, alert and oriented x3. Cranial nerves 2 through 12 are grossly intact. ASSESSMENT AND PLAN 1. Slip and fall, appears to be mechanical fall. No lightheadedness or dizziness. Orthostatic vital signs will be checked. Eliquis placed on hold. 2. Right rib fractures. Tylenol or [place] for pain. PT and OT consults. 3. Possible pneumonia. Patient started on ceftriaxone and azithromycin. Breathing status is stable. 4. Paroxysmal atrial fibrillation status post cardioversion and June 2019. Hold eliquis 2.5 mg twice daily. 5. History of coronary artery disease with prior bypass and stenting, stable. Continue atorvastatin 40 mg daily, Imdur 30 mg daily. 6. Hypertension, hypertensive cardiovascular disease. Continue losartan 12.5 mg at bedtime. 7. Hyperlipidemia. Continue statin 8. Chronic kidney disease stage IIIa, stable. Baseline creatinine 1.4. 9. Anemia of chronic kidney disease, stable 10. History of prostate cancer treated with radiation, stable. 11. 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 12. Short-term memory deficit, stable. 13. GI prophylaxis. Pepcid. 14. DVT prophylaxis. Heparin sc. 15. COVID-19 testing negative. Patient has been hospitalized during a pandemic. Patient will be admitted to the hospital for a minimum of 2 night stay. DISCHARGE PLAN Home with [facility]. Son is planning to move in with patient. Impression and plan of care have been directed as dictated by the signing physician. Gloria Oneill nurse practitioner acting as scribe for signing physician. Past Medical History Past Medical History: Atrial Fibrillation, Coronary Artery Disease (CAD), Cancer, Hyperlipidemia, Hypertension, Myocardial Infarction (AR), Osteoarthritis (OA), Prostate Disorder Additional Past Medical History / Comment(s): 1999-prostate cancer with radiation, fall one week ago with fx ribs on right side Last Myocardial Infarction Date:: 1998 History of Any Multi-Drug Resistant Organisms: None Reported Past Surgical History: Coronary Bypass/CABG, Heart Catheterization With Stent, Hernia Repair Additional Past Surgical History / Comment(s): Open heart Quadrupal bypass (1998) Past Anesthesia/Blood Transfusion Reactions: No Reported Reaction Date of Last Stent Placement:: 2015 Past Psychological History: No Psychological Hx Reported Smoking Status: Never smoker Past Alcohol Use History: None Reported Additional Past Alcohol Use History / Comment(s): Patient was a smoker of cigars for 10 years ago quit approximately 15 years ago. He no longer drinks alcohol on a social basis. He denies any medical marijuana, marijuana, street drug use. Patient lives at home alone. Past Drug Use History: None Reported - Past Family History Father Family Medical History: Congestive Heart Failure (CHF), COPD, Coronary Artery Disease (CAD) Additional Family Medical History / Comment(s): at age 72. Mother Family Medical History: Cancer Additional Family Medical History / Comment(s): at age 86, colon cancer. Sister(s) Family Medical History: COPD, Liver Disease Additional Family Medical History / Comment(s): Patient had one sister with history of alcoholism and at age 71. She also had COPD. Brother(s) Additional Family Medical History / Comment(s): Patient has one dtr that from diabetes complications. One son has history of hypertension. One daughter has diabetes. Medications and Allergies Home Medications Medication Instructions Recorded Confirmed Type Atorvastatin [Lipitor] 40 mg PO HS 05/16/16 02/15/21 History Losartan [Cozaar] 12.5 mg PO HS 05/23/19 02/15/21 History Apixaban [Eliquis] 2.5 mg PO BID #60 tab 05/25/19 02/15/21 Rx Isosorbide Mononitrate ER [Imdur] 30 mg PO DAILY #0 02/20/20 02/15/21 Rx Multivitamins, Thera [Multivitamin 1 tab PO DAILY 07/05/20 02/15/21 History (formulary)] Torsemide [Demadex] 10 mg PO DAILY 07/05/20 02/15/21 History Allergies Allergy/AdvReac Type Severity Reaction Status Date / Time No Known Allergies Allergy Verified 02/15/21 16:10 Physical Exam Vitals: Vital Signs Temp Pulse Pulse Resp BP BP Pulse Ox 02/16/21 07:54 97.6 F 65 16 179/77 92 L 02/16/21 04:46 85 02/16/21 04:20 18 02/16/21 04:00 98.7 F 118 H 21 138/91 97 02/15/21 19:00 80 18 139/76 97 02/15/21 18:00 79 18 136/72 97 02/15/21 17:00 65 18 156/84 97 02/15/21 16:00 71 20 137/72 97 02/15/21 13:40 98.5 F 85 18 110/80 97 Intake and Output 02/15/21 02/16/21 02/16/21 22:59 06:59 14:59 Other: Voiding Method Toilet Toilet # Voids 2 Weight 79.379 kg Results CBC & Chem 7: 02/15/21 15:18 02/15/21 15:18 Labs: Abnormal Lab Results - Last 24 Hours (Table) 02/15/21 02/15/21 02/15/21 Range/Units 15:18 15:18 15:18 RBC 3.61 L (4.30-5.90) m/uL Hgb 11.6 L (13.0-17.5) gm/dL Hct 32.9 L (39.0-53.0) % Lymphocytes # 0.8 L (1.0-4.8) k/uL BUN 33 H (9-20) mg/dL Creatinine 1.50 H (0.66-1.25) mg/dL Glucose 100 H (74-99) mg/dL Urine Protein 2+ H (Negative) Urine Blood Moderate H (Negative) Urine RBC 15 H (0-5) /hpf Urine Mucus Rare H (None) /hpf Thrombosis Risk Factor Assmnt - Choose All That Apply Each Factor Represents 1 point: Obesity (BMI >25) Each Risk Factor Represents 3 Points: Age 75 years or older Thrombosis Risk Factor Assessment Total Risk Factor Score: 4 Thrombosis Risk Factor Assessment Level: Moderate Risk
[2021-02-16] MEDS: AZITHROMYCIN 250 MG TAB PO SCH (12:44)
[2021-02-16] MEDS: HEPARIN SODIUM,PORCINE/PF 5,000 UNIT/0.5 ML SYRINGE SQ SCH (15:39)
[2021-02-16] MEDS ORDERED: LOSARTAN 25 MG TAB PO SCH (21:00)
[2021-02-16] MEDS ORDERED: ATORVASTATIN 40 MG TAB PO SCH (21:00)
[2021-02-17] MEDS: HEPARIN SODIUM,PORCINE/PF 5,000 UNIT/0.5 ML SYRINGE SQ SCH ×2 (00:08→09:03)
[2021-02-17] MEDS ORDERED: MULTIVITAMINS, THERA 1 EACH TAB PO SCH (09:00)
[2021-02-17] MEDS: TORSEMIDE 20 MG TAB PO SCH (09:02)
[2021-02-17] MEDS: ISOSORBIDE MONONITRATE ER 30 MG TAB.ER.24H PO SCH (09:02)
[2021-02-17] MEDS: AZITHROMYCIN 250 MG TAB PO SCH (09:03)
[2021-02-17 14:20] VITALS: BP 112/69; PULSE 66; RESP 16; TEMP 97.8
--- NOTE | 2021-02-17 14:35 | P.DS ---
Providers Date of admission: 02/15/21 21:04 Attending physician: Elissa Montgomery Primary care physician: Roberto Lopez [facility] Course: This is an 85-year-old male patient of Dr. Lopez and Dr. VAHID Pan. He has a past medical history of AK and coronary artery disease status post stenting and 4 vessel CABG done in [place] in 1999, LISA to LAD, SVG to intermediate, and SVG to diagonal, as well as SVG to left circumflex, hypertension, hypertensive vascular disease, hyperlipidemia with history of prostate cancer treated with radiation. He completed radiation treatment in April 2012. 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 In 2013 patient had acute non-ST elevated myocardial infarction and underwent stenting of the SVG to the left circumflex. Patient did have an hospitalization July 2019 for syncopal episode thought to be vasovagal and again in February for near syncope thought to be possibly A. fib with RVR. He then had a hospitalization in June 2020 for another near syncopal episode thought to be secondary to bradycardia and hypotension. He was seen by cardiology and underwent tilt table test that was negative. Patient has history that he was standing in the kitchen and was reaching for something, ended up slipping and falling. He currently lives at home alone as his 3 weeks ago. He complains of right lower rib pain. He denies having any recent weight loss. He does complain of cough but try to avoid all due to chest wall pain. Patient was brought into into [facility] emergency center for evaluation. He was afebrile, heart rate 85, blood pressure 110/80, pulse ox 97% on room air. WBC 8.2, hemoglobin 11.6, platelet count 164. Electrolytes normal. BUN 33, creatinine 1.5. Blood sugar 100. Urinalysis was clear, blood moderate, RBCs 15. Liver function tests were normal. Troponin negative. Lactic acid 1.6. Coronavirus not detected. CAT scan of the brain and cervical spine revealed cerebral atrophy. No acute intracranial abnormality. Old left parietal cortical infarct unchanged. Spondylotic changes in the cervical spine. No fracture. CT of the chest revealed right-sided rib fractures that appear to be old healed fractures. Do not see definite acute rib fracture. This was compared to 2012 CAT scan. There is some mild linear infiltrate and atelectasis at the lung bases that is new. There is cardiomegaly that is increased compared to old exam. Rib x-rays revealed acute nondisplaced lower lateral right rib fractures. No acute lung disease. No heart failure. Right knee x-ray reveals atherosclerotic vascular disease. No fracture. No significant joint space narrowing. Degenerative spur formation. New small knee joint effusion. Patient has been seen by physical therapy with recommendations for 24-hour supervision. Son is planning to move in with him so discharge plan will be home with home care. 02/17 patient evaluated at bedside. Denies any shortness of breath cough or dizziness. He is able to move around the room with minimal assistance. Patient's speech is clear, no vision changes, no unilateral weakness or sensory deficit noted. Vitals are stable temperature 97.8 pulse 66 respiratory rate 16 blood pressure 112/69. No new labs to evaluate. Patient is comfortable and is tolerating antibiotics without any abdominal pain or diarrhea noted. PT evaluated the patient patient will be going home with home care with 24-hour supervision. Patient's son would be moving with him and would like him to be going home with home care and physical therapy. Treatment for pneumonia with Keflex for 5 days - Constitutional General appearance: cooperative, no acute distress - EENT Eyes: anicteric sclerae, PERRLA, normal appearance ENT: hearing grossly normal - Neck Neck: no lymphadenopathy, normal ROM, no other, no rigidity, no stridor, no thyromegaly - Respiratory Respiratory: bilateral: CTA, negative: diminished, dullness, rales, rhonchi - Cardiovascular Rhythm: regular Heart sounds: normal: S1, S2 Abnormal Heart Sounds: no systolic murmur, no diastolic murmur, no rub, no S3 Gallop, no S4 Gallop, no click, no other - Gastrointestinal General gastrointestinal: normal bowel sounds, soft - Musculoskeletal Musculoskeletal: gait normal, strength equal bilaterally Discharge diagnoses 1. Slip and fall, appears to be mechanical fall. 2. Right rib fractures. 3. Possible Community acquired pneumonia. 4. Paroxysmal atrial fibrillation status post cardioversion and June 2019. 5. History of coronary artery disease with prior bypass and stenting, stable. 6. Hypertension, hypertensive cardiovascular disease. 7. Hyperlipidemia. 8. Chronic kidney disease stage IIIa, 9. Anemia of chronic kidney disease 10. History of prostate cancer treated with radiation 11. History of CVA with no residuals 12. Short-term memory deficit Disposition PT recommended home with 24-hour supervision versus subacute rehab. Family decided to take patient home with homecare Patient Condition at Discharge: Fair Plan - Discharge Summary Discharge Rx Participant: No New Discharge Prescriptions: New Cephalexin [Keflex] 250 mg PO Q8HR #15 capsule Continue Atorvastatin [Lipitor] 40 mg PO HS Losartan [Cozaar] 12.5 mg PO HS Apixaban [Eliquis] 2.5 mg PO BID #60 tab Isosorbide Mononitrate ER [Imdur] 30 mg PO DAILY #0 Multivitamins, Thera [Multivitamin (formulary)] 1 tab PO DAILY Torsemide [Demadex] 10 mg PO DAILY Discharge Medication List Atorvastatin [Lipitor] 40 mg PO HS 05/16/16 [History] Losartan [Cozaar] 12.5 mg PO HS 05/23/19 [History] Apixaban [Eliquis] 2.5 mg PO BID #60 tab 05/25/19 [Rx] Isosorbide Mononitrate ER [Imdur] 30 mg PO DAILY #0 02/20/20 [Rx] Multivitamins, Thera [Multivitamin (formulary)] 1 tab PO DAILY 07/05/20 [History] Torsemide [Demadex] 10 mg PO DAILY 07/05/20 [History] Cephalexin [Keflex] 250 mg PO Q8HR #15 capsule 02/17/21 [Rx] Follow up Appointment(s)/Referral(s): Roberto Lopez MD [Primary Care Provider] - 1-2 days [facility], [NON-STAFF] - Discharge Disposition: HOME WITH HOME HEALTH SERVICES
== END 2021-02-17 15:35 | disposition home health service (06) | DRG 183 ==
LOC: EC 13:29 → 6NMEDSUR 21:04 → 4SSUR 02-16 02:46
PROVIDERS: ADMIT Family Medicine; ATTEND Family Medicine
DX: S22.41XA Multiple fractures of ribs, right side, initial encounter for closed fracture (principal); J18.9 Pneumonia, unspecified organism; F32.9 Major depressive disorder, single episode, unspecified; W01.198A Fall on same level from slipping, tripping and stumbling with subsequent striking against other object, initial encounter; Y92.010 Kitchen of single-family (private) house as the place of occurrence of the external cause; I25.10 Atherosclerotic heart disease of native coronary artery without angina pectoris; E78.5 Hyperlipidemia, unspecified; I10 Essential (primary) hypertension; M19.90 Unspecified osteoarthritis, unspecified site; Z20.822 Contact with and (suspected) exposure to COVID-19; H91.90 Unspecified hearing loss, unspecified ear; Z91.81 History of falling; I25.2 Old myocardial infarction; Z95.1 Presence of aortocoronary bypass graft; Z95.5 Presence of coronary angioplasty implant and graft; Z98.890 Other specified postprocedural states; Z79.01 Long term (current) use of anticoagulants; Z79.899 Other long term (current) drug therapy; Z85.46 Personal history of malignant neoplasm of prostate; Z92.3 Personal history of irradiation; D63.1 Anemia in chronic kidney disease; Z82.49 Family history of ischemic heart disease and other diseases of the circulatory system; N18.31 Chronic kidney disease, stage 3a; Z82.5 Family history of asthma and other chronic lower respiratory diseases; Z80.0 Family history of malignant neoplasm of digestive organs; Z81.1 Family history of alcohol abuse and dependence; Z83.3 Family history of diabetes mellitus; Z86.73 Personal history of transient ischemic attack (TIA), and cerebral infarction without residual deficits; I48.0 Paroxysmal atrial fibrillation; I13.10 Hypertensive heart and chronic kidney disease without heart failure, with stage 1 through stage 4 chronic kidney disease, or unspecified chronic kidney disease; Z87.891 Personal history of nicotine dependence
CPT/HCPCS: 36415; 70450; 71250; 72125; 80053; 81001; 83605; 83735; 84484; 85025; 85610; 85730; 87635; 93005; 99285

== ENCOUNTER 2021-04-02 14:00 | Observation (INO) | payer MEDICARE ==
[2021-04-02] MEDS ORDERED: SODIUM CHLORIDE 0.9% 1,000 ML IV STA (15:55)
--- NOTE | 2021-04-02 15:58 | ED ---
General Adult HPI - General Chief complaint: Weakness Stated complaint: weakness Time Seen by Provider: 04/02/21 15:43 Source: patient, family, EMS Mode of arrival: EMS Limitations: no limitations - History of Present Illness Initial comments: 86-year-old male with history of CAD, A. fib presents to the emergency department with a chief complaint of weakness. Son is also present to answer additional questions. He states the patient lives with them at the moment. States the patient typically in place throughout the house with a walker but has had progressive weakness over the last week. States he requires more attention now to get him off the bed and moving around. He also reports decreased appetite. Patient states she's feeling a bit chilly but has not other complaints. Son states the patient's spouse about 9 weeks ago and the patient has been progressively getting weaker. Patient perceives at home physical therapy on weekly basis. Son denies any changes in his speech, one- sided weakness or paresthesias. - Related Data Home Medications Medication Instructions Recorded Confirmed Atorvastatin [Lipitor] 40 mg PO HS 05/16/16 02/15/21 Losartan [Cozaar] 12.5 mg PO HS 05/23/19 02/15/21 Multivitamins, Thera [Multivitamin 1 tab PO DAILY 07/05/20 02/15/21 (formulary)] Torsemide [Demadex] 10 mg PO DAILY 07/05/20 02/15/21 Previous Rx's Medication Instructions Recorded Apixaban [Eliquis] 2.5 mg PO BID #60 tab 05/25/19 Isosorbide Mononitrate ER [Imdur] 30 mg PO DAILY #0 02/20/20 Cephalexin [Keflex] 250 mg PO Q8HR #15 capsule 02/17/21 Allergies Allergy/AdvReac Type Severity Reaction Status Date / Time No Known Allergies Allergy Verified 04/02/21 14:30 Review of Systems ROS Statement: Those systems with pertinent positive or pertinent negative responses have been documented in the HPI. ROS Other: All systems not noted in ROS Statement are negative. Past Medical History Past Medical History: Atrial Fibrillation, Coronary Artery Disease (CAD), Cancer, Hyperlipidemia, Hypertension, Myocardial Infarction ([place]), Osteoarthritis (OA), Prostate Disorder Additional Past Medical History / Comment(s): 1999-prostate cancer with radiation, fall one week ago with fx ribs on right side Last Myocardial Infarction Date:: 1998 History of Any Multi-Drug Resistant Organisms: None Reported Past Surgical History: Coronary Bypass/CABG, Heart Catheterization With Stent, Hernia Repair Additional Past Surgical History / Comment(s): Open heart Quadrupal bypass (1998) Past Anesthesia/Blood Transfusion Reactions: No Reported Reaction Date of Last Stent Placement:: 2015 Past Psychological History: No Psychological Hx Reported Smoking Status: Never smoker Past Alcohol Use History: None Reported Past Drug Use History: None Reported - Past Family History Father Family Medical History: Congestive Heart Failure (CHF), COPD, Coronary Artery Disease (CAD) Additional Family Medical History / Comment(s): at age 72. Mother Family Medical History: Cancer Additional Family Medical History / Comment(s): at age 86, colon cancer. Sister(s) Family Medical History: COPD, Liver Disease Additional Family Medical History / Comment(s): Patient had one sister with history of alcoholism and at age 71. She also had COPD. Brother(s) Additional Family Medical History / Comment(s): Patient has one dtr that from diabetes complications. One son has history of hypertension. One daughter has diabetes. General Exam Limitations: no limitations General appearance: alert, in no apparent distress Head exam: Present: atraumatic, normocephalic, normal inspection Eye exam: Present: normal appearance, PERRL, EOMI Pupils: Present: normal accommodation ENT exam: Present: normal exam, normal oropharynx, mucous membranes moist Neck exam: Present: normal inspection, full ROM. Absent: tenderness Respiratory exam: Present: normal lung sounds bilaterally. Absent: respiratory distress, wheezes, rales, rhonchi, stridor, chest wall tenderness, accessory muscle use Cardiovascular Exam: Present: regular rate, normal rhythm, normal heart sounds. Absent: systolic murmur, diastolic murmur GI/Abdominal exam: Present: soft. Absent: distended, tenderness, guarding, rebound Extremities exam: Present: normal inspection, full ROM, normal capillary refill, other (Palpable DP and PT bilaterally.). Absent: tenderness, pedal edema, joint swelling, calf tenderness Back exam: Present: normal inspection, full ROM. Absent: tenderness, CVA tenderness (R), CVA tenderness (L), muscle spasm, paraspinal tenderness, vertebral tenderness Neurological exam: Present: alert, oriented X3, CN II-XII intact Psychiatric exam: Present: normal affect, normal mood Skin exam: Present: warm, dry, intact, normal color Course Vital Signs 04/02/21 04/02/21 04/02/21 14:30 16:26 19:13 Temperature 97.9 F Pulse Rate 63 62 62 Respiratory 18 16 18 Rate Blood Pressure 146/90 146/90 168/82 O2 Sat by Pulse 96 99 99 Oximetry EKG Findings - EKG Comments: EKG Findings:: Sinuses agree with a first-degree AV block. Ventricular rate 64, MN 210, QRS 102, QRS for new 64. Medical Decision Making - Medical Decision Making 86-year-old male with history of CAD, A. fib presents to the emergency department with a chief complaint of weakness. On physical examination, patient is well-appearing with no acute findings. CBC is unremarkable. CMP reveals no significant change to his BUN and creatinine. EKG showed a first-degree AV block. Patient will be admitted for weakness and clinical signs of dehydration. Patient was given IV fluids here. Case discussed with Dr. 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 - Lab Data Result diagrams: 04/02/21 16:19 04/02/21 16:19 Lab Results 04/02/21 04/02/21 04/02/21 Range/Units 16:19 16:19 16:19 WBC 6.8 (3.8-10.6) k/uL RBC 3.91 L (4.30-5.90) m/uL Hgb 12.3 L (13.0-17.5) gm/dL Hct 35.4 L (39.0-53.0) % MCV 90.3 (80.0-100.0) fL MCH 31.4 (25.0-35.0) pg MCHC 34.8 (31.0-37.0) g/dL RDW 13.4 (11.5-15.5) % Plt Count 202 (150-450) k/uL MPV 7.6 Neutrophils % 73 % Lymphocytes % 17 % Monocytes % 5 % Eosinophils % 4 % Basophils % 1 % Neutrophils # 5.0 (1.3-7.7) k/uL Lymphocytes # 1.1 (1.0-4.8) k/uL Monocytes # 0.3 (0-1.0) k/uL Eosinophils # 0.3 (0-0.7) k/uL Basophils # 0.1 (0-0.2) k/uL PT 10.5 (9.0-12.0) sec INR 1.0 (<1.2) APTT 22.9 (22.0-30.0) sec Sodium (137-145) mmol/L Potassium (3.5-5.1) mmol/L Chloride (98-107) mmol/L Carbon Dioxide (22-30) mmol/L Anion Gap mmol/L BUN (9-20) mg/dL Creatinine (0.66-1.25) mg/dL Est GFR (CKD-EPI)AfAm (>60 ml/min/1.73 sqM) Est GFR (CKD-EPI)NonAf (>60 ml/min/1.73 sqM) Glucose (74-99) mg/dL Plasma Lactic Acid Raymundo (0.7-2.0) mmol/L Calcium (8.4-10.2) mg/dL Total Bilirubin (0.2-1.3) mg/dL AST (17-59) U/L ALT (4-49) U/L Alkaline Phosphatase (38-126) U/L Troponin I (0.000-0.034) ng/mL Total Protein (6.3-8.2) g/dL Albumin (3.5-5.0) g/dL Urine Color Light Yellow Urine Appearance Clear (Clear) Urine pH 6.5 (5.0-8.0) Ur Specific [place] 1.014 (1.001-1.035) Urine Protein Trace H (Negative) Urine Glucose (UA) Negative (Negative) Urine Ketones Negative (Negative) Urine Blood Small H (Negative) Urine Nitrite Negative (Negative) Urine Bilirubin Negative (Negative) Urine Urobilinogen <2.0 (<2.0) mg/dL Ur Leukocyte Esterase Negative (Negative) Urine RBC 7 H (0-5) /hpf Urine WBC <1 (0-5) /hpf Urine Mucus Rare H (None) /hpf 04/02/21 04/02/21 04/02/21 Range/Units 16:19 16:19 16:19 WBC (3.8-10.6) k/uL RBC (4.30-5.90) m/uL Hgb (13.0-17.5) gm/dL Hct (39.0-53.0) % MCV (80.0-100.0) fL MCH (25.0-35.0) pg MCHC (31.0-37.0) g/dL RDW (11.5-15.5) % Plt Count (150-450) k/uL MPV Neutrophils % % Lymphocytes % % Monocytes % % Eosinophils % % Basophils % % Neutrophils # (1.3-7.7) k/uL Lymphocytes # (1.0-4.8) k/uL Monocytes # (0-1.0) k/uL Eosinophils # (0-0.7) k/uL Basophils # (0-0.2) k/uL PT (9.0-12.0) sec INR (<1.2) APTT (22.0-30.0) sec Sodium 140 (137-145) mmol/L Potassium 4.7 (3.5-5.1) mmol/L Chloride 106 (98-107) mmol/L Carbon Dioxide 28 (22-30) mmol/L Anion Gap 6 mmol/L BUN 33 H (9-20) mg/dL Creatinine 1.36 H (0.66-1.25) mg/dL Est GFR (CKD-EPI)AfAm 54 (>60 ml/min/1.73 sqM) Est GFR (CKD-EPI)NonAf 47 (>60 ml/min/1.73 sqM) Glucose 92 (74-99) mg/dL Plasma Lactic Acid Raymundo 0.9 (0.7-2.0) mmol/L Calcium 9.7 (8.4-10.2) mg/dL Total Bilirubin 0.8 (0.2-1.3) mg/dL AST 33 (17-59) U/L ALT 10 (4-49) U/L Alkaline Phosphatase 106 (38-126) U/L Troponin I <0.012 (0.000-0.034) ng/mL Total Protein 6.8 (6.3-8.2) g/dL Albumin 3.7 (3.5-5.0) g/dL Urine Color Urine Appearance (Clear) Urine pH (5.0-8.0) Ur Specific [place] (1.001-1.035) Urine Protein (Negative) Urine Glucose (UA) (Negative) Urine Ketones (Negative) Urine Blood (Negative) Urine Nitrite (Negative) Urine Bilirubin (Negative) Urine Urobilinogen (<2.0) mg/dL Ur Leukocyte Esterase (Negative) Urine RBC (0-5) /hpf Urine WBC (0-5) /hpf Urine Mucus (None) /hpf Disposition Clinical Impression: Dehydration, Weakness Disposition: ADMITTED IP TO THIS [facility] Condition: Fair Is patient prescribed a controlled substance at d/c from ED?: No Referrals: Roberto Lopez MD [Primary Care Provider] - 1-2 days Time of Disposition: 18:00
--- NOTE | 2021-04-02 16:36 | XR ---
EXAMINATION TYPE: XR chest 2V DATE OF EXAM: 04/02/2021 COMPARISON: 07/05/2020 HISTORY: Weakness TECHNIQUE: 2 views FINDINGS: There is some mild subsegmental atelectasis left lung base. There is no heart failure. Ther e are no hilar masses. There are sternal wires. Thoracic aorta is atheromatous. There is probably old right-sided healed rib fracture. IMPRESSION: Minimal subsegmental atelectasis or scarring at the lateral left lung base without change . No heart failure.
[2021-04-02 17:11] LABS: Basophils # (A) 0.1 k/uL (0-0.2); Basophils % (A) 1 %; Eosinophils # (A) 0.3 k/uL (0-0.7); Eosinophils % (A) 4 %; HCT 35.4 % (39.0-53.0); HGB 12.3 gm/dL (13.0-17.5); Lymphocytes # (A) 1.1 k/uL (1.0-4.8); Lymphocytes % (A) 17 %; MCH 31.4 pg (25.0-35.0); MCHC 34.8 g/dL (31.0-37.0); MCV 90.3 fL (80.0-100.0); Mean Platelet Volume 7.6; Monocytes # (A) 0.3 k/uL (0-1.0); Monocytes % (A) 5 %; Neutrophils % (A) 73 %; Platelet Count 202 k/uL (150-450); RBC 3.91 m/uL (4.30-5.90); RDW 13.4 % (11.5-15.5); WBC 6.8 k/uL (3.8-10.6)
[2021-04-02 17:21] LABS: Albumin 3.7 g/dL (3.5-5.0); Calcium 9.7 mg/dL (8.4-10.2); Potassium 4.7 mmol/L (3.5-5.1); Total Bilirubin 0.8 mg/dL (0.2-1.3); Total Protein 6.8 g/dL (6.3-8.2)
[2021-04-02 17:42] LABS: Partial Thromboplastin Time 22.9 sec (22.0-30.0); Prothrombin Time 10.5 sec (9.0-12.0)
[2021-04-02 18:32] LABS: Appearance,Urine Clear (Clear); Bilirubin,Urine Negative (Negative); Blood,Urine Small (Negative); Color,Urine Light Yellow; Glucose,Urine (UA) Negative (Negative); Ketones,Urine Negative (Negative); Leukocyte Esterase,Urine Negative (Negative); Mucus,Urine Rare /hpf; Nitrite,Urine Negative (Negative); PH, Urine 6.5 (5.0-8.0); Protein,Urine Trace (Negative); RBC,Urine 7 /hpf (0-5); Specific Gravity,Urine 1.014 (1.001-1.035); Urobilinogen,Urine <2.0 mg/dL (<2.0); WBC,Urine <1 /hpf (0-5)
[2021-04-02] MEDS ORDERED: ONDANSETRON 4 MG/2 ML VIAL IVP PRN (19:01)
[2021-04-02] MEDS ORDERED: ACETAMINOPHEN TAB 325 MG TAB PO PRN (19:01)
[2021-04-02] MEDS ORDERED: NALOXONE 0.4 MG/ML 1 ML VIAL IV PRN (19:01)
[2021-04-02] MEDS ORDERED: LORazepam 2 MG/ML INJ IV PRN (19:01)
[2021-04-02] MEDS ORDERED: SODIUM CHLORIDE 0.9% 1,000 ML IV SCH (19:15)
[2021-04-02 23:23] VITALS: RESP 16
[2021-04-03 04:52] VITALS: PULSE 62
[2021-04-03] MEDS ORDERED: MULTIVITAMINS, THERA 1 EACH TAB PO SCH (09:00)
[2021-04-03] MEDS ORDERED: ISOSORBIDE MONONITRATE ER 30 MG TAB.ER.24H PO SCH (09:00)
[2021-04-03] MEDS ORDERED: PANTOPRAZOLE 40 MG/10 ML VIAL IV SCH (09:00)
[2021-04-03] MEDS ORDERED: APIXABAN 2.5 MG TABLET PO SCH (09:00)
[2021-04-03] MEDS ORDERED: SODIUM CHLORIDE 0.9% 1,000 ML IV SCH (09:30)
[2021-04-03 11:41] VITALS: BP 152/74; TEMP 97.6
--- NOTE | 2021-04-03 11:46 | P.HPIM ---
History of Present Illness H&P Date: 04/03/21 HISTORY OF PRESENT ILLNESS This is an 85-year-old male patient of Dr. Lopez and Dr. VAHID Pan. He has a past medical history of NC and coronary artery disease status post stenting and 4 vessel CABG done in [place] in 1999, LISA to LAD, SVG to intermediate, and SVG to diagonal, as well as SVG to left circumflex, hypertension, hypertensive vascular disease, hyperlipidemia with history of prostate cancer treated with radiation. He completed radiation treatment in April 2012. 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 In 2013 patient had acute non-ST elevated myocardial infarction and underwent stenting of the SVG to the left circumflex. Patient did have an hospitalization July 2019 for syncopal episode thought to be vasovagal and again in February for near syncope thought to be possibly A. fib with RVR. He then had a hospitalization in June 2020 for another near syncopal episode thought to be secondary to bradycardia and hypotension. He was seen by cardiology and underwent tilt table test that was negative. Patient had a recent hospitalization in February following a slip and fall with right sided rib fractures and possible pneumonia. He now complains of significant weakness over the past week. This morning, he was unable to get himself out of bed. Noted that his did try 9 weeks ago. Patient feels that he is drinking enough at home. He is drinking soda and water. He denies having any abdominal pain and no diarrhea. Patient was brought into into [facility] emergency center for evaluation. He was afebrile, heart rate 63, blood pressure 1460/90, pulse ox 96% on room air. EKG sinus rhythm with incomplete right bundle-branch block. WBC 6.8, hemoglobin 12.3, platelet count 202. Electrolytes normal. BUN 33, creatinine 1.36. Blood sugar 92. Urinalysis was clear, protein trace, blood small, RBCs 7. Coronavirus PCR not detected. Lactic acid 0.96. Chest x-ray reveals minimal subsegmental atelectasis or scarring at the lateral left lung base without change. No heart failure. Patient maintained on IV fluids 75 mL per hour, PT and OT consults and plan for rehab. Patient will be discharged to rehab today once arrangements are completed. REVIEW OF SYSTEMS Constitutional: No fever, no chills, no night sweats. No weight change. He reports weakness, reports fatigue, no lethargy. No daytime sleepiness. EENT: No headache. No blurred vision or double vision, no loss of vision. Chronic loss of Hearing No nasal drainage or congestion. No epistaxis. No sore throat. Lungs: No shortness of breath, reports cough, no sputum production. No wheezing. Cardiovascular: No chest pain, no lower extremity edema. No palpitations. No paroxysmal nocturnal dyspnea. No orthopnea. No lightheadedness or dizziness. No syncopal episodes. Abdominal: No abdominal pain. No nausea, vomiting. No diarrhea. No constipation. No bloody or tarry stools.. No loss of appetite. Genitourinary: No dysuria, increased frequency, urgency. No urinary retention. Musculoskeletal: No myalgias. Reports muscle weakness, reports gait dysfunction, no frequent falls. No back pain. No neck pain. Integumentary: No wounds, no lesions. No rash or pruritus. No unusual bruising. No change in hair or nails. Neurologic: No aphasia. No facial droop. No change in mentation. No head injury. No headache. No paralysis. No paresthesia. Psychiatric: No depression. No anxiety. Endocrine: No abnormal blood sugars. SOCIAL HISTORY Patient was a smoker of cigars for 10 years ago quit approximately 15 years ago. He no longer drinks alcohol on a social basis. He denies any marijuana, street drug use. Patient lived at home with his until she 3 weeks ago. He is currently living alone. 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 FAMILY HISTORY Father at age 72 from heart failure with history of COPD, coronary artery disease. Mother at age 86 from colon cancer. Patient has one sister with history of alcoholism and at age 71 and also had COPD patient. Patient has one daughter that from diabetes complications. Patient has one son with hypertension and one daughter still living with diabetes. PHYSICAL EXAMINATION Gen: This is an 86-year-old male. He is resting in bed and appears to be comfortable and in no acute distress. HEENT: Head is atraumatic, normocephalic. Pupils equal, round. Sclerae is anicteric. NECK: Supple. No JVD. No lymphadenopathy. No thyromegaly. LUNGS: Clear to auscultation. No wheezes or rhonchi. No intercostal retractions. HEART: Regular rate and rhythm. Systolic murmur. ABDOMEN: Soft. Bowel sounds are present. No masses. No tenderness. EXTREMITIES: No pedal edema. No calf tenderness. NEUROLOGICAL: Patient is awake, alert and oriented x3. Cranial nerves 2 through 12 are grossly intact. ASSESSMENT AND PLAN 1. Generalized weakness and debilitation without lightheadedness or dizziness. Consult PT and OT. 2. Recent fall in February with Right rib fractures. Tylenol or [place] for pain. PT and OT consults. 3. Paroxysmal atrial fibrillation status post cardioversion and June 2019. Continue eliquis 2.5 mg twice daily. 4. History of coronary artery disease with prior bypass and stenting, stable. Continue atorvastatin 40 mg daily, Imdur 30 mg daily. 5. Hypertension, hypertensive cardiovascular disease. Continue losartan 12.5 mg at bedtime. 6. Hyperlipidemia. Continue statin 7. Chronic kidney disease stage IIIa, stable. Baseline creatinine 1.4. 8. Anemia of chronic kidney disease, stable 9. History of prostate cancer treated with radiation, stable. 10. 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 11. Short-term memory deficit, stable. 12. GI prophylaxis. Protonix. 13. DVT prophylaxis. Eliquis. Patient will be admitted to the hospital for a minimum of 1-2 night stay. DISCHARGE PLAN [facility] once arrangements are completed. Impression and plan of care have been directed as dictated by the signing physician. Gloria Oneill nurse practitioner acting as scribe for signing physician. Past Medical History Past Medical History: Atrial Fibrillation, Coronary Artery Disease (CAD), Cancer, Hyperlipidemia, Hypertension, Myocardial Infarction (NC), Osteoarthritis (OA), Prostate Disorder Additional Past Medical History / Comment(s): 1999-prostate cancer with radiation Last Myocardial Infarction Date:: 1998 History of Any Multi-Drug Resistant Organisms: None Reported Past Surgical History: Coronary Bypass/CABG, Heart Catheterization With Stent, Hernia Repair Additional Past Surgical History / Comment(s): Open heart Quadrupal bypass (1998) Past Anesthesia/Blood Transfusion Reactions: No Reported Reaction Date of Last Stent Placement:: 2015 Past Psychological History: No Psychological Hx Reported Smoking Status: Former smoker Past Alcohol Use History: None Reported Additional Past Alcohol Use History / Comment(s): Patient was a smoker of cigars for 10 years ago quit approximately 15 years ago. He no longer drinks alcohol on a social basis. He denies any medical marijuana, marijuana, street drug use. Patient lives at home alone. Past Drug Use History: None Reported - Past Family History Father Family Medical History: Congestive Heart Failure (CHF), COPD, Coronary Artery Disease (CAD) Additional Family Medical History / Comment(s): at age 72. Mother Family Medical History: Cancer Additional Family Medical History / Comment(s): at age 86, colon cancer. Sister(s) Family Medical History: COPD, Liver Disease Additional Family Medical History / Comment(s): Patient had one sister with history of alcoholism and at age 71. She also had COPD. Brother(s) Additional Family Medical History / Comment(s): Patient has one dtr that from diabetes complications. One son has history of hypertension. One daughter has diabetes. Medications and Allergies Home Medications Medication Instructions Recorded Confirmed Type Atorvastatin [Lipitor] 40 mg PO HS 05/16/16 04/02/21 History Losartan [Cozaar] 12.5 mg PO HS 05/23/19 04/02/21 History Apixaban [Eliquis] 2.5 mg PO BID #60 tab 05/25/19 04/02/21 Rx Isosorbide Mononitrate ER [Imdur] 30 mg PO DAILY #0 02/20/20 04/02/21 Rx Multivitamins, Thera [Multivitamin 1 tab PO DAILY 07/05/20 04/02/21 History (formulary)] Torsemide [Demadex] 10 mg PO DAILY 07/05/20 04/02/21 History Allergies Allergy/AdvReac Type Severity Reaction Status Date / Time No Known Allergies Allergy Verified 04/02/21 19:33 Physical Exam Vitals: Vital Signs Temp Pulse Pulse Resp BP BP Pulse Ox 04/03/21 04:51 98.0 F 62 16 127/73 95 04/02/21 23:22 97.6 F 54 L 16 149/74 96 04/02/21 21:32 75 18 119/68 95 04/02/21 19:13 62 18 168/82 99 04/02/21 16:26 62 16 146/90 99 04/02/21 14:30 97.9 F 63 18 146/90 96 Intake and Output 04/02/21 04/03/21 04/03/21 22:59 06:59 14:59 Intake Total 320 Balance 320 Intake: Oral 320 Other: # Voids 1 Weight 81.647 kg Results CBC & Chem 7: 04/02/21 16:19 04/02/21 16:19 Labs: Abnormal Lab Results - Last 24 Hours (Table) 04/02/21 04/02/21 04/02/21 Range/Units 16:19 16:19 16:19 RBC 3.91 L (4.30-5.90) m/uL Hgb 12.3 L (13.0-17.5) gm/dL Hct 35.4 L (39.0-53.0) % BUN 33 H (9-20) mg/dL Creatinine 1.36 H (0.66-1.25) mg/dL Urine Protein Trace H (Negative) Urine Blood Small H (Negative) Urine RBC 7 H (0-5) /hpf Urine Mucus Rare H (None) /hpf Thrombosis Risk Factor Assmnt - Choose All That Apply Each Risk Factor Represents 2 Points: Patient confined to bed Each Risk Factor Represents 3 Points: Age 75 years or older Thrombosis Risk Factor Assessment Total Risk Factor Score: 5 Thrombosis Risk Factor Assessment Level: High Risk
--- NOTE | 2021-04-03 11:49 | P.DS ---
Providers Date of admission: 04/02/21 19:19 Expected date of discharge: 04/03/21 Attending physician: Jodi Kothari MD Primary care physician: [facility] Course: HISTORY OF PRESENT ILLNESS This is an 85-year-old male patient of Dr. Lopez and Dr. VAHID Pan. He has a past medical history of [place] and coronary artery disease status post stenting and 4 vessel CABG done in [place] in 1999, LISA to LAD, SVG to intermediate, and SVG to diagonal, as well as SVG to left circumflex, hypertension, hypertensive vascular disease, hyperlipidemia with history of prostate cancer treated with radiation. He completed radiation treatment in April 2012. 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 In 2013 patient had acute non-ST elevated myocardial infarction and underwent stenting of the SVG to the left circumflex. Patient did have an hospitalization July 2019 for syncopal episode thought to be vasovagal and again in February for near syncope thought to be possibly A. fib with RVR. He then had a hospitalization in June 2020 for another near syncopal episode thought to be secondary to bradycardia and hypotension. He was seen by cardiology and underwent tilt table test that was negative. Patient had a recent hospitalization in February following a slip and fall with right sided rib fractures and possible pneumonia. He now complains of significant weakness over the past week. This morning, he was unable to get himself out of bed. Noted that his did try 9 weeks ago. Patient feels that he is drinking enough at home. He is drinking soda and water. He denies having any abdominal pain and no diarrhea. Patient was brought into into [facility] emergency center for evaluation. He was afebrile, heart rate 63, blood pressure 1460/90, pulse ox 96% on room air. EKG sinus rhythm with incomplete right bundle-branch block. W BC 6.8, hemoglobin 12.3, platelet count 202. Electrolytes normal. BUN 33, creatinine 1.36. Blood sugar 92. Urinalysis was clear, protein trace, blood small, RBCs 7. Coronavirus PCR not detected. Lactic acid 0.96. Chest x-ray reveals minimal subsegmental atelectasis or scarring at the lateral left lung base without change. No heart failure. Patient maintained on IV fluids 75 mL per hour, PT and OT consults and plan for rehab. Patient will be discharged to rehab today once arrangements are completed. ASSESSMENT AND PLAN 1. Generalized weakness and debilitation without lightheadedness or dizziness. 2. Recent fall in February with Right rib fractures. 3. Paroxysmal atrial fibrillation status post cardioversion and June 2019. 4. History of coronary artery disease with prior bypass and stenting, stable. 5. Hypertension, hypertensive cardiovascular disease. 6. Hyperlipidemia. 7. Chronic kidney disease stage IIIa, stable. 8. Anemia of chronic kidney disease, stable 9. History of prostate cancer treated with radiation, stable. 10. 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 11. Short-term memory deficit, stable. DISCHARGE PLAN [facility] Impression and plan of care have been directed as dictated by the signing physician. Gloria Oneill nurse practitioner acting as scribe for signing physician. Patient Condition at Discharge: Good Plan - Discharge Summary Discharge Rx Participant: Yes New Discharge Prescriptions: Continue Atorvastatin [Lipitor] 40 mg PO HS Losartan [Cozaar] 12.5 mg PO HS Apixaban [Eliquis] 2.5 mg PO BID #60 tab Isosorbide Mononitrate ER [Imdur] 30 mg PO DAILY #0 Multivitamins, Thera [Multivitamin (formulary)] 1 tab PO DAILY Torsemide [Demadex] 10 mg PO DAILY Discharge Medication List Atorvastatin [Lipitor] 40 mg PO HS 05/16/16 [History] Losartan [Cozaar] 12.5 mg PO HS 05/23/19 [History] Apixaban [Eliquis] 2.5 mg PO BID #60 tab 05/25/19 [Rx] Isosorbide Mononitrate ER [Imdur] 30 mg PO DAILY #0 02/20/20 [Rx] Multivitamins, Thera [Multivitamin (formulary)] 1 tab PO DAILY 07/05/20 [History] Torsemide [Demadex] 10 mg PO DAILY 07/05/20 [History] Follow up Appointment(s)/Referral(s): Roberto Loepz MD [Primary Care Provider] - 1 Week (after discharge from [facility]) Discharge Disposition: TRANSFER TO SNF/ECF
[2021-04-03 13:42] VITALS: BMI 25.8
[2021-04-03] MEDS ORDERED: LOSARTAN 25 MG TAB PO SCH (21:00)
[2021-04-03] MEDS ORDERED: ATORVASTATIN 40 MG TAB PO SCH (21:00)
== END 2021-04-03 14:35 ==
LOC: EC 14:00 → 5NMEDONC 19:19
PROVIDERS: ADMIT Internal Medicine; ATTEND Internal Medicine
DX: R53.1 Weakness (principal); E86.0 Dehydration; I13.10 Hypertensive heart and chronic kidney disease without heart failure, with stage 1 through stage 4 chronic kidney disease, or unspecified chronic kidney disease; N18.31 Chronic kidney disease, stage 3a; I25.810 Atherosclerosis of coronary artery bypass graft(s) without angina pectoris; I44.0 Atrioventricular block, first degree; D63.1 Anemia in chronic kidney disease; E78.5 Hyperlipidemia, unspecified; I25.2 Old myocardial infarction; I48.0 Paroxysmal atrial fibrillation; M19.90 Unspecified osteoarthritis, unspecified site; Z91.81 History of falling; I45.10 Unspecified right bundle-branch block; R53.81 Other malaise; S22.41XD Multiple fractures of ribs, right side, subsequent encounter for fracture with routine healing; W01.0XXD Fall on same level from slipping, tripping and stumbling without subsequent striking against object, subsequent encounter; R41.3 Other amnesia; Z20.822 Contact with and (suspected) exposure to COVID-19; Z79.01 Long term (current) use of anticoagulants; Z79.899 Other long term (current) drug therapy; Z85.46 Personal history of malignant neoplasm of prostate; Z87.891 Personal history of nicotine dependence; Z92.3 Personal history of irradiation; Z86.73 Personal history of transient ischemic attack (TIA), and cerebral infarction without residual deficits; Z95.1 Presence of aortocoronary bypass graft; Z95.5 Presence of coronary angioplasty implant and graft; Z74.01 Bed confinement status; Z82.49 Family history of ischemic heart disease and other diseases of the circulatory system; Z82.5 Family history of asthma and other chronic lower respiratory diseases; Z80.0 Family history of malignant neoplasm of digestive organs; Z83.3 Family history of diabetes mellitus; Z81.1 Family history of alcohol abuse and dependence; Z83.79 Family history of other diseases of the digestive system
CPT/HCPCS: 96361 ×3; 96374; 99285; 36415; 93005; 97162; 97166; 80053; 83605; 84484; 85025; 85610; 85730; 81001; 87635; 71046; G0378 ×2; C9113

== ENCOUNTER 2021-06-22 19:29 | Inpatient (IN) | payer MEDICARE ==
[2021-06-22 20:55] LABS: Basophils # (A) 0.1 k/uL (0-0.2); Basophils % (A) 1 %; Eosinophils # (A) 0.3 k/uL (0-0.7); Eosinophils % (A) 4 %; HCT 35.3 % (39.0-53.0); HGB 12.5 gm/dL (13.0-17.5); Lymphocytes # (A) 0.9 k/uL (1.0-4.8); Lymphocytes % (A) 10 %; MCH 32.5 pg (25.0-35.0); MCHC 35.4 g/dL (31.0-37.0); MCV 91.8 fL (80.0-100.0); Mean Platelet Volume 7.8; Monocytes # (A) 0.4 k/uL (0-1.0); Monocytes % (A) 4 %; Neutrophils # (A) 7.2 k/uL (1.3-7.7); Neutrophils % (A) 81 %; Platelet Count 165 k/uL (150-450); RBC 3.84 m/uL (4.30-5.90); RDW 13.2 % (11.5-15.5); WBC 8.9 k/uL (3.8-10.6)
--- NOTE | 2021-06-22 20:55 | ED ---
Altered Mental Status HPI - General Chief Complaint: Altered Mental Status Stated Complaint: Altered Mental Status Time Seen by Provider: 06/22/21 19:37 Source: patient, family, EMS Mode of arrival: EMS Limitations: no limitations - History of Present Illness Initial Comments: The patient is an 86 year old male with past medical history of A. fib, coronary artery disease status post CABG, prostate disorder who presents to the emergency department with altered mental status. Daughter is at bedside and provide history. She states that her father was sitting at the dinner table when he closed his eyes. She asked him if he felt okay. He said he was dizzy. The patient then went completely unresponsive and slumped over. EMS was called. Upon arrival to the hospital the patient is alert and oriented 4. Daughter states he has had several episodes like this in the past and it was attributed it to his A. fib. Patient is in A. fib with a controlled rate. He has no complaints at this time. Daughter states that he has had a progressive decline. He is bedbound, depressed since his earlier this year. - Related Data Home Medications Medication Instructions Recorded Confirmed Atorvastatin [Lipitor] 40 mg PO HS 05/16/16 06/22/21 Multivitamins, Thera [Multivitamin 1 tab PO DAILY 07/05/20 06/22/21 (formulary)] carvediloL [Coreg] 3.125 mg PO BID 06/22/21 06/22/21 Previous Rx's Medication Instructions Recorded Apixaban [Eliquis] 2.5 mg PO BID #60 tab 05/25/19 Isosorbide Mononitrate ER [Imdur] 30 mg PO DAILY #0 02/20/20 Mirtazapine [Remeron] 7.5 mg PO HS #30 tab 06/27/21 lisinopriL [Zestril] 5 mg PO DAILY #30 tab 06/27/21 levETIRAcetam [Keppra] 250 mg PO Q12HR #60 tab 06/28/21 Allergies Allergy/AdvReac Type Severity Reaction Status Date / Time No Known Allergies Allergy Verified 04/02/21 19:33 Review of Systems ROS Statement: Those systems with pertinent positive or pertinent negative responses have been documented in the HPI. ROS Other: All systems not noted in ROS Statement are negative. Past Medical History Past Medical History: Atrial Fibrillation, Coronary Artery Disease (CAD), Ca ncer, Hyperlipidemia, Hypertension, Myocardial Infarction ([place]), Osteoarthritis (OA), Prostate Disorder Additional Past Medical History / Comment(s): 1999-prostate cancer with radiation Last Myocardial Infarction Date:: 1998 History of Any Multi-Drug Resistant Organisms: None Reported Past Surgical History: Coronary Bypass/CABG, Heart Catheterization With Stent, Hernia Repair Additional Past Surgical History / Comment(s): Open heart Quadrupal bypass (1998) Past Anesthesia/Blood Transfusion Reactions: No Reported Reaction Date of Last Stent Placement:: 2015 Past Psychological History: No Psychological Hx Reported Smoking Status: Former smoker Past Alcohol Use History: None Reported Additional Past Alcohol Use History / Comment(s): Patient was a smoker of cigars for 10 years ago quit approximately 15 years ago. He no longer drinks alcohol on a social basis. He denies any medical marijuana, marijuana, street drug use. Patient lives at home alone. Past Drug Use History: None Reported - Past Family History Father Family Medical History: Congestive Heart Failure (CHF), COPD, Coronary Artery Disease (CAD) Additional Family Medical History / Comment(s): at age 72. Mother Family Medical History: Cancer Additional Family Medical History / Comment(s): at age 86, colon cancer. Sister(s) Family Medical History: COPD, Liver Disease Additional Family Medical History / Comment(s): Patient had one sister with history of alcoholism and at age 71. She also had COPD. Brother(s) Additional Family Medical History / Comment(s): Patient has one dtr that from diabetes complications. One son has history of hypertension. One daughter has diabetes. General Exam Limitations: no limitations General appearance: alert, in no apparent distress Head exam: Present: atraumatic, normocephalic, normal inspection Eye exam: Present: normal appearance, PERRL, EOMI. Absent: scleral icterus, conjunctival injection, periorbital swelling ENT exam: Present: normal exam, mucous membranes moist Neck exam: Present: normal inspection. Absent: tenderness, meningismus, lymphadenopathy Respiratory exam: Present: normal lung sounds bilaterally. Absent: respiratory distress, wheezes, rales, rhonchi, stridor Cardiovascular Exam: Present: regular rate, normal rhythm, normal heart sounds. Absent: systolic murmur, diastolic murmur, rubs, gallop, clicks GI/Abdominal exam: Present: soft, normal bowel sounds. Absent: distended, tenderness, guarding, rebound, rigid Extremities exam: Present: normal inspection, full ROM, normal capillary refill. Absent: tenderness, pedal edema, joint swelling, calf tenderness Back exam: Present: normal inspection Neurological exam: Present: alert, oriented X3, CN II-XII intact Psychiatric exam: Present: normal affect, normal mood Skin exam: Present: warm, dry, intact, normal color. Absent: rash Course Vital Signs 06/22/21 06/22/21 06/22/21 19:50 20:00 22:00 Temperature 97.7 F Pulse Rate 59 L 67 61 Respiratory 18 14 18 Rate Blood Pressure 138/88 142/80 124/76 O2 Sat by Pulse 96 98 97 Oximetry 06/22/21 23:00 Temperature Pulse Rate 61 Respiratory 18 Rate Blood Pressure 115/77 O2 Sat by Pulse Oximetry Medical Decision Making - Medical Decision Making Upon arrival patient is placed in room 1. A thorough history and physical was performed. Patient placed on continuous pulse and cardiac monitoring. 12-lead EKG was performed. Laboratory says her conducting the patient went for a chest x-ray as well as a CT of his brain. He remains alert and oriented 4 at this time. Laboratory studies are unremarkable. Chest x-ray demonstrates central prominence of the pulmonary vasculature. CT of the brain demonstrates chronic and supplementation of the left parietal lobe and patchy white matter hypodensi ties likely sequela of chronic microvascular ischemic change. Patient maintains normal mentation. I did discuss diagnosis, differential treatment options. Did recommend hospital patient for cardiology and neurology consultation. Patient and the daughter did agree to this. I spoke with Dr. Kothari who agreed to admit the patient. He is currently awaiting a bed on the floor - Lab Data Result diagrams: 06/25/21 07:17 06/27/21 06:11 Lab Results 06/22/21 06/22/21 06/22/21 Range/Units 20:46 20:46 20:46 WBC 8.9 (3.8-10.6) k/uL RBC 3.84 L (4.30-5.90) m/uL Hgb 12.5 L (13.0-17.5) gm/dL Hct 35.3 L (39.0-53.0) % MCV 91.8 (80.0-100.0) fL MCH 32.5 (25.0-35.0) pg MCHC 35.4 (31.0-37.0) g/dL RDW 13.2 (11.5-15.5) % Plt Count 165 (150-450) k/uL MPV 7.8 Neutrophils % 81 % Lymphocytes % 10 % Monocytes % 4 % Eosinophils % 4 % Basophils % 1 % Neutrophils # 7.2 (1.3-7.7) k/uL Lymphocytes # 0.9 L (1.0-4.8) k/uL Monocytes # 0.4 (0-1.0) k/uL Eosinophils # 0.3 (0-0.7) k/uL Basophils # 0.1 (0-0.2) k/uL PT 11.1 (9.0-12.0) sec INR 1.0 (<1.2) APTT 21.6 L (22.0-30.0) sec Sodium 137 (137-145) mmol/L Potassium 4.1 (3.5-5.1) mmol/L Chloride 106 (98-107) mmol/L Carbon Dioxide 22 (22-30) mmol/L Anion Gap 9 mmol/L BUN 28 H (9-20) mg/dL Creatinine 1.37 H (0.66-1.25) mg/dL Est GFR (CKD-EPI)AfAm 54 (>60 ml/min/1.73 sqM) Est GFR (CKD-EPI)NonAf 46 (>60 ml/min/1.73 sqM) Glucose 121 H (74-99) mg/dL Calcium 9.0 (8.4-10.2) mg/dL Total Bilirubin 0.5 (0.2-1.3) mg/dL AST 28 (17-59) U/L ALT 14 (4-49) U/L Alkaline Phosphatase 82 (38-126) U/L Creatine Kinase 73 (55-170) U/L Troponin I (0.000-0.034) ng/mL Total Protein 6.2 L (6.3-8.2) g/dL Albumin 3.3 L (3.5-5.0) g/dL Urine Color Urine Appearance (Clear) Urine pH (5.0-8.0) Ur Specific [place] (1.001-1.035) Urine Protein (Negative) Urine Glucose (UA) (Negative) Urine Ketones (Negative) Urine Blood (Negative) Urine Nitrite (Negative) Urine Bilirubin (Negative) Urine Urobilinogen (<2.0) mg/dL Ur Leukocyte Esterase (Negative) Urine RBC (0-5) /hpf Urine WBC (0-5) /hpf Urine Bacteria (None) /hpf Urine Mucus (None) /hpf 06/22/21 06/22/21 06/23/21 Range/Units 20:46 23:15 02:37 WBC (3.8-10.6) k/uL RBC (4.30-5.90) m/uL Hgb (13.0-17.5) gm/dL Hct (39.0-53.0) % MCV (80.0-100.0) fL MCH (25.0-35.0) pg MCHC (31.0-37.0) g/dL RDW (11.5-15.5) % Plt Count (150-450) k/uL MPV Neutrophils % % Lymphocytes % % Monocytes % % Eosinophils % % Basophils % % Neutrophils # (1.3-7.7) k/uL Lymphocytes # (1.0-4.8) k/uL Monocytes # (0-1.0) k/uL Eosinophils # (0-0.7) k/uL Basophils # (0-0.2) k/uL PT (9.0-12.0) sec INR (<1.2) APTT (22.0-30.0) sec Sodium (137-145) mmol/L Potassium (3.5-5.1) mmol/L Chloride (98-107) mmol/L Carbon Dioxide (22-30) mmol/L Anion Gap mmol/L BUN (9-20) mg/dL Creatinine (0.66-1.25) mg/dL Est GFR (CKD-EPI)AfAm (>60 ml/min/1.73 sqM) Est GFR (CKD-EPI)NonAf (>60 ml/min/1.73 sqM) Glucose (74-99) mg/dL Calcium (8.4-10.2) mg/dL Total Bilirubin (0.2-1.3) mg/dL AST (17-59) U/L ALT (4-49) U/L Alkaline Phosphatase (38-126) U/L Creatine Kinase (55-170) U/L Troponin I <0.012 <0.012 <0.012 (0.000-0.034) ng/mL Total Protein (6.3-8.2) g/dL Albumin (3.5-5.0) g/dL Urine Color Urine Appearance (Clear) Urine pH (5.0-8.0) Ur Specific [place] (1.001-1.035) Urine Protein (Negative) Urine Glucose (UA) (Negative) Urine Ketones (Negative) Urine Blood (Negative) Urine Nitrite (Negative) Urine Bilirubin (Negative) Urine Urobilinogen (<2.0) mg/dL Ur Leukocyte Esterase (Negative) Urine RBC (0-5) /hpf Urine WBC (0-5) /hpf Urine Bacteria (None) /hpf Urine Mucus (None) /hpf 06/23/21 06/23/21 06/23/21 Range/Units 02:37 02:37 06:05 WBC 7.1 (3.8-10.6) k/uL RBC 3.93 L (4.30-5.90) m/uL Hgb 12.4 L (13.0-17.5) gm/dL Hct 36.1 L (39.0-53.0) % MCV 91.7 (80.0-100.0) fL MCH 31.5 (25.0-35.0) pg MCHC 34.3 (31.0-37.0) g/dL RDW 13.1 (11.5-15.5) % Plt Count 173 (150-450) k/uL MPV 7.5 Neutrophils % 71 % Lymphocytes % 16 % Monocytes % 6 % Eosinophils % 4 % Basophils % 1 % Neutrophils # 5.1 (1.3-7.7) k/uL Lymphocytes # 1.2 (1.0-4.8) k/uL Monocytes # 0.4 (0-1.0) k/uL Eosinophils # 0.3 (0-0.7) k/uL Basophils # 0.1 (0-0.2) k/uL PT (9.0-12.0) sec INR (<1.2) APTT (22.0-30.0) sec Sodium 136 L (137-145) mmol/L Potassium 4.2 (3.5-5.1) mmol/L Chloride 107 (98-107) mmol/L Carbon Dioxide 20 L (22-30) mmol/L Anion Gap 9 mmol/L BUN 27 H (9-20) mg/dL Creatinine 1.33 H (0.66-1.25) mg/dL Est GFR (CKD-EPI)AfAm 56 (>60 ml/min/1.73 sqM) Est GFR (CKD-EPI)NonAf 48 (>60 ml/min/1.73 sqM) Glucose 112 H (74-99) mg/dL Calcium 9.5 (8.4-10.2) mg/dL Total Bilirubin (0.2-1.3) mg/dL AST (17-59) U/L ALT (4-49) U/L Alkaline Phosphatase (38-126) U/L Creatine Kinase (55-170) U/L Troponin I (0.000-0.034) ng/mL Total Protein (6.3-8.2) g/dL Albumin (3.5-5.0) g/dL Urine Color Yellow Urine Appearance Clear (Clear) Urine pH 5.0 (5.0-8.0) Ur Specific [place] 1.017 (1.001-1.035) Urine Protein Trace H (Negative) Urine Glucose (UA) Negative (Negative) Urine Ketones Negative (Negative) Urine Blood Trace H (Negative) Urine Nitrite Negative (Negative) Urine Bilirubin Negative (Negative) Urine Urobilinogen <2.0 (<2.0) mg/dL Ur Leukocyte Esterase Negative (Negative) Urine RBC 9 H (0-5) /hpf Urine WBC 1 (0-5) /hpf Urine Bacteria Rare H (None) /hpf Urine Mucus Rare H (None) /hpf 06/22/21 20:54 EKG demonstrates A. fib with a rate of 68. QRS 106. QTC of 499. No acute ST segment elevations or depressions Disposition Clinical Impression: Acute encephalopathy Disposition: ADMITTED IP TO THIS HOSP Condition: Good Is patient prescribed a controlled substance at d/c from ED?: No Decision to Admit Reason: Admit from EC Decision Date: 06/22/21 Decision Time: 22:27
[2021-06-22 21:04] LABS: Albumin 3.3 g/dL (3.5-5.0); Total Bilirubin 0.5 mg/dL (0.2-1.3); Total Protein 6.2 g/dL (6.3-8.2)
[2021-06-22 21:10] LABS: Prothrombin Time 11.1 sec (9.0-12.0)
--- NOTE | 2021-06-22 21:13 | XR ---
EXAMINATION TYPE: XR chest 1V portable DATE OF EXAM: 06/22/2021 CLINICAL HISTORY: altered mental status. TECHNIQUE: Portable semiupright view of the chest. COMPARISON: 04/02/2021 FINDINGS: Sternotomy wires. Redemonstrated cardiomegaly. Pulmonary vasculature is centrally prominen t. Mild bibasilar airspace opacities likely atelectasis. No pleural effusion. No pneumothorax seen. No acute displaced osseous fracture. IMPRESSION: Central prominence of the pulmonary vasculature may represent congestion versus accentuated lung jaz ings from low lung volumes.
[2021-06-22 21:14] LABS: Partial Thromboplastin Time 21.6 sec (22.0-30.0)
--- NOTE | 2021-06-22 21:15 | CT ---
EXAMINATION TYPE: CT brain wo con DATE OF EXAM: 06/22/2021 HISTORY: ams, confusion. CT DLP: 1178.4 mGycm. Automated Exposure Control for Dose Reduction was Utilized. TECHNIQUE: CT scan of the head is performed without contrast. COMPARISON: 02/15/2021 FINDINGS: There is no acute intracranial hemorrhage, midline shift, or mass effect identified. Generalized volu me loss. Redemonstrated moderate patchy white matter hypodensities likely sequela of chronic microvas cular ischemic change. There is redemonstrated encephalomalacia of the left parietal lobe. The ventricles, sulci, and cisterns are prominent concordant with generalized volume loss. No extra-axial fluid collection. No depressed calvarial fracture. Visualized sinuses and mastoid air cells are clear. IMPRESSION: 1. No acute intracranial hemorrhage, midline shift, or mass effect. 2. Chronic encephalomalacia of the left parietal lobe and patchy white matter hypodensities likely se quela of chronic microvascular ischemic change. Generalized volume loss.
[2021-06-22 22:16] LABS: Potassium 4.1 mmol/L (3.5-5.1)
[2021-06-22] MEDS ORDERED: NALOXONE 0.4 MG/ML 1 ML VIAL IV PRN (22:27)
[2021-06-22] MEDS: ATORVASTATIN 40 MG TAB PO SCH (23:50)
[2021-06-23 02:56] LABS: Basophils # (A) 0.1 k/uL (0-0.2); Basophils % (A) 1 %; Eosinophils # (A) 0.3 k/uL (0-0.7); Eosinophils % (A) 4 %; HCT 36.1 % (39.0-53.0); HGB 12.4 gm/dL (13.0-17.5); Lymphocytes # (A) 1.2 k/uL (1.0-4.8); Lymphocytes % (A) 16 %; MCH 31.5 pg (25.0-35.0); MCHC 34.3 g/dL (31.0-37.0); MCV 91.7 fL (80.0-100.0); Mean Platelet Volume 7.5; Monocytes # (A) 0.4 k/uL (0-1.0); Monocytes % (A) 6 %; Neutrophils # (A) 5.1 k/uL (1.3-7.7); Neutrophils % (A) 71 %; Platelet Count 173 k/uL (150-450); RBC 3.93 m/uL (4.30-5.90); RDW 13.1 % (11.5-15.5); WBC 7.1 k/uL (3.8-10.6)
[2021-06-23 03:47] LABS: Calcium 9.5 mg/dL (8.4-10.2); Potassium 4.2 mmol/L (3.5-5.1)
[2021-06-23 06:31] LABS: Appearance,Urine Clear (Clear); Bacteria,Urine Rare /hpf; Bilirubin,Urine Negative (Negative); Blood,Urine Trace (Negative); Color,Urine Yellow; Glucose,Urine (UA) Negative (Negative); Ketones,Urine Negative (Negative); Leukocyte Esterase,Urine Negative (Negative); Mucus,Urine Rare /hpf; Nitrite,Urine Negative (Negative); Protein,Urine Trace (Negative); RBC,Urine 9 /hpf (0-5); Specific Gravity,Urine 1.017 (1.001-1.035); Urobilinogen,Urine <2.0 mg/dL (<2.0); WBC,Urine 1 /hpf (0-5)
[2021-06-23] MEDS: MULTIVITAMINS, THERA 1 EACH TAB PO SCH (08:40)
[2021-06-23] MEDS: carvediloL 3.125 MG TAB PO SCH ×2 (08:40→20:37)
[2021-06-23] MEDS: APIXABAN 2.5 MG TABLET PO SCH ×2 (08:40→20:37)
[2021-06-23] MEDS: ISOSORBIDE MONONITRATE ER 30 MG TAB.ER.24H PO SCH (08:40)
--- NOTE | 2021-06-23 10:31 | P.CRDCN ---
History of Present Illness Consult date: 06/23/21 Requesting physician: Jodi Kothari Reason for Consult (text): possible syncope vs neurologic event Chief complaint: unknown to patient at time of exam History of present illness: This is a pleasant but confused 86-year-old gentleman who follows with Dr. VAHID Pan in the office. He has a history of CAD with prior 4 vessel CABG in 1999, chronic persistent atrial fibrillation, and hyperlipidemia. Has a history of a cardioversion in June 2019 but has been in atrial fibrillation since that ER visit in December 2019. The HPI was obtained from the chart as the patient is not sure why he was brought to the emergency room. He is oriented to himself and place. He is unsure what year or month it is but can't tell me that Pb Juárez is the President. When asked if he was dizzy his answer was possibly. He does not recall any syncopal episode. According to the ER the patient was brought to the emergency department with altered mental status. The daughter was apparently at the bedside to provide history although the patient does not recall anyone coming to the emergency room with him. According to the chart she was sitting at the dinner table when he closed his eyes told his daughter he was dizzy and when completely unresponsive and slumped over at which time EMS was called. The patient does not recall any of this. According to the patient he does not get up to a table to eat dinner and he is brought to tray for his lap while in bed. The patient is apparently mostly bedbound. He walks very little. Mostly uses a commode at the bedside according to the patient. He does have a walker to get around but according to him he uses it very little and is mostly in bed. At last office visit with Dr. Pan in January 2021 his functional capacity was stable and he is to walker to get around. At that time it was discussed whether or not to attempt to restore sinus mechanism and it was decided to pursue rate control as the likelihood of maintaining sinus mechanism following cardioversion was low. EKG on admission showed atrial fibrillation with controlled ventricular response. Computed tomography scan of the brain showed no acute intracranial hemorrhage, midline shift or mass effect, chronic encephalomalacia of the left parietal lobe and patchy white matter hypodensities likely sequela of chronic microvascular ischemic change, generalized volume loss. Chest x-ray on admission showed central prominence of the pulmonary vasculature may represent congestion versus accentuated lung markings from low lung volumes. Laboratory values showed BUN of 27 and creatinine 1.33 which are stable, troponins negative 3. According to the patient he does have occasional dizziness although does not recall specific instances. He denies any chest discomfort, difficulty breathing, palpitations, orthopnea, PND or edema. Denies any episodes of syncope that he can recall. He denies history of diagnosis of dementia. He says he lives with his oldest son. Past Medical History Past Medical History: Atrial Fibrillation, Coronary Artery Disease (CAD), Cancer, Hyperlipidemia, Hypertension, Myocardial Infarction ([place]), Osteoarthritis (OA), Prostate Disorder Additional Past Medical History / Comment(s): 1999-prostate cancer with radiation Last Myocardial Infarction Date:: 1998 History of Any Multi-Drug Resistant Organisms: None Reported Past Surgical History: Coronary Bypass/CABG, Heart Catheterization With Stent, Hernia Repair Additional Past Surgical History / Comment(s): Open heart Quadrupal bypass ( 1998) Past Anesthesia/Blood Transfusion Reactions: No Reported Reaction Date of Last Stent Placement:: 2015 Past Psychological History: No Psychological Hx Reported Smoking Status: Former smoker Past Alcohol Use History: None Reported Additional Past Alcohol Use History / Comment(s): Patient was a smoker of cigars for 10 years ago quit approximately 15 years ago. He no longer drinks alcohol on a social basis. He denies any medical marijuana, marijuana, street drug use. Patient lives at home alone. Past Drug Use History: None Reported - Past Family History Father Family Medical History: Congestive Heart Failure (CHF), COPD, Coronary Artery Disease (CAD) Additional Family Medical History / Comment(s): at age 72. Mother Family Medical History: Cancer Additional Family Medical History / Comment(s): at age 86, colon cancer. Sister(s) Family Medical History: COPD, Liver Disease Additional Family Medical History / Comment(s): Patient had one sister with history of alcoholism and at age 71. She also had COPD. Brother(s) Additional Family Medical History / Comment(s): Patient has one dtr that from diabetes complications. One son has history of hypertension. One daughter has diabetes. Medications and Allergies Home Medications Medication Instructions Recorded Confirmed Type Atorvastatin [Lipitor] 40 mg PO HS 05/16/06/22/21 History Apixaban [Eliquis] 2.5 mg PO BID #60 tab 05/25/19 06/22/21 Rx Isosorbide Mononitrate ER [Imdur] 30 mg PO DAILY #0 02/20/20 06/22/21 Rx Multivitamins, Thera [Multivitamin 1 tab PO DAILY 07/05/20 06/22/21 History (formulary)] carvediloL [Coreg] 3.125 mg PO BID 06/22/21 06/22/21 History Allergies Allergy/AdvReac Type Severity Reaction Status Date / Time No Known Allergies Allergy Verified 04/02/21 19:33 Physical Exam Vitals: Vital Signs Temp Pulse Pulse Resp BP BP Pulse Ox 06/23/21 07:00 98.5 F 60 16 129/83 96 06/22/21 23:38 98.7 F 71 18 148/81 96 06/22/21 23:00 61 18 115/77 06/22/21 22:00 61 18 124/76 97 06/22/21 20:00 67 14 142/80 98 06/22/21 19:50 97.7 F 59 L 18 138/88 96 Intake and Output 06/22/21 06/23/21 06/23/21 22:59 06:59 14:59 Intake Total 20 Balance 20 Intake: Oral 20 Other: Voiding Method External Catheter Diaper # Voids 1 Weight 80.286 kg 80.286 kg PHYSICAL EXAMINATION: This is a 86-year-old male in no apparent distress at the time of my examination. VITAL SIGNS: Blood pressure 129/83, heart rate 60, respirations 16, temp 98.5F. Patient is 96 % on room air. HEENT: Head is atraumatic, normocephalic. Pupils are equal, round. Sclerae anicteric. Conjunctivae are clear. Mucous membranes of the mouth are moist. Neck is supple. [There is no elevated jugular venous pressure]. No carotid bruit is heard. CHEST EXAMINATION:[ Clear to auscultation bilaterally. No wheezes rales or rhonchi. Respirations even and nonlabored.] HEART EXAMINATION: [ Heart irregular rate and rhythm, positive S1 and S2. With a systolic murmur at the apex. ] ABDOMEN: Soft, nontender. Bowel sounds are heard. No organomegaly noted. EXTREMITIES:[ 2+ peripheral pulses with no evidence of peripheral edema and no calf tenderness noted]. NEUROLOGIC EXAMINATION: Patient is awake, alert and oriented to person and place. Results 06/23/21 02:37 06/23/21 02:37 Cardiac Enzymes 06/22/21 06/22/21 06/22/21 Range/Units 20:46 20:46 23:15 AST 28 (17-59) U/L Troponin I <0.012 <0.012 (0.000-0.034) ng/mL 06/23/21 Range/Units 02:37 AST (17-59) U/L Troponin I <0.012 (0.000-0.034) ng/mL Coagulation 06/22/21 Range/Units 20:46 PT 11.1 (9.0-12.0) sec APTT 21.6 L (22.0-30.0) sec CBC 06/22/21 06/23/21 Range/Units 20:46 02:37 WBC 8.9 7.1 (3.8-10.6) k/uL RBC 3.84 L 3.93 L (4.30-5.90) m/uL Hgb 12.5 L 12.4 L (13.0-17.5) gm/dL Hct 35.3 L 36.1 L (39.0-53.0) % Plt Count 165 173 (150-450) k/uL Comprehensive Metabolic Panel 06/22/21 06/23/21 Range/Units 20:46 02:37 Sodium 137 136 L (137-145) mmol/L Potassium 4.1 4.2 (3.5-5.1) mmol/L Chloride 106 107 (98-107) mmol/L Carbon Dioxide 22 20 L (22-30) mmol/L BUN 28 H 27 H (9-20) mg/dL Creatinine 1.37 H 1.33 H (0.66-1.25) mg/dL Glucose 121 H 112 H (74-99) mg/dL Calcium 9.0 9.5 (8.4-10.2) mg/dL AST 28 (17-59) U/L ALT 14 (4-49) U/L Alkaline Phosphatase 82 (38-126) U/L Total Protein 6.2 L (6.3-8.2) g/dL Albumin 3.3 L (3.5-5.0) g/dL Current Medications Generic Name Dose Route Start Last Admin Trade Name Freq PRN Reason Stop Dose Admin Apixaban 2.5 mg 06/23/21 09:00 06/23/21 08:40 Apixaban 2.5 Mg Tablet PO 2.5 mg BID MARILYN Administration Protocol Atorvastatin Calcium 40 mg 06/22/21 22:30 06/22/21 23:50 Atorvastatin 40 Mg Tab PO 40 mg HS MARILYN Administration Carvedilol 3.125 mg 06/23/21 09:00 06/23/21 08:40 Carvedilol 3.125 Mg Tab PO 3.125 mg BID MARILYN Administration Isosorbide Mononitrate 30 mg 06/23/21 09:00 06/23/21 08:40 Isosorbide Mononitrate Er 30 Mg Tab.Er.24h PO 30 mg DAILY MARILYN Administration Multivitamins 1 each 06/23/21 09:00 06/23/21 08:40 Multivitamins, Thera 1 Each Tab PO 1 each DAILY MARILYN Administration Naloxone HCl 0.2 mg 06/22/21 22:27 Naloxone 0.4 Mg/Ml 1 Ml Vial IV Q2M PRN Opioid Reversal Intake and Output 06/22/21 06/23/21 06/23/21 22:59 06:59 14:59 Intake Total 20 Balance 20 Intake: Oral 20 Other: Voiding Method External Catheter Diaper # Voids 1 Weight 80.286 kg 80.286 kg 06/23/21 02:37 06/23/21 02:37 Assessment and Plan Assessment: #1 altered mental status #2 possible syncopal episode #3 chronic persistent atrial fibrillation, anticoagulated 4 CAD with prior CABG #5 hyperlipidemia Plan: From cardiology's perspective medications were reviewed and we'll continue the same. He does not appear to be any acute cardiac issues. Patient's heart rate is controlled. There is no evidence of bradycardia or tachycardia. Vital signs have been stable. We'll obtain a 2-D echo with Doppler study to assess cardiac structure and function. If there is no significant change in the echocardiogram compared to his previous we'll follow the patient on an as-needed basis. Please hesitate to contact us with questions. [employer] note has been reviewed, I agree with a documented findings and plan of care. Patient was seen and examined.
--- NOTE | 2021-06-23 10:52 | P.HPIM ---
History of Present Illness H&P Date: 06/23/21 HISTORY OF PRESENT ILLNESS This is an 85-year-old male patient of Dr. Lopez and Dr. VAHID Pan. He has a past medical history of OK and coronary artery disease status post stenting and 4 vessel CABG done in [place] in 1999, LISA to LAD, SVG to intermediate, and SVG to diagonal, as well as SVG to left circumflex, hypertension, hypertensive vascular disease, hyperlipidemia with history of prostate cancer treated with radiation. He completed radiation treatment in April 2012. 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 In 2013 patient had acute non-ST elevated myocardial infarction and underwent stenting of the SVG to the left circumflex. Patient did have an hospitalization July 2019 for syncopal episode thought to be vasovagal and again in February for near syncope thought to be possibly A. fib with RVR. He then had a hospitalization in June 2020 for another near syncopal episode thought to be secondary to bradycardia and hypotension. He was seen by cardiology and underwent tilt table test that was negative. Patient had a recent hospitalization in February following a slip and fall with right sided rib f ractures and possible pneumonia and again in March for significant weakness and was discharged to [facility] for subacute rehab. Patient now presents after a syncopal episode yesterday. Patient has had progressive weakness, dizziness. He was sitting at table eating and had a syncopal episode, no seizure activity was noted by family. Patient was brought into into [facility] emergency center for evaluation. He was afebrile, heart rate 59, blood pressure 138/88, pulse ox 96% on room air. EKG atrial fibrillation with controlled rate. WBC 8.9, hemoglobin 12.5, platelet count 165. Electrolytes were normal. BUN 28 creatinine 1.37 which is his baseline. Blood sugar 121. Calcium 9.0, liver function tests normal. Troponin negative on 3 draws. Urinalysis negative for infection but showed protein trace and blood trace. Lactic acid 1.4. CAT scan of the brain showed no acute intracranial hemorrhage, midline shift or mass effect. Chronic encephalomalacia of the left parietal lobe and patchy white matter hypodensities likely sequelae of chronic microvascular ischemic change. Generalized volume loss. Chest x-ray reveals central prominence of pulmonary vasculature may r epresent congestion versus accenuated lung markings from low lung volumes. Patient was placed on the observation unit and consults requested with cardiology and neurology. REVIEW OF SYSTEMS Constitutional: No fever, no chills, no night sweats. No weight change. He reports weakness, reports fatigue, no lethargy. No daytime sleepiness. EENT: No headache. No blurred vision or double vision, no loss of vision. Chronic loss of Hearing No nasal drainage or congestion. No epistaxis. No sore throat. Lungs: No shortness of breath, reports cough, no sputum production. No wheezing. Cardiovascular: No chest pain, no lower extremity edema. No palpitations. No paroxysmal nocturnal dyspnea. No orthopnea. No lightheadedness or dizziness. Reported syncopal episodes. Abdominal: No abdominal pain. No nausea, vomiting. No diarrhea. No constipation. No bloody or tarry stools.. No loss of appetite. Genitourinary: No dysuria, increased frequency, urgency. No urinary retention. Musculoskeletal: No myalgias. Reports muscle weakness, reports gait dysfunction, no frequent falls. No back pain. No neck pain. Integumentary: No wounds, no lesions. No rash or pruritus. No unusual bruising. No change in hair or nails. Neurologic: No aphasia. No facial droop. Noted change in mentation. No head injury. No headache. No paralysis. No paresthesia. Psychiatric: No depression. No anxiety. Endocrine: No abnormal blood sugars. SOCIAL HISTORY Patient was a smoker of cigars for 10 years ago quit approximately 15 years ago. He no longer drinks alcohol on a social basis. He denies any marijuana, street drug use. Patient lived at home with his until she approximately January 2021. He is currently living alone. 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 FAMILY HISTORY Father at age 72 from heart failure with history of COPD, coronary artery disease. Mother at age 86 from colon cancer. Patient has one sister with history of alcoholism and at age 71 and also had COPD patient. Patient has one daughter that from diabetes complications. Patient has one son with hypertension and one daughter still living with diabetes. PHYSICAL EXAMINATION Gen: This is an 86-year-old male. He is resting in bed and appears to be comfortable and in no acute distress. HEENT: Head is atraumatic, normocephalic. Pupils equal, round. Sclerae is anicteric. NECK: Supple. No JVD. No lymphadenopathy. No thyromegaly. LUNGS: Clear to auscultation. No wheezes or rhonchi. No intercostal retractions. HEART: Regular rate and rhythm. Systolic murmur. ABDOMEN: Soft. Bowel sounds are present. No masses. No tenderness. EXTREMITIES: No pedal edema. No calf tenderness. NEUROLOGICAL: Patient is awake, alert but confused and not had his baseline. Patient is oriented to person and place. He does answer some questions appropriately, short-term memory deficit, generalized weakness with increased tone to the upper and lower extremities. Cranial nerves 2 through 12 are grossly intact. ASSESSMENT AND PLAN 1. Syncopal episode of unknown etiology, rule out TIA, seizures, arrhythmia. Consult with cardiology and neurology. Echocardiogram, EEG ordered. Patient to follow seizure precautions and fall precautions, continue her to monitor, transfer patient to [facility] as an inpatient. Consult PT and OT. 2. Metabolic encephalopathy of unclear etiology. Consult with neurology continue testing as in #1. PT and OT consults. 3. Chronic persistent atrial fibrillation. Continue eliquis 2.5 mg twice daily, Coreg 3.125 mg twice daily. 4. History of coronary artery disease with prior bypass and stenting, stable. Continue atorvastatin 40 mg daily, Imdur 30 mg daily. 5. Hypertension, hypertensive cardiovascular disease. Continue Coreg. 6. Hyperlipidemia. Continue statin 7. Chronic kidney disease stage IIIa, stable. Baseline creatinine 1.4. 8. Anemia of chronic kidney disease, stable 9. History of prostate cancer treated with radiation, stable. 10. 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 11. Short-term memory deficit. 12. GI prophylaxis. Protonix. 13. DVT prophylaxis. Eliquis. Patient will be admitted to the hospital for a minimum of 2 night stay. DISCHARGE PLAN To be determined. Impression and plan of care have been directed as dictated by the signing physician. Gloria Oneill nurse practitioner acting as scribe for signing physician. Past Medical History Past Medical History: Atrial Fibrillation, Coronary Artery Disease (CAD), Cancer, Hyperlipidemia, Hypertension, Myocardial Infarction ([place]), Osteoarthritis (OA), Prostate Disorder Additional Past Medical History / Comment(s): 1999-prostate cancer with radiation Last Myocardial Infarction Date:: 1998 History of Any Multi-Drug Resistant Organisms: None Reported Past Surgical History: Coronary Bypass/CABG, Heart Catheterization With Stent, Hernia Repair Additional Past Surgical History / Comment(s): Open heart Quadrupal bypass (1998) Past Anesthesia/Blood Transfusion Reactions: No Reported Reaction Date of Last Stent Placement:: 2015 Past Psychological History: No Psychological Hx Reported Smoking Status: Former smoker Past Alcohol Use History: None Reported Additional Past Alcohol Use History / Comment(s): Patient was a smoker of cigars for 10 years ago quit approximately 15 years ago. He no longer drinks alcohol on a social basis. He denies any medical marijuana, marijuana, street drug use. Patient lives at home alone. Past Drug Use History: None Reported - Past Family History Father Family Medical History: Congestive Heart Failure (CHF), COPD, Coronary Artery Disease (CAD) Additional Family Medical History / Comment(s): at age 72. Mother Family Medical History: Cancer Additional Family Medical History / Comment(s): at age 86, colon cancer. Sister(s) Family Medical History: COPD, Liver Disease Additional Family Medical History / Comment(s): Patient had one sister with history of alcoholism and at age 71. She also had COPD. Brother(s) Additional Family Medical History / Comment(s): Patient has one dtr that from diabetes complications. One son has history of hypertension. One daughter has diabetes. Medications and Allergies Home Medications Medication Instructions Recorded Confirmed Type Atorvastatin [Lipitor] 40 mg PO HS 05/16/16 06/22/21 History Apixaban [Eliquis] 2.5 mg PO BID #60 tab 05/25/19 06/22/21 Rx Isosorbide Mononitrate ER [Imdur] 30 mg PO DAILY #0 02/20/20 06/22/21 Rx Multivitamins, Thera [Multivitamin 1 tab PO DAILY 07/05/20 06/22/21 History (formulary)] carvediloL [Coreg] 3.125 mg PO BID 06/22/21 06/22/21 History Allergies Allergy/AdvReac Type Severity Reaction Status Date / Time No Known Allergies Allergy Verified 04/02/21 19:33 Physical Exam Vitals: Vital Signs Temp Pulse Pulse Resp BP BP Pulse Ox 06/22/21 23:38 98.7 F 71 18 148/81 96 06/22/21 23:00 61 18 115/77 06/22/21 22:00 61 18 124/76 97 06/22/21 20:00 67 14 142/80 98 06/22/21 19:50 97.7 F 59 L 18 138/88 96 Intake and Output 06/22/21 06/23/21 06/23/21 22:59 06:59 14:59 Other: Voiding Method External Catheter # Voids 1 Weight 80.286 kg 80.286 kg Results CBC & Chem 7: 06/23/21 02:37 06/23/21 02:37 Labs: Abnormal Lab Results - Last 24 Hours (Table) 06/22/21 06/22/21 06/22/21 Range/Units 20:46 20:46 20:46 RBC 3.84 L (4.30-5.90) m/uL Hgb 12.5 L (13.0-17.5) gm/dL Hct 35.3 L (39.0-53.0) % Lymphocytes # 0.9 L (1.0-4.8) k/uL APTT 21.6 L (22.0-30.0) sec Sodium (137-145) mmol/L Carbon Dioxide (22-30) mmol/L BUN 28 H (9-20) mg/dL Creatinine 1.37 H (0.66-1.25) mg/dL Glucose 121 H (74-99) mg/dL Total Protein 6.2 L (6.3-8.2) g/dL Albumin 3.3 L (3.5-5.0) g/dL Urine Protein (Negative) Urine Blood (Negative) Urine RBC (0-5) /hpf Urine Bacteria (None) /hpf Urine Mucus (None) /hpf 06/23/21 06/23/21 06/23/21 Range/Units 02:37 02:37 06:05 RBC 3.93 L (4.30-5.90) m/uL Hgb 12.4 L (13.0-17.5) gm/dL Hct 36.1 L (39.0-53.0) % Lymphocytes # (1.0-4.8) k/uL APTT (22.0-30.0) sec Sodium 136 L (137-145) mmol/L Carbon Dioxide 20 L (22-30) mmol/L BUN 27 H (9-20) mg/dL Creatinine 1.33 H (0.66-1.25) mg/dL Glucose 112 H (74-99) mg/dL Total Protein (6.3-8.2) g/dL Albumin (3.5-5.0) g/dL Urine Protein Trace H (Negative) Urine Blood Trace H (Negative) Urine RBC 9 H (0-5) /hpf Urine Bacteria Rare H (None) /hpf Urine Mucus Rare H (None) /hpf
--- NOTE | 2021-06-23 16:32 | ECHOF ---
Referral Reason:LVF MEASUREMENTS -------- HEIGHT: 175.3 cm WEIGHT: 80.3 kg BP: 129/83 RVIDd: 4.3 cm (< 3.3) IVSd: 1.6 cm (0.6 - 1.1) LVIDd: 4.6 cm (3.9 - 5.3) LVPWd: 1.4 cm (0.6 - 1.1) IVSs: 1.7 cm LVIDs: 3.7 cm LVPWs: 1.6 cm LAESV Index (A-L): 59.65 ml/m Ao Diam: 3.8 cm (2.0 - 3.7) AV Cusp: 2.0 cm (1.5 - 2.6) LA Diam: 4.4 cm (2.7 - 3.8) MV EXCURSION: 10.955 mm (> 18.000) MV EF SLOPE: 54 mm/s (70 - 150) EPSS: 1.1 cm MV E Ever: 0.88 m/s MV DecT: 165 ms MV A Ever: 0.39 m/s MV E/A Ratio: 2.27 AR PHT: 795 ms RAP: 5.00 mmHg RVSP: 22.90 mmHg FINDINGS -------- This was a technically adequate study. The left ventricular size is normal. There is moderate concentric left ventricular hypertrophy. O verall left ventricular systolic function is moderate-severely impaired with, an EF between 30 - 35 % . The right ventricle is severely enlarged. LA is severely dilated >40 ml/m2 The right atrium was not well visualized. Interatrial and interventricular septum intact. There is mild aortic valve sclerosis. There is mild aortic regurgitation. There is no evidence of aortic stenosis. Moderate mitral annular calcification present. Eixmxpot-[id number] mitral regurgitation is present. The tricuspid valve appears structurally normal. [id number]-[id number] tricuspid regurgitation present. Right ventricular systolic pressure is normal at < 35 mmHg. The right ventricular systolic pressu re, as measured by Doppler, is 22.90mmHg. There is no pulmonic regurgitation present. The aortic root is mildy dilated. IVC Not well visulized. There is no pericardial effusion. CONCLUSIONS -------- 1. There is moderate concentric left ventricular hypertrophy. 2. Overall left ventricular systolic function is moderate-severely impaired with, an EF between 30 - 35 %. 3. The right ventricle is severely enlarged. 4. There is mild aortic regurgitation. 5. Gwopbhqj-ul-nsotxx mitral regurgitation is present. 6. Dwoh-aq-totwylnm tricuspid regurgitation present. 7. The aortic root is mildy dilated. ROTARY DRILLER PROSPECTING: Caitlin Workman RDCS
[2021-06-23] MEDS: ATORVASTATIN 40 MG TAB PO SCH (20:37)
--- NOTE | 2021-06-24 07:26 | P.CNNES ---
History of Present Illness Consult date: 06/23/21 Reason for Consult: mental status change History of Present Illness: The patient is an 86-year-old male who [facility] June 23 2021, via teleneurology. The majority of the history is obtained from the chart. The patient is able to tell me that he passed out at home. He denies confusion following the episode. He says that his family was present at the time of this event. Patient denies headache before and after the episode. The patient is very slow to answer questions and so a history is difficult to obtain. The patient is able to tell me. He walks with the assistance of a walker, at home. In reviewing the history and physical, the patient has reportedly experienced other episodes of syncope. One thought to be vasovagal, another thought to be secondary to atrial fibrillation. The patient has reportedly been getting weaker and has been having dizziness. The episode of syncope which brought him into the hospital this time was witnessed by family. There were no reported tonic-clonic movements. Past Medical History Past Medical History: Atrial Fibrillation, Coronary Artery Disease (CAD), Cancer, Hyperlipidemia, Hypertension, Myocardial Infarction ([place]), Osteoarthritis (OA), Prostate Disorder Additional Past Medical History / Comment(s): 1999-prostate cancer with radiation Last Myocardial Infarction Date:: 1998 History of Any Multi-Drug Resistant Organisms: None Reported Past Surgical History: Coronary Bypass/CABG, Heart Catheterization With Stent, Hernia Repair Additional Past Surgical History / Comment(s): Open heart Quadrupal bypass (1998) Past Anesthesia/Blood Transfusion Reactions: No Reported Reaction Date of Last Stent Placement:: 2015 Past Psychological History: No Psychological Hx Reported Smoking Status: Former smoker Past Alcohol Use History: None Reported Additional Past Alcohol Use History / Comment(s): Patient was a smoker of cigars for 10 years ago quit approximately 15 years ago. He no longer drinks alcohol on a social basis. He denies any medical marijuana, marijuana, street drug use. Patient lives at home alone. Past Drug Use History: None Reported - Past Family History Father Family Medical History: Congestive Heart Failure (CHF), COPD, Coronary Artery Disease (CAD) Additional Family Medical History / Comment(s): at age 72. Mother Family Medical History: Cancer Additional Family Medical History / Comment(s): at age 86, colon cancer. Sister(s) Family Medical History: COPD, Liver Disease Additional Family Medical History / Comment(s): Patient had one sister with history of alcoholism and at age 71. She also had COPD. Brother(s) Additional Family Medical History / Comment(s): Patient has one dtr that from diabetes complications. One son has history of hypertension. One daughter has diabetes. Medications and Allergies Home Medications Medication Instructions Recorded Confirmed Type Atorvastatin [Lipitor] 40 mg PO HS 05/16/16 06/22/21 History Apixaban [Eliquis] 2.5 mg PO BID #60 tab 05/25/19 06/22/21 Rx Isosorbide Mononitrate ER [Imdur] 30 mg PO DAILY #0 02/20/20 06/22/21 Rx Multivitamins, Thera [Multivitamin 1 tab PO DAILY 07/05/20 06/22/21 History (formulary)] carvediloL [Coreg] 3.125 mg PO BID 06/22/21 06/22/21 History Allergies Allergy/AdvReac Type Severity Reaction Status Date / Time No Known Allergies Allergy Verified 04/02/21 19:33 Physical Examination - Vital Signs Vital Signs: Vital Signs Temp Pulse Pulse Resp BP BP Pulse Ox 06/23/21 14:44 97.3 F L 61 17 132/61 93 L 06/23/21 07:00 98.5 F 60 16 129/83 96 06/22/21 23:38 98.7 F 71 18 148/81 96 06/22/21 23:00 61 18 115/77 06/22/21 22:00 61 18 124/76 97 06/22/21 20:00 67 14 142/80 98 06/22/21 19:50 97.7 F 59 L 18 138/88 96 Intake and Output 06/23/21 06/23/21 06/23/21 06:59 14:59 22:59 Intake Total 256 Balance 256 Intake: Oral 256 Other: Voiding Method External Catheter Diaper # Voids 1 1 Weight 80.286 kg Gen.: The patient is reclining in the bed. He is well-nourished. He is in no acute distress. HEENT: Head is atraumatic, normocephalic. Fundus not visualized. There is no scleral icterus. Mucous members are moist. Neck: Supple Heart: Regular rate and rhythm Extremities: Without edema Neurological examination Mental status: The patient is awake, alert and oriented to his name, date of , current year, "[facility]" and the city he is in. His speech is clear. He is very slow to answer questions. He is markedly hard of hearing. Cranial nerves: Pupils are unequal, with the left being 2 mm and the right being 3 mm. Both are reactive. Visual jones are full to confrontation. Extraocular movements are intact. There is no nystagmus. Facial sensation is intact. There is no facial asymmetry. Hearing is markedly diminished. Uvula and palate are midline. Shoulder shrug is symmetric. Tongue protrudes midline. Motor: Right wrapper stitcher strength is stronger than the left. Right lower extremity strength 4/5. Otherwise, strength is 5/5 throughout. Sensation: Grossly intact to light touch throughout. There is no extinction with double simultaneous stimulation. Coordination: Finger to nose and rapid alternating movements are intact. Results - Laboratory Findings CBC and BMP: 06/23/21 02:37 06/23/21 02:37 Abnormal Lab Findings: Abnormal Labs 06/22/21 06/22/21 06/22/21 20:46 20:46 20:46 RBC 3.84 L Hgb 12.5 L Hct 35.3 L Lymphocytes # 0.9 L APTT 21.6 L Sodium Carbon Dioxide BUN 28 H Creatinine 1.37 H Glucose 121 H Total Protein 6.2 L Albumin 3.3 L Urine Protein Urine Blood Urine RBC Urine Bacteria Urine Mucus 06/23/21 06/23/21 06/23/21 02:37 02:37 06:05 RBC 3.93 L Hgb 12.4 L Hct 36.1 L Lymphocytes # APTT Sodium 136 L Carbon Dioxide 20 L BUN 27 H Creatinine 1.33 H Glucose 112 H Total Protein Albumin Urine Protein Trace H Urine Blood Trace H Urine RBC 9 H Urine Bacteria Rare H Urine Mucus Rare H - Diagnostic Findings Comments: CT scan of the brain reveals diffuse cortical atrophy, with chronic encephalomalacia of the left parietal lobe. Also chronic microvascular ischemic changes Assessment and Plan Assessment: 1. Loss of consciousness, probable syncope. The patient is a poor historian. He is markedly hard of hearing. The patient is oriented 3. His speech is clear. He is very slow to answer questions. 2. There is likely mild cognitive deficits versus mild acute encephalopathy Plan: 1. Agree with EEG 2. Check labs such as B12, folate, VDRL, TSH for treatable causes of dementia 3. If this testing is unremarkable in the patient continues to have difficulty with memory and thinking, outpatient neurologic follow-up would be indicated for further evaluation of dementia Time with Patient: Greater than 30 (spent 40 minutes with patient via teleneurology)
[2021-06-24] MEDS: carvediloL 3.125 MG TAB PO SCH ×2 (07:34→19:50)
[2021-06-24] MEDS: PANTOPRAZOLE 40 MG TABLET PO SCH (07:34)
[2021-06-24] MEDS: APIXABAN 2.5 MG TABLET PO SCH ×2 (07:34→19:50)
[2021-06-24] MEDS: MULTIVITAMINS, THERA 1 EACH TAB PO SCH (07:35)
[2021-06-24] MEDS: ISOSORBIDE MONONITRATE ER 30 MG TAB.ER.24H PO SCH (07:35)
--- NOTE | 2021-06-24 11:24 | P.PN ---
Subjective Progress Note Date: 06/24/21 HISTORY OF PRESENT ILLNESS This is an 85-year-old male patient of Dr. Lopez and Dr. VAHID Pan. He has a past medical history of PR and coronary artery disease status post stenting and 4 vessel CABG done in [place] in 1999, LISA to LAD, SVG to intermediate, and SVG to diagonal, as well as SVG to left circumflex, hypertension, hypertensive vascular disease, hyperlipidemia with history of prostate cancer treated with radiation. He completed radiation treatment in April 2012. 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 In 2013 patient had acute non-ST elevated myocardial infarction and underwent stenting of the SVG to the left circumflex. Patient did have an hospitalization July 2019 for syncopal episode thought to be vasovagal and again in February for near syncope thought to be possibly A. fib with RVR. He then had a hospitalization in June 2020 for another near syncopal episode thought to be secondary to bradycardia and hypotension. He was seen by cardiology and underwent tilt table test that was negative. Patient had a recent hospitalization in February following a slip and fall with right sided rib fractures and possible pneumonia and again in March for significant weakness and was discharged to [facility] for subacute rehab. Patient now presents after a syncopal episode yesterday. Patient has had progressive weakness, dizziness. He was sitting at table eating and had a syncopal episode, no seizure activity was noted by family. Patient was brought into into [facility] emergency center for evaluation. He was afebrile, heart rate 59, blood pressure 138/88, pulse ox 96% on room air. EKG atrial fibrillation with controlled rate. WBC 8.9, hemoglobin 12.5, platelet count 165. Electrolytes were normal. BUN 28 creatinine 1.37 which is his baseline. Blood sugar 121. Calcium 9.0, liver function tests normal. Troponin negative on 3 draws. Urinalysis negative for infection but s howed protein trace and blood trace. Lactic acid 1.4. CAT scan of the brain showed no acute intracranial hemorrhage, midline shift or mass effect. Chronic encephalomalacia of the left parietal lobe and patchy white matter hypodensities likely sequelae of chronic microvascular ischemic change. Generalized volume loss. Chest x-ray reveals central prominence of pulmonary vasculature may represent congestion versus accenuated lung markings from low lung volumes. Patient was placed on the observation unit and consults requested with cardiology and neurology. 06/24: The patient was seen yesterday by neurology with agreement for EEG, lab work including B12, folate, VDRL, TSH all ordered. Patient was alert and oriented 3 yesterday afternoon and again this morning patient is quite confused slow to answer any questions. He is noted to be sleeping but awakens and opens his eyes to verbal stimuli. Orthostatic vital signs will be checked today. No noted diarrhea. No complaints of pain. He has had no seizure activity and no syncopal episodes since admission. Patient is afebrile, heart rate 61, blood pressure 137/79, pulse ox 97% on room air. Prolactin 13.2. Repeat blood work ordered for tomorrow. Patient is also been seen by cardiology and they have signed off his case. Echocardiogram reveals EF of 30-35% with mild aortic regurgitation, moderate to severe mitral regurgitation, mild to moderate tricuspid regurgitation. Echocardiogram from June 2020 revealed EF of 45-50%. REVIEW OF SYSTEMS Constitutional: No fever, no chills, no night sweats. No weight change. Noted weakness, reports fatigue, no lethargy. Noted daytime sleepiness. EENT: No headache. No blurred vision or double vision, no loss of vision. Chronic loss of Hearing No nasal drainage or congestion. No epistaxis. No sore throat. Lungs: No shortness of breath, reports cough, no sputum production. No wheezing. Cardiovascular: No chest pain, no lower extremity edema. No palpitations. No paroxysmal nocturnal dyspnea. No orthopnea. No lightheadedness or dizziness. Reported syncopal episodes. Abdominal: No abdominal pain. No nausea, vomiting. No diarrhea. No constipation. No bloody or tarry stools.. No loss of appetite. Genitourinary: No dysuria, increased frequency, urgency. No urinary retention. Musculoskeletal: No myalgias. Reports muscle weakness, reports gait dysfunction, no frequent falls. No back pain. No neck pain. Integumentary: No wounds, no lesions. No rash or pruritus. No unusual bruising. No change in hair or nails. Neurologic: No aphasia. No facial droop. Noted change in mentation, improves by afternoon. No head injury. No headache. No paralysis. No paresthesia. Psychiatric: No depression. No anxiety. Endocrine: No abnormal blood sugars. PHYSICAL EXAMINATION Gen: This is an 86-year-old male. He is resting in bed and appears to be comfortable and in no acute distress. HEENT: Head is atraumatic, normocephalic. Pupils equal, round. Sclerae is anicteric. NECK: Supple. No JVD. No lymphadenopathy. No thyromegaly. LUNGS: Clear to auscultation. No wheezes or rhonchi. No intercostal retractions. HEART: Regular rate and rhythm. Systolic murmur. ABDOMEN: Soft. Bowel sounds are present. No masses. No tenderness. EXTREMITIES: No pedal edema. No calf tenderness. NEUROLOGICAL: Patient is awake, alert but confused and not had his baseline. Patient is oriented to person and place but mental status improves by afternoon. Cranial nerves 2 through 12 are grossly intact. ASSESSMENT AND PLAN 1. Syncopal episode of unknown etiology, rule out TIA, seizures, arrhythmia. Consult with cardiology and neurology. Echocardiogram, EEG ordered. Patient to follow seizure precautions and fall precautions, continue her to monitor, transfer patient to [facility] floor as an inpatient. Consult PT and OT. 2. Metabolic encephalopathy of unclear etiology. Consult with neurology continue testing as in #1. PT and OT consults. 3. Chronic persistent atrial fibrillation. Continue eliquis 2.5 mg twice daily, Coreg 3.125 mg twice daily. 4. History of coronary artery disease with prior bypass and stenting, stable. Continue atorvastatin 40 mg daily, Imdur 30 mg daily. 5. Hypertension, hypertensive cardiovascular disease. Continue Coreg. 6. Hyperlipidemia. Continue statin 7. Chronic kidney disease stage IIIa, stable. Baseline creatinine 1.4. 8. Anemia of chronic kidney disease, stable 9. History of prostate cancer treated with radiation, stable. 10. 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 11. Short-term memory deficit. 12. Valvular heart disease with mild aortic regurgitation, moderate to severe mitral regurgitation, [id number] tricuspid regurgitation. Noted decrease in EF. 13. GI prophylaxis. Protonix. 14. DVT prophylaxis. Eliquis. DISCHARGE PLAN To be determined. PT and OT. Impression and plan of care have been directed as dictated by the signing physician. Gloria Oneill nurse practitioner acting as scribe for signing physician. Objective - Vital Signs Vital signs: Vital Signs Temp 98.3 F 06/24/21 07:33 Pulse 61 06/24/21 07:33 Resp 16 06/24/21 07:33 BP 137/79 06/24/21 07:33 Pulse Ox 97 06/24/21 07:33 Intake & Output 06/23/21 06/24/21 06/24/21 18:59 06:59 18:59 Intake Total 256 Balance 256 Intake: Oral 256 Other: Voiding Method Diaper Diaper # Voids 1 1 # Bowel Movements 1 - Labs CBC & Chem 7: 06/23/21 02:37 06/23/21 02:37
--- NOTE | 2021-06-24 14:16 | P.PN ---
Subjective Progress Note Date: 06/24/21 This is a pleasant but confused 86-year-old gentleman who follows with Dr. VAHID Pan in the office. He has a history of CAD with prior 4 vessel CABG in 1999, chronic persistent atrial fibrillation, and hyperlipidemia. Has a history of a cardioversion in June 2019 but has been in atrial fibrillation since that ER visit in December 2019. The HPI was obtained from the chart as the patient is not sure why he was brought to the emergency room. He is oriented to himself and place. He is unsure what year or month it is but can't tell me that Pb Juárez is the President. When asked if he was dizzy his answer was possibly. He does not recall any syncopal episode. According to the ER the patient was brought to the emergency department with altered mental status. The daughter was apparently at the bedside to provide history although the patient does not recall anyone coming to the emergency room with him. According to the chart she was sitting at the dinner table when he closed his eyes told his daughter he was dizzy and when completely unresponsive and slumped over at which time EMS was ca lled. The patient does not recall any of this. According to the patient he does not get up to a table to eat dinner and [facility] while in bed. The patient is apparently mostly bedbound. He walks very little. Mostly uses a commode at the bedside according to the patient. He does have a walker to get around but according to him he uses it very little and is mostly in bed. At last office visit with Dr. Pan in January 2021 his functional capacity was stable and he is to walker to get around. At that time it was discussed whether or not to attempt to restore sinus mechanism and it was decided to pursue rate control as the likelihood of maintaining sinus mechanism following cardioversion was low. EKG on admission showed atrial fibrillation with controlled ventricular response. Computed tomography scan of the brain showed no acute intracranial hemorrhage, midline shift or mass effect, chronic encephalomalacia of the left parietal lobe and patchy white matter hypodensities likely sequela of chronic microvascular ischemic change, generalized volume loss. Chest x-ray on admission showed central prominence of the pulmonary vasculature may represent congestion versus accentuated lung markings from low lung volumes. Laboratory values showed BUN of 27 and creatinine 1.33 which are stable, troponins negative 3. According to the patient he does have occasional dizziness although does not recall specific instances. He denies any chest discomfort, difficulty breathing, palpitations, orthopnea, PND or edema. Denies any episodes of syncope that he can recall. He denies history of diagnosis of dementia. He says he lives with his oldest son. 06/24/2021 The patient was seen and examined resting comfortably in bed with head of bed flat. Patient remains confused but denies any shortness of breath, chest pain or dizziness. A cardiogram with Doppler study done yesterday showed moderate to severely impaired LV systolic function with an ejection fraction between 30-35%, severely enlarged RV, mild aortic regurgitation, moderate to severe mitral regur gitation and mild to moderate tricuspid regurgitation. Objective - Vital Signs Vital signs: Vital Signs Temp 98.3 F 06/24/21 07:33 Pulse 61 06/24/21 07:33 Resp 16 06/24/21 07:33 BP 137/79 06/24/21 07:33 Pulse Ox 97 06/24/21 07:33 Intake & Output 06/23/21 06/24/21 06/24/21 18:59 06:59 18:59 Intake Total 256 Balance 256 Intake: Oral 256 Other: Voiding Method Diaper Diaper Diaper # Voids 1 1 1 # Bowel Movements 1 1 - Exam PHYSICAL EXAMINATION: HEENT: Head is atraumatic, normocephalic. Pupils equal, round. Neck is supple. There is no elevated jugular venous pressure. HEART EXAMINATION: Heart sounds regular, S1 and S2 with a systolic murmur at the apex. CHEST EXAMINATION: Lungs are clear to auscultation. No chest wall tenderness is noted on palpation or with deep breathing. ABDOMEN: Soft, nontender. Bowel sounds are heard. No organomegaly noted. EXTREMITIES: 2+ peripheral pulses with no evidence of peripheral edema and no calf tenderness noted. NEUROLOGIC patient is awake, alert and oriented to person and place. . - Labs CBC & Chem 7: 06/23/21 02:37 06/23/21 02:37 Assessment and Plan Assessment: #1 altered mental status #2 possible syncopal episode #3 chronic persistent atrial fibrillation, anticoagulated 4 CAD with prior CABG #5 hyperlipidemia 6 cardiomyopathy unspecified Plan: From cardiology's perspective we'll add an EULALIO inhibitor. Monitor the patient's renal function. Managed cardiomyopathy medically. Patient does not appear to be in any acute CHF. We will continue to follow the patient for further recommendations accordingly. CONDITIONING ROOM WORKER note has been reviewed, I agree with a documented findings and plan of care. Patient was seen and examined.
[2021-06-24] MEDS: lisinopriL 5 MG TAB PO SCH (14:59)
[2021-06-24] MEDS: MIRTAZAPINE 15 MG TAB PO SCH (19:50)
[2021-06-24] MEDS: ATORVASTATIN 40 MG TAB PO SCH (19:50)
[2021-06-25] MEDS: PANTOPRAZOLE 40 MG TABLET PO SCH (06:33)
[2021-06-25 08:01] LABS: HCT 35.5 % (39.0-53.0); HGB 12.2 gm/dL (13.0-17.5); MCH 31.8 pg (25.0-35.0); MCHC 34.4 g/dL (31.0-37.0); MCV 92.4 fL (80.0-100.0); Mean Platelet Volume 7.9; Platelet Count 183 k/uL (150-450); RBC 3.84 m/uL (4.30-5.90); RDW 13.1 % (11.5-15.5); WBC 7.3 k/uL (3.8-10.6)
[2021-06-25 08:12] LABS: Calcium 9.7 mg/dL (8.4-10.2); Potassium 4.2 mmol/L (3.5-5.1)
[2021-06-25] MEDS: ISOSORBIDE MONONITRATE ER 30 MG TAB.ER.24H PO SCH (08:25)
[2021-06-25] MEDS: MULTIVITAMINS, THERA 1 EACH TAB PO SCH (08:25)
[2021-06-25] MEDS: carvediloL 3.125 MG TAB PO SCH ×2 (08:25→19:50)
[2021-06-25] MEDS: APIXABAN 2.5 MG TABLET PO SCH ×2 (08:25→19:50)
[2021-06-25] MEDS: lisinopriL 5 MG TAB PO SCH (08:25)
--- NOTE | 2021-06-25 11:45 | P.PN ---
Subjective Progress Note Date: 06/25/21 (t) HISTORY OF PRESENT ILLNESS This is an 85-year-old male patient of Dr. Lopez and Dr. VAHID Pan. He has a past medical history of AL and coronary artery disease status post stenting and 4 vessel CABG done in [place] in 1999, LISA to LAD, SVG to intermediate, and SVG to diagonal, as well as SVG to left circumflex, hypertension, hypertensive vascular disease, hyperlipidemia with history of prostate cancer treated with radiation. He completed radiation treatment in April 2012. 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 In 2013 patient had acute non-ST elevated myocardial infarction and underwent stenting of the SVG to the left circumflex. Patient did have an hospitalization July 2019 for syncopal episode thought to be vasovagal and again in February for near syncope thought to be possibly A. fib with RVR. He then had a hospitalization in June 2020 for another near syncopal episode thought to be secondary to bradycardia and hypotension. He was seen by cardiology and underwent tilt table test that was negative. Patient had a recent hospitalization in February following a slip and fall with right sided rib fractures and possible pneumonia and again in March for significant weakness and was discharged to [facility] for subacute rehab. Patient now presents after a syncopal episode yesterday. Patient has had progressive weakness, dizziness. He was sitting at table eating and had a syncopal episode, no seizure activity was noted by family. Patient was brought into into [facility] emergency center for evaluation. He was afebrile, heart rate 59, blood pressure 138/88, pulse ox 96% on room air. EKG atrial fibrillation with controlled rate. WBC 8.9, hemoglobin 12.5, platelet count 165. Electrolytes were normal. BUN 28 creatinine 1.37 which is his baseline. Blood sugar 121. Calcium 9.0, liver function tests normal. Troponin negative on 3 draws. Urinalysis negative for infection but showed protein trace and blood trace. Lactic acid 1.4. CAT scan of the brain showed no acute intracranial hemorrhage, midline shift or mass effect. Chronic encephalomalacia of the left parietal lobe and patchy white matter hypodensities likely sequelae of chronic microvascular ischemic change. Generalized volume loss. Chest x-ray reveals central prominence of pulmonary vasculature may repr esent congestion versus accenuated lung markings from low lung volumes. Patient was placed on the observation unit and consults requested with cardiology and neurology. 06/24: The patient was seen yesterday by neurology with agreement for EEG, lab work including B12, folate, VDRL, TSH all ordered. Patient was alert and oriented 3 yesterday afternoon and again this morning patient is quite confused slow to answer any questions. He is noted to be sleeping but awakens and opens his eyes to verbal stimuli. Orthostatic vital signs will be checked today. No noted diarrhea. No complaints of pain. He has had no seizure activity and no syncopal episodes since admission. Patient is afebrile, heart rate 61, blood pressure 137/79, pulse ox 97% on room air. Prolactin 13.2. Repeat blood work ordered for tomorrow. Patient is also been seen by cardiology and they have signed off his case. Echocardiogram reveals EF of 30-35% with mild aortic regurgitation, moderate to severe mitral regurgitation, mild to moderate tricuspid regurgitation. Echocardiogram from June 2020 revealed EF of 45-50%. 06/25: Patient has been seen and followed by cardiology. EULALIO inhibitor was added with plan to manage cardiomyopathy medically. No signs of acute heart failure. Patient was noted on telemetry to have runs of bigeminy trigeminal, A. fib or flutter. Patient is awake and alert. He is again slow to respond in the morning. He has been afebrile, heart rate 66, blood pressure 1 3445, pulse ox 90% on room air. Repeat blood work reveals WBC 7.3, hemoglobin 12.2 and platelet count 183. Electrolytes are all normal. BUN 37 and creatinine 1.63. Magnesium 1.8. Repeat EKGs been ordered. Anticipate he will be seen today by PT and OT anticipate need for rehab. REVIEW OF SYSTEMS Constitutional: No fever, no chills, no night sweats. No weight change. Noted weakness, reports fatigue, no lethargy. Noted daytime sleepiness. EENT: No headache. No blurred vision or double vision, no loss of vision. Chronic loss of Hearing No nasal drainage or congestion. No epistaxis. No sore throat. Lungs: No shortness of breath, reports cough, no sputum production. No wheezing. Cardiovascular: No chest pain, no lower extremity edema. No palpitations. No paroxysmal nocturnal dyspnea. No orthopnea. No lightheadedness or dizziness. Reported syncopal episodes. Abdominal: No abdominal pain. No nausea, vomiting. No diarrhea. No constipation. No bloody or tarry stools.. No loss of appetite. Genitourinary: No dysuria, increased frequency, urgency. No urinary retention. Musculoskeletal: No myalgias. Reports muscle weakness, reports gait dysfunction, no frequent falls. No back pain. No neck pain. Integumentary: No wounds, no lesions. No rash or pruritus. No unusual bruising. change in hair or nails. Neurologic: No aphasia. No facial droop. Noted change in mentation, improves by afternoon. No head injury. No headache. No paralysis. No paresthesia. Psychiatric: No depression. No anxiety. Endocrine: No abnormal blood sugars. PHYSICAL EXAMINATION Gen: This is an 86-year-old male. He is resting in bed and appears to be sleeping, awakens to verbal stimuli, he appears to be comfortable and in no acute distress. HEENT: Head is atraumatic, normocephalic. Pupils equal, round. Sclerae is anicteric. NECK: Supple. No JVD. No lymphadenopathy. No thyromegaly. LUNGS: Clear to auscultation. No wheezes or rhonchi. No intercostal retractions. HEART: Regular rate and rhythm. Systolic murmur. Distant heart sounds. ABDOMEN: Soft. Bowel sounds are present. No masses. No tenderness. EXTREMITIES: No pedal edema. No calf tenderness. NEUROLOGICAL: Patient is awake, alert but confused and not had his baseline. Patient is oriented to person and place but mental status improves by afternoon. Cranial nerves 2 through 12 are grossly intact. ASSESSMENT AND PLAN 1. Syncopal episode of unknown etiology, rule out TIA, seizures, arrhythmia. Consult with cardiology and neurology appreciated. Echocardiogram as above, EEG ordered. Patient to follow seizure precautions and fall precautions, continue paper tube grader. Consult PT and OT. 2. Metabolic encephalopathy of unclear etiology. Consult with neurology continue testing as in #1. PT and OT consults. 3. Chronic persistent atrial fibrillation. Continue eliquis 2.5 mg twice daily, Coreg 3.125 mg twice daily. 4. History of coronary artery disease with prior bypass and stenting, stable. Continue atorvastatin 40 mg daily, Imdur 30 mg daily. 5. Hypertension, hypertensive cardiovascular disease. Continue Coreg. 6. Hyperlipidemia. Continue statin 7. Chronic kidney disease stage IIIa, stable. Baseline creatinine 1.4. 8. Anemia of chronic kidney disease, stable 9. History of prostate cancer treated with radiation, stable. 10. 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 11. Short-term memory deficit. 12. Valvular heart disease with mild aortic regurgitation, moderate to severe mitral regurgitation, [id number] tricuspid regurgitation. Noted decrease in EF. 13. Cardiomyopathy. Continue Coreg, lisinopril 5 mg daily has been added. 14. GI prophylaxis. Protonix. 15. DVT prophylaxis. Eliquis. DISCHARGE PLAN To be determined. PT and OT. Impression and plan of care have been directed as dictated by the signing physician. Gloria Oneill nurse practitioner acting as scribe for signing physician. Objective - Vital Signs Vital signs: Vital Signs Temp 98.1 F 06/25/21 04:00 Pulse 56 L 06/25/21 04:00 Resp 18 06/25/21 04:00 BP 131/80 06/25/21 04:00 Pulse Ox 96 06/25/21 04:00 Intake & Output 06/24/21 06/25/21 06/25/21 18:59 06:59 18:59 Intake Total 236 Balance 236 Intake: Oral 236 Other: Voiding Method Diaper Diaper # Voids 1 2 # Bowel Movements 1 1 - Labs CBC & Chem 7: 06/25/21 07:17 06/25/21 07:17 Labs: Abnormal Lab Results - Last 24 Hours (Table) 06/25/21 06/25/21 Range/Units 07:17 07:17 RBC 3.84 L (4.30-5.90) m/uL Hgb 12.2 L (13.0-17.5) gm/dL Hct 35.5 L (39.0-53.0) % BUN 37 H (9-20) mg/dL Creatinine 1.63 H (0.66-1.25) mg/dL
--- NOTE | 2021-06-25 15:37 | P.PN ---
Subjective This is a 86-year-old gentleman who follows with Dr. VAHID Pan in the office. He has a history of CAD with prior 4 vessel CABG in 1999, chronic persistent atrial fibrillation, and hyperlipidemia. Has a history of a cardioversion in June 2019 but has been in atrial fibrillation since that ER visit in December 2019. Patient presents to the emergency department with altered mental satus and possible syncopal episode. According to the chart she was sitting at the dinner table when he closed his eyes told his daughter he was dizzy and when completely unresponsive and slumped over at which time EMS was called. The patient does not recall any of this. EKG on admission showed atrial fibrillation with controlled ventricular response. Computed tomography scan of the brain showed no acute intracranial hemorrhage, midline shift or mass effect, chronic encephalomalacia of the left parietal lobe and patchy white matter hypodensities likely sequela of chronic microvascular ischemic change, generalized volume loss. Chest x-ray on admission showed central prominence of the pulmonary vasculature may represent congestion versus accentuated lung markings from low lung volumes. Echocardiogram revealed an EF of 3035 percent, mild aortic regurgitation, moderate to severe mitral regurgitation, mild to moderate tricuspid regurgitation, prior echocardiogram in 2019 with an EF 45-50% 06/25/2021: Patient seen and examined at bedside, no acute distress. He continues to appear confused. He appears stable and euvolemic on exam. Blood pressure 113/72, heart rate 59, afebrile, maintaining oxygen saturations on on room air. Patient continues to be in atrial fibrillation with controlled ventricular rates. Occasional does appear to have atrial fibrillation with an abberrancy. D reviewed, WBC 7.3, hemoglobin 12, platelets 183, sodium 137, potassium 4.2, BUN 37, serum creatinine 1.6, troponin negative times 3. GENERAL: in no acute distress. Appears dry on exam NECK: Supple without JVD LUNGS: Breath sounds clear to auscultation bilaterally. Respiration equal and unlabored. No wheezes, rales or rhonchi. HEART: Irregular rate and rhythm Systolic murmur, no rubs or gallops. S1 and S2 heard. EXTREMITIES: No edema. No clubbing or cyanosis. Peripheral pulses intact. ASSESSMENT Altered mental status, unknown baseline Acute on chronic kidney disease Possible syncopal episode Chronic persistent atrial fibrillation, on Eliquis Coronary artery disease s/p 4v CABG in 2000 Hyperlipidemia Cardiomyopathy, unclear if ischemic vs non-ischemic at this time. Does not appear to be Takotsubo in nature. PLAN We will continue present medical therapy with Eliquis 2.5 mg twice a day, atorvastatin 40 mg daily, carvedilol 3.125 mg twice a day, Imdur 30 mg daily, lisinopril 5 mg daily Patient does appears dry on exam, ok to slowly hydrate patient to assess for improvement We will continue to follow and make recommendations accordingly Nurse Practitioner note has been reviewed, I agree with a documented findings and plan of care. Patient was seen and examined. Objective - Vital Signs Vital signs: Vital Signs Temp 97.9 F 06/25/21 08:00 Pulse 59 L 06/25/21 14:00 Resp 18 06/25/21 14:00 BP 113/72 06/25/21 14:00 Pulse Ox 94 L 06/25/21 14:00 Intake & Output 06/24/21 06/25/21 06/25/21 18:59 06:59 18:59 Intake Total 236 Balance 236 Intake: Oral 236 Other: Voiding Method Diaper Diaper Diaper # Voids 1 2 # Bowel Movements 1 1 - Labs CBC & Chem 7: 06/25/21 07:17 06/25/21 07:17 Labs: Abnormal Lab Results - Last 24 Hours (Table) 06/25/21 06/25/21 Range/Units 07:17 07:17 RBC 3.84 L (4.30-5.90) m/uL Hgb 12.2 L (13.0-17.5) gm/dL Hct 35.5 L (39.0-53.0) % BUN 37 H (9-20) mg/dL Creatinine 1.63 H (0.66-1.25) mg/dL
--- NOTE | 2021-06-25 16:07 | EEG ---
ELECTROENCEPHALOGRAM REPORT DATE OF SERVICE: 06/25/2021. CLINICAL HISTORY: This is an 86-year-old gentleman with history of encephalomalacia over the left parietal with an episode of loss of consciousness. The video EEG is obtained to evaluate for seizure epileptiform activity. RELEVANT MEDICATION: The patient is not on any antiepileptic drugs. EEG TYPE: A routine 21 channel EEG is performed with video using the 10/20 electrode placement system. DESCRIPTION: Wakefulness is only obtained. During wakefulness, there is a posterior dominant rhythm of low to moderate voltage of 7-7 1/2 hertz activity. There was is physiological sleep architecture seen. There is no focal slowing seen. Interictal and ictal is none. ACTIVATION PROCEDURES: Photic stimulation and hyperventilation are not performed. CLINICAL INTERPRETATION: This is an abnormal routine EEG. The background slowing is suggestive of mild encephalopathy. There are no focal slowing, epileptiform discharges or seizure on the EEG. Clinical correlation is recommended. CAN / MANDYN: [id number] / MTDD
[2021-06-25] MEDS: MIRTAZAPINE 15 MG TAB PO SCH (19:50)
[2021-06-25] MEDS: ATORVASTATIN 40 MG TAB PO SCH (19:50)
[2021-06-25] MEDS: SODIUM CHLORIDE 0.9% 1,000 ML IV SCH (19:51)
[2021-06-26] MEDS: PANTOPRAZOLE 40 MG TABLET PO SCH (06:55)
[2021-06-26] MEDS: lisinopriL 5 MG TAB PO SCH (09:31)
[2021-06-26] MEDS: SODIUM CHLORIDE 0.9% 1,000 ML IV SCH (09:31)
[2021-06-26] MEDS: ISOSORBIDE MONONITRATE ER 30 MG TAB.ER.24H PO SCH (09:31)
[2021-06-26] MEDS: carvediloL 3.125 MG TAB PO SCH ×2 (09:31→20:28)
[2021-06-26] MEDS: APIXABAN 2.5 MG TABLET PO SCH ×2 (09:31→20:28)
[2021-06-26] MEDS: MULTIVITAMINS, THERA 1 EACH TAB PO SCH (09:31)
[2021-06-26 10:19] LABS: Calcium 9.2 mg/dL (8.4-10.2); Potassium 3.9 mmol/L (3.5-5.1)
--- NOTE | 2021-06-26 13:12 | P.PN ---
Subjective This is a 86-year-old gentleman who follows with Dr. VAHID Pan in the office. He has a history of CAD with prior 4 vessel CABG in 1999, chronic persistent atrial fibrillation, and hyperlipidemia. Has a history of a cardioversion in June 2019 but has been in atrial fibrillation since that ER visit in December 2019. Patient presents to the emergency department with altered mental satus and possible syncopal episode. According to the chart she was sitting at the dinner table when he closed his eyes told his daughter he was dizzy and when completely unresponsive and slumped over at which time EMS was called. The patient does not recall any of this. EKG on admission showed atrial fibrillation with controlled ventricular response. Computed tomography scan of the brain showed no acute intracranial hemorrhage, midline shift or mass effect, chronic encephalomalacia of the left parietal lobe and patchy white matter hypodensities likely sequela of chronic microvascular ischemic change, generalized volume loss. Chest x-ray on admission showed central prominence of the pulmonary vasculature may represent congestion versus accentuated lung markings from low lung volumes. Echocardiogram revealed an EF of 3035 percent, mild aortic regurgitation, moderate to severe mitral regurgitation, mild to moderate tricuspid regurgitation, prior echocardiogram in 2019 with an EF 45-50% 06/26/2021: Patient seen and examined at bedside, no acute distress. He he is more alert. Awake. He continues to be confused. He appears stable and euvolemic on exam. Blood pressure 124/70, heart rate 61, afebrile, maintaining saturations on room air. Telemetry reviewed patient continues to be in atrial flutter ablation with controlled ventricular rates. Laboratory data reviewed sodium 138, potassium 3.9, BUN 37, serum creatinine 1.6 (1.6 yesterday). Patient currently maintained on Eliquis 2.5 mg twice a day, atorvastatin 40 mg nightly, carvedilol 3.125 mg twice a day, Imdur 30 mg daily, lisinopril 5 mg daily, IV fluids at 50mLs/hr. GENERAL: in no acute distress. pleasantly confused. NECK: Supple without JVD LUNGS: Breath sounds clear to auscultation bilaterally. Respiration equal and unlabored. No wheezes, rales or rhonchi. HEART: Irregular rate and rhythm Systolic murmur, no rubs or gallops. S1 and S2 heard. EXTREMITIES: No edema. No clubbing or cyanosis. Peripheral pulses intact. ASSESSMENT Altered mental status, unknown baseline Acute on chronic kidney disease Possible syncopal episode Chronic persistent atrial fibrillation, on Eliquis Coronary artery disease s/p 4v CABG in 1999 Hyperlipidemia Cardiomyopathy, unclear if ischemic vs non-ischemic at this time. Does not appear to be Takotsubo in nature. PLAN We will continue present medical therapy with Eliquis 2.5 mg twice a day, atorvastatin 40 mg daily, carvedilol 3.125 mg twice a day, Imdur 30 mg daily, lisinopril 5 mg daily No further changes from cardiology perspective at this time. We will continue to follow and make recommendations accordingly Nurse Practitioner note has been reviewed, I agree with a documented findings and plan of care. Patient was seen and examined. Objective - Vital Signs Vital signs: Vital Signs Temp 97.6 F 06/26/21 09:17 Pulse 61 06/26/21 09:17 Resp 18 06/26/21 09:17 BP 124/70 06/26/21 09:17 Pulse Ox 97 06/26/21 09:17 Intake & Output 06/25/21 06/26/21 06/26/21 18:59 06:59 18:59 Intake Total 200 340 Balance 200 340 Intake: Intake, IV Titration 200 Amount Sodium Chloride 0.9% 1, 200 000 ml @ 50 mls/hr IV . Q20H [facility] Rx#:[id number] Oral 340 Other: Voiding Method Diaper Diaper Diaper # Voids 1 - Labs CBC & Chem 7: 06/25/21 07:17 06/26/21 07:13 Labs: Abnormal Lab Results - Last 24 Hours (Table) 06/26/21 Range/Units 07:13 BUN 37 H (9-20) mg/dL Creatinine 1.60 H (0.66-1.25) mg/dL Glucose 100 H (74-99) mg/dL
--- NOTE | 2021-06-26 14:55 | P.PN ---
Subjective Progress Note Date: 06/26/21 I am seeing the patient for the first time. Please refer to Dr. Landa note for further details. I spoke with the patient nurse and was notified patient has not had any further episode of loss of consciousness. Objective - Vital Signs Vital signs: Vital Signs Temp 98.1 F 06/26/21 13:23 Pulse 60 06/26/21 13:23 Resp 18 06/26/21 09:17 BP 116/68 06/26/21 13:23 Pulse Ox 96 06/26/21 13:23 Intake & Output 06/25/21 06/26/21 06/26/21 18:59 06:59 18:59 Intake Total 200 340 Balance 200 340 Intake: Intake, IV Titration 200 Amount Sodium Chloride 0.9% 1, 200 000 ml @ 50 mls/hr IV . Q20H [facility] Rx#:[id number] Oral 340 Other: Voiding Method Diaper Diaper Diaper # Voids 1 - Exam Gen.: The patient is reclining in the bed. He is well-nourished. He is in no acute distress. Neurological examination Mental status: The patient is awake, alert and oriented to his self. He could not tell me the time or name of place. He is able to name objects correctly (pen, watch and glasses). No aphasia or neglect. Cranial nerves: Pupils are round, 3mm and reactive to light. Visual jones are full to confrontation. Extraocular movements are intact. There is no nystagmus. Facial sensation is intact. There is no facial asymmetry. Hearing is markedly diminished. Tongue protrudes midline. Motor: Right meter repairer helper strength is stronger than the left (per patient old because of shoulder problems). Right lower extremity strength 4/5. Otherwise, strength is 5/5 throughout. Sensation: Grossly intact to light touch throughout. There is no extinction with double simultaneous stimulation. WORK-UP: CT of the head is reported as no acute intracranial hemorrhage, midline shift or mass effect. Chronic inflammation over the left parietal lobe patchy white matter hypodensity is likely sequela of the chronic microvascular ischemic change. Generalized volume loss. Routine EEG on 06/25/2021: Abnormal routine EEG. The back or sulcus is as above mild encephalopathy. There are no focal slowing, epileptiform discharges or seizure on the EEG. 2Decho was reported as overall left ventricle systolic function is moderately severely impaired with ejection fraction of 30-35%. Moderate to severe mitral regurgitation is present. TSH is 2.32 which is within normal limits. Vitamin B12 is 639 which is concerned within normal limits, serum folate is more than 24 (normal). Csatro virus PCR is nondetected. - Labs CBC & Chem 7: 06/25/21 07:17 06/26/21 07:13 Labs: Abnormal Lab Results - Last 24 Hours (Table) 06/26/21 Range/Units 07:13 BUN 37 H (9-20) mg/dL Creatinine 1.60 H (0.66-1.25) mg/dL Glucose 100 H (74-99) mg/dL Assessment and Plan Assessment: Episode of Loss of consciousness, probable syncope. Cannot exclude seizure especially with encephalomalacia over the left parietal region. There is likely mild cognitive deficits versus mild acute encephalopathy Encephalomalacia over the left parietal Acute on chronic kidney insufficiency Chronic atrial fibrillation on Eliquis Coronary artery disease status post CABG in 1999 Cardiomyopathy Plan: Started the patient on Vimpat 50 mg 1 tablet twice a day since the patient had encephalomalacia which can increase risk of seizure. If the patient has further LOC/seizures, I would recommend to one half hour ambulatory EEG as an outpatient. If this continues to have memory loss then recommend outpatient neurologic follow-up would be indicated for further evaluation of dementia (neuropsych evaluation as outpatient). Cardiology team is on board. Patient the has seizure precaution Is on cardiac monitoring. Consider Holter monitor or loop recorder to be discharged as outpatient. We'll defer the rest of the medical management to the primary team. Upon discharge, recommend the patient to follow-up with a neurologist within 1-2 weeks. Per [place] DMV patient is to avoid driving for 6 month until the seizure-free. Patient is to avoid heights, using heavy machinery and swimming unassisted. This was notified to the patient. Patient is clear for discharge from neurological standpoint. The plan is discussed with his nurse. Raheel Gayle MD Neuro-Hospitalist Time with Patient: Less than 30
[2021-06-26 15:52] LABS: Folate, Serum >24.0 ng/mL
[2021-06-26] MEDS: LACOSAMIDE 50 MG TABLET PO SCH (20:28)
[2021-06-26] MEDS: MIRTAZAPINE 15 MG TAB PO SCH (20:28)
[2021-06-26] MEDS: ATORVASTATIN 40 MG TAB PO SCH (20:28)
[2021-06-27 06:56] LABS: African American GFR (CKD) 50 (>60 ml/min/1.73 sqM); Anion Gap 8 mmol/L; Blood Urea Nitrogen 33 mg/dL (9-20); Calcium 9.4 mg/dL (8.4-10.2); Carbon Dioxide 21 mmol/L (22-30); Chloride 109 mmol/L (98-107); Glucose 95 mg/dL (74-99); Non-African American GFR(CKD) 43 (>60 ml/min/1.73 sqM); Potassium 4.2 mmol/L (3.5-5.1); Sodium 138 mmol/L (137-145)
[2021-06-27] MEDS: lisinopriL 5 MG TAB PO SCH ×2 (10:12→11:32)
[2021-06-27] MEDS: carvediloL 3.125 MG TAB PO SCH ×3 (10:12→20:39)
[2021-06-27] MEDS: ISOSORBIDE MONONITRATE ER 30 MG TAB.ER.24H PO SCH ×2 (10:12→11:32)
[2021-06-27] MEDS: MULTIVITAMINS, THERA 1 EACH TAB PO SCH ×2 (10:13→11:32)
[2021-06-27] MEDS: APIXABAN 2.5 MG TABLET PO SCH ×3 (10:13→20:39)
[2021-06-27] MEDS: LACOSAMIDE 50 MG TABLET PO SCH ×2 (10:13→11:32)
[2021-06-27] MEDS: PANTOPRAZOLE 40 MG TABLET PO SCH ×2 (10:13→11:32)
[2021-06-27] MEDS: SODIUM CHLORIDE 0.9% 1,000 ML IV SCH (10:14)
--- NOTE | 2021-06-27 14:45 | P.PN ---
Subjective Progress Note Date: 06/26/21 HISTORY OF PRESENT ILLNESS This is an 85-year-old male patient of Dr. oLpez and Dr. VAHID Pan. He has a past medical history of CA and coronary artery disease status post stenting and 4 vessel CABG done in [place] in 1999, LISA to LAD, SVG to intermediate, and SVG to diagonal, as well as SVG to left circumflex, hypertension, hypertensive vascular disease, hyperlipidemia with history of prostate cancer treated with radiation. He completed radiation treatment in April 2012. 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 In 2013 patient had acute non-ST elevated myocardial infarction and underwent stenting of the SVG to the left circumflex. Patient did have an hospitalization July 2019 for syncopal episode thought to be vasovagal and again in February for near syncope thought to be possibly A. fib with RVR. He then had a hospitalization in June 2020 for another near syncopal episode thought to be secondary to bradycardia and hypotension. He was seen by cardiology and underwent tilt table test that was negative. Patient had a recent hospitalization in February following a slip and fall with right sided rib fractures and possible pneumonia and again in March for significant weakness and was discharged to [facility] for subacute rehab. Patient now presents after a syncopal episode yesterday. Patient has had progressive weakness, dizziness. He was sitting at table eating and had a syncopal episode, no seizure activity was noted by family. Patient was brought into into [facility] emergency center for evaluation. He was afebrile, heart rate 59, blood pressure 138/88, pulse ox 96% on room air. EKG atrial fibrillation with controlled rate. WBC 8.9, hemoglobin 12.5, platelet count 165. Electrolytes were normal. BUN 28 creatinine 1.37 which is his baseline. Blood sugar 121. Calcium 9.0, liver function tests normal. Troponin negative on 3 draws. Urinalysis negative for infection but s howed protein trace and blood trace. Lactic acid 1.4. CAT scan of the brain showed no acute intracranial hemorrhage, midline shift or mass effect. Chronic encephalomalacia of the left parietal lobe and patchy white matter hypodensities likely sequelae of chronic microvascular ischemic change. Generalized volume loss. Chest x-ray reveals central prominence of pulmonary vasculature may represent congestion versus accenuated lung markings from low lung volumes. Patient was placed on the observation unit and consults requested with cardiology and neurology. 06/24: The patient was seen yesterday by neurology with agreement for EEG, lab work including B12, folate, VDRL, TSH all ordered. Patient was alert and oriented 3 yesterday afternoon and again this morning patient is quite confused slow to answer any questions. He is noted to be sleeping but awakens and opens his eyes to verbal stimuli. Orthostatic vital signs will be checked today. No noted diarrhea. No complaints of pain. He has had no seizure activity and no syncopal episodes since admission. Patient is afebrile, heart rate 61, blood pressure 137/79, pulse ox 97% on room air. Prolactin 13.2. Repeat blood work ordered for tomorrow. Patient is also been seen by cardiology and they have signed off his case. Echocardiogram reveals EF of 30-35% with mild aortic regurgitation, moderate to severe mitral regurgitation, mild to moderate tricuspid regurgitation. Echocardiogram from June 2020 revealed EF of 45-50%. 06/25: Patient has been seen and followed by cardiology. EULALIO inhibitor was added with plan to manage cardiomyopathy medically. No signs of acute heart failure. Patient was noted on telemetry to have runs of bigeminy trigeminal, A. fib or flutter. Patient is awake and alert. He is again slow to respond in the morning. He has been afebrile, heart rate 66, blood pressure 1 3445, pulse ox 90% on room air. Repeat blood work reveals WBC 7.3, hemoglobin 12.2 and platelet count 183. Electrolytes are all normal. BUN 37 and creatinine 1.63. Magnesium 1.8. Repeat EKGs been ordered. Anticipate he will be seen today by PT and OT anticipate need for rehab. 06/26: Patient has been seen and followed by cardiology with recommendations continue current medications. No changes from cardiology. Patient has been seen and followed by neurology and patient was started on Vimpat 50 mg twice daily since the patient had encephalomalacia which can increase risk for seizures. If patient has further loss of consciousness/seizures, recommend one half hour ambulatory EEG as an outpatient. Also recommended neuropsych evaluation as an outpatient for dementia, Holter monitor as an outpatient, neurology follow-up in one to 2 weeks. Discussed with cardiology, no plan for any intervention at this time. We'll plan to monitor patient overnight. EEG was abnormal with mild encephalopathy. REVIEW OF SYSTEMS Constitutional: No fever, no chills, no night sweats. No weight change. Noted weakness, reports fatigue, no lethargy. Noted daytime sleepiness. EENT: No headache. No blurred vision or double vision, no loss of vision. Chronic loss of Hearing No nasal drainage or congestion. No epistaxis. No sore throat. Lungs: No shortness of breath, reports cough, no sputum production. No wheezing. Cardiovascular: No chest pain, no lower extremity edema. No palpitations. No paroxysmal nocturnal dyspnea. No orthopnea. No lightheadedness or dizziness. Reported syncopal episodes. Abdominal: No abdominal pain. No nausea, vomiting. No diarrhea. No constipa tion. No bloody or tarry stools.. No loss of appetite. Genitourinary: No dysuria, increased frequency, urgency. No urinary retention. Musculoskeletal: No myalgias. Reports muscle weakness, reports gait dysfunction, no frequent falls. No back pain. No neck pain. Integumentary: No wounds, no lesions. No rash or pruritus. No unusual bruising. Neurologic: No aphasia. No facial droop. Noted change in mentation, improves by afternoon. No head injury. No headache. No paralysis. No paresthesia. Psychiatric: No depression. No anxiety. Endocrine: No abnormal blood sugars. PHYSICAL EXAMINATION Gen: This is an 86-year-old male. He is resting in bed and appears to be sleeping, awakens to verbal stimuli, he appears to be comfortable and in no acute distress. HEENT: Head is atraumatic, normocephalic. Pupils equal, round. Sclerae is anicteric. NECK: Supple. No JVD. No lymphadenopathy. No thyromegaly. LUNGS: Clear to auscultation. No wheezes or rhonchi. No intercostal retractions. HEART: Regular rate and rhythm. Systolic murmur. Distant heart sounds. ABDOMEN: Soft. Bowel sounds are present. No masses. No tenderness. EXTREMITIES: No pedal edema. No calf tenderness. NEUROLOGICAL: Patient is awake, alert but confused and not had his baseline. Patient is oriented to person and place but mental status improves by afternoon. Cranial nerves 2 through 12 are grossly intact. ASSESSMENT AND PLAN 1. Syncopal episode of unknown etiology, rule out TIA, seizures, arrhythmia. Consult with cardiology and neurology appreciated. Echocardiogram as above, EEG abnormal. 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 Consult PT and OT. 2. Metabolic encephalopathy of unclear etiology. Consult with neurology continue testing as in #1. PT and OT consults. 3. Chronic persistent atrial fibrillation. Continue eliquis 2.5 mg twice daily, Coreg 3.125 mg twice daily. 4. History of coronary artery disease with prior bypass and stenting, stable. Continue atorvastatin 40 mg daily, Imdur 30 mg daily. 5. Hypertension, hypertensive cardiovascular disease. Continue Coreg. 6. Hyperlipidemia. Continue statin 7. Chronic kidney disease stage IIIa, stable. Baseline creatinine 1.4. 8. Anemia of chronic kidney disease, stable 9. History of prostate cancer treated with radiation, stable. 10. 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 11. Short-term memory deficit. 12. 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 Noted decrease in EF. 13. Cardiomyopathy. Continue Coreg, lisinopril 5 mg daily has been added. 14. GI prophylaxis. Protonix. 15. DVT prophylaxis. Eliquis. DISCHARGE PLAN Home with [facility] Impression and plan of care have been directed as dictated by the signing physician. Gloria Oneill nurse practitioner acting as scribe for signing physician. Objective - Vital Signs Vital signs: Vital Signs Temp 97.6 F 06/26/21 09:17 Pulse 61 06/26/21 09:17 Resp 18 06/26/21 09:17 BP 124/70 06/26/21 09:17 Pulse Ox 97 06/26/21 09:17 Intake & Output 06/25/21 06/26/21 06/26/21 18:59 06:59 18:59 Intake Total 200 100 Balance 200 100 Intake: Intake, IV Titration 200 Amount Sodium Chloride 0.9% 1, 200 000 ml @ 50 mls/hr IV . Q20H [facility] Rx#:[id number] Oral 100 Other: Voiding Method Diaper Diaper Diaper # Voids 1 - Labs CBC & Chem 7: 06/25/21 07:17 06/27/21 06:11
--- NOTE | 2021-06-27 14:47 | P.DS ---
Providers Date of admission: 06/23/21 09:13 Expected date of discharge: 06/27/21 Attending physician: Jodi Kothari MD Consults: 06/22/21 22:28 Consult Physician Urgent Consulting Provider: [facility] Consult Reason/Comments: possible syncope vs neurologic event Do you want consulting provider notified?: Yes Consult Physician Urgent Consulting Provider: Javier Soto Consult Reason/Comments: acute transient altered mental status Do you want consulting provider notified?: Yes Primary care physician: Roberto Lopez [facility] Course: HISTORY OF PRESENT ILLNESS This is an 85-year-old male patient of Dr. Lopez and Dr. VAHID Pan. He has a past medical history of CO and coronary artery disease status post stenting and 4 vessel CABG done in [place] in 1999, LISA to LAD, SVG to intermediate, and SVG to diagonal, as well as SVG to left circumflex, hypertension, hypertensive vascular disease, hyperlipidemia with history of prostate cancer treated with radiation. He completed radiation treatment in April 2012. 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 In 2013 patient had acute non-ST elevated myocardial infarction and underwent stenting of the SVG to the left circumflex. Patient did have an hospitalization July 2019 for syncopal episode thought to be vasovagal and again in February for near syncope thought to be possibly A. fib with RVR. He then had a hospitalization in June 2020 for another near syncopal episode thought to be secondary to bradycardia and hypotension. He was seen by cardiology and underwent tilt table test that was negative. Patient had a recent hospitalization in February following a slip and fall with right sided rib fractures and possible pneumonia and again in March for significant weakness and was discharged to [facility] for subacute rehab. Patient now presents after a syncopal episode yesterday. Patient has had progressive weakness, dizziness. He was sitting at table eating and had a syncopal episode, no seizure activity was noted by family. Patient was brought into into [facility] emergency center for evaluation. He was afebrile, heart rate 59, blood pressure 138/88, pulse ox 96% on room air. EKG atrial fibrillation with controlled rate. WBC 8.9, hemoglobin 12.5, platelet count 165. Electrolytes were normal. BUN 28 creatinine 1.37 which is his baseline. Blood sugar 121. Calcium 9.0, liver function tests norm al. Troponin negative on 3 draws. Urinalysis negative for infection but showed protein trace and blood trace. Lactic acid 1.4. CAT scan of the brain showed no acute intracranial hemorrhage, midline shift or mass effect. Chronic encephalomalacia of the left parietal lobe and patchy white matter hypodensities likely sequelae of chronic microvascular ischemic change. Generalized volume loss. Chest x-ray reveals central prominence of pulmonary vasculature may represent congestion versus accenuated lung markings from low lung volumes. Patient was placed on the observation unit and consults requested with cardiology and neurology. 06/24: The patient was seen yesterday by neurology with agreement for EEG, lab work including B12, folate, VDRL, TSH all ordered. Patient was alert and orient ed 3 yesterday afternoon and again this morning patient is quite confused slow to answer any questions. He is noted to be sleeping but awakens and opens his eyes to verbal stimuli. Orthostatic vital signs will be checked today. No noted diarrhea. No complaints of pain. He has had no seizure activity and no syncopal episodes since admission. Patient is afebrile, heart rate 61, blood pressure 137/79, pulse ox 97% on room air. Prolactin 13.2. Repeat blood work ordered for tomorrow. Patient is also been seen by cardiology and they have signed off his case. Echocardiogram reveals EF of 30-35% with mild aortic regurgitation, moderate to severe mitral regurgitation, mild to moderate tricuspid regurgitation. Echocardiogram from June 2020 revealed EF of 45-50%. 06/25: Patient has been seen and followed by cardiology. EULALIO inhibitor was added with plan to manage cardiomyopathy medically. No signs of acute heart failure. Patient was noted on telemetry to have runs of bigeminy trigeminal, A. fib or flutter. Patient is awake and alert. He is again slow to respond in the morning. He has been afebrile, heart rate 66, blood pressure 1 3445, pulse ox 90% on room air. Repeat blood work reveals WBC 7.3, hemoglobin 12.2 and platelet count 183. Electrolytes are all normal. BUN 37 and creatinine 1.63. Magnesium 1.8. Repeat EKGs been ordered. Anticipate he will be seen today by PT and OT anticipate need for rehab. 06/26: Patient has been seen and followed by cardiology with recommendations continue current medications. No changes from cardiology. Patient has been se en and followed by neurology and patient was started on Vimpat 50 mg twice daily since the patient had encephalomalacia which can increase risk for seizures. If patient has further loss of consciousness/seizures, recommend one half hour ambulatory EEG as an outpatient. Also recommended neuropsych evaluation as an outpatient for dementia, Holter monitor as an outpatient, neurology follow-up in one to 2 weeks. Discussed with cardiology, no plan for any intervention at this time. We'll plan to monitor patient overnight. EEG was abnormal with mild encephalopathy. 06/27: She is on the story sitting in his bed and is awake and alert. Usually patient is hard to arouse in the mornings.he has been afebrile, heart rate 58, blood pressure 1 148/64, pulse ox 96% on room air. The blood work reveals improvement of hers kidney function with BUN of 33 creatinine 1.45. Chloride 109 CO2 21. Family is planning to take patient home and have been contacted over the phone and updated. Patient will be discharged once all arrangements are made. ASSESSMENT AND PLAN 1. Syncopal episode of unknown etiology, rule out TIA, seizures, arrhythmia. 2. Metabolic encephalopathy of unclear etiology. 3. Chronic persistent atrial fibrillation. 4. History of coronary artery disease with prior bypass and stenting, stable. 5. Hypertension, hypertensive cardiovascular disease. 6. Hyperlipidemia. 7. Chronic kidney disease stage IIIa, stable. 8. Anemia of chronic kidney disease, stable 9. History of prostate cancer treated with radiation, stable. 10. 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 11. Short-term memory deficit. 12. 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 13. Cardiomyopathy. DISCHARGE PLAN Home with [facility] Impression and plan of care have been directed as dictated by the signing physician. Gloria Oneill nurse practitioner acting as scribe for signing physician. Patient Condition at Discharge: Stable Plan - Discharge Summary New Discharge Prescriptions: New Mirtazapine [Remeron] 7.5 mg PO HS #30 tab Lacosamide [Vimpat] 50 mg PO BID #60 tablet lisinopriL [Zestril] 5 mg PO DAILY #30 tab Continue Atorvastatin [Lipitor] 40 mg PO HS Apixaban [Eliquis] 2.5 mg PO BID #60 tab Isosorbide Mononitrate ER [Imdur] 30 mg PO DAILY #0 Multivitamins, Thera [Multivitamin (formulary)] 1 tab PO DAILY carvediloL [Coreg] 3.125 mg PO BID Discharge Medication List Atorvastatin [Lipitor] 40 mg PO HS 05/16/16 [History] Apixaban [Eliquis] 2.5 mg PO BID #60 tab 05/25/19 [Rx] Isosorbide Mononitrate ER [Imdur] 30 mg PO DAILY #0 02/20/20 [Rx] Multivitamins, Thera [Multivitamin (formulary)] 1 tab PO DAILY 07/05/20 [History] carvediloL [Coreg] 3.125 mg PO BID 06/22/21 [History] Lacosamide [Vimpat] 50 mg PO BID #60 tablet 06/27/21 [Rx] Mirtazapine [Remeron] 7.5 mg PO HS #30 tab 06/27/21 [Rx] lisinopriL [Zestril] 5 mg PO DAILY #30 tab 06/27/21 [Rx] Follow up Appointment(s)/Referral(s): Roberto Lopez MD [Primary Care Provider] - 1-2 days [facility], [NON-STAFF] - Patient Instructions/Handouts: Seizure/Epilepsy Discharge Instructions & Follow-Up Discharge Disposition: HOME WITH HOME HEALTH SERVICES
--- NOTE | 2021-06-27 18:17 | P.PN ---
Subjective Progress Note Date: 06/27/21 Patient was seen at bedside and per the patient nurse patient has episodes that he is nonresponsive and needs sternal rub. There is no seizure-like activity noted. There is no foaming around the mouth. I was notified also by the nurse that the is Vimpat would not be covered by his insurance and he has a large payment. Objective - Vital Signs Vital signs: Vital Signs Temp 98.8 F 06/27/21 12:44 Pulse 58 L 06/27/21 12:44 Resp 16 06/27/21 12:44 BP 158/64 06/27/21 12:44 Pulse Ox 96 06/27/21 12:44 Intake & Output 06/26/21 06/27/21 06/27/21 18:59 06:59 18:59 Intake Total 340 Balance 340 Intake: Oral 340 Other: Voiding Method Diaper Diaper Diaper Incontinent # Voids 1 1 # Bowel Movements 2 1 - Exam Gen.: The patient is reclining in the bed. He is well-nourished. He is in no acute distress. Neurological examination Mental status: The patient was sleepy on examining him and with verbal stimuli he was awake but had repeated episode of sleeping during the examination. He is oriented to self, and stated he was in the hospital. He could not tell me name of place or time. He was able to name objects (watch and pen) correctly. He was following simple commands (showing thumbs up). No aphasia or neglect. Cranial nerves: Pupils are round, 3mm and reactive to light. Visual jones are full to confrontation. Extraocular movements are intact. There is no nystagmus. There is no facial asymmetry. Hearing is markedly diminished. Motor: He was able to lift bilateral upper extremities above gravity but could not assess lowers since kept on sleeping on examination. Sensation: Could not assess because of his cooperation. WORK-UP: CT of the head is reported as no acute intracranial hemorrhage, midline shift or mass effect. Chronic inflammation over the left parietal lobe patchy white matter hypodensity is likely sequela of the chronic microvascular ischemic change. Generalized volume loss. Routine EEG on 06/25/2021: Abnormal routine EEG. The back or sulcus is as above mild encephalopathy. There are no focal slowing, epileptiform discharges or seizure on the EEG. 2Decho was reported as overall left ventricle systolic function is moderately severely impaired with ejection fraction of 30-35%. Moderate to severe mitral regurgitation is present. TSH is 2.32 which is within normal limits. Vitamin B12 is 639 which is concerned within normal limits, serum folate is more than 24 (normal). Castro virus PCR is nondetected. - Labs CBC & Chem 7: 06/25/21 07:17 06/27/21 06:11 Labs: Abnormal Lab Results - Last 24 Hours (Table) 06/27/21 Range/Units 06:11 Chloride 109 H (98-107) mmol/L Carbon Dioxide 21 L (22-30) mmol/L BUN 33 H (9-20) mg/dL Creatinine 1.45 H (0.66-1.25) mg/dL Assessment and Plan Assessment: Episode of Loss of consciousness, probable syncope. Unlikely seizures (on today's examination he was sleepy during examination but was awakeable and fol lowing commands). There is likely mild cognitive deficits versus mild acute encephalopathy Encephalomalacia over the left parietal Acute on chronic kidney insufficiency Chronic atrial fibrillation on Eliquis Coronary artery disease status post CABG in 1999 Cardiomyopathy Plan: Since he has encephalomalacia which can increase risk of seizure, I started the patient on Vimpat during the hospital stay but since lack of insurance coverage, I discontinued and started him on Keppra 250mg 1 tab bid (low dose since he does not have seizure). I would recommend to one half hour ambulatory EEG as an outpatient and possibly sleep study as outpatient if he continue to have these episodes. If this continues to have memory loss then recommend outpatient neurologic follow-up would be indicated for further evaluation of dementia (neuropsych evaluation as outpatient). Cardiology team is on board. Patient the has seizure precaution Is on cardiac monitoring. Consider Holter monitor or loop recorder to be discharged as outpatient. We'll defer the rest of the medical management to the primary team. Upon discharge, recommend the patient to follow-up with a neurologist within 1-2 weeks. Per [place] DM patient is to avoid driving for 6 month until the seizure-free. Patient is to avoid heights, using heavy machinery and swimming unassisted. This was notified to the patient. Patient is clear for discharge from neurological standpoint. There is no further work-up. Raheel Gayle MD Neuro-Hospitalist Time with Patient: Less than 30
[2021-06-27] MEDS: MIRTAZAPINE 15 MG TAB PO SCH (20:38)
[2021-06-27] MEDS: levETIRAcetam 250 MG TAB PO SCH (20:39)
[2021-06-27] MEDS: ATORVASTATIN 40 MG TAB PO SCH (20:39)
[2021-06-27] MEDS ORDERED: levETIRAcetam 500 MG TAB PO SCH (21:00)
[2021-06-28 07:50] VITALS: BP 136/79; RESP 16; TEMP 97.7
[2021-06-28] MEDS: levETIRAcetam 250 MG TAB PO SCH (08:07)
[2021-06-28] MEDS: lisinopriL 5 MG TAB PO SCH (08:07)
[2021-06-28] MEDS: PANTOPRAZOLE 40 MG TABLET PO SCH (08:07)
[2021-06-28] MEDS: carvediloL 3.125 MG TAB PO SCH ×2 (08:07→08:10)
[2021-06-28] MEDS: MULTIVITAMINS, THERA 1 EACH TAB PO SCH (08:07)
[2021-06-28] MEDS: ISOSORBIDE MONONITRATE ER 30 MG TAB.ER.24H PO SCH (08:07)
[2021-06-28] MEDS: APIXABAN 2.5 MG TABLET PO SCH (08:07)
[2021-06-28] MEDS: SODIUM CHLORIDE 0.9% 1,000 ML IV SCH (08:08)
[2021-06-28 08:48] VITALS: PULSE 56
--- NOTE | 2021-06-28 10:35 | P.PN ---
Subjective Progress Note Date: 06/27/21 HISTORY OF PRESENT ILLNESS This is an 85-year-old male patient of Dr. Lopez and Dr. VAHID Pan. He has a past medical history of SD and coronary artery disease status post stenting and 4 vessel CABG done in [place] in 1999, LISA to LAD, SVG to intermediate, and SVG to diagonal, as well as SVG to left circumflex, hypertension, hypertensive vascular disease, hyperlipidemia with history of prostate cancer treated with radiation. He completed radiation treatment in April 2012. 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 In 2013 patient had acute non-ST elevated myocardial infarction and underwent stenting of the SVG to the left circumflex. Patient did have an hospitalization July 2019 for syncopal episode thought to be vasovagal and again in February for near syncope thought to be possibly A. fib with RVR. He then had a hospitalization in June 2020 for another near syncopal episode thought to be secondary to bradycardia and hypotension. He was seen by cardiology and underwent tilt table test that was negative. Patient had a recent hospitalization in February following a slip and fall with right sided rib fractures and possible pneumonia and again in March for significant weakness and was discharged to [facility] for subacute rehab. Patient now presents after a syncopal episode yesterday. Patient has had progressive weakness, dizziness. He was sitting at table eating and had a syncopal episode, no seizure activity was noted by family. Patient was brought into into [facility] emergency center for evaluation. He was afebrile, heart rate 59, blood pressure 138/88, pulse ox 96% on room air. EKG atrial fibrillation with controlled rate. WBC 8.9, hemoglobin 12.5, platelet count 165. Electrolytes were normal. BUN 28 creatinine 1.37 which is his baseline. Blood sugar 121. Calcium 9.0, liver function tests normal. Troponin negative on 3 draws. Urinalysis negative for infection but s howed protein trace and blood trace. Lactic acid 1.4. CAT scan of the brain showed no acute intracranial hemorrhage, midline shift or mass effect. Chronic encephalomalacia of the left parietal lobe and patchy white matter hypodensities likely sequelae of chronic microvascular ischemic change. Generalized volume loss. Chest x-ray reveals central prominence of pulmonary vasculature may represent congestion versus accenuated lung markings from low lung volumes. Patient was placed on the observation unit and consults requested with cardiology and neurology. 06/24: The patient was seen yesterday by neurology with agreement for EEG, lab work including B12, folate, VDRL, TSH all ordered. Patient was alert and oriented 3 yesterday afternoon and again this morning patient is quite confused slow to answer any questions. He is noted to be sleeping but awakens and opens his eyes to verbal stimuli. Orthostatic vital signs will be checked today. No noted diarrhea. No complaints of pain. He has had no seizure activity and no syncopal episodes since admission. Patient is afebrile, heart rate 61, blood pressure 137/79, pulse ox 97% on room air. Prolactin 13.2. Repeat blood work ordered for tomorrow. Patient is also been seen by cardiology and they have signed off his case. Echocardiogram reveals EF of 30-35% with mild aortic regurgitation, moderate to severe mitral regurgitation, mild to moderate tricuspid regurgitation. Echocardiogram from June 2020 revealed EF of 45-50%. 06/25: Patient has been seen and followed by cardiology. EULALIO inhibitor was added with plan to manage cardiomyopathy medically. No signs of acute heart failure. Patient was noted on telemetry to have runs of bigeminy trigeminal, A. fib or flutter. Patient is awake and alert. He is again slow to respond in the morning. He has been afebrile, heart rate 66, blood pressure 1 3445, pulse ox 90% on room air. Repeat blood work reveals WBC 7.3, hemoglobin 12.2 and platelet count 183. Electrolytes are all normal. BUN 37 and creatinine 1.63. Magnesium 1.8. Repeat EKGs been ordered. Anticipate he will be seen today by PT and OT anticipate need for rehab. 06/26: Patient has been seen and followed by cardiology with recommendations continue current medications. No changes from cardiology. Patient has been seen and followed by neurology and patient was started on Vimpat 50 mg twice daily since the patient had encephalomalacia which can increase risk for seizures. If patient has further loss of consciousness/seizures, recommend one half hour ambulatory EEG as an outpatient. Also recommended neuropsych evaluation as an outpatient for dementia, Holter monitor as an outpatient, neurology follow-up in one to 2 weeks. Discussed with cardiology, no plan for any intervention at this time. We'll plan to monitor patient overnight. EEG was abnormal with mild encephalopathy. 06/27: Patient is found sitting in his bed and is awake and alert. Usually patient is hard to arouse in the mornings.he has been afebrile, heart rate 58, blood pressure 1 148/64, pulse ox 96% on room air. The blood work reveals improvement of hers kidney function with BUN of 33 creatinine 1.45. Chloride 109 CO2 21. Family is planning to take patient home and have been contacted over the phone and updated. Patient will be discharged once all arrangements are made. Patient was prepared for discharge but was difficult for nursing to arouse and family did not feel comfortable taking him home. The only new medication was Vimpat and discharge was held. REVIEW OF SYSTEMS Constitutional: No fever, no chills, no night sweats. No weight change. Noted weakness, reports fatigue, no lethargy. Noted daytime sleepiness. EENT: No headache. No blurred vision or double vision, no loss of vision. Chronic loss of Hearing No nasal drainage or congestion. No epistaxis. No sore throat. Lungs: No shortness of breath, reports cough, no sputum production. No wheezing. Cardiovascular: No chest pain, no lower extremity edema. No palpitations. No paroxysmal nocturnal dyspnea. No orthopnea. No lightheadedness or dizziness. Reported syncopal episodes. Abdominal: No abdominal pain. No nausea, vomiting. No diarrhea. No constipation. No bloody or tarry stools.. No loss of appetite. Genitourinary: No dysuria, increased frequency, urgency. No urinary retention. Musculoskeletal: No myalgias. Reports muscle weakness, reports gait dysfunction, no frequent falls. No back pain. No neck pain. Integumentary: No wounds, no lesions. No rash or pruritus. No unusual bruising. Neurologic: No aphasia. No facial droop. Noted worsening change in mentation, improves by afternoon. No head injury. No headache. No paralysis. No paresthesia. Psychiatric: No depression. No anxiety. Endocrine: No abnormal blood sugars. PHYSICAL EXAMINATION Gen: This is an 86-year-old male. He is resting in bed and appears to be sleeping, awakens to verbal stimuli, he appears to be comfortable and in no acute distress. HEENT: Head is atraumatic, normocephalic. Pupils equal, round. Sclerae is anicteric. NECK: Supple. No JVD. No lymphadenopathy. No thyromegaly. LUNGS: Clear to auscultation. No wheezes or rhonchi. No intercostal r etractions. HEART: Regular rate and rhythm. Systolic murmur. Distant heart sounds. ABDOMEN: Soft. Bowel sounds are present. No masses. No tenderness. EXTREMITIES: No pedal edema. No calf tenderness. NEUROLOGICAL: Patient is awake, alert but confused and not had his baseline. Cranial nerves 2 through 12 are grossly intact. ASSESSMENT AND PLAN 1. Syncopal episode of unknown etiology, rule out TIA, seizures, arrhythmia. Consult with cardiology and neurology appreciated. Echocardiogram as above, EEG abnormal. Patient to follow seizure precautions and fall precautions, continue media monitor. Consult PT and OT. Patient started on Vimpat. 2. Metabolic encephalopathy of unclear etiology. Consult with neurology continue testing as in #1. PT and OT consults. 3. Chronic persistent atrial fibrillation. Continue eliquis 2.5 mg twice daily, Coreg 3.125 mg twice daily. 4. History of coronary artery disease with prior bypass and stenting, stable. Continue atorvastatin 40 mg daily, Imdur 30 mg daily. 5. Hypertension, hypertensive cardiovascular disease. Continue Coreg. 6. Hyperlipidemia. Continue statin 7. Chronic kidney disease stage IIIa, stable. Baseline creatinine 1.4. 8. Anemia of chronic kidney disease, stable 9. History of prostate cancer treated with radiation, stable. 10. 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 11. Short-term memory deficit. 12. Valvular heart disease with mild aortic regurgitation, moderate to severe mitral regurgitation, [id number] tricuspid regurgitation. Noted decrease in EF. 13. Cardiomyopathy. Continue Coreg, lisinopril 5 mg daily has been added. 14. GI prophylaxis. Protonix. 15. DVT prophylaxis. Eliquis. DISCHARGE PLAN Home with [facility] Impression and plan of care have been directed as dictated by the signing physician. Gloria Oneill nurse practitioner acting as scribe for signing physician. Objective - Vital Signs Vital signs: Vital Signs Temp 97.7 F 06/28/21 07:48 Pulse 54 L 06/28/21 07:48 Resp 16 06/28/21 07:48 BP 136/79 06/28/21 07:48 Pulse Ox 98 06/28/21 07:48 Intake & Output 06/27/21 06/28/21 06/28/21 18:59 06:59 18:59 Intake Total 600 200 Balance 600 200 Intake: Intake, IV Titration 600 Amount Sodium Chloride 0.9% 1, 600 000 ml @ 50 mls/hr IV . Q20H [facility] Rx#:[id number] Oral 200 Other: Voiding Method Diaper Diaper Diaper Incontinent Incontinent Incontinent # Voids 2 - Labs CBC & Chem 7: 06/25/21 07:17 06/27/21 06:11
--- NOTE | 2021-06-28 10:46 | P.DS ---
Providers Date of admission: 06/23/21 09:13 Expected date of discharge: 06/28/21 Attending physician: Jodi Kothari MD Consults: 06/22/21 22:28 Consult Physician Urgent Consulting Provider: Javier Soto Consult Reason/Comments: acute transient altered mental status Do you want consulting provider notified?: Yes Primary care physician: [facility] Course: HISTORY OF PRESENT ILLNESS This is an 85-year-old male patient of Dr. Lopez and Dr. VAHID Pan. He has a past medical history of CT and coronary artery disease status post stenti ng and 4 vessel CABG done in [place] in 1999, LISA to LAD, SVG to intermediate, and SVG to diagonal, as well as SVG to left circumflex, hypertension, hypertensive vascular disease, hyperlipidemia with history of prostate cancer treated with radiation. He completed radiation treatment in April 2012. 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 In 2013 patient had acute non-ST elevated myocardial infarction and underwent stenting of the SVG to the left circumflex. Patient did have an hospitalization July 2019 for syncopal episode thought to be vasovagal and again in February for near syncope thought to be possibly A. fib with RVR. He then had a hospitalization in June 2020 for another near syncopal episode thought to be secondary to bradycardia and hypotension. He was seen by cardiology and underwent tilt table test that was negative. Patient had a recent hospitalization in February following a slip and fall with right sided rib fractures and possible pneumonia and again in March for significant weakness and was discharged to [facility] for subacute rehab. Patient now presents after a syncopal episode yesterday. Patient has had progressive weakness, dizziness. He was sitting at table eating and had a syncopal episode, no seizure activity was noted by family. Patient was brought into into [facility] emergency center for evaluation. He was afebrile, heart rate 59, blood pressure 138/88, pulse ox 96% on room air. EKG atrial fibrillation with controlled rate. WBC 8.9, hemoglobin 12.5, platelet count 165. Electrolytes were normal. BUN 28 creatinine 1.37 which is his baseline. Blood sugar 121. Calcium 9.0, liver function tests normal. Troponin negative on 3 draws. Urinalysis negative for infection but showed protein trace and blood trace. Lactic acid 1.4. CAT scan of the brain showed no acute intracranial hemorrhage, midline shift or mass effect. Chronic encephalomalacia of the left parietal lobe and patchy white matter hypodensities likely sequelae of chronic microvascular ischemic change. Generalized volume loss. Chest x-ray reveals central prominence of pulmonary vasculature may represent congestion versus accenuated lung markings from low lung volumes. Patient was placed on the observation unit and consults requested with cardiology and neurology. 06/24: The patient was seen yesterday by neurology with agreement for EEG, lab work including B12, folate, VDRL, TSH all ordered. Patient was alert and oriented 3 yesterday afternoon and again this morning patient is quite confused slow to answer any questions. He is noted to be sleeping but awakens and opens his eyes to verbal stimuli. Orthostatic vital signs will be checked today. No noted diarrhea. No complaints of pain. He has had no seizure activity and no syncopal episodes since admission. Patient is afebrile, heart rate 61, blood pressure 137/79, pulse ox 97% on room air. Prolactin 13.2. Repeat blood work ordered for tomorrow. Patient is also been seen by cardiology and they have signed off his case. Echocardiogram reveals EF of 30-35% with mild aortic regurgitation, moderate to severe mitral regurgitation, mild to moderate tricuspid regurgitation. Echocardiogram from June 2020 revealed EF of 45-50%. 06/25: Patient has been seen and followed by cardiology. EULALIO inhibitor was added with plan to manage cardiomyopathy medically. No signs of acute heart failure. Patient was noted on telemetry to have runs of bigeminy trigeminal, A. fib or flutter. Patient is awake and alert. He is again slow to respond in the morning. He has been afebrile, heart rate 66, blood pressure 1 3445, pulse ox 90% on room air. Repeat blood work reveals WBC 7.3, hemoglobin 12.2 and platelet count 183. Electrolytes are all normal. BUN 37 and creatinine 1.63. Magnesium 1.8. Repeat EKGs been ordered. Anticipate he will be seen today by PT and OT anticipate need for rehab. 06/26: Patient has been seen and followed by cardiology with recommendations continue current medications. No changes from cardiology. Patient has been seen and followed by neurology and patient was started on Vimpat 50 mg twice daily since the patient had encephalomalacia which can increase risk for seizures. If patient has further loss of consciousness/seizures, recommend one half hour ambulatory EEG as an outpatient. Also recommended neuropsych evaluation as an outpatient for dementia, Holter monitor as an outpatient, neurology follow-up in one to 2 weeks. Discussed with cardiology, no plan for any intervention at this time. We'll plan to monitor patient overnight. EEG was abnormal with mild encephalopathy. 06/27: She is on the story sitting in his bed and is awake and alert. Usually patient is hard to arouse in the mornings.he has been afebrile, heart rate 58, blood pressure 1 148/64, pulse ox 96% on room air. The blood work reveals improvement of hers kidney function with BUN of 33 creatinine 1.45. Chloride 109 CO2 21. Family is planning to take patient home and have been contacted over the phone and updated. Patient will be discharged once all arrangements are made. Patient was prepared for discharge but was difficult for nursing to arouse and family did not feel comfortable taking him home. The only new medication was Vimpat and discharge was held. 06/28: She has been seen by neurology and Vimpat was started, patient was started on Keppra 250 mg twice daily. Patient needs follow-up with neurology in 1-2 weeks. Patient is seen today sitting up in recliner, he is awake and alert. He was able to have his breakfast this morning. No concerns from his nurse and no problems overnight. Patient will be discharged home today in stable condition. ASSESSMENT AND PLAN 1. Syncopal episode of unknown etiology, rule out TIA, seizures, arrhythmia. 2. Metabolic encephalopathy of unclear etiology. 3. Chronic persistent atrial fibrillation. 4. History of coronary artery disease with prior bypass and stenting, stable. 5. Hypertension, hypertensive cardiovascular disease. 6. Hyperlipidemia. 7. Chronic kidney disease stage IIIa, stable. 8. Anemia of chronic kidney disease, stable 9. History of prostate cancer treated with radiation, stable. 10. 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 11. Short-term memory deficit. 12. Valvular heart disease with mild aortic regurgitation, moderate to severe mitral regurgitation, [id number] tricuspid regurgitation. 13. Cardiomyopathy. DISCHARGE PLAN Home with [facility] Impression and plan of care have been directed as dictated by the signing physician. Gloria Oneill nurse practitioner acting as scribe for signing physician. Patient Condition at Discharge: Good Plan - Discharge Summary New Discharge Prescriptions: New Mirtazapine [Remeron] 7.5 mg PO HS #30 tab levETIRAcetam [Keppra] 250 mg PO Q12HR #60 tab lisinopriL [Zestril] 5 mg PO DAILY #30 tab Continue Atorvastatin [Lipitor] 40 mg PO HS Apixaban [Eliquis] 2.5 mg PO BID #60 tab Isosorbide Mononitrate ER [Imdur] 30 mg PO DAILY #0 Multivitamins, Thera [Multivitamin (formulary)] 1 tab PO DAILY carvediloL [Coreg] 3.125 mg PO BID Discharge Medication List Atorvastatin [Lipitor] 40 mg PO HS 05/16/16 [History] Apixaban [Eliquis] 2.5 mg PO BID #60 tab 05/25/19 [Rx] Isosorbide Mononitrate ER [Imdur] 30 mg PO DAILY #0 02/20/20 [Rx] Multivitamins, Thera [Multivitamin (formulary)] 1 tab PO DAILY 07/05/20 [History] carvediloL [Coreg] 3.125 mg PO BID 06/22/21 [History] Mirtazapine [Remeron] 7.5 mg PO HS #30 tab 06/27/21 [Rx] lisinopriL [Zestril] 5 mg PO DAILY #30 tab 06/27/21 [Rx] levETIRAcetam [Keppra] 250 mg PO Q12HR #60 tab 06/28/21 [Rx] Follow up Appointment(s)/Referral(s): Anton Gustafson MD [REFERRING] - 07/12/21 10:50 am Roberto Lopez MD [Primary Care Provider] - 07/03/21 2:30 pm [facility], [NON-STAFF] - Patient Instructions/Handouts: Seizure/Epilepsy Discharge Instructions & Follow-Up Discharge Disposition: HOME WITH HOME HEALTH SERVICES
== END 2021-06-28 11:41 | disposition home health service (06) | DRG 71 ==
LOC: EC 19:29 → 6NMEDSUR 22:27 → OBSVTOIN 06-23 09:13 → 3SCARD 06-24 16:51 → 5NMEDONC 06-26 14:09
PROVIDERS: ADMIT Internal Medicine; ATTEND Internal Medicine
DX: G93.41 Metabolic encephalopathy (principal); I42.9 Cardiomyopathy, unspecified; I48.19 Other persistent atrial fibrillation; I48.92 Unspecified atrial flutter; R55 Syncope and collapse; E78.5 Hyperlipidemia, unspecified; D63.1 Anemia in chronic kidney disease; H91.90 Unspecified hearing loss, unspecified ear; G93.89 Other specified disorders of brain; I25.10 Atherosclerotic heart disease of native coronary artery without angina pectoris; I25.2 Old myocardial infarction; N18.31 Chronic kidney disease, stage 3a; I13.10 Hypertensive heart and chronic kidney disease without heart failure, with stage 1 through stage 4 chronic kidney disease, or unspecified chronic kidney disease; Z74.01 Bed confinement status; Z20.822 Contact with and (suspected) exposure to COVID-19; I08.3 Combined rheumatic disorders of mitral, aortic and tricuspid valves; Z79.01 Long term (current) use of anticoagulants; Z79.899 Other long term (current) drug therapy; Z80.0 Family history of malignant neoplasm of digestive organs; Z81.1 Family history of alcohol abuse and dependence; Z82.49 Family history of ischemic heart disease and other diseases of the circulatory system; Z82.5 Family history of asthma and other chronic lower respiratory diseases; Z83.3 Family history of diabetes mellitus; Z85.46 Personal history of malignant neoplasm of prostate; Z86.73 Personal history of transient ischemic attack (TIA), and cerebral infarction without residual deficits; Z87.891 Personal history of nicotine dependence; Z92.3 Personal history of irradiation; Z95.1 Presence of aortocoronary bypass graft; Z95.5 Presence of coronary angioplasty implant and graft; F03.90 Unspecified dementia, unspecified severity, without behavioral disturbance, psychotic disturbance, mood disturbance, and anxiety
CPT/HCPCS: 36415; 70450; 71045; 80048; 80053; 81001; 82550; 82607; 82746; 83605; 83735; 84146; 84443; 84484; 85025; 85027; 85610; 85730; 87635; 93005; 93306; 95816; 99285

== ENCOUNTER 2021-07-13 19:03 | Inpatient (IN) | payer MEDICARE ==
[2021-07-13] MEDS ORDERED: SODIUM CHLORIDE 0.9% 500 ML 500 ML IV STA ×2 (19:32→21:36)
[2021-07-13 20:06] LABS: Basophils # (A) 0.1 k/uL (0-0.2); Basophils % (A) 1 %; Eosinophils # (A) 0.2 k/uL (0-0.7); Eosinophils % (A) 2 %; HCT 33.6 % (39.0-53.0); HGB 11.5 gm/dL (13.0-17.5); Lymphocytes % (A) 10 %; MCH 32.1 pg (25.0-35.0); MCHC 34.1 g/dL (31.0-37.0); Mean Platelet Volume 9.1; Monocytes # (A) 0.4 k/uL (0-1.0); Monocytes % (A) 4 %; Neutrophils # (A) 8.1 k/uL (1.3-7.7); Neutrophils % (A) 82 %; Platelet Count 177 k/uL (150-450); RBC 3.57 m/uL (4.30-5.90); RDW 13.2 % (11.5-15.5); WBC 9.8 k/uL (3.8-10.6)
[2021-07-13 20:23] LABS: Prothrombin Time 10.6 sec (9.0-12.0)
[2021-07-13 20:24] LABS: Partial Thromboplastin Time 18.9 sec (22.0-30.0)
[2021-07-13 20:25] LABS: Albumin 3.1 g/dL (3.5-5.0); Magnesium 1.6 mg/dL (1.6-2.3); Potassium 4.4 mmol/L (3.5-5.1); Total Bilirubin 0.6 mg/dL (0.2-1.3); Total Protein 6.1 g/dL (6.3-8.2)
--- NOTE | 2021-07-13 20:35 | CT ---
EXAMINATION TYPE: CT brain wo con DATE OF EXAM: 07/13/2021 COMPARISON: 06/22/2021 HISTORY: Syncope, AMS CT DLP: 1158.4 mGycm Automated exposure control for dose reduction was used. There is cerebral cortical atrophy. There is no mass effect nor midline shift. There is no sign of in tracranial hemorrhage. There is enlargement of the ventricles. There is patchy hypodensity in the per iventricular white matter. Calvarium is intact there is normal aeration of the mastoid sinuses. There is old left posterior parietal cortical infarct unchanged. Is thinning of the corpus callosum. IMPRESSION: Cerebral atrophy and hydrocephalus. No acute intracranial abnormality. No change compared to old exam .
--- NOTE | 2021-07-13 20:36 | XR ---
EXAMINATION TYPE: XR chest 2V DATE OF EXAM: 07/13/2021 COMPARISON: 06/22/2021 HISTORY: Syncope TECHNIQUE: 2 views FINDINGS: Heart is enlarged. There is no heart failure. Lungs are clear of consolidation. Thoracic ao rta is atheromatous. There are sternal wires. Costophrenic angles are clear. There are chest leads. IMPRESSION: Cardiomegaly. Atheromatous aorta. No acute lung disease. No adverse change.
--- NOTE | 2021-07-13 21:40 | ED ---
General Adult HPI - General Chief complaint: Syncope Stated complaint: Altered mental status Time Seen by Provider: 07/13/21 19:16 Source: patient, family, EMS, RN notes reviewed, old records reviewed Mode of arrival: EMS Limitations: altered mental status - History of Present Illness Initial comments: Patient is an 86-year-old male with history of A. fib, hypertension, heart disease, presenting to the emergency department via EMS with concerns of altered mental status and syncope. Patient stated he was out with his daughter and son-in-law getting some fresh air and then he remembers being in the ambulance. He is not really sure what happened. Family did help provide history. The daughter states that patient was in his wheelchair, they were taking him around outside, he then started whispering and not making sense and then he had a syncopal event. He did not fall, he was seated in his wheelchair. Patient had similar episodes recent in the past. He has been admitted, he refuses to go to rehab. He is currently living with his daughter and son-in-law. He is mostly confined to a wheelchair or bed, he is not able to get up and walk on his own anymore. He is barely able to sit up on his own secondary to weakness. His daughter states that is how started declining when his in January. Patient denies any complaints at this time, he denies any chest pain just so breath, denies being dizzy or lightheaded. He denies any abdominal pain, no nausea or vomiting, no dysuria. Patient has been taking his medications. There are no further complaints at this time. Prior to arrival EMS, he did receive a liter of saline secondary to hypotension. Upon arrival to the ER, his blood pressure is 124/81, pulse is 113, 97% on room air. - Related Data Home Medications Medication Instructions Recorded Confirmed Atorvastatin [Lipitor] 40 mg PO HS 05/16/16 07/13/21 Citalopram Hydrobromide [CeleXA] 20 mg PO DAILY 07/13/21 07/13/21 Previous Rx's Medication Instructions Recorded Apixaban [Eliquis] 2.5 mg PO BID #60 tab 05/25/19 Isosorbide Mononitrate ER [Imdur] 30 mg PO DAILY #0 02/20/20 Mirtazapine [Remeron] 7.5 mg PO HS #30 tab 06/27/21 lisinopriL [Zestril] 5 mg PO DAILY #30 tab 06/27/21 levETIRAcetam [Keppra] 250 mg PO Q12HR #60 tab 06/28/21 Allergies Allergy/AdvReac Type Severity Reaction Status Date / Time No Known Allergies Allergy Verified 07/13/21 21:34 Review of Systems ROS Statement: Those systems with pertinent positive or pertinent negative responses have been documented in the HPI. ROS Other: All systems not noted in ROS Statement are negative. Past Medical History Past Medical History: Atrial Fibrillation, Coronary Artery Disease (CAD), Cancer, Hyperlipidemia, Hypertension, Myocardial Infarction (MT), Osteoarthritis (OA), Prostate Disorder Additional Past Medical History / Comment(s): 1999-prostate cancer with radiation Last Myocardial Infarction Date:: 1998 History of Any Multi-Drug Resistant Organisms: None Reported Past Surgical History: Coronary Bypass/CABG, Heart Catheterization With Stent, Hernia Repair Additional Past Surgical History / Comment(s): Open heart Quadrupal bypass (1998) Past Anesthesia/Blood Transfusion Reactions: No Reported Reaction Date of Last Stent Placement:: 2015 Past Psychological History: No Psychological Hx Reported Smoking Status: Former smoker Past Alcohol Use History: None Reported Past Drug Use History: None Reported - Past Family History Father Family Medical History: Congestive Heart Failure (CHF), COPD, Coronary Artery Disease (CAD) Additional Family Medical History / Comment(s): at age 72. Mother Family Medical History: Cancer Additional Family Medical History / Comment(s): at age 86, colon cancer. Sister(s) Family Medical History: COPD, Liver Disease Additional Family Medical History / Comment(s): Patient had one sister with history of alcoholism and at age 71. She also had COPD. Brother(s) Additional Family Medical History / Comment(s): Patient has one dtr that from diabetes complications. One son has history of hypertension. One daughter has diabetes. General Exam - General Exam Comments Initial Comments: GENERAL: Patient is well-developed and well-nourished. Patient is nontoxic and in no acute distress. HEAD: Atraumatic, normocephalic. EYES: Pupils equal round and reactive to light, extraocular movements intact, sclera anicteric, conjunctiva are normal. Eyelids were unremarkable. ENT: TMs normal, nares patent, oropharynx clear without exudates. Moist mucous membranes. NECK: Normal range of motion, supple without lymphadenopathy or JVD. LUNGS: Unlabored respirations. Breath sounds clear to auscultation bilaterally and equal. No wheezes rales or rhonchi. HEART: Irregular rate and rhythm without murmurs, rubs or gallops. ABDOMEN: Soft, nontender, normoactive bowel sounds. No guarding, no rebound. No masses appreciated. : Deferred MUSCULOSKELETAL: Normal extremities with adequate strength and normal range of motion, no pitting or edema. No clubbing or cyanosis. NEUROLOGICAL: Patient is alert and oriented x 3. Motor and sensory are also intact. Cranial nerves II through XII grossly intact. Symmetrical smile. Normal speech. PSYCH: Normal mood, normal affect. SKIN: Warm, Dry, normal turgor, no rashes or lesions noted. Limitations: altered mental status Course Vital Signs 07/13/21 07/13/21 07/13/21 19:04 19:28 21:51 Temperature 97.5 F L Pulse Rate 113 H 90 92 Respiratory 16 20 20 Rate Blood Pressure 124/81 103/70 108/77 O2 Sat by Pulse 97 100 100 Oximetry 07/13/21 22:56 Temperature Pulse Rate 99 Respiratory 20 Rate Blood Pressure 113/73 O2 Sat by Pulse 99 Oximetry EKG Findings - EKG Comments: EKG Findings:: EKG at 19:14 reads undetermined rhythm, possible right ventricula r hypertrophy, possible anterior lateral infarct, age undetermined. Patient was not able to hold his arm still. Ventricular rate 155, QRS duration 40, QT 238. Repeat EKG at 21:33 dried QRS tachycardia with occasional PVCs, right BP, bifascicular block. Again patient was not able to hold still for the EKG. Ventricular rate 122, QRS duration 146, QTC 440. Medical Decision Making - Medical Decision Making Patient is a 86-year-old male with history of A. fib, hypertension, heart disease, presenting via EMS after having a syncopal event and appearing altered to the daughter. Patient was initially hypotensive in the EMS at 60s over 40s, fluids and improve this. Upon arrival to the ER, his BP was 124/80. Patient had no acute neuro deficits on exam. He was answering questions appropriately. Patient's labs are all within normal limits at his baseline, troponin is negative. Urine shows no evidence of infection at this time. Chest x-ray shows no acute pulmonary process, CT of the brain showing no acute process, only age- related changes. During patient's ER stay, his blood pressure did fluctuate quite a bit, dropping back down in the 80s over 50s, we did give him additional fluids and seemed to improve. Patient is not having a string to even set up in bed. Patient's daughter does not feel comfortable brain patient home. Patient will be admitted for observation for hypotension, altered mental status. We'll continue with fluids, have physical therapy, evaluate the patient. Dr. Kothari was accepting. Case discussed with Dr. Lockwood. - Lab Data Result diagrams: 07/13/21 19:59 07/13/21 19:59 Lab Results 07/13/21 07/13/21 07/13/21 Range/Units 19:59 19:59 19:59 WBC 9.8 (3.8-10.6) k/uL RBC 3.57 L (4.30-5.90) m/uL Hgb 11.5 L (13.0-17.5) gm/dL Hct 33.6 L (39.0-53.0) % MCV 94.0 (80.0-100.0) fL MCH 32.1 (25.0-35.0) pg MCHC 34.1 (31.0-37.0) g/dL RDW 13.2 (11.5-15.5) % Plt Count 177 (150-450) k/uL MPV 9.1 Neutrophils % 82 % Lymphocytes % 10 % Monocytes % 4 % Eosinophils % 2 % Basophils % 1 % Neutrophils # 8.1 H (1.3-7.7) k/uL Lymphocytes # 1.0 (1.0-4.8) k/uL Monocytes # 0.4 (0-1.0) k/uL Eosinophils # 0.2 (0-0.7) k/uL Basophils # 0.1 (0-0.2) k/uL PT 10.6 (9.0-12.0) sec INR 1.0 (<1.2) APTT 18.9 L (22.0-30.0) sec Sodium 141 (137-145) mmol/L Potassium 4.4 (3.5-5.1) mmol/L Chloride 110 H (98-107) mmol/L Carbon Dioxide 21 L (22-30) mmol/L Anion Gap 10 mmol/L BUN 33 H (9-20) mg/dL Creatinine 1.47 H (0.66-1.25) mg/dL Est GFR (CKD-EPI)AfAm 49 (>60 ml/min/1.73 sqM) Est GFR (CKD-EPI)NonAf 43 (>60 ml/min/1.73 sqM) Glucose 135 H (74-99) mg/dL Calcium 9.0 (8.4-10.2) mg/dL Magnesium 1.6 (1.6-2.3) mg/dL Total Bilirubin 0.6 (0.2-1.3) mg/dL AST 32 (17-59) U/L ALT 11 (4-49) U/L Alkaline Phosphatase 90 (38-126) U/L Creatine Kinase 65 (55-170) U/L Troponin I (0.000-0.034) ng/mL Total Protein 6.1 L (6.3-8.2) g/dL Albumin 3.1 L (3.5-5.0) g/dL Urine Color Urine Appearance (Clear) Urine pH (5.0-8.0) Ur Specific [place]way (1.001-1.035) Urine Protein (Negative) Urine Glucose (UA) (Negative) Urine Ketones (Negative) Urine Blood (Negative) Urine Nitrite (Negative) Urine Bilirubin (Negative) Urine Urobilinogen (<2.0) mg/dL Ur Leukocyte Esterase (Negative) Urine RBC (0-5) /hpf Urine WBC (0-5) /hpf Urine Mucus (None) /hpf 07/13/21 07/13/21 Range/Units 19:59 19:59 WBC (3.8-10.6) k/uL RBC (4.30-5.90) m/uL Hgb (13.0-17.5) gm/dL Hct (39.0-53.0) % MCV (80.0-100.0) fL MCH (25.0-35.0) pg MCHC (31.0-37.0) g/dL RDW (11.5-15.5) % Plt Count (150-450) k/uL MPV Neutrophils % % Lymphocytes % % Monocytes % % Eosinophils % % Basophils % % Neutrophils # (1.3-7.7) k/uL Lymphocytes # (1.0-4.8) k/uL Monocytes # (0-1.0) k/uL Eosinophils # (0-0.7) k/uL Basophils # (0-0.2) k/uL PT (9.0-12.0) sec INR (<1.2) APTT (22.0-30.0) sec Sodium (137-145) mmol/L Potassium (3.5-5.1) mmol/L Chloride (98-107) mmol/L Carbon Dioxide (22-30) mmol/L Anion Gap mmol/L BUN (9-20) mg/dL Creatinine (0.66-1.25) mg/dL Est GFR (CKD-EPI)AfAm (>60 ml/min/1.73 sqM) Est GFR (CKD-EPI)NonAf (>60 ml/min/1.73 sqM) Glucose (74-99) mg/dL Calcium (8.4-10.2) mg/dL Magnesium (1.6-2.3) mg/dL Total Bilirubin (0.2-1.3) mg/dL AST (17-59) U/L ALT (4-49) U/L Alkaline Phosphatase (38-126) U/L Creatine Kinase (55-170) U/L Troponin I <0.012 (0.000-0.034) ng/mL Total Protein (6.3-8.2) g/dL Albumin (3.5-5.0) g/dL Urine Color Yellow Urine Appearance Clear (Clear) Urine pH 5.0 (5.0-8.0) Ur Specific [place] 1.018 (1.001-1.035) Urine Protein Trace H (Negative) Urine Glucose (UA) Negative (Negative) Urine Ketones Negative (Negative) Urine Blood Small H (Negative) Urine Nitrite Negative (Negative) Urine Bilirubin Negative (Negative) Urine Urobilinogen <2.0 (<2.0) mg/dL Ur Leukocyte Esterase Negative (Negative) Urine RBC 4 (0-5) /hpf Urine WBC 1 (0-5) /hpf Urine Mucus Rare H (None) /hpf Disposition Clinical Impression: Hypotension, Syncope, AMS (altered mental status), Weakness Disposition: ADMITTED IP TO THIS HOSP Condition: Stable Decision Date: 07/13/21 Decision Time: 23:35
[2021-07-13 22:24] LABS: Appearance,Urine Clear (Clear); Bilirubin,Urine Negative (Negative); Blood,Urine Small (Negative); Color,Urine Yellow; Glucose,Urine (UA) Negative (Negative); Ketones,Urine Negative (Negative); Leukocyte Esterase,Urine Negative (Negative); Mucus,Urine Rare /hpf; Nitrite,Urine Negative (Negative); Protein,Urine Trace (Negative); RBC,Urine 4 /hpf (0-5); Specific Gravity,Urine 1.018 (1.001-1.035); Urobilinogen,Urine <2.0 mg/dL (<2.0); WBC,Urine 1 /hpf (0-5)
[2021-07-13] MEDS ORDERED: ACETAMINOPHEN TAB 325 MG TAB PO PRN (23:32)
[2021-07-13] MEDS ORDERED: NALOXONE 0.4 MG/ML 1 ML VIAL IV PRN (23:32)
[2021-07-13] MEDS ORDERED: ONDANSETRON 4 MG/2 ML VIAL IVP PRN (23:32)
[2021-07-14] MEDS: MIRTAZAPINE 15 MG TAB PO SCH ×2 (00:52→21:51)
[2021-07-14] MEDS: ATORVASTATIN 40 MG TAB PO SCH ×2 (00:52→21:51)
[2021-07-14] MEDS: SODIUM CHLORIDE 0.9% 1,000 ML IV SCH ×3 (01:00→21:51)
[2021-07-14] MEDS: APIXABAN 2.5 MG TABLET PO SCH ×2 (09:50→21:51)
[2021-07-14] MEDS: ISOSORBIDE MONONITRATE ER 30 MG TAB.ER.24H PO SCH (09:50)
[2021-07-14] MEDS: levETIRAcetam 250 MG TAB PO SCH ×2 (09:50→21:51)
[2021-07-14] MEDS: CITALOPRAM HYDROBROMIDE 20 MG TAB PO SCH (09:50)
[2021-07-14] MEDS: lisinopriL 5 MG TAB PO SCH (09:50)
--- NOTE | 2021-07-14 11:06 | P.HPIM ---
History of Present Illness H&P Date: 07/14/21 HISTORY OF PRESENT ILLNESS This is an 85-year-old male patient of Dr. Lopez and Dr. VAHID Pan. He has a past medical history of HI and coronary artery disease status post stenting and 4 vessel CABG done in [place] in 1999, LISA to LAD, SVG to intermediate, and SVG to diagonal, as well as SVG to left circumflex, hypertension, hypertensive vascular disease, hyperlipidemia with history of prostate cancer treated with radiation. He completed radiation treatment in April 2012. 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 In 2013 patient had acute non-ST elevated myocardial infarction and underwent stenting of the SVG to the left circumflex. Patient has had multiple admissions for syncopal episodes followed by cardiology and neurology with unclear etiology. Patient was recently hospitalized in June and discharged home with home care and has refused rehab in the past. Neurology had recommended one half hour ambulatory EEG as an outpatient and possible sleep study and was started on Keppra 250 mg twice daily. He did have follow-up appointment with Dr. Gustafson on : It is undetermined if these occurred. He now presents with similar symptoms. Patient was out with his daughter and had a syncopal episode apparently was found to have initial blood pressure in the 60s. He did not have any fall as he was sitting in a wheelchair when this occurred, no dizziness or lightheadedness. No nausea or vomiting. His repeat blood pressure upon arrival was 124/81 with heart rate of 113, pulse ox 97% on room air. EKG CBC was unremarkable with hemoglobin at 11.5. Sodium 141, potassium 4.4, chloride 110, CO2 21, BUN 33 and creatinine 1.47 which is his baseline of 1.4. Urinalysis was negative for infection. CAT scan of the brain showed no acute processes only age-related changes Chest x-ray showed no acute pulmonary process He was stabilized in the emergency center but daughter was not comfortable t aking him home. Patient is seen this morning and is sleeping in bed and difficult to arouse which is normal for patient in the mornings in the hospital. REVIEW OF SYSTEMS Constitutional: No fever, no chills, no night sweats. No weight change. Reported weakness, reports fatigue, no lethargy. No daytime sleepiness. EENT: No headache. No blurred vision or double vision, no loss of vision. Chronic loss of Hearing No nasal drainage or congestion. No epistaxis. No s ore throat. Lungs: No shortness of breath, reports cough, no sputum production. No wheezing. Cardiovascular: No chest pain, no lower extremity edema. No palpitations. No paroxysmal nocturnal dyspnea. No orthopnea. No lightheadedness or dizziness. Reported syncopal episodes. Abdominal: No abdominal pain. No nausea, vomiting. No diarrhea. No constipation. No bloody or tarry stools.. No loss of appetite. Genitourinary: No dysuria, increased frequency, urgency. No urinary retention. Musculoskeletal: No myalgias. Reports muscle weakness, reports gait dysfunction, no frequent falls. No back pain. No neck pain. Integumentary: No wounds, no lesions. No rash or pruritus. No unusual b ruising. No change in hair or nails. Neurologic: No aphasia. No facial droop. Noted change in mentation. No head injury. No headache. No paralysis. No paresthesia. Psychiatric: No depression. No anxiety. Endocrine: No abnormal blood sugars. SOCIAL HISTORY Patient was a smoker of cigars for 10 years ago quit approximately 15 years ago. He no longer drinks alcohol on a social basis. He denies any marijuana, street drug use. Patient lived at home with his until she approximately January 2021. He is currently living with his daughter and son-in-law. 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 FAMILY HISTORY Father at age 72 from heart failure with history of COPD, coronary artery disease. Mother at age 86 from colon cancer. Patient has one sister with history of alcoholism and at age 71 and also had COPD patient. Patient has one daughter that from diabetes complications. Patient has one son with hypertension and one daughter still living with diabetes. PHYSICAL EXAMINATION Gen: This is an 86-year-old male. He is resting in bed sleeping and appears to be comfortable and in no acute distress. HEENT: Head is atraumatic, normocephalic. Pupils equal, round. Sclerae is anicteric. NECK: Supple. No JVD. No lymphadenopathy. No thyromegaly. LUNGS: Clear to auscultation. No wheezes or rhonchi. No intercostal retractions. HEART: Regular rate and rhythm. Systolic murmur. ABDOMEN: Soft. Bowel sounds are present. No masses. No tenderness. EXTREMITIES: No pedal edema. No calf tenderness. NEUROLOGICAL: Patient is sleeping ASSESSMENT AND PLAN 1. Syncopal episode most likely due to hypotension. Monitor orthostatics. Patient has had full workup on previous hospitalizations. Consult PT and OT. 2. Metabolic encephalopathy of unclear etiology. Monitor patient closely PT and OT consults. 3. Chronic persistent atrial fibrillation. Continue eliquis 2.5 mg twice daily, patient is off Coreg. 4. History of coronary artery disease with prior bypass and stenting, stable. Continue atorvastatin 40 mg daily, Imdur 30 mg daily. 5. Hypertension, hypertensive cardiovascular disease. Continue lisinopril 5 mg daily. 6. Hyperlipidemia. Continue statin 7. Chronic kidney disease stage IIIa, stable. Baseline creatinine 1.4. 8. Anemia of chronic kidney disease, stable 9. History of prostate cancer treated with radiation, stable. 10. 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 11. Short-term memory deficit, loss of appetite, recurrent depression. Patient continued on Remeron 7.5 mg at bedtime. 12. Possible seizure disorder. Keppra 250 mg every 12 hours. 13. GI prophylaxis. Protonix. 13. DVT prophylaxis. Eliquis. Patient will be admitted to the hospital for a minimum of 2 night stay. DISCHARGE PLAN To be determined. Impression and plan of care have been directed as dictated by the signing physician. Gloria Oneill nurse practitioner acting as scribe for signing physician. Past Medical History Past Medical History: Atrial Fibrillation, Coronary Artery Disease (CAD), Cancer, Hyperlipidemia, Hypertension, Myocardial Infarction (HI), Osteoarthritis (OA), Prostate Disorder Additional Past Medical History / Comment(s): 1999-prostate cancer with radiation Last Myocardial Infarction Date:: 1998 History of Any Multi-Drug Resistant Organisms: None Reported Past Surgical History: Coronary Bypass/CABG, Heart Catheterization With Stent, Hernia Repair Additional Past Surgical History / Comment(s): Open heart Quadrupal bypass (1998) Past Anesthesia/Blood Transfusion Reactions: No Reported Reaction Date of Last Stent Placement:: 2015 Past Psychological History: No Psychological Hx Reported Smoking Status: Former smoker Past Alcohol Use History: None Reported Past Drug Use History: None Reported - Past Family History Father Family Medical History: Congestive Heart Failure (CHF), COPD, Coronary Artery Disease (CAD) Additional Family Medical History / Comment(s): at age 72. Mother Family Medical History: Cancer Additional Family Medical History / Comment(s): at age 86, colon cancer. Sister(s) Family Medical History: COPD, Liver Disease Additional Family Medical History / Comment(s): Patient had one sister with history of alcoholism and at age 71. She also had COPD. Brother(s) Additional Family Medical History / Comment(s): Patient has one dtr that from diabetes complications. One son has history of hypertension. One daughter has diabetes. Medications and Allergies Home Medications Medication Instructions Recorded Confirmed Type Atorvastatin [Lipitor] 40 mg PO HS 05/16/16 07/13/21 History Apixaban [Eliquis] 2.5 mg PO BID #60 tab 05/25/19 07/13/21 Rx Isosorbide Mononitrate ER [Imdur] 30 mg PO DAILY #0 02/20/20 07/13/21 Rx Mirtazapine [Remeron] 7.5 mg PO HS #30 tab 06/27/21 07/13/21 Rx lisinopriL [Zestril] 5 mg PO DAILY #30 tab 06/27/21 07/13/21 Rx levETIRAcetam [Keppra] 250 mg PO Q12HR #60 tab 06/28/21 07/13/21 Rx Citalopram Hydrobromide [CeleXA] 20 mg PO DAILY 07/13/21 07/13/21 History Allergies Allergy/AdvReac Type Severity Reaction Status Date / Time No Known Allergies Allergy Verified 07/13/21 21:34 Physical Exam Vitals: Vital Signs Temp Pulse Pulse Resp BP BP Pulse Ox 07/14/21 08:23 99 07/14/21 06:50 85 17 07/14/21 02:00 97.6 F 85 17 128/69 97 07/14/21 00:40 110 H 20 100/56 98 07/13/21 22:56 99 20 113/73 99 07/13/21 21:51 92 20 108/77 100 07/13/21 19:28 90 20 103/70 100 07/13/21 19:04 97.5 F L 113 H 16 124/81 97 Intake and Output 07/13/21 07/14/21 07/14/21 22:59 06:59 14:59 Output Total 1500 Balance -1500 Output: Urine 1500 Uretheral (Matson) 1500 Other: Voiding Method Indwelling Catheter # Voids 2 Weight 79.379 kg Results CBC & Chem 7: 07/13/21 19:59 07/13/21 19:59 Labs: Abnormal Lab Results - Last 24 Hours (Table) 07/13/21 07/13/21 07/13/21 Range/Units 19:59 19:59 19:59 RBC 3.57 L (4.30-5.90) m/uL Hgb 11.5 L (13.0-17.5) gm/dL Hct 33.6 L (39.0-53.0) % Neutrophils # 8.1 H (1.3-7.7) k/uL APTT 18.9 L (22.0-30.0) sec Chloride 110 H (98-107) mmol/L Carbon Dioxide 21 L (22-30) mmol/L BUN 33 H (9-20) mg/dL Creatinine 1.47 H (0.66-1.25) mg/dL Glucose 135 H (74-99) mg/dL Total Protein 6.1 L (6.3-8.2) g/dL Albumin 3.1 L (3.5-5.0) g/dL Urine Protein (Negative) Urine Blood (Negative) Urine Mucus (None) /hpf 07/13/21 Range/Units 19:59 RBC (4.30-5.90) m/uL Hgb (13.0-17.5) gm/dL Hct (39.0-53.0) % Neutrophils # (1.3-7.7) k/uL APTT (22.0-30.0) sec Chloride (98-107) mmol/L Carbon Dioxide (22-30) mmol/L BUN (9-20) mg/dL Creatinine (0.66-1.25) mg/dL Glucose (74-99) mg/dL Total Protein (6.3-8.2) g/dL Albumin (3.5-5.0) g/dL Urine Protein Trace H (Negative) Urine Blood Small H (Negative) Urine Mucus Rare H (None) /hpf
[2021-07-15] MEDS: ISOSORBIDE MONONITRATE ER 30 MG TAB.ER.24H PO SCH (08:03)
[2021-07-15] MEDS: lisinopriL 5 MG TAB PO SCH (08:03)
[2021-07-15] MEDS: PANTOPRAZOLE 40 MG TABLET PO SCH (08:06)
[2021-07-15] MEDS: levETIRAcetam 250 MG TAB PO SCH ×2 (08:06→21:14)
[2021-07-15] MEDS: APIXABAN 2.5 MG TABLET PO SCH ×2 (08:06→21:14)
[2021-07-15] MEDS: CITALOPRAM HYDROBROMIDE 20 MG TAB PO SCH (08:06)
[2021-07-15] MEDS: SODIUM CHLORIDE 0.9% 1,000 ML IV SCH ×2 (08:08→16:59)
--- NOTE | 2021-07-15 10:26 | P.PN ---
Subjective Progress Note Date: 07/15/21 HISTORY OF PRESENT ILLNESS This is an 85-year-old male patient of Dr. Lopez and Dr. VAHID Pan. He has a past medical history of [place] and coronary artery disease status post stenting and 4 vessel CABG done in [place] in 1999, LISA to LAD, SVG to intermediate, and SVG to diagonal, as well as SVG to left circumflex, hypertension, hypertensive vascular disease, hyperlipidemia with history of prostate cancer treated with radiation. He completed radiation treatment in April 2012. 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 In 2013 patient had acute non-ST elevated myocardial infarction and underwent stenting of the SVG to the left circumflex. Patient has had multiple admissions for syncopal episodes followed by cardiology and neurology with unclear etiology. Patient was recently hospitalized in June and discharged home with home care and has refused rehab in the past. Neurology had recommended one half hour ambulatory EEG as an outpatient and possible sleep study and was started on Keppra 250 mg twice daily. He did have follow-up appointment with Dr. Gustafson on It is undetermined if these occurred. He now presents with similar symptoms. Patient was out with his daughter and had a syncopal episode apparently was found to have initial blood pressure in the 60s. He did not have any fall as he was sitting in a wheelchair when this occurred, no dizziness or lightheadedness. No nausea or vomiting. His repeat blood pressure upon arrival was 124/81 with heart rate of 113, pulse ox 97% on room air. EKG CBC was unremarkable with hemoglobin at 11.5. Sodium 141, potassium 4.4, chloride 110, CO2 21, BUN 33 and creatinine 1.47 which is his baseline of 1.4. Urinalysis was negative for infection. CAT scan of the brain showed no acute processes only age-related changes Chest x-ray showed no acute pulmonary process He was stabilized in the emergency center but daughter was not comfortable taking him home. Patient is seen this morning and is sleeping in bed and difficult to arouse which is normal for patient in the mornings in the hospital. 10: Patient is awake and alert but confused this morning. He states he is not feeling any better. Matson catheter has been placed for urinary retention of 1500 ML's. Flomax will be started. PT and OT consults are in place and we will ask for social work to evaluate for placement. Patient did have temperature maximum 100.5, heart rate 91, blood pressure 107/63, pulse ox 95% on room air. Repeat urinalysis and culture, chest x-ray ordered and patient started on Rocephin for now. Await orthostatics. REVIEW OF SYSTEMS Constitutional: No fever, no chills, no night sweats. No weight change. Reported weakness, reports fatigue, no lethargy. No daytime sleepiness. EENT: No headache. No blurred vision or double vision, no loss of vision. Chronic loss of Hearing No nasal drainage or congestion. No epistaxis. No sore throat. Lungs: No shortness of breath, reports cough, no sputum production. No wheezing. Cardiovascular: No chest pain, no lower extremity edema. No palpitations. No paroxysmal nocturnal dyspnea. No orthopnea. No lightheadedness or dizziness. Reported syncopal episodes. Abdominal: No abdominal pain. No nausea, vomiting. No diarrhea. No constipation. No bloody or tarry stools.. No loss of appetite. Genitourinary: No dysuria, increased frequency, urgency. Noted urinary retentio n. Musculoskeletal: No myalgias. Reports muscle weakness, reports gait dysfunction, no frequent falls. No back pain. No neck pain. Integumentary: No wounds, no lesions. No rash or pruritus. No unusual bruising. No change in hair or nails. Neurologic: No aphasia. No facial droop. Noted change in mentation. No head injury. No headache. No paralysis. No paresthesia. Psychiatric: No depression. No anxiety. Endocrine: No abnormal blood sugars. PHYSICAL EXAMINATION Gen: This is an 86-year-old male. He is resting in bed and in no acute distress. HEENT: Head is atraumatic, normocephalic. Pupils equal, round. Sclerae is an icteric. NECK: Supple. No JVD. No lymphadenopathy. No thyromegaly. LUNGS: Clear to auscultation. No wheezes or rhonchi. No intercostal retractions. HEART: Regular rate and rhythm. Systolic murmur. ABDOMEN: Soft. Bowel sounds are present. No masses. No tenderness. EXTREMITIES: No pedal edema. No calf tenderness. NEUROLOGICAL: Patient is awake, alert, patient is confused, oriented to person o nly. Bilateral upper and lower extremity weakness. ASSESSMENT AND PLAN 1. Syncopal episode most likely due to hypotension. Monitor orthostatics. Patient has had full workup on previous hospitalizations. Consult PT and OT. 2. Metabolic encephalopathy of unclear etiology. Monitor patient closely PT and OT consults. rule out infection with low-grade fever, UA with culture and repeat chest x-ray ordered. 3. Chronic persistent atrial fibrillation. Continue eliquis 2.5 mg twice daily, patient is off Coreg. 4. History of coronary artery disease with prior bypass and stenting, stable. Continue atorvastatin 40 mg daily, Imdur 30 mg daily. 5. Hypertension, hypertensive cardiovascular disease. Continue lisinopril 5 mg daily. 6. Hyperlipidemia. Continue statin 7. Chronic kidney disease stage IIIa, stable. Baseline creatinine 1.4. 8. Anemia of chronic kidney disease, stable 9. History of prostate cancer treated with radiation, stable. 10. 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 11. Short-term memory deficit, loss of appetite, recurrent depression. Patient continued on Remeron 7.5 mg at bedtime. 12. Possible seizure disorder. Keppra 250 mg every 12 hours. 13. Urinary retention. Matson catheter placement, start Flomax 0.4 mg daily. 14. GI prophylaxis. Protonix. 15. DVT prophylaxis. Eliquis. DISCHARGE PLAN To be determined. ET, OT, social work consults. Impression and plan of care have been directed as dictated by the signing physician. Gloria Oneill nurse practitioner acting as scribe for signing physician. Objective - Vital Signs Vital signs: Vital Signs Temp 98.8 F 07/15/21 08:32 Pulse 60 07/15/21 08:32 Resp 18 07/15/21 08:32 BP 97/62 07/15/21 08:32 Pulse Ox 94 L 07/15/21 08:32 Intake & Output 07/14/21 07/15/21 07/15/21 18:59 06:59 18:59 Intake Total 540 Output Total 1600 1000 Balance -1060 -1000 Intake: Oral 540 Output: Urine 1600 1000 Other: Voiding Method Indwelling Catheter Indwelling Catheter # Bowel Movements 1 - Labs CBC & Chem 7: 07/13/21 19:59 07/13/21 19:59
--- NOTE | 2021-07-15 10:47 | XR ---
"EXAMINATION TYPE: XR chest 2V DATE OF EXAM: 07/15/2021 COMPARISON: Chest x-ray 2 days ago. HISTORY: Fever. TECHNIQUE: Frontal and lateral views of the chest are obtained. FINDINGS: There is elevated left hemidiaphragm and chronic parenchymal changes with patchy periphera l basilar opacities now present. No pleural effusion or pneumothorax seen bilaterally. Persistent ca rdiomegaly with atherosclerotic and aneurysmal thoracic aorta. Overlying sternal wires and mediasti nal clips redemonstrated. The osseous structures are demineralized. Degenerative change bilateral gle nohumeral joints. IMPRESSION: Chronic changes and cardiomegaly with new peripheral basilar acute infiltrates. Correlat e for possible covid-19 infection. A Yellow level critical message alert has been initiated for Jodi Kothari MD via the [employer] 36 0 | Critical Results System on 07/15/2021 10:44 AM. This message alert has been sent to Jodi Kothari MD via the preferences provided by the clinician for the receipt of Radiology Critical Findings. [facility] [place] [id number]."
[2021-07-15 14:36] LABS: Appearance,Urine Cloudy (Clear); Bacteria,Urine Occasional /hpf; Bilirubin,Urine Negative (Negative); Blood,Urine Large (Negative); Budding Yeast,Urine Occasional /hpf; Color,Urine Yellow; Glucose,Urine (UA) Negative (Negative); Hyaline Casts,Urine 1 /lpf (0-2); Ketones,Urine Negative (Negative); Leukocyte Esterase,Urine Small (Negative); Mucus,Urine Occasional /hpf; Nitrite,Urine Negative (Negative); Protein,Urine 1+ (Negative); RBC,Urine >182 /hpf (0-5); Specific Gravity,Urine 1.015 (1.001-1.035); Squamous Epithelial Cell,Urine 1 /hpf (0-4); Urobilinogen,Urine <2.0 mg/dL (<2.0); WBC,Urine 5 /hpf (0-5)
[2021-07-15] MEDS: TAMSULOSIN 0.4 MG CAP.ER.24H PO SCH (16:59)
[2021-07-15] MEDS: ATORVASTATIN 40 MG TAB PO SCH (21:14)
[2021-07-15] MEDS: MIRTAZAPINE 15 MG TAB PO SCH (21:14)
[2021-07-16] MEDS: SODIUM CHLORIDE 0.9% 1,000 ML IV SCH (05:47)
[2021-07-16] MEDS: levETIRAcetam 250 MG TAB PO SCH ×2 (08:48→21:30)
[2021-07-16] MEDS: CITALOPRAM HYDROBROMIDE 20 MG TAB PO SCH (08:48)
[2021-07-16] MEDS: APIXABAN 2.5 MG TABLET PO SCH ×2 (08:48→21:30)
[2021-07-16] MEDS: ISOSORBIDE MONONITRATE ER 30 MG TAB.ER.24H PO SCH (08:48)
[2021-07-16] MEDS: PANTOPRAZOLE 40 MG TABLET PO SCH (08:48)
[2021-07-16 12:48] LABS: C Reactive Protein 3.1 mg/dL (<1.0)
[2021-07-16] MEDS: MIDODRINE 5 MG TAB PO SCH (17:34)
[2021-07-16 21:29] LABS: Glucose,Whole Blood 108 mg/dL (75-99)
[2021-07-16] MEDS: ATORVASTATIN 40 MG TAB PO SCH (21:30)
[2021-07-16] MEDS: TAMSULOSIN 0.4 MG CAP.ER.24H PO SCH (21:30)
[2021-07-16] MEDS: MIRTAZAPINE 15 MG TAB PO SCH (21:30)
[2021-07-17] MEDS: CITALOPRAM HYDROBROMIDE 20 MG TAB PO SCH (07:46)
[2021-07-17] MEDS: ISOSORBIDE MONONITRATE ER 30 MG TAB.ER.24H PO SCH (07:46)
[2021-07-17] MEDS: levETIRAcetam 250 MG TAB PO SCH ×2 (07:46→22:04)
[2021-07-17] MEDS: APIXABAN 2.5 MG TABLET PO SCH ×2 (07:46→22:04)
[2021-07-17] MEDS: MIDODRINE 5 MG TAB PO SCH (07:46)
[2021-07-17] MEDS: PANTOPRAZOLE 40 MG TABLET PO SCH (07:46)
--- NOTE | 2021-07-17 07:51 | P.PN ---
Subjective Progress Note Date: 07/16/21 HISTORY OF PRESENT ILLNESS This is an 85-year-old male patient of Dr. Lopez and Dr. VAHID Pan. He has a past medical history of CT and coronary artery disease status post stenting and 4 vessel CABG done in [place] in 1999, LISA to LAD, SVG to intermediate, and SVG to diagonal, as well as SVG to left circumflex, hypertension, hypertensive vascular disease, hyperlipidemia with history of prostate cancer treated with radiation. He completed radiation treatment in April 2012. 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 In 2013 patient had acute non-ST elevated myocardial infarction and underwent stenting of the SVG to the left circumflex. Patient has had multiple admissions for syncopal episodes followed by cardiology and neurology with unclear etiology. Patient was recently hospitalized in June and discharged home with home care and has refused rehab in the past. Neurology had recommended one half hour ambulatory EEG as an outpatient and possible sleep study and was started on Keppra 250 mg twice daily. He did have follow-up appointment with Dr. Gustafson on It is undetermined if these occurred. He now presents with similar symptoms. Patient was out with his daughter and had a syncopal episode apparently was found to have initial blood pressure in the 60s. He did not have any fall as he was sitting in a wheelchair when this occurred, no dizziness or lightheadedness. No nausea or vomiting. His repeat blood pressure upon arrival was 124/81 with heart rate of 113, pulse ox 97% on room air. EKG CBC was unremarkable with hemoglobin at 11.5. Sodium 141, potassium 4.4, chloride 110, CO2 21, BUN 33 and creatinine 1.47 which is his baseline of 1.4. Urinalysis was negative for infection. CAT scan of the brain showed no acute processes only age-related changes Chest x-ray showed no acute pulmonary process He was stabilized in the emergency center but daughter was not comfortable taking him home. Patient is seen this morning and is sleeping in bed and difficult to arouse which is normal for patient in the mornings in the hospital. 10: Patient is awake and alert but confused this morning. He states he is not feeling any better. Matson catheter has been placed for urinary retention of 1500 ML's. Flomax will be started. PT and OT consults are in place and we will ask for social work to evaluate for placement. Patient did have temperature maximum 100.5, heart rate 91, blood pressure 107/63, pulse ox 95% on room air. Repeat urinalysis and culture, chest x-ray ordered and patient started on Rocephin for now. Await orthostatics. 07/16: Patient's daughter is at bedside and relates that since his last hospitalization, patient has been living with her and her . Patient is not ambulatory. They do left him into a wheelchair. She states that when he had the syncopal episode that brought him in the hospital, her noted that his heart rate was going fast and slow. She also noted some jerking motions concerning for seizure activity which she also states occurred while he was in the emergency center. A chest x-ray on 07/15 was done that revealed chronic changes and cardiomegaly with new peripheral basilar acute infiltrates correlate for possible Covid 19 infection. Repeat Covid testing is been ordered as well as inflammatory markers. IV fluids discontinued. Echocardiogram from 06/23/2021 revealed EF of 30-35% with moderate concentric left ventricle hypertrophy, mild aortic regurgitation, moderate to severe mitral regurgitation, [id number] tricuspid regurgitation, aortic root is mildly dilated. Cardiology consult was added for evaluation for arrhythmia as well as neurology for syncope possible seizure. Patient has been started on ceftriaxone. REVIEW OF SYSTEMS Constitutional: No fever, no chills, no night sweats. No weight change. Reported weakness, reports fatigue, no lethargy. No daytime sleepiness. EENT: No headache. No blurred vision or double vision, no loss of vision. Chronic loss of Hearing No nasal drainage or congestion. No epistaxis. No sore throat. Lungs: No shortness of breath, reports cough, no sputum production. No wheezing. Cardiovascular: No chest pain, no lower extremity edema. No palpitations. No paroxysmal nocturnal dyspnea. No orthopnea. No lightheadedness or dizziness. Reported syncopal episodes with jerking movements. Abdominal: No abdominal pain. No nausea, vomiting. No diarrhea. No constipation. No bloody or tarry stools.. No loss of appetite. Genitourinary: No dysuria, increased frequency, urgency. Noted urinary retention. Musculoskeletal: No myalgias. Reports muscle weakness, reports gait dysfunction, no frequent falls. No back pain. No neck pain. Integumentary: No wounds, no lesions. No rash or pruritus. No unusual bruising. No change in hair or nails. Neurologic: No aphasia. No facial droop. Noted change in mentation. No head i njury. No headache. No paralysis. No paresthesia. Psychiatric: No depression. No anxiety. Endocrine: No abnormal blood sugars. PHYSICAL EXAMINATION Gen: This is an 86-year-old male. He is resting in bed and in no acute distress. HEENT: Head is atraumatic, normocephalic. Pupils equal, round. Sclerae is anicteric. NECK: Supple. No JVD. No lymphadenopathy. No thyromegaly. LUNGS: Clear to auscultation. No wheezes or rhonchi. No intercostal retractions. HEART: Regular rate and rhythm. Systolic murmur. ABDOMEN: Soft. Bowel sounds are present. No masses. No tenderness. EXTREMITIES: No pedal edema. No calf tenderness. NEUROLOGICAL: Patient is awake, alert, patient is sleeping. ASSESSMENT AND PLAN 1. Syncopal episode most likely due to hypotension, possible arrhythmia, possible seizure. Monitor orthostatics. Patient has had full workup on previous hospitalizations. Consult PT and OT. Midodrine 5 mg twice daily added. 2. Metabolic encephalopathy of unclear etiology. Monitor patient closely PT and OT consults. rule out infection with low-grade fever, UA with culture and repeat chest x-ray ordered. Rule out Covid on chest x-ray. Repeat Covid 19 testing and inflammatory markers 3. Chronic persistent atrial fibrillation. Continue eliquis 2.5 mg twice daily, patient is off Coreg. 4. History of coronary artery disease with prior bypass and stenting, stable. Continue atorvastatin 40 mg daily, Imdur 30 mg daily. 5. Hypertension, hypertensive cardiovascular disease. Continue lisinopril 5 mg daily. 6. Hyperlipidemia. Continue statin 7. Chronic kidney disease stage IIIa, stable. Baseline creatinine 1.4. 8. Anemia of chronic kidney disease, stable 9. History of prostate cancer treated with radiation, stable. 10. 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 11. Short-term memory deficit, loss of appetite, recurrent depression. Patient continued on Remeron 7.5 mg at bedtime. 12. Possible seizure disorder. Keppra 250 mg every 12 hours. 13. Urinary retention. Matson catheter placement, start Flomax 0.4 mg daily. 14. Chronic systolic heart failure with EF 30-35%, Discontinue IVF, start Lasix 15. Valvular heart disease with moderate to severe mitrol regurgitation, mild to moderate tricuspid regurgitation. 16. GI prophylaxis. Protonix. 17. DVT prophylaxis. Eliquis. DISCHARGE PLAN To be determined. ET, OT, social work consults. Impression and plan of care have been directed as dictated by the signing physician. Gloria Oneill nurse practitioner acting as scribe for signing physician. Objective - Vital Signs Vital signs: Vital Signs Temp 97.6 F 07/16/21 07:55 Pulse 61 07/16/21 08:00 Resp 16 07/16/21 08:00 BP 126/79 07/16/21 07:55 Pulse Ox 93 L 07/16/21 07:55 Intake & Output 07/15/21 07/16/21 07/16/21 18:59 06:59 18:59 Intake Total 1080 380 Output Total 1600 1800 Balance -520 -1420 Intake: Oral 1080 380 Output: Urine 1600 1800 Other: Voiding Method Indwelling Catheter Indwelling Catheter Indwelling Catheter # Bowel Movements 4 1 - Labs CBC & Chem 7: 07/13/21 19:59 07/13/21 19:59 Labs: Abnormal Lab Results - Last 24 Hours (Table) 07/15/21 Range/Units 14:00 Urine Protein 1+ H (Negative) Urine Blood Large H (Negative) Ur Leukocyte Esterase Small H (Negative) Urine RBC >182 H (0-5) /hpf Urine WBC Clumps Few H (None) /hpf Urine Bacteria Occasional H (None) /hpf Urine Mucus Occasional H (None) /hpf Urine Yeast (Budding) Occasional H (None) /hpf
[2021-07-17] MEDS: METOPROLOL TARTRATE 25 MG TAB PO SCH (10:29)
[2021-07-17 11:42] LABS: African American GFR (CKD) 64 (>60 ml/min/1.73 sqM); Anion Gap 8 mmol/L; Blood Urea Nitrogen 19 mg/dL (9-20); Calcium 8.9 mg/dL (8.4-10.2); Carbon Dioxide 20 mmol/L (22-30); Chloride 107 mmol/L (98-107); Glucose 108 mg/dL (74-99); Non-African American GFR(CKD) 55 (>60 ml/min/1.73 sqM); Potassium 3.3 mmol/L (3.5-5.1); Sodium 135 mmol/L (137-145)
--- NOTE | 2021-07-17 13:35 | P.CRDCN ---
History of Present Illness History of present illness: HISTORY OF PRESENTING ILLNESS This is a pleasant 86-year-old male past medical history significant for coronary artery disease status post bypass grafting in 1999 with LISA to LAD, SVG to D1, SVG to ramus and SVG to OM1, chronic persistent atrial fibrillation status post cardioversion back in [place]. fib, dyslipidemia, systolic heart failure and history of prostate cancer status post radiation. He follows in the office with Dr. Pan. We have been asked to see in consultation for syncope. He is somewhat of a poor historian. Information is obtained from medical record and nursing staff. He was brought to the emergency department by EMS due to possible syncope. Apparently he was seated in his wheelchair outside when he started to become confused and then passed out. The patient himself does not recall this happening. In the emergency department he was asymptomatic. He was seen and evaluated for similar type episode earlier this month. At that time he had an echocardiogram revealing impaired LV systolic function with ejection fraction 30-35%, moderate concentric LVH, moderate to severe MR and [id number] tricuspid regurgitation. He was on coreg during that admission. He was discharged at that time on coreg 3.125 mg BID, which is not currently being given for unknown reasons. EKG on arrival reveals atrial fibrillation with right bundle branch block and left anterior fascicular block heart rate of 122. Telemetry tracings reveal persistent atrial fibrillation with variable ventricular rates. According to the nursing staff while at rest the patient's rates are controlled however with any activity or movement he goes up to 120-130 beats a minute. Lisinopril has been held by the primary care team. Chest x-ray reveals chronic changes and cardiomegaly with new peripheral basilar acute infiltrates, correlate for possible COVID-19 infection. Repeat Covid testing has been ordered. Initially was not detected on 10 2. REVIEW OF SYSTEMS At the time of my exam: CONSTITUTIONAL: Denies fever or chills. CARDIOVASCULAR: Denies chest pain, shortness of breath, orthopnea, PND or palpitations. RESPIRATORY: Denies cough. GASTROINTESTINAL: Denies abdominal pain, diarrhea, constipation, nausea or vomiting. MUSCULOSKELETAL: Denies myalgias. NEUROLOGIC: Denies numbness, tingling, headache or weakness. ENDOCRINE: Denies fatigue, weight change, polydipsia or polyurina. GENITOURINARY: Denies burning, hematuria or urgency with micturation. HEMATOLOGIC: Denies history of anemia or bleeding. PHYSICAL EXAMINATION Blood pressure 129/62 heart rate 60 afebrile and maintaining oxygen saturation on room air. CONSTITUTIONAL: No apparent distress. HEENT: Head is normocephalic. Pupils are equal, round. Sclerae anicteric. Mucous membranes of the mouth are moist. No JVD. No carotid bruit. CHEST EXAMINATION: Lungs are clear to auscultation. No chest wall tenderness is noted on palpation or with deep breathing. HEART EXAMINATION: Regular rate and rhythm. S1, S2 heard. Systolic ejection murmur at the left sternal border and apex, no gallops or rub. ABDOMEN: Soft, nontender. EXTREMITIES: 2+ peripheral pulses, no lower extremity edema and no calf te nderness. NEUROLOGIC EXAMINATION: Patient is awake, alert and oriented x3. ASSESSMENT Possible syncope Altered mental status Chronic persistent atrial fibrillation Coronary artery disease status post bypass grafting Hypertension Dyslipidemia Chronic systolic heart failure, clinically euvolemic PLAN Resume beta blockers and assess his response. If he can tolerate, increase to BID. Recommend 30-day event monitor upon discharge. Thank you kindly for this consultation. Nurse Practitioner note has been reviewed, I agree with a documented findings and plan of care. Patient was seen and examined. Past Medical History Past Medical History: Atrial Fibrillation, Coronary Artery Disease (CAD), Cancer, Hyperlipidemia, Hypertension, Myocardial Infarction ([place]), Osteoarthritis (OA), Prostate Disorder Additional Past Medical History / Comment(s): 1999-prostate cancer with radiation Last Myocardial Infarction Date:: 1998 History of Any Multi-Drug Resistant Organisms: None Reported Past Surgical History: Coronary Bypass/CABG, Heart Catheterization With Stent, Hernia Repair Additional Past Surgical History / Comment(s): Open heart Quadrupal bypass (1998) Past Anesthesia/Blood Transfusion Reactions: No Reported Reaction Date of Last Stent Placement:: 2015 Past Psychological History: No Psychological Hx Reported Smoking Status: Former smoker Past Alcohol Use History: None Reported Past Drug Use History: None Reported - Past Family History Father Family Medical History: Congestive Heart Failure (CHF), COPD, Coronary Artery Disease (CAD) Additional Family Medical History / Comment(s): at age 72. Mother Family Medical History: Cancer Additional Family Medical History / Comment(s): at age 86, colon cancer. Sister(s) Family Medical History: COPD, Liver Disease Additional Family Medical History / Comment(s): Patient had one sister with history of alcoholism and at age 71. She also had COPD. Brother(s) Additional Family Medical History / Comment(s): Patient has one dtr that from diabetes complications. One son has history of hypertension. One daughter has diabetes. Medications and Allergies Home Medications Medication Instructions Recorded Confirmed Type Atorvastatin [Lipitor] 40 mg PO HS 05/16/16 07/13/21 History Apixaban [Eliquis] 2.5 mg PO BID #60 tab 05/25/19 07/13/21 Rx Isosorbide Mononitrate ER [Imdur] 30 mg PO DAILY #0 02/20/20 07/13/21 Rx Mirtazapine [Remeron] 7.5 mg PO HS #30 tab 06/27/21 07/13/21 Rx lisinopriL [Zestril] 5 mg PO DAILY #30 tab 06/27/21 07/13/21 Rx levETIRAcetam [Keppra] 250 mg PO Q12HR #60 tab 06/28/21 07/13/21 Rx Citalopram Hydrobromide [CeleXA] 20 mg PO DAILY 07/13/21 07/13/21 History Allergies Allergy/AdvReac Type Severity Reaction Status Date / Time No Known Allergies Allergy Verified 07/13/21 21:34 Physical Exam Vitals: Vital Signs Temp Pulse Resp BP Pulse Ox 07/17/21 07:45 60 18 07/17/21 07:33 98.0 F 60 18 129/62 93 L 07/17/21 02:00 97.8 F 75 145/74 93 L 07/16/21 20:00 97.9 F 121 H 18 142/83 96 07/16/21 19:40 18 07/16/21 14:00 98.3 F 50 L 18 144/70 92 L Intake and Output 07/16/21 07/17/21 07/17/21 22:59 06:59 14:59 Output Total 2200 1750 Balance -2200 -1750 Output: Urine 2200 1750 Other: Voiding Method Indwelling Catheter Indwelling Catheter # Bowel Movements 1 1 Results 07/13/21 19:59 07/17/21 10:33 Cardiac Enzymes 07/16/21 Range/Units 12:08 Lactate Dehydrogenase 361 ([id number]) U/L Current Medications Generic Name Dose Route Start Last Admin Trade Name Freq PRN Reason Stop Dose Admin Acetaminophen 650 mg 07/13/21 23:32 07/15/21 03:42 Acetaminophen Tab 325 Mg Tab PO 650 mg Q6HR PRN Administration Mild Pain or Fever > 100.5 Apixaban 2.5 mg 07/14/21 09:00 07/17/21 07:46 Apixaban 2.5 Mg Tablet PO 2.5 mg BID MARILYN Administration Protocol Atorvastatin Calcium 40 mg 07/13/21 23:45 07/16/21 21:30 Atorvastatin 40 Mg Tab PO 40 mg HS MARILYN Administration Citalopram Hydrobromide 20 mg 07/14/21 09:00 07/17/21 07:46 Citalopram Hydrobromide 20 Mg Tab PO 20 mg DAILY MARILYN Administration Ceftriaxone Sodium 1 gm/ 50 mls @ 100 mls/hr 07/15/21 09:30 07/17/21 07:54 Sodium Chloride IVPB 100 mls/hr Q24HR MARILYN Administration Isosorbide Mononitrate 30 mg 07/14/21 09:00 07/17/21 07:46 Isosorbide Mononitrate Er 30 Mg Tab.Er.24h PO 30 mg DAILY MARILYN Administration Levetiracetam 250 mg 07/14/21 09:00 07/17/21 07:46 Levetiracetam 250 Mg Tab PO 250 mg Q12HR MARILYN Administration Metoprolol Tartrate 25 mg 07/17/21 09:00 Metoprolol Tartrate 25 Mg Tab PO DAILY MARILYN Midodrine 5 mg 07/16/21 11:45 07/17/21 07:46 Midodrine 5 Mg Tab PO 5 mg AC-BID MARILYN Administration Mirtazapine 7.5 mg 07/13/21 23:45 07/16/21 21:30 Mirtazapine 15 Mg Tab PO 7.5 mg HS MARILYN Administration Naloxone HCl 0.2 mg 07/13/21 23:32 Naloxone 0.4 Mg/Ml 1 Ml Vial IV Q2M PRN Opioid Reversal Ondansetron HCl 4 mg 07/13/21 23:32 Ondansetron 4 Mg/2 Ml Vial IVP Q8HR PRN Nausea And Vomiting Pantoprazole Sodium 40 mg 07/15/21 07:30 07/17/21 07:46 Pantoprazole 40 Mg Tablet PO 40 mg [id number]-[id number] MARILYN Administration Tamsulosin HCl 0.4 mg 07/15/21 18:30 07/16/21 21:30 Tamsulosin 0.4 Mg Cap.Er.24h PO 0.4 mg PC-SUPPER MARILYN Administration Intake and Output 07/16/21 07/17/21 07/17/21 22:59 06:59 14:59 Output Total 2200 1750 Balance -2200 -1750 Output: Urine 2200 1750 Other: Voiding Method Indwelling Catheter Indwelling Catheter # Bowel Movements 1 1 07/13/21 19:59 07/13/21 19:59
[2021-07-17] MEDS ORDERED: POTASSIUM CHLORIDE ER 20 MEQ TAB.ER PO STA (14:49)
--- NOTE | 2021-07-17 14:55 | P.PN ---
Subjective Progress Note Date: 07/17/21 HISTORY OF PRESENT ILLNESS This is an 85-year-old male patient of Dr. Lopez and Dr. VAHID Pan. He has a past medical history of VA and coronary artery disease status post stenting and 4 vessel CABG done in [place] in 1999, LISA to LAD, SVG to intermediate, and SVG to diagonal, as well as SVG to left circumflex, hypertension, hypertensive vascular disease, hyperlipidemia with history of prostate cancer treated with radiation. He completed radiation treatment in April 2012. 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 In 2013 patient had acute non-ST elevated myocardial infarction and underwent stenting of the SVG to the left circumflex. Patient has had multiple admissions for syncopal episodes followed by cardiology and neurology with unclear etiology. Patient was recently hospitalized in June and discharged home with home care and has refused rehab in the past. Neurology had recommended one half hour ambulatory EEG as an outpatient and possible sleep study and was started on Keppra 250 mg twice daily. He did have follow-up appointment with Dr. Gustafson on It is undetermined if these occurred. He now presents with similar symptoms. Patient was out with his daughter and had a syncopal episode apparently was found to have initial blood pressure in the 60s. He did not have any fall as he was sitting in a wheelchair when this occurred, no dizziness or lightheadedness. No nausea or vomiting. His repeat blood pressure upon arrival was 124/81 with heart rate of 113, pulse ox 97% on room air. EKG CBC was unremarkable with hemoglobin at 11.5. Sodium 141, potassium 4.4, chloride 110, CO2 21, BUN 33 and creatinine 1.47 which is his baseline of 1.4. Urinalysis was negative for infection. CAT scan of the brain showed no acute processes only age-related changes Chest x-ray showed no acute pulmonary process He was stabilized in the emergency center but daughter was not comfortable taking him home. Patient is seen this morning and is sleeping in bed and difficult to arouse which is normal for patient in the mornings in the hospital. 10: Patient is awake and alert but confused this morning. He states he is not feeling any better. Matson catheter has been placed for urinary retention of 1500 ML's. Flomax will be started. PT and OT consults are in place and we will ask for social work to evaluate for placement. Patient did have temperature maximum 100.5, heart rate 91, blood pressure 107/63, pulse ox 95% on room air. Repeat urinalysis and culture, chest x-ray ordered and patient started on Rocephin for now. Await orthostatics. 07/16: Patient's daughter is at bedside and relates that since his last hospitalization, patient has been living with her and her . Patient is not ambulatory. They do left him into a wheelchair. She states that when he had the syncopal episode that brought him in the hospital, her noted that his heart rate was going fast and slow. She also noted some jerking motions concerning for seizure activity which she also states occurred while he was in the emergency center. A chest x-ray on 07/15 was done that revealed chronic changes and cardiomegaly with new peripheral basilar acute infiltrates correlate for possible Covid 19 infection. Repeat Covid testing is been ordered as well as inflammatory markers. IV fluids discontinued. Echocardiogram from 06/23/2021 revealed EF of 30-35% with moderate concentric left ventricle hypertrophy, mild aortic regurgitation, moderate to severe mitral regurgitation, [id number] tricuspid regurgitation, aortic root is mildly dilated. Cardiology consult was added for evaluation for arrhythmia as well as neurology for syncope possible seizure. Patient has been started on ceftriaxone. 07/17: Repeat coronavirus was not detected. TSH 2.240. C-reactive protein 3.1. CK was 84. LDH 361 normal. D-dimer 0.94. Other lab work revealed sodium 135, potassium 3.3, chloride 107, CO2 20, BUN 19 and creatinine 1.19. He has been afebrile, heart rate 60s and 70s, blood pressure 129/62, pulse ox 93% on room air. Patient is awake today but is confused. Neurology consult is in process. Patient has been seen by cardiology and recommended continuing beta blockers possibly increase to twice daily, 30 day event monitor at discharge. Her potassium will be replaced. REVIEW OF SYSTEMS Constitutional: No fever, no chills, no night sweats. No weight change. Reported weakness, reports fatigue, no lethargy. No daytime sleepiness. EENT: No headache. No blurred vision or double vision, no loss of vision. Chronic loss of Hearing No nasal drainage or congestion. No epistaxis. No sore throat. Lungs: No shortness of breath, reports cough, no sputum production. No wheezing. Cardiovascular: No chest pain, no lower extremity edema. No palpitations. No paroxysmal nocturnal dyspnea. No orthopnea. No lightheadedness or dizziness. Reported syncopal episodes with jerking movements. Abdominal: No abdominal pain. No nausea, vomiting. No diarrhea. No constipation. No bloody or tarry stools.. No loss of appetite. Genitourinary: No dysuria, increased frequency, urgency. Noted urinary retention. Musculoskeletal: No myalgias. Reports muscle weakness, reports gait dysfunction, no frequent falls. No back pain. No neck pain. Integumentary: No wounds, no lesions. No rash or pruritus. No unusual bruising. No change in hair or nails. Neurologic: No aphasia. No facial droop. Noted change in mentation patient confused. No head injury. No headache. No paralysis. No paresthesia. Psychiatric: No depression. No anxiety. Endocrine: No abnormal blood sugars. PHYSICAL EXAMINATION Gen: This is an 86-year-old male. He is resting in bed and in no acute distress. HEENT: Head is atraumatic, normocephalic. Pupils equal, round. Sclerae is anicteric. NECK: Supple. No JVD. No lymphadenopathy. No thyromegaly. LUNGS: Clear to auscultation. No wheezes or rhonchi. No intercostal retractions. HEART: Regular rate and rhythm. Systolic murmur. ABDOMEN: Soft. Bowel sounds are present. No masses. No tenderness. EXTREMITIES: No pedal edema. No calf tenderness. NEUROLOGICAL: Patient is awake, alert, confused, oriented to person. ASSESSMENT AND PLAN 1. Syncopal episode most likely due to hypotension, possible arrhythmia, possible seizure. Monitor orthostatics. Patient has had full workup on previous hospitalizations. Consult PT and OT. Midodrine 5 mg twice daily added. 2. Metabolic encephalopathy possibly due to underlying pneumonia, POA. Patient's been started on ceftriaxone 1 g IV piggyback daily. Covid 19 is been ruled out by repeat testing and inflammatory markers. 3. Chronic persistent atrial fibrillation. Continue eliquis 2.5 mg twice daily, cardiology consult appreciated, patient started on Lopressor 25 mg daily 4. History of coronary artery disease with prior bypass and stenting, stable. Continue atorvastatin 40 mg daily, Imdur 30 mg daily. 5. Hypertension, hypertensive cardiovascular disease. Continue lisinopril 5 mg daily. 6. Hyperlipidemia. Continue statin 7. Chronic kidney disease stage IIIa, stable. Baseline creatinine 1.4. 8. Anemia of chronic kidney disease, stable 9. History of prostate cancer treated with radiation, stable. 10. 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 11. Short-term memory deficit, loss of appetite, recurrent depression. Patient continued on Remeron 7.5 mg at bedtime. 12. Possible seizure disorder. Keppra 250 mg every 12 hours. Neurology consul t 13. Urinary retention. Matson catheter placement, start Flomax 0.4 mg daily. 14. Chronic systolic heart failure with EF 30-35%, Discontinue IVF. 15. Valvular heart disease with moderate to severe mitrol regurgitation, mild to moderate tricuspid regurgitation. 16. GI prophylaxis. Protonix. 17. DVT prophylaxis. Eliquis. DISCHARGE PLAN To be determined. PT, OT, social work consults. Impression and plan of care have been directed as dictated by the signing physician. Gloria Oneill nurse practitioner acting as scribe for signing physician. Objective - Vital Signs Vital signs: Vital Signs Temp 98.0 F 07/17/21 07:33 Pulse 60 07/17/21 07:45 Resp 18 07/17/21 07:45 BP 129/62 07/17/21 07:33 Pulse Ox 93 L 07/17/21 07:33 Intake & Output 07/16/21 07/17/21 07/17/21 18:59 06:59 18:59 Output Total 1200 2750 Balance -1200 -2750 Output: Urine 1200 2750 Other: Voiding Method Indwelling Catheter Indwelling Catheter Indwelling Catheter # Bowel Movements 1 1 - Labs CBC & Chem 7: 07/13/21 19:59 07/17/21 10:33 Labs: Abnormal Lab Results - Last 24 Hours (Table) 07/16/21 07/16/21 07/16/21 Range/Units 12:08 12:08 21:28 D-Dimer 0.94 H (<0.60) mg/L FEU Sodium (137-145) mmol/L Potassium (3.5-5.1) mmol/L Carbon Dioxide (22-30) mmol/L Glucose (74-99) mg/dL POC Glucose (mg/dL) 108 H (75-99) mg/dL C-Reactive Protein 3.1 H (<1.0) mg/dL 07/17/21 Range/Units 10:33 D-Dimer (<0.60) mg/L FEU Sodium 135 L (137-145) mmol/L Potassium 3.3 L (3.5-5.1) mmol/L Carbon Dioxide 20 L (22-30) mmol/L Glucose 108 H (74-99) mg/dL POC Glucose (mg/dL) (75-99) mg/dL C-Reactive Protein (<1.0) mg/dL
[2021-07-17] MEDS: TAMSULOSIN 0.4 MG CAP.ER.24H PO SCH (17:30)
[2021-07-17] MEDS: ATORVASTATIN 40 MG TAB PO SCH (22:04)
[2021-07-17] MEDS: MIRTAZAPINE 15 MG TAB PO SCH (22:04)
--- NOTE | 2021-07-17 23:02 | P.CNNES ---
History of Present Illness Consult date: 07/17/21 Requesting physician: Gloria Oneill Reason for Consult: Syncope, possible seizure History of Present Illness: Patient is a 86-year-old male came to the hospital by ambulance on 07/13/2021 at 7:03 PM for a possible syncopal spell versus seizure. Patient at present states that he came to the hospital because everyone was asking "how are you doing". As per EMS flow sheet when they arrived, patient was alert and oriented 1, with GCS of 13 complaining of dizziness. Patient appeared pale white conjunctiva and with altered mental status which is not normal per his family. Family reported that he was in his wheelchair for a family walk outside when he became dizzy and presented with altered mental status. Patient does have history of CVA and hypertension. Patient's initial blood pressure at the scene was 78/48, pulse rate 56, respirations 16, saturation 87%. Repeat blood pressure about 4 minutes later was again low 67/40. Patient's blood glucose was 178 mg/dL. Patient was brought to the hospital. Patient's vital signs on arrival blood pressure 124/81, pulse rate 113, temperature 97.5. Patient's blood test shows WBC 9.8 hemoglobin 11.5, platelet 177. PT/PTT normal. Lateral lites are normal, BUN 33, creatinine 1.47 and repeat renal functions are normal, indicating some degree of dehydration. H epatic panel is normal. Troponin negative. UA negative. Coronal virus PCR negative. TSH is normal. Computed tomography scan of the head showed cerebral atrophy and hydrocephalus. No acute intracranial abnormality. Chest x-ray shows cardiomegaly. Atheromatous aorta. EKG with wide QRS tachycardia with occasional PVCs. Right bundle branch block. Left anterior fascicular block. Chest x-ray showed chronic changes and cardiomegaly with new referral basilar acute infiltrates. Correlate for possible Covid-19 infection. Covid-19 was repeated and was negative. Patient apparently had presented with similar spell on 06/23/2021 for which he was seen by Dr. Landa. It was felt patient has probable syncope. EEG was checked on 06/25/2021, which was abnormal EEG. Background is slow, suggestive of mild encephalopathy. No epileptiform activity was seen. Review of Systems Patient denies headache. No double vision. No chest pain, shortness of breath wheezing or cough. No abdominal pain nausea vomiting diarrhea. No fever or chills. Patient is very hard of hearing. Patient has arthritis. Past Medical History Past Medical History: Atrial Fibrillation, Coronary Artery Disease (CAD), Cancer, Hyperlipidemia, Hypertension, Myocardial Infarction (HI), Osteoarthritis (OA), Prostate Disorder Additional Past Medical History / Comment(s): 1999-prostate cancer with radiation Last Myocardial Infarction Date:: 1998 History of Any Multi-Drug Resistant Organisms: None Reported Past Surgical History: Coronary Bypass/CABG, Heart Catheterization With Stent, Hernia Repair Additional Past Surgical History / Comment(s): Open heart Quadrupal bypass (1998) Past Anesthesia/Blood Transfusion Reactions: No Reported Reaction Date of Last Stent Placement:: 2015 Past Psychological History: No Psychological Hx Reported Smoking Status: Former smoker Past Alcohol Use History: None Reported Past Drug Use History: None Reported - Past Family History Father Family Medical History: Congestive Heart Failure (CHF), COPD, Coronary Artery Disease (CAD) Additional Family Medical History / Comment(s): at age 72. Mother Family Medical History: Cancer Additional Family Medical History / Comment(s): at age 86, colon cancer. Sister(s) Family Medical History: COPD, Liver Disease Additional Family Medical History / Comment(s): Patient had one sister with h istory of alcoholism and at age 71. She also had COPD. Brother(s) Additional Family Medical History / Comment(s): Patient has one dtr that from diabetes complications. One son has history of hypertension. One daughter has diabetes. Medications and Allergies Home Medications Medication Instructions Recorded Confirmed Type Atorvastatin [Lipitor] 40 mg PO HS 05/16/16 07/13/21 History Apixaban [Eliquis] 2.5 mg PO BID #60 tab 05/25/19 07/13/21 Rx Isosorbide Mononitrate ER [Imdur] 30 mg PO DAILY #0 02/20/20 07/13/21 Rx Mirtazapine [Remeron] 7.5 mg PO HS #30 tab 06/27/21 07/13/21 Rx lisinopriL [Zestril] 5 mg PO DAILY #30 tab 06/27/21 07/13/21 Rx levETIRAcetam [Keppra] 250 mg PO Q12HR #60 tab 06/28/21 07/13/21 Rx Citalopram Hydrobromide [CeleXA] 20 mg PO DAILY 07/13/21 07/13/21 History Allergies Allergy/AdvReac Type Severity Reaction Status Date / Time No Known Allergies Allergy Verified 07/13/21 21:34 Physical Examination - Vital Signs Vital Signs: Vital Signs Temp Pulse Resp BP Pulse Ox 07/17/21 14:00 97.7 F 64 18 125/66 97 07/17/21 07:45 60 18 07/17/21 07:33 98.0 F 60 18 129/62 93 L 07/17/21 02:00 97.8 F 75 145/74 93 L 07/16/21 20:00 97.9 F 121 H 18 142/83 96 07/16/21 19:40 18 Intake and Output 07/17/21 07/17/21 07/17/21 06:59 14:59 22:59 Output Total 1750 Balance -1750 Output: Urine 1750 Other: Voiding Method Indwelling Catheter # Bowel Movements 1 2 Patient is an elderly male, in no acute distress. Patient is alert awake. Patient states is the month of September and then stated it was April and the year is 2020. He does not know the name of the building. States it used to be [facility] [employer] [facility]. He knows he is in [place] in [place]. Patient states the current president is "jared Oconnor". Speech and language functions are normal. Attention, concentration and fund of knowledge is adequate. Patient has positive visuospatial apraxia, positive palmomental reflex. On cranial examination, pupils are round and reacting to light, visual jones are full on confrontation, extraocular muscles are intact with no nystagmus. Face is symmetric, tongue protrudes to the midline. Palatal elevation and sensation normal, hearing is severely decreased and shoulder shrug normal, facial sensation normal. Shoulder shrug normal. On muscle strength testing, there is no pronator drift and the strength is normal in arms and legs distally and proximally, except hip flexion, which has slightly decreased effort with some giveaway weakness. Deep tendon reflexes are symmetric, 2 at the biceps, 1 brachioradialis, 2+ at the knees, 1 ankles and plantars downgoing bilaterally. Sensory to touch is equal with no neglect. Cerebellar function showed no ataxia for [id number] testing. Tone is mildly to moderately increased with evidence of cogwheeling and bulk of muscles normal. Gait not checked. On general examination, there is no carotid bruit or murmur, S1-S2 audible. Abdomen is soft nontender. Chest is clear. No rash. Results - Laboratory Findings CBC and BMP: 07/13/21 19:59 07/17/21 10:33 Abnormal Lab Findings: Abnormal Labs 07/13/21 07/13/21 07/13/21 19:59 19:59 19:59 RBC 3.57 L Hgb 11.5 L Hct 33.6 L Neutrophils # 8.1 H APTT 18.9 L D-Dimer Sodium Potassium Chloride 110 H Carbon Dioxide 21 L BUN 33 H Creatinine 1.47 H Glucose 135 H POC Glucose (mg/dL) C-Reactive Protein Total Protein 6.1 L Albumin 3.1 L Urine Protein Urine Blood Ur Leukocyte Esterase Urine RBC Urine WBC Clumps Urine Bacteria Urine Mucus Urine Yeast (Budding) 07/13/21 07/15/21 07/16/21 19:59 14:00 12:08 RBC Hgb Hct Neutrophils # APTT D-Dimer 0.94 H Sodium Potassium Chloride Carbon Dioxide BUN Creatinine Glucose POC Glucose (mg/dL) C-Reactive Protein Total Protein Albumin Urine Protein Trace H 1+ H Urine Blood Small H Large H Ur Leukocyte Esterase Small H Urine RBC >182 H Urine WBC Clumps Few H Urine Bacteria Occasional H Urine Mucus Rare H Occasional H Urine Yeast (Budding) Occasional H 07/16/21 07/16/21 07/17/21 12:08 21:28 10:33 RBC Hgb Hct Neutrophils # APTT D-Dimer Sodium 135 L Potassium 3.3 L Chloride Carbon Dioxide 20 L BUN Creatinine Glucose 108 H POC Glucose (mg/dL) 108 H C-Reactive Protein 3.1 H Total Protein Albumin Urine Protein Urine Blood Ur Leukocyte Esterase Urine RBC Urine WBC Clumps Urine Bacteria Urine Mucus Urine Yeast (Budding) Assessment and Plan Assessment: * Syncopal spell, likely due to dehydration, hypovolemia. Patient was obviously hypotensive at the scene with blood pressure 78/48 which further dropped down to 67/40 at the scene. Patient had normal EEG in the recent past. 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 CT head reported as hydrocephalus. On my review, there is definite at least moderate amount of cortical atrophy as well, with secondary ventricular dilation. There could be possibly some component of NPH as well. * Hard of hearing. Plan: * Cardiology has seen the patient, recommending event monitor hook-up. * No other neurological workup indicated. Recent EEG showed no epileptiform activity. * We will check carotid Doppler, as the previous carotid Doppler from 12/22/2019 showed 50-69% stenosis. * 2-D echo from 06/23/2021 shows moderate concentric LVH. EF is moderately to severely impaired between 30-35%. Right ventricle is severely enlarged. Moderate to severe MR. Mild to moderate TR. * Hydration.
[2021-07-18] MEDS: APIXABAN 2.5 MG TABLET PO SCH ×3 (07:59→20:38)
[2021-07-18] MEDS: CITALOPRAM HYDROBROMIDE 20 MG TAB PO SCH ×2 (07:59→10:13)
[2021-07-18] MEDS: PANTOPRAZOLE 40 MG TABLET PO SCH ×2 (07:59→10:11)
[2021-07-18] MEDS: MIDODRINE 5 MG TAB PO SCH ×3 (07:59→17:34)
[2021-07-18] MEDS: levETIRAcetam 250 MG TAB PO SCH ×3 (08:00→20:38)
[2021-07-18] MEDS: ISOSORBIDE MONONITRATE ER 30 MG TAB.ER.24H PO SCH ×2 (08:00→10:12)
[2021-07-18] MEDS: METOPROLOL TARTRATE 25 MG TAB PO SCH (08:00)
--- NOTE | 2021-07-18 08:42 | US ---
EXAMINATION TYPE: US carotid duplex BILAT DATE OF EXAM: 07/18/2021 COMPARISON: 12/22/2019 CLINICAL HISTORY: Syncope, previous abnormal carotid Doppler.. EXAM MEASUREMENTS: RIGHT: Peak Systolic Velocity (PSV) cm/sec ----- Right CCA: 59.4 ----- Right ICA: 63.5 ----- Right ECA: 59.3 ICA/CCA ratio: 1.1 RIGHT: End Diastole cm/sec ----- Right CCA: 17.2 ----- Right ICA: 21.5 ----- Right ECA: 12.1 LEFT: Peak Systolic Velocity (PSV) cm/sec ----- Left CCA: 60.3 ----- Left ICA: 161 ----- Left ECA: 82.9 ICA/CCA ratio: 2.7 LEFT: End Diastole cm/sec ----- Left CCA: 17.3 ----- Left ICA: 46.6 ----- Left ECA: 14.7 VERTEBRALS (direction of flow): Right Vertebral: Antegrade Left Vertebral: Antegrade, increased velocity Rhythm: Normal Increased velocities in the left prox ICA with high ICA/CCA ratio. Decent amount of plaque seen bilat erally within the bulbs and prox ICA/CCA Moderate plaque seen throughout bilaterally CCA IMPRESSION: 1. Atherosclerotic plaque with findings suggestive of a 50-69% stenosis involving the proximal left i nternal carotid artery. Criteria for Assigning % of Stenosis / Diameter reduction (Estimation based on the indirect measurements of the internal carotid artery velocities (ICA PSV). 1. Normal (no stenosis)=ICA PSV < 125 cm/s: ratio < 2.0: ICA EDV<40 cm/s. 2. Less than 50% stenosis=ICA PSV < 125 cm/s: ratio < 2.0: ICA EDV<40 cm/s. 3. 50 to 69% stenosis=ICA PSV of 125 to 230 cm/s: ration 2.0 ? 4.0: ICA EDV 40-100 cm/s. 4. Greater than 70% stenosis to near occlusion= ICA PSV > 230 cm/s: ratio > 4.0: ICA EDV > 100 cm/s. 5. Near occlusion= ICA PSV velocities may be low or undetectable: variable ratio and ICA EDV. 6. Total occlusion=unable to detect flow.
--- NOTE | 2021-07-18 11:04 | P.PN ---
Subjective HISTORY OF PRESENTING ILLNESS This is a pleasant 86-year-old male past medical history significant for coronary artery disease status post bypass grafting in 1999 with LISA to LAD, SVG to D1, SVG to ramus and SVG to OM1, chronic persistent atrial fibrillation status post cardioversion back in A. fib, dyslipidemia, systolic heart failure and history of prostate cancer status post radiation. He follows in the office with Dr. Pan. We have been asked to see in consultation for syncope. He is somewhat of a poor historian. Information is obtained from medical record and nursing staff. He was brought to the emergency department by EMS due to possible syncope. Apparently he was seated in his wheelchair outside when he started to become confused and then passed out. The patient himself does not recall this happening. In the emergency department he was asymptomatic. He was seen and evaluated for similar type episode earlier this month. At that time he had an echocardiogram revealing impaired LV systolic function with ejection fraction 30-35%, moderate concentric LVH, moderate to severe MR and [id number] tricuspid regurgitation. He was on coreg during that admission. He was discharged at that time on coreg 3.125 mg BID, which is not currently being given for unknown reasons. EKG on arrival reveals atrial fibrillation with right bundle branch block and left anterior fascicular block heart rate of 122. Telemetry tracings reveal persistent atrial fibrillation with variable ventricular rates. According to the nursing staff while at rest the patient's rates are controlled however with any activity or movement he goes up to 120-130 beats a minute. Lisinopril has been held by the primary care team. Chest x-ray reveals chronic changes and cardiomegaly with new peripheral basilar acute infiltrates, correlate for possible COVID-19 infection. Repeat Covid testing has been ordered. Initially was not detected on 07 14. 07/18/2021 Pt seen and examined today laying flat in bed. He is less responsive today and not really communicating. Blood pressure 158/79 heart rate 63 afebrile maintaining oxygen saturation on room air. He continues to be in atrial fibrillation with rates mostly in the 60s. He is having some less than 2 second pauses on telemetry which is expected with A. fib, especially while he is sleeping. PHYSICAL EXAMINATION CONSTITUTIONAL: No apparent distress. HEENT: Head is normocephalic. Pupils are equal, round. Sclerae anicteric. Mucous membranes of the mouth are moist. No JVD. No carotid bruit. CHEST EXAMINATION: Lungs are clear to auscultation. No chest wall tenderness is noted on palpation or with deep breathing. HEART EXAMINATION: Irregular rate and rhythm. S1, S2 heard. Systolic ejection murmur at the left sternal border and apex, no gallops or rub. EXTREMITIES: 2+ peripheral pulses, no lower extremity edema and no calf tenderness. ASSESSMENT Possible syncope Altered mental status Chronic persistent atrial fibrillation Coronary artery disease status post bypass grafting Hypertension Dyslipidemia Chronic systolic heart failure, clinically euvolemic PLAN Continue current regimen. Nurse Practitioner note has been reviewed, I agree with a documented findings and plan of care. Patient was seen and examined. Objective - Vital Signs Vital signs: Vital Signs Temp 97.6 F 07/18/21 07:46 Pulse 63 07/18/21 07:48 Resp 18 07/18/21 07:48 BP 158/79 07/18/21 07:46 Pulse Ox 98 07/18/21 07:46 Intake & Output 07/17/21 07/18/21 07/18/21 18:59 06:59 18:59 Output Total 300 1400 Balance -300 -1400 Output: Urine 300 1400 Other: Voiding Method Indwelling Catheter Indwelling Catheter Indwelling Catheter # Bowel Movements 2 - Labs CBC & Chem 7: 07/13/21 19:59 07/17/21 10:33 Labs: Abnormal Lab Results - Last 24 Hours (Table) 07/17/21 Range/Units 10:33 Sodium 135 L (137-145) mmol/L Potassium 3.3 L (3.5-5.1) mmol/L Carbon Dioxide 20 L (22-30) mmol/L Glucose 108 H (74-99) mg/dL
--- NOTE | 2021-07-18 15:24 | P.PN ---
Subjective Progress Note Date: 07/18/21 HISTORY OF PRESENT ILLNESS This is an 85-year-old male patient of Dr. Lopez and Dr. VAHID Pan. He has a past medical history of SC and coronary artery disease status post stenting and 4 vessel CABG done in [place] in 1999, LISA to LAD, SVG to intermediate, and SVG to diagonal, as well as SVG to left circumflex, hypertension, hypertensive vascular disease, hyperlipidemia with history of prostate cancer treated with radiation. He completed radiation treatment in April 2012. 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 In 2013 patient had acute non-ST elevated myocardial infarction and underwent stenting of the SVG to the left circumflex. Patient has had multiple admissions for syncopal episodes followed by cardiology and neurology with unclear etiology. Patient was recently hospitalized in June and discharged home with home care and has refused rehab in the past. Neurology had recommended one half hour ambulatory EEG as an outpatient and possible sleep study and was started on Keppra 250 mg twice daily. He did have follow-up appointment with Dr. Gustafson on It is undetermined if these occurred. He now presents with similar symptoms. Patient was out with his daughter and had a syncopal episode apparently was found to have initial blood pressure in the 60s. He did not have any fall as he was sitting in a wheelchair when this occurred, no dizziness or lightheadedness. No nausea or vomiting. His repeat blood pressure upon arrival was 124/81 with heart rate of 113, pulse ox 97% on room air. EKG CBC was unremarkable with hemoglobin at 11.5. Sodium 141, potassium 4.4, chloride 110, CO2 21, BUN 33 and creatinine 1.47 which is his baseline of 1.4. Urinalysis was negative for infection. CAT scan of the brain showed no acute processes only age-related changes Chest x-ray showed no acute pulmonary process He was stabilized in the emergency center but daughter was not comfortable taking him home. Patient is seen this morning and is sleeping in bed and difficult to arouse which is normal for patient in the mornings in the hospital. 10: Patient is awake and alert but confused this morning. He states he is not feeling any better. Matson catheter has been placed for urinary retention of 1500 ML's. Flomax will be started. PT and OT consults are in place and we will ask for social work to evaluate for placement. Patient did have temperature maximum 100.5, heart rate 91, blood pressure 107/63, pulse ox 95% on room air. Repeat urinalysis and culture, chest x-ray ordered and patient started on Rocephin for now. Await orthostatics. 07/16: Patient's daughter is at bedside and relates that since his last hospitalization, patient has been living with her and her . Patient is not ambulatory. They do left him into a wheelchair. She states that when he had the syncopal episode that brought him in the hospital, her noted that his heart rate was going fast and slow. She also noted some jerking motions concerning for seizure activity which she also states occurred while he was in the emergency center. A chest x-ray on 07/15 was done that revealed chronic changes and cardiomegaly with new peripheral basilar acute infiltrates correlate for possible Covid 19 infection. Repeat Covid testing is been ordered as well as inflammatory markers. IV fluids discontinued. Echocardiogram from 06/23/2021 revealed EF of 30-35% with moderate concentric left ventricle hypertrophy, mild aortic regurgitation, moderate to severe mitral regurgitation, [id number] tricuspid regurgitation, aortic root is mildly dilated. Cardiology consult was added for evaluation for arrhythmia as well as neurology for syncope possible seizure. Patient has been started on ceftriaxone. 07/17: Repeat coronavirus was not detected. TSH 2.240. C-reactive protein 3.1. CK was 84. LDH 361 normal. D-dimer 0.94. Other lab work revealed sodium 135, potassium 3.3, chloride 107, CO2 20, BUN 19 and creatinine 1.19. He has been afebrile, heart rate 60s and 70s, blood pressure 129/62, pulse ox 93% on room air. Patient is awake today but is confused. Neurology consult is in process. Patient has been seen by cardiology and recommended continuing beta blockers possibly increase to twice daily, 30 day event monitor at discharge. Her potassium will be replaced. 07/18: Patient is sleeping and snoring this morning does not wake up to verbal stimuli. Patient was in atrial flutter this morning with pauses of 2-2.6 seconds and cardiology was notified with plan to hold beta glenis, history of atrial flutter. Discussed case with neurology and no plan for any further wo rkup. Patient has probable mild dimension with mild parkinsonian rigidity. Carotid ultrasound revealed 50-69% stenosis involving the proximal left internal carotid artery which is unchanged from previous study. Patient's daughter Enedina was updated via phone call with Dr. Kothari and plan is to continue conservative treatment, palliative care will be arranged and land for discharge home tomorrow. REVIEW OF SYSTEMS Constitutional: No documented fever. No weight change. Reported weakness, reports fatigue, noted lethargy. Noted daytime sleepiness. EENT: No headache. No blurred vision or double vision, no loss of vision. Chronic loss of Hearing No nasal drainage or congestion. No epistaxis. No sore throat. Lungs: No shortness of breath, reports cough, no sputum production. No wheezing. Cardiovascular: No chest pain, no lower extremity edema. No palpitations. No paroxysmal nocturnal dyspnea. No orthopnea. No lightheadedness or dizziness. Reported syncopal episodes with jerking movements. Abdominal: No abdominal pain. No nausea, vomiting. No diarrhea. No constipation. No bloody or tarry stools.. No loss of appetite. Genitourinary: No dysuria, increased frequency, urgency. Noted urinary retention. Musculoskeletal: No myalgias. Reports muscle weakness, reports gait dysfunction, no frequent falls. No back pain. No neck pain. Integumentary: No wounds, no lesions. No rash or pruritus. No unusual bruising. No change in hair or nails. Neurologic: No aphasia. No facial droop. Noted change in mentation patient confused. No head injury. No headache. No paralysis. No paresthesia. Psychiatric: No depression. No anxiety. Endocrine: No abnormal blood sugars. PHYSICAL EXAMINATION Gen: This is an 86-year-old male. He is resting in bed and in no acute distress. HEENT: Head is atraumatic, normocephalic. Pupils equal, round. Sclerae is anicteric. NECK: Supple. No JVD. No lymphadenopathy. No thyromegaly. LUNGS: Clear to auscultation. No wheezes or rhonchi. No intercostal retractions. HEART: Irregular rate and rhythm. Systolic murmur. ABDOMEN: Soft. Bowel sounds are present. No masses. No tenderness. EXTREMITIES: No pedal edema. No calf tenderness. NEUROLOGICAL: Patient is sleeping. ASSESSMENT AND PLAN 1. Syncopal episode most likely due to hypotension, possible arrhythmia, possible seizure. Monitor orthostatics. Patient has had full workup on previous hospitalizations. Consult PT and OT. Midodrine 5 mg twice daily add ed. 2. Metabolic encephalopathy possibly due to underlying pneumonia, POA. Patient's been started on ceftriaxone 1 g IV piggyback daily. Covid 19 is been ruled out by repeat testing and inflammatory markers. 3. Chronic persistent atrial fibrillation. Continue eliquis 2.5 mg twice daily, cardiology consult appreciated, patient started on Lopressor 25 mg daily 4. History of coronary artery disease with prior bypass and stenting, stable. Continue atorvastatin 40 mg daily, Imdur 30 mg daily. 5. Hypertension, hypertensive cardiovascular disease. Continue lisinopril 5 mg daily. 6. Hyperlipidemia. Continue statin 7. Chronic kidney disease stage IIIa, stable. Baseline creatinine 1.4. 8. Anemia of chronic kidney disease, stable 9. History of prostate cancer treated with radiation, stable. 10. 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 11. Short-term memory deficit, loss of appetite, recurrent depression. Patient continued on Remeron 7.5 mg at bedtime. 12. Possible seizure disorder. Keppra 250 mg every 12 hours. Neurology consult appreciated. 13. Urinary retention. Matson catheter placement, start Flomax 0.4 mg daily. 14. Chronic systolic heart failure with EF 30-35%, Discontinue IVF. 15. Valvular heart disease with moderate to severe mitrol regurgitation, mild to moderate tricuspid regurgitation. 16. GI prophylaxis. Protonix. 17. DVT prophylaxis. Eliquis. DISCHARGE PLAN Home with [facility]. Impression and plan of care have been directed as dictated by the signing physician. Gloria Oneill nurse practitioner acting as scribe for signing physician. Objective - Vital Signs Vital signs: Vital Signs Temp 97.6 F 07/18/21 07:46 Pulse 63 07/18/21 07:48 Resp 18 07/18/21 07:48 BP 158/79 07/18/21 07:46 Pulse Ox 98 07/18/21 07:46 Intake & Output 07/17/21 07/18/21 07/18/21 18:59 06:59 18:59 Output Total 300 1400 Balance -300 -1400 Output: Urine 300 1400 Other: Voiding Method Indwelling Catheter Indwelling Catheter Indwelling Catheter # Bowel Movements 2 - Labs CBC & Chem 7: 07/13/21 19:59 07/17/21 10:33 Labs: Abnormal Lab Results - Last 24 Hours (Table) 07/17/21 Range/Units 10:33 Sodium 135 L (137-145) mmol/L Potassium 3.3 L (3.5-5.1) mmol/L Carbon Dioxide 20 L (22-30) mmol/L Glucose 108 H (74-99) mg/dL
[2021-07-18 16:32] LABS: ABG Base Excess -1.2 mmol/L; ABG HCO3 24 mmol/L (21-25); ABG Oxygen Saturation 95.4 % (94-97); ABG PCO2 38 mmHg (35-45); ABG PH 7.41 (7.35-7.45); ABG PO2 72 mmHg (83-108); ABG TCO2 25 mmol/L (19-24); Allen Test Performed? Yes
--- NOTE | 2021-07-18 17:40 | P.PN ---
Subjective Progress Note Date: 07/18/21 Patient was seen for a follow-up. Patient at present is sleeping. Patient is having obvious episodes of apnea. I timed the apnea and lasted for 58 seconds. I witnessed 2 such spells, and also witnessed by the respiratory therapist. Objective - Vital Signs Vital signs: Vital Signs Temp 97.4 F L 07/18/21 13:25 Pulse 66 07/18/21 13:25 Resp 16 07/18/21 13:25 BP 149/73 07/18/21 13:25 Pulse Ox 94 L 07/18/21 13:25 Intake & Output 07/17/21 07/18/21 07/18/21 18:59 06:59 18:59 Output Total 300 1400 700 Balance -300 -1400 -700 Output: Urine 300 1400 700 Other: Voiding Method Indwelling Catheter Indwelling Catheter Indwelling Catheter # Bowel Movements 2 - Exam Patient is asleep. Patient is showing Wu stroke breathing. Patient has pauses up to 58 seconds witnessed. Patient would have myoclonic jerks during apnea. - Labs CBC & Chem 7: 07/13/21 19:59 07/17/21 10:33 Assessment and Plan Assessment: * Syncopal spell, likely due to dehydration, hypovolemia. Patient was obviously hypotensive at the scene with blood pressure 78/48 which further dropped down to 67/40 at the scene. Patient's renal functions were abnormal on admission, which normalized the following day, suggestive of some dehydration. Patient had normal EEG in the recent past. * Severe sleep apnea. Patient is exhibiting 58 second pauses in respiration with his apnea. 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 CT head reported as hydrocephalus. On my review, there is definite at least moderate amount of cortical atrophy as well, with secondary ventricular dilation. There could be possibly some component of NPH as well. * Hard of hearing. Plan: * ABG, continuous pulse oximetry. Pulmonary consultation for sleep apnea. * Cardiology has seen the patient, recommending event monitor hook-up. * No other neurological workup indicated. Recent EEG showed no epileptiform activity. * Carotid Doppler revealed atherosclerotic plaque with findings suggestive of 50-69% stenosis involving the proximal left ICA. Consider adding aspirin 81 mg daily for left ICA stenosis. Consider vascular surgery consult. * 2-D echo from 06/23/2021 shows moderate concentric LVH. EF is moderately to severely impaired between 30-35%. Right ventricle is severely enlarged. Moderate to severe MR. Mild to moderate TR. * Continue Elilquis 2.5 mg twice a day and Lipitor 20 mg. * Patient's B12 639, folate > 24.0, TSH is normal. * We will check lipid panel and hemoglobin A1c. * Discussed with Dr. Kothari in detail.
[2021-07-18] MEDS: MIRTAZAPINE 15 MG TAB PO SCH (20:37)
[2021-07-18] MEDS: TAMSULOSIN 0.4 MG CAP.ER.24H PO SCH (20:38)
[2021-07-18] MEDS ORDERED: ATORVASTATIN 20 MG TAB PO SCH (21:00)
[2021-07-19] MEDS ORDERED: ISOSORBIDE MONONITRATE ER 30 MG TAB.ER.24H PO SCH (03:15)
[2021-07-19] MEDS: MIDODRINE 5 MG TAB PO SCH (08:38)
[2021-07-19] MEDS: PANTOPRAZOLE 40 MG TABLET PO SCH (09:06)
[2021-07-19] MEDS: APIXABAN 2.5 MG TABLET PO SCH (09:07)
[2021-07-19] MEDS: levETIRAcetam 250 MG TAB PO SCH (09:15)
--- NOTE | 2021-07-19 11:39 | P.PN ---
Subjective HISTORY OF PRESENTING ILLNESS This is a pleasant 86-year-old male past medical history significant for coronary artery disease status post bypass grafting in 1999 with LISA to LAD, SVG to D1, SVG to ramus and SVG to OM1, chronic persistent atrial fibrillation status post cardioversion back in A. fib, dyslipidemia, systolic heart failure and history of prostate cancer status post radiation. He follows in the office with Dr. Pan. We have been asked to see in consultation for syncope. He is somewhat of a poor historian. Information is obtained from medical record and nursing staff. He was brought to the emergency department by EMS due to possible syncope. Apparently he was seated in his wheelchair outside when he started to become confused and then passed out. The patient himself does not recall this happening. In the emergency department he was asymptomatic. He was seen and evaluated for similar type episode earlier this month. At that time he had an echocardiogram revealing impaired LV systolic function with ejection fraction 30-35%, moderate concentric LVH, moderate to severe MR and [id number] tricuspid regurgitation. He was on coreg during that admission. He was discharged at that time on coreg 3.125 mg BID, which is not currently being given for unknown reasons. EKG on arrival reveals atrial fibrillation with right bundle branch block and left anterior fascicular block heart rate of 122. Telemetry tracings reveal persistent atrial fibrillation with variable ventricular rates. According to the nursing staff while at rest the patient's rates are controlled however with any activity or movement he goes up to 120-130 beats a minute. Lisinopril has been held by the primary care team. Chest x-ray reveals chronic changes and cardiomegaly with new peripheral basilar acute infiltrates, correlate for possible COVID-19 infection. Repeat Covid testing has been ordered. Initially was not detected on 07 14. 07/19/2021 Pt seen resting comfortably laying flat in bed in no acute distress. He con tinues to be somnolent. Blood pressure 128/79 heart rate 86 afebrile and maintaining oxygen saturation on room air. He continues to be in atrial fibrillation with controlled ventricular rates. Pauses improved after holding lopressor. He is going to be discharged home today on palliative care. PHYSICAL EXAMINATION CONSTITUTIONAL: No apparent distress. HEENT: Head is normocephalic. Pupils are equal, round. Sclerae anicteric. Mucous membranes of the mouth are moist. No JVD. No carotid bruit. CHEST EXAMINATION: Lungs are clear to auscultation. No chest wall tenderness is noted on palpation or with deep breathing. HEART EXAMINATION: Irregular rate and rhythm. S1, S2 heard. Systolic ejection murmur at the left sternal border and apex, no gallops or rub. EXTREMITIES: 2+ peripheral pulses, no lower extremity edema and no calf tenderness. ASSESSMENT Possible syncope Altered mental status Chronic persistent atrial fibrillation Coronary artery disease status post bypass grafting Hypertension Dyslipidemia Chronic systolic heart failure, clinically euvolemic PLAN Continue current regimen. Event monitor placed. Stable from a cardiac perspective. Nurse Practitioner note has been reviewed, I agree with a documented findings and plan of care. Patient was seen and examined. Objective - Vital Signs Vital signs: Vital Signs Temp 98.6 F 07/19/21 08:00 Pulse 86 07/19/21 08:00 Resp 16 07/19/21 08:45 BP 128/73 07/19/21 08:00 Pulse Ox 96 07/19/21 08:00 Intake & Output 07/18/21 07/19/21 07/19/21 18:59 06:59 18:59 Output Total 700 750 Balance -700 -750 Output: Urine 700 750 Other: Voiding Method Indwelling Catheter Indwelling Catheter Indwelling Catheter - Labs CBC & Chem 7: 07/13/21 19:59 07/17/21 10:33 Labs: Abnormal Lab Results - Last 24 Hours (Table) 07/18/21 Range/Units 16:24 ABG pO2 72 L (83-108) mmHg ABG Total CO2 25 H (19-24) mmol/L
[2021-07-19 13:09] VITALS: BMI 25.1
--- NOTE | 2021-07-19 14:03 | P.CNPUL ---
History of Present Illness Consult date: 07/19/21 Requesting physician: Jodi Kothari Reason for consult: other (Episodes of apnea) Chief complaint: Syncope History of present illness: This is an 86-year-old male patient with a history of suspected mild dementia mild parkinsonian rigidity, hydrocephalus on CT, cortical atrophy with secondary ventricular dilation, coronary artery disease with previous stenting and coronary artery bypass grafting, hyperlipidemia, hypertension, prostate cancer treated with radiation, previous CVA short-term memory deficit, paroxysmal atrial fibrillation status post cardioversion, chronic kidney disease stage III. He is admitted here on 07/13/2021 following a syncopal episode. He's had a cardiology and neurology workup. Yesterday he was noted to have periods of sleep apnea and we are consulted today for the same. He is seen on the regular medical floor. Currently awake and alert. Arterial blood gases on room air reveal a pO2 of 72, pCO2 38 and a pH of 7.41. Maintaining O2 saturations in the upper 90s on room air. Afebrile. Hemodynamically stable. Chest x-ray revealed chronic changes and cardiomegaly with some peripheral basilar infiltrates. Carotid Doppler revealed a 50-69% stenosis of the left internal carotid artery. He's on antibiotics in the form of ceftriaxone. Anticoagulated with Eliquis. He remains on Keppra. Review of Systems ROS unobtainable: due to mental status Past Medical History Past Medical History: Atrial Fibrillation, Coronary Artery Disease (CAD), Cancer, Hyperlipidemia, Hypertension, Myocardial Infarction (MA), Osteoarthritis (OA), Prostate Disorder Additional Past Medical History / Comment(s): 1999-prostate cancer with radiation Last Myocardial Infarction Date:: 1998 History of Any Multi-Drug Resistant Organisms: None Reported Past Surgical History: Coronary Bypass/CABG, Heart Catheterization With Stent, Hernia Repair Additional Past Surgical History / Comment(s): Open heart Quadrupal bypass (1998) Past Anesthesia/Blood Transfusion Reactions: No Reported Reaction Date of Last Stent Placement:: 2015 Past Psychological History: No Psychological Hx Reported Smoking Status: Former smoker Past Alcohol Use History: None Reported Past Drug Use History: None Reported - Past Family History Father Family Medical History: Congestive Heart Failure (CHF), COPD, Coronary Artery Disease (CAD) Additional Family Medical History / Comment(s): at age 72. Mother Family Medical History: Cancer Additional Family Medical History / Comment(s): at age 86, colon cancer. Sister(s) Family Medical History: COPD, Liver Disease Additional Family Medical History / Comment(s): Patient had one sister with hist ory of alcoholism and at age 71. She also had COPD. Brother(s) Additional Family Medical History / Comment(s): Patient has one dtr that from diabetes complications. One son has history of hypertension. One daughter has diabetes. Medications and Allergies Home Medications Medication Instructions Recorded Confirmed Type Apixaban [Eliquis] 2.5 mg PO BID #60 tab 05/25/19 07/13/21 Rx Isosorbide Mononitrate ER [Imdur] 30 mg PO DAILY #0 02/20/20 07/13/21 Rx Mirtazapine [Remeron] 7.5 mg PO HS #30 tab 06/27/21 07/13/21 Rx levETIRAcetam [Keppra] 250 mg PO Q12HR #60 tab 06/28/21 07/13/21 Rx Atorvastatin [Lipitor] 20 mg PO HS #0 07/19/21 07/13/21 Rx Midodrine [ProAmatine] 5 mg PO AC-BID #60 tab 07/19/21 Rx Tamsulosin [Flomax] 0.4 mg PO DAILY #30 cap 07/19/21 Rx Allergies Allergy/AdvReac Type Severity Reaction Status Date / Time No Known Allergies Allergy Verified 07/13/21 21:34 Physical Exam Vitals: Vital Signs Temp Pulse Resp BP Pulse Ox 07/19/21 08:45 16 07/19/21 08:00 98.6 F 86 18 128/73 96 07/19/21 07:23 96 07/19/21 02:00 98.2 F 62 16 163/83 99 07/18/21 19:33 98.6 F 61 15 173/74 99 07/18/21 16:36 96 Intake and Output 07/18/21 07/19/21 07/19/21 22:59 06:59 14:59 Output Total 750 Balance -750 Output: Urine 750 Other: Voiding Method Indwelling Catheter Indwelling Catheter Weight 79.379 kg GENERAL EXAM: Alert, 86-year-old gentleman, on room air, comfortable in no apparent distress. HEAD: Normocephalic. EYES: Normal reaction of pupils, equal size. NOSE: Clear with pink turbinates. THROAT: No erythema or exudates. NECK: No masses, no JVD. CHEST: No chest wall deformity. LUNGS: Equal air entry with no crackles, wheeze, rhonchi or dullness. CVS: S1 and S2 normal with no audible murmur, regular rhythm. ABDOMEN: No hepatosplenomegaly, normal bowel sounds, no guarding or rigidity. SPINE: No scoliosis or deformity SKIN: No rashes CENTRAL NERVOUS SYSTEM: No focal deficits, tone is normal in all 4 extremities. EXTREMITIES: There is no peripheral edema. No clubbing, no cyanosis. Peripheral pulses are intact. Results - Laboratory Findings CBC and BMP: 07/13/21 19:59 07/17/21 10:33 ABG ABG pH 7.41 (7.35-7.45) 07/18/21 16:24 ABG pCO2 38 mmHg (35-45) 07/18/21 16:24 ABG pO2 72 mmHg (83-108) L 07/18/21 16:24 ABG O2 Saturation 95.4 % (94-97) 07/18/21 16:24 PT/INR, D-dimer PT 10.6 sec (9.0-12.0) 07/13/21 19:59 INR 1.0 (<1.2) 07/13/21 19:59 D-Dimer 0.94 mg/L FEU (<0.60) H 07/16/21 12:08 Abnormal lab findings: Abnormal Labs 07/13/21 07/13/21 07/13/21 19:59 19:59 19:59 RBC 3.57 L Hgb 11.5 L Hct 33.6 L Neutrophils # 8.1 H APTT 18.9 L D-Dimer ABG pO2 ABG Total CO2 Sodium Potassium Chloride 110 H Carbon Dioxide 21 L BUN 33 H Creatinine 1.47 H Glucose 135 H POC Glucose (mg/dL) C-Reactive Protein Total Protein 6.1 L Albumin 3.1 L Urine Protein Urine Blood Ur Leukocyte Esterase Urine RBC Urine WBC Clumps Urine Bacteria Urine Mucus Urine Yeast (Budding) 07/13/21 07/15/21 07/16/21 19:59 14:00 12:08 RBC Hgb Hct Neutrophils # APTT D-Dimer 0.94 H ABG pO2 ABG Total CO2 Sodium Potassium Chloride Carbon Dioxide BUN Creatinine Glucose POC Glucose (mg/dL) C-Reactive Protein Total Protein Albumin Urine Protein Trace H 1+ H Urine Blood Small H Large H Ur Leukocyte Esterase Small H Urine RBC >182 H Urine WBC Clumps Few H Urine Bacteria Occasional H Urine Mucus Rare H Occasional H Urine Yeast (Budding) Occasional H 07/16/21 07/16/21 07/17/21 12:08 21:28 10:33 RBC Hgb Hct Neutrophils # APTT D-Dimer ABG pO2 ABG Total CO2 Sodium 135 L Potassium 3.3 L Chloride Carbon Dioxide 20 L BUN Creatinine Glucose 108 H POC Glucose (mg/dL) 108 H C-Reactive Protein 3.1 H Total Protein Albumin Urine Protein Urine Blood Ur Leukocyte Esterase Urine RBC Urine WBC Clumps Urine Bacteria Urine Mucus Urine Yeast (Budding) 07/18/21 16:24 RBC Hgb Hct Neutrophils # APTT D-Dimer ABG pO2 72 L ABG Total CO2 25 H Sodium Potassium Chloride Carbon Dioxide BUN Creatinine Glucose POC Glucose (mg/dL) C-Reactive Protein Total Protein Albumin Urine Protein Urine Blood Ur Leukocyte Esterase Urine RBC Urine WBC Clumps Urine Bacteria Urine Mucus Urine Yeast (Budding) Assessment and Plan Assessment: 1 Periods of apnea noted by staff. No significant hypercapnia noted on blood gases 2 Syncopal episode secondary to hypotension with complete workup on previous admissions 3 Possible seizure disorder, currently on Keppra 4 Coronary artery disease with previous bypass surgery and previous stenting. 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 Mathews Recommend outpatient sleep study to rule out obstructive sleep apnea/central sleep apnea No other inpatient recommendation I, the cosigning physician, performed a history & physical examination of the patient. Lungs sounds with crackles in the posterior bases. Maintaining good O2 saturations in the 90s on room air. I discussed the assessment and plan of care with my nurse practitioner, Joanna Taveras. I attest to the above consultation as dictated by her. Time with Patient: Greater than 30
[2021-07-19 14:26] LABS: HDL Cholesterol 36.7 mg/dL (40.00-60.00); LDL Cholesterol,Calculated 59.2 mg/dL (0.0-131.0); Triglycerides 70.7 mg/dL (0.00-149.00); VLDL Calculation 14.14 mg/dL (5.00-40.00)
--- NOTE | 2021-07-19 14:28 | P.DS ---
<Gloria Oneill A - Last Filed: 07/20/21 07:37> Providers Expected date of discharge: 07/19/21 Hospital Course: HISTORY OF PRESENT ILLNESS This is an 85-year-old male patient of Dr. Lopez and Dr. VAHID Pan. He has a past medical history of [place] and coronary artery disease status post stenting and 4 vessel CABG done in [place] in 1999, LISA to LAD, SVG to intermediate, and SVG to diagonal, as well as SVG to left circumflex, hypertension, hypertensive vascular disease, hyperlipidemia with history of prostate cancer treated with radiation. He completed radiation treatment in April 2012. 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 In 2013 patient had acute non-ST elevated myocardial infarction and underwent stenting of the SVG to the left circumflex. Patient has had multiple admissions for syncopal episodes followed by cardiology and neurology with unclear etiology. Patient was recently hospitalized in [facility] and discharged home with home care and has refused rehab in the past. Neurology had recommended one half hour ambulatory EEG as an outpatient and possible sleep study and was started on Keppra 250 mg twice daily. He did have follow-up appointment with Dr. Gustafson on : It is undetermined if these occurred. He now presents with similar symptoms. Patient was out with his daughter and had a syncopal episode apparently was found to have initial blood pressure in the 60s. He did not have any fall as he was sitting in a wheelchair when this occurred, no dizziness or lightheadedness. No nausea or vomiting. His repeat blood pressure upon arrival was 124/81 with heart rate of 113, pulse ox 97% on room air. EKG CBC was unremarkable with hemoglobin at 11.5. Sodium 141, potassium 4.4, chloride 110, CO2 21, BUN 33 and creatinine 1.47 which is his baseline of 1.4. Urinalysis was negative for infection. CAT scan of the brain showed no acute processes only age-related changes Chest x-ray showed no acute pulmonary process He was stabilized in the emergency center but daughter was not comfortable taking him home. Patient is seen this morning and is sleeping in bed and difficult to arouse which is normal for patient in the mornings in the hospital. 07/15: Patient is awake and alert but confused this morning. He states he is not feeling any better. Matson catheter has been placed for urinary retention of 1500 ML's. Flomax will be started. PT and OT consults are in place and we will ask for social work to evaluate for placement. Patient did have temperature maximum 100.5, heart rate 91, blood pressure 107/63, pulse ox 95% on room air. Repeat urinalysis and culture, chest x-ray ordered and patient started on Rocephin for now. Await orthostatics. 07/16: Patient's daughter is at bedside and relates that since his last hospitalization, patient has been living with her and her . Patient is not ambulatory. They do left him into a wheelchair. She states that when he had the syncopal episode that brought him in the hospital, her noted that his heart rate was going fast and slow. She also noted some jerking motions concerning for seizure activity which she also states occurred while he was in the emergency center. A chest x-ray on 07/15 was done that revealed chronic changes and cardiomegaly with new peripheral basilar acute infiltrates correlate for possible Covid 19 infection. Repeat Covid testing is been ordered as well as inflammatory markers. IV fluids discontinued. Echocardiogram from 06/23/2021 revealed EF of 30-35% with moderate concentric left ventricle hypertrophy, mild aortic regurgitation, moderate to severe mitral regurgitation, [id number] tricuspid regurgitation, aortic root is mildly dilated. Cardiology consult was added for evaluation for arrhythmia as well as neurology for syncope possible seizure. Patient has been started on ceftriaxone. 07/17: Repeat coronavirus was not detected. TSH 2.240. C-reactive protein 3.1. CK was 84. LDH 361 normal. D-dimer 0.94. Other lab work revealed sodium 135, potassium 3.3, chloride 107, CO2 20, BUN 19 and creatinine 1.19. He has been afebrile, heart rate 60s and 70s, blood pressure 129/62, pulse ox 93% on room air. Patient is awake today but is confused. Neurology consult is in process. Patient has been seen by cardiology and recommended continuing beta blockers possibly increase to twice daily, 30 day event monitor at discharge. Her potassium will be replaced. 07/18: Patient is sleeping and snoring this morning does not wake up to verbal stimuli. Patient was in atrial flutter this morning with pauses of 2-2.6 seconds and cardiology was notified with plan to hold beta glenis, history of atrial flutter. Discussed case with neurology and no plan for any further workup. Patient has probable mild dimension with mild parkinsonian rigidity. Carotid ultrasound revealed 50-69% stenosis involving the proximal left internal carotid artery which is unchanged from previous study. Patient's daughter Enedina was updated via phone call with Dr. Kothari and plan is to continue conservative treatment, palliative care will be arranged and land for discharge home tomorrow. 07/19: Patient had noted periods of apnea 45-50 seconds that was witnessed by Dr. Boyle and he recommended consult with pulmonary medicine and Dr. Lance has recommended outpatient sleep study. Patient has a overnight pulse ox and this remained at 96 or more through the night and this morning. Patient is sleeping at the time of our evaluation. Event monitor has been placed. Matson catheter to remain in place at home. Patient will be discharged home with his daughter in stable condition. Plan is for palliative care as well. ASSESSMENT AND PLAN 1. Syncopal episode most likely due to hypotension, possible arrhythmia, possible seizure. 2. Metabolic encephalopathy secondary to hypotension. Pneumonia ruled out by pulmonary medicine. 3. Chronic persistent atrial fibrillation. 4. History of coronary artery disease with prior bypass and stenting, stable. 5. Hypertension, hypertensive cardiovascular disease. 6. Hyperlipidemia. 7. Chronic kidney disease stage IIIa, stable. 8. Anemia of chronic kidney disease, stable 9. History of prostate cancer treated with radiation, stable. 10. 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 11. Short-term memory deficit, loss of appetite, recurrent depression. 12. Possible seizure disorder. 13. Urinary retention. 14. Chronic systolic heart failure with EF 30-35%. 15. Valvular heart disease with moderate to severe mitrol regurgitation, mild to moderate tricuspid regurgitation. 16. Periods of apnea while sleeping, outpatient sleep study recommended. DISCHARGE PLAN Home with [facility]. Impression and plan of care have been directed as dictated by the signing physician. Gloria Oneill nurse practitioner acting as scribe for signing physician. Patient Condition at Discharge: Stable Plan - Discharge Summary Discharge Rx Participant: Yes New Discharge Prescriptions: New Midodrine [ProAmatine] 5 mg PO AC-BID #60 tab Tamsulosin [Flomax] 0.4 mg PO DAILY #30 cap Continue Apixaban [Eliquis] 2.5 mg PO BID #60 tab Isosorbide Mononitrate ER [Imdur] 30 mg PO DAILY #0 Mirtazapine [Remeron] 7.5 mg PO HS #30 tab levETIRAcetam [Keppra] 250 mg PO Q12HR #60 tab Changed Atorvastatin [Lipitor] 20 mg PO HS #0 Discontinued lisinopriL [Zestril] 5 mg PO DAILY #30 tab Citalopram Hydrobromide [CeleXA] 20 mg PO DAILY Discharge Medication List Apixaban [Eliquis] 2.5 mg PO BID #60 tab 05/25/19 [Rx] Isosorbide Mononitrate ER [Imdur] 30 mg PO DAILY #0 02/20/20 [Rx] Mirtazapine [Remeron] 7.5 mg PO HS #30 tab 06/27/21 [Rx] levETIRAcetam [Keppra] 250 mg PO Q12HR #60 tab 06/28/21 [Rx] Atorvastatin [Lipitor] 20 mg PO HS #0 07/19/21 [Rx] Midodrine [ProAmatine] 5 mg PO AC-BID #60 tab 07/19/21 [Rx] Tamsulosin [Flomax] 0.4 mg PO DAILY #30 cap 07/19/21 [Rx] Follow up Appointment(s)/Referral(s): Ana Pan MD [STAFF PHYSICIAN] - 08/01/21 1:15 pm Roberto Lopez MD [Primary Care Provider] - 07/24/21 4:45 pm (This will be a phone call visit. Office will call) [facility], [NON-STAFF] - [facility] [NON-STAFF] - Patient Instructions/Handouts: Syncope (DC), Matson Catheter Placement and Care (DC), Hypotension (DC) Activity/Diet/Wound Care/Special Instructions: Recommend outpatient sleep study to rule out sleep apnea Hold Midodrine if Blood pressure is greater then 140. Discharge Disposition: HOME WITH HOME HEALTH SERVICES <Jodi Kothari - Last Filed: 07/20/21 13:19> Providers Date of admission: 07/14/21 15:19 Attending physician: Jodi Kothari MD Consults: 07/16/21 11:27 Consult Physician Routine Consulting Provider: Matthew Neumann Consult Reason/Comments: syncope, arrythmia Do you want consulting provider notified?: Yes 07/16/21 11:35 Consult Physician Routine Consulting Provider: Javier Soto Consult Reason/Comments: syncope, possible seizure Do you want consulting provider notified?: Yes 07/18/21 16:08 Consult Physician Routine Consulting Provider: Desi Prater Consult Reason/Comments: episodic AMS. I timed apneas and lasting 58 seconds w claus villanueva breath Do you want consulting provider notified?: Yes Primary care physician: [facility] Course: More than 30 minutes was spent making assessment and plan for the patient.
[2021-07-19 15:39] VITALS: BP 137/67; PULSE 64; RESP 18; TEMP 97.8
--- NOTE | 2021-07-19 23:49 | P.PN ---
Subjective Progress Note Date: 07/19/21 07/19/2021: Patient is much alert and awake, in no distress. Denies headache, or any numbness tingling or weakness. Telemetry monitoring showing atrial flutter controlled. 07/18/2021: Patient was seen for a follow-up. Patient at present is sleeping. Patient is having obvious episodes of apnea. I timed the apnea and lasted for 58 seconds. I witnessed 2 such spells, and also witnessed by the respiratory therapist. Objective - Vital Signs Vital signs: Vital Signs Temp 97.8 F 07/19/21 14:00 Pulse 64 07/19/21 14:00 Resp 18 07/19/21 14:00 BP 137/67 07/19/21 14:00 Pulse Ox 99 07/19/21 14:00 Intake & Output 07/19/21 07/19/21 07/20/21 06:59 18:59 06:59 Output Total 750 Balance -750 Weight 79.379 kg Output: Urine 750 Other: Voiding Method Indwelling Catheter Indwelling Catheter - Exam Patient is fully alert and awake. Patient states it is the month of September and the year is . He knows that he is in [facility]. Speech and language functions are normal. Cranial nerves appears normal. Face is symmetric. Muscle strength is normal in the arms, with no drift. - Labs CBC & Chem 7: 07/13/21 19:59 07/17/21 10:33 Labs: Abnormal Lab Results - Last 24 Hours (Table) 07/19/21 Range/Units 05:25 HDL Cholesterol 36.70 L (40.00-60.00) mg/dL Assessment and Plan Assessment: * Syncopal spell, likely due to dehydration, hypovolemia. Patient was obviously hypotensive at the scene with blood pressure 78/48 which further dropped down to 67/40 at the scene. Patient's renal functions were abnormal on admission, which normalized the following day, suggestive of some dehydration. Patient had normal EEG in the recent past. * Severe sleep apnea. Patient is exhibiting 58 second pauses in respiration with his apnea. 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 CT head reported as h ydrocephalus. On my review, there is definite at least moderate amount of cortical atrophy as well, with secondary ventricular dilation. There could be possibly some component of NPH as well. * Hard of hearing. Plan: * ABG shows no significant CO2 retention. Pulmonary consultation appreciated. Recommending outpatient sleep study. * Cardiology has seen the patient, recommending event monitor hook-up. * No other neurological workup indicated. Recent EEG showed no epileptiform activity. * Carotid Doppler revealed atherosclerotic plaque with findings suggestive of 50-69% stenosis involving the proximal left ICA. Consider adding aspirin 81 mg daily for left ICA stenosis. Consider vascular surgery consult. * 2-D echo from 06/23/2021 shows moderate concentric LVH. EF is moderately to severely impaired between 30-35%. Right ventricle is severely enlarged. Mod erate to severe MR. Mild to moderate TR. * Continue Elilquis 2.5 mg twice a day and Lipitor 20 mg. * Patient's B12 639, folate > 24.0, TSH is normal. * We will check lipid panel and hemoglobin A1c. * CT head reported possibility of mild hydrocephalus. Suggest follow-up with neurologist as outpatient. May need referral to neurosurgery, if patient has persistent symptoms of NPH.
== END 2021-07-19 17:11 | disposition home health service (06) | DRG 314 ==
LOC: EC 19:03 → 4SSUR 23:05 → OBSVTOIN 07-14 15:19
PROVIDERS: ADMIT Internal Medicine; ATTEND Internal Medicine
DX: I95.9 Hypotension, unspecified (principal); G93.41 Metabolic encephalopathy; I48.19 Other persistent atrial fibrillation; I50.22 Chronic systolic (congestive) heart failure; I13.0 Hypertensive heart and chronic kidney disease with heart failure and stage 1 through stage 4 chronic kidney disease, or unspecified chronic kidney disease; F33.9 Major depressive disorder, recurrent, unspecified; I48.92 Unspecified atrial flutter; I49.9 Cardiac arrhythmia, unspecified; E86.1 Hypovolemia; Z51.5 Encounter for palliative care; E86.0 Dehydration; R55 Syncope and collapse; Z20.822 Contact with and (suspected) exposure to COVID-19; E78.5 Hyperlipidemia, unspecified; N18.31 Chronic kidney disease, stage 3a; I65.22 Occlusion and stenosis of left carotid artery; H91.90 Unspecified hearing loss, unspecified ear; D63.1 Anemia in chronic kidney disease; G47.30 Sleep apnea, unspecified; I25.10 Atherosclerotic heart disease of native coronary artery without angina pectoris; G40.909 Epilepsy, unspecified, not intractable, without status epilepticus; F03.90 Unspecified dementia, unspecified severity, without behavioral disturbance, psychotic disturbance, mood disturbance, and anxiety; R33.9 Retention of urine, unspecified; M19.90 Unspecified osteoarthritis, unspecified site; Z79.01 Long term (current) use of anticoagulants; Z79.899 Other long term (current) drug therapy; I25.2 Old myocardial infarction; Z95.5 Presence of coronary angioplasty implant and graft; Z95.1 Presence of aortocoronary bypass graft; Z85.46 Personal history of malignant neoplasm of prostate; Z92.3 Personal history of irradiation; Z99.3 Dependence on wheelchair; Z87.891 Personal history of nicotine dependence; I69.311 Memory deficit following cerebral infarction; Z80.0 Family history of malignant neoplasm of digestive organs; Z81.1 Family history of alcohol abuse and dependence; Z82.49 Family history of ischemic heart disease and other diseases of the circulatory system; Z82.5 Family history of asthma and other chronic lower respiratory diseases; Z83.3 Family history of diabetes mellitus
CPT/HCPCS: 36415; 36600; 70450; 71046; 80048; 80053; 80061; 81001; 82550; 82805; 83036; 83615; 83735; 84145; 84443; 84484; 85025; 85379; 85610; 85730; 86140; 87635; 93005; 93270; 93880; 94760; 94762